=== PATIENT | male | born 1950 | race Caucasian/White ===

== ENCOUNTER 2017-10-27 12:54 | Observation (INO) | payer MEDICARE ==
[2017-10-27 13:25] LABS: Basophils # (A) 0.1 k/uL (0-0.2); Basophils % (A) 0 %; Eosinophils # (A) 0.7 k/uL (0-0.7); Eosinophils % (A) 3 %; HCT 33.9 % (39.0-53.0); HGB 10.8 gm/dL (13.0-17.5); Lymphocytes # (A) 1.6 k/uL (1.0-4.8); Lymphocytes % (A) 8 %; MCH 25.6 pg (25.0-35.0); Mean Platelet Volume 6.9; Monocytes # (A) 0.7 k/uL (0-1.0); Monocytes % (A) 3 %; Neutrophils # (A) 17.6 k/uL (1.3-7.7); Neutrophils % (A) 85 %; Platelet Count 494 k/uL (150-450); RBC 4.23 m/uL (4.30-5.90); RDW 13.3 % (11.5-15.5); WBC 20.8 k/uL (3.8-10.6)
[2017-10-27 13:34] LABS: ALT 32 U/L (21-72); AST 14 U/L (17-59); Albumin 3.2 g/dL (3.5-5.0); Alkaline Phosphatase 111 U/L (38-126); Anion Gap 12 mmol/L; Blood Urea Nitrogen 17 mg/dL (9-20); Calcium 9.1 mg/dL (8.4-10.2); Carbon Dioxide 29 mmol/L (22-30); Chloride 96 mmol/L (98-107); Glucose 125 mg/dL (74-99); Magnesium 1.9 mg/dL (1.6-2.3); Potassium 4.5 mmol/L (3.5-5.1); Sodium 137 mmol/L (137-145); Total Bilirubin 0.3 mg/dL (0.2-1.3); Total Protein 6.4 g/dL (6.3-8.2)
[2017-10-27 13:38] LABS: D-Dimer 0.6 mg/L FEU (<0.60); Partial Thromboplastin Time 22.2 sec (22.0-30.0)
[2017-10-27] MEDS ORDERED: ASPIRIN 81 MG PO STA (13:59)
[2017-10-27] MEDS ORDERED: NITROGLYCERIN OINT 1 INCH/GM PACKET TOPICAL STA (13:59)
[2017-10-27 14:13] LABS: Creatine Kinase <20 U/L (55-170)
--- NOTE | 2017-10-27 14:20 | XR ---
EXAMINATION TYPE: XR chest 2V DATE OF EXAM: 10/27/2017 COMPARISON: Prior chest x-ray 12/24/2015 HISTORY: Chest pain and shortness of breath TECHNIQUE: Frontal and lateral views of the chest are obtained. FINDINGS: Increased density is present in the left lower lobe. Aorta is dense. Pulmonary artery appe ars prominently. Lung volumes are increased. No pneumothorax. Old left clavicular fracture shows a si milar appearance. Spinal curvature. Heart size is stable. Question nodular density left lower lobe ma y be calcified and due to old granulomatous disease. IMPRESSION: Left lower lobe pneumonia, follow-up to resolution to exclude underlying mass. Additiona l findings above.
[2017-10-27 14:26] LABS: Creatine Kinase MB 0.4 ng/mL (0.0-2.4); Troponin I <0.012 ng/mL (0.000-0.034)
--- NOTE | 2017-10-27 16:15 | ED ---
General Adult HPI - General Source: patient Mode of arrival: wheelchair Limitations: no limitations <Doc Rodriguez - Last Filed: 10/27/17 16:14> <Gucci Morse - Last Filed: 10/27/17 16:36> - General Chief complaint: Chest Pain Stated complaint: SOB/Chest pain/sweats Time Seen by Provider: 10/27/17 13:49 - History of Present Illness Initial comments: This 67-year-old white male presents with a complaint of some shortness of breath with it is worse with exertion. He also has had a slight cough. He states that he's had some chest pain diffusely is described more of a pressure type sensation. He is had occasional radiation down his left arm. He denies any fevers. He denies any other complaints or modifying factors. There is no leg pain or swelling. He denies any known cardiac history. He has a history of a remote stress test but has never had a heart catheterization. (Doc Rodriguez) - Related Data Home Medications Medication Instructions Recorded Confirmed Ibuprofen/Diphenhydramine HCl 1 cap PO HS 10/27/17 10/27/17 [Advil Pm Liqui-Gels] Allergies Allergy/AdvReac Type Severity Reaction Status Date / Time No Known Allergies Allergy Verified 10/27/17 13:51 Review of Systems ROS Other: All systems not noted in ROS Statement are negative. <Doc Rodriguez - Last Filed: 10/27/17 16:14> ROS Other: All systems not noted in ROS Statement are negative. <Gucci Morse - Last Filed: 10/27/17 16:36> ROS Statement: Those systems with pertinent positive or pertinent negative responses have been documented in the HPI. Past Medical History Past Medical History: No Reported History History of Any Multi-Drug Resistant Organisms: None Reported Past Surgical History: Hernia Repair, Joint Replacement Additional Past Surgical History / Comment(s): 12/24/15 Total L hip anterior approach. Other surgical hx: colonoscopy, prostate cancer Past Anesthesia/Blood Transfusion Reactions: No Reported Reaction Past Psychological History: No Psychological Hx Reported Smoking Status: Former smoker Past Alcohol Use History: Occasional Past Drug Use History: None Reported - Past Family History Mother Family Medical History: Cancer Additional Family Medical History / Comment(s): Mother had breast cancer and of leukemia at the age of 76yrs. Father Additional Family Medical History / Comment(s): Father of a "broken heart" after his spouses . <Doc Rodriguez - Last Filed: 10/27/17 16:14> General Exam Limitations: no limitations <Doc Rodriguez - Last Filed: 10/27/17 16:14> <Gucci Morse - Last Filed: 10/27/17 16:36> - General Exam Comments Initial Comments: GENERAL: The patient is well nourished and well hydrated. VITAL SIGNS: Heart rate, blood pressure, respiratory rate reviewed as recorded in nurse's notes. EYES: Pupils are round and reactive. Extraocular movements are intact. No conjunctival / lid redness or swelling. ENT: No external evidence of injury, swelling, or ecchymosis. Airway is patent. Throat is clear. NECK: Nontender. No swelling or evidence of injury. No subcutaneous emphysema. Trachea is midline. No thyroid mass. HEART: Regular rate and rhythm. Good peripheral pulses. LUNGS/CHEST: Breath sounds clear and equal bilaterally. No rales, rhonchi, or wheezes. No ecchymosis, subcutaneous emphysema, or tenderness. ABDOMEN: Abdomen soft without tenderness. No palpable masses or organomegaly. No peritoneal signs. No abdominal wall swelling or ecchymosis. EXTREMITIES: No extremity tenderness. Normal muscle tone and function. No thoracolumbar tenderness. NEUROLOGIC: Sensation is grossly intact. Cranial nerve exam reveals face is symmetrical, tongue is midline, speech is clear. SKIN: No abrasions or ecchymosis is noted. No induration or masses noted. PSYCHIATRIC: Alert and oriented. Appropriate behavior and judgment. (Doc Rodriguez) Vital Signs 10/27/17 10/27/17 10/27/17 12:58 14:00 14:33 Temperature 98.6 F Pulse Rate 79 75 Pulse Rate [ 78 Clod Puller ] Respiratory 18 18 18 Rate Blood Pressure 148/70 140/77 O2 Sat by Pulse 98 97 Oximetry Medical Decision Making - Lab Data Result diagrams: 10/27/17 13:00 10/27/17 13:00 <Doc Rodriguez - Last Filed: 10/27/17 16:14> - Lab Data Result diagrams: 10/27/17 13:00 10/27/17 13:00 <Gucci Morse - Last Filed: 10/27/17 16:36> - Medical Decision Making Decision making; this is a 67-year-old male who reports for the past 2 weeks he' s been slightly short of breath with exertion. Occasionally chest pressure. Denies sweats. Denies fever. Patient also complains some discomfort to the arms. Around emergency room the patient had an EKG done which did not show any acute ischemic changes. Vital signs on arrival show temperature 98.6 pulse 75 respiratory rate 18 pulse ox 97% on nasal cannula with a blood pressure 140/77 on examination patient states she did have some discomfort to his left chest wall with very deep breathing. Mild wheezing appreciated on auscultation. Heart no murmur appreciated. Patient was initially evaluated by Dr. Rodriguez and endorsed to me for disposition. Labs show white count 20,000, hemoglobin 10 hematocrit of 33. INR 1.0. D- dimer 0.6. Potassium 4.5 with BUN 17 creatinine 0.57 and GFR greater than 90. Glucose 125. Troponin less than 0.012. BNP 195. Chest x-ray is done and reviewed by radiologist his impression is increased density is present in the left lower lobe. Aorta is dense. Pulmonary artery appears prominently. Lung winds are increased. No pneumothorax. Old left clavicular fracture shows similar appearance. Spinal curvature. Heart size is stable. Questionable nodular density left lower lobe may be calcified and due to old granulomatous disease. Impression left lower lobe pneumonia, follow-up to resolution to exclude underlying mass. Additional findings as noted in the report as read by Dr. Meraz. This report was reviewed with the patient and at bedside. The possibility of an underlying mass was discussed. The patient did have prostate cancer 2 years ago. And he was an ex-smoker. He has not had any cardiac problems per history. The patient was started on Levaquin in the emergency room. The case discussed Dr. Skinner. Patient be admitted to his service with consultation from pulmonary medicine. Dr. Morse (Gucci Morse) - Lab Data Lab Results 10/27/17 10/27/17 10/27/17 Range/Units 13:00 13:00 13:00 WBC 20.8 H (3.8-10.6) k/uL RBC 4.23 L (4.30-5.90) m/uL Hgb 10.8 L (13.0-17.5) gm/dL Hct 33.9 L (39.0-53.0) % MCV 80.0 (80.0-100.0) fL MCH 25.6 (25.0-35.0) pg MCHC 32.0 (31.0-37.0) g/dL RDW 13.3 (11.5-15.5) % Plt Count 494 H (150-450) k/uL Neutrophils % 85 % Lymphocytes % 8 % Monocytes % 3 % Eosinophils % 3 % Basophils % 0 % Neutrophils # 17.6 H (1.3-7.7) k/uL Lymphocytes # 1.6 (1.0-4.8) k/uL Monocytes # 0.7 (0-1.0) k/uL Eosinophils # 0.7 (0-0.7) k/uL Basophils # 0.1 (0-0.2) k/uL PT (9.0-12.0) sec INR (<1.2) APTT (22.0-30.0) sec D-Dimer (<0.60) mg/L FEU Sodium 137 (137-145) mmol/L Potassium 4.5 (3.5-5.1) mmol/L Chloride 96 L (98-107) mmol/L Carbon Dioxide 29 (22-30) mmol/L Anion Gap 12 mmol/L BUN 17 (9-20) mg/dL Creatinine 0.57 L (0.66-1.25) mg/dL Est GFR (CKD-EPI)AfAm >90 (>60 ml/min/1.73 sqM) Est GFR (CKD-EPI)NonAf >90 (>60 ml/min/1.73 sqM) Glucose 125 H (74-99) mg/dL Calcium 9.1 (8.4-10.2) mg/dL Magnesium 1.9 (1.6-2.3) mg/dL Total Bilirubin 0.3 (0.2-1.3) mg/dL AST 14 L (17-59) U/L ALT 32 (21-72) U/L Alkaline Phosphatase 111 (38-126) U/L Total Creatine Kinase <20 L (55-170) U/L CK-MB (CK-2) 0.4 (0.0-2.4) ng/mL CK-MB (CK-2) Rel Index Troponin I <0.012 (0.000-0.034) ng/mL NT-Pro-B Natriuret Pep pg/mL Total Protein 6.4 (6.3-8.2) g/dL Albumin 3.2 L (3.5-5.0) g/dL 10/27/17 10/27/17 Range/Units 13:00 13:00 WBC (3.8-10.6) k/uL RBC (4.30-5.90) m/uL Hgb (13.0-17.5) gm/dL Hct (39.0-53.0) % MCV (80.0-100.0) fL MCH (25.0-35.0) pg MCHC (31.0-37.0) g/dL RDW (11.5-15.5) % Plt Count (150-450) k/uL Neutrophils % % Lymphocytes % % Monocytes % % Eosinophils % % Basophils % % Neutrophils # (1.3-7.7) k/uL Lymphocytes # (1.0-4.8) k/uL Monocytes # (0-1.0) k/uL Eosinophils # (0-0.7) k/uL Basophils # (0-0.2) k/uL PT 10.0 (9.0-12.0) sec INR 1.0 (<1.2) APTT 22.2 (22.0-30.0) sec D-Dimer 0.60 H (<0.60) mg/L FEU Sodium (137-145) mmol/L Potassium (3.5-5.1) mmol/L Chloride (98-107) mmol/L Carbon Dioxide (22-30) mmol/L Anion Gap mmol/L BUN (9-20) mg/dL Creatinine (0.66-1.25) mg/dL Est GFR (CKD-EPI)AfAm (>60 ml/min/1.73 sqM) Est GFR (CKD-EPI)NonAf (>60 ml/min/1.73 sqM) Glucose (74-99) mg/dL Calcium (8.4-10.2) mg/dL Magnesium (1.6-2.3) mg/dL Total Bilirubin (0.2-1.3) mg/dL AST (17-59) U/L ALT (21-72) U/L Alkaline Phosphatase (38-126) U/L Total Creatine Kinase (55-170) U/L CK-MB (CK-2) (0.0-2.4) ng/mL CK-MB (CK-2) Rel Index Troponin I (0.000-0.034) ng/mL NT-Pro-B Natriuret Pep 195 pg/mL Total Protein (6.3-8.2) g/dL Albumin (3.5-5.0) g/dL Disposition <Doc Rodriguez - Last Filed: 10/27/17 16:14> <Gucci Morse - Last Filed: 10/27/17 16:36> Clinical Impression: Pneumonia Disposition: ADMITTED IP TO THIS HOSP Condition: Serious Referrals: Romario Oseguera MD [Primary Care Provider] - 1-2 days
[2017-10-27] MEDS ORDERED: LEVOFLOXACIN 500MG-D5W PMX 500 MG in DEXTROSE/WATER 1 100ML.BAG IVPB STA (16:35)
[2017-10-27] MEDS ORDERED: NALOXONE 0.4 MG/ML 1 ML VIAL IV PRN (16:36)
[2017-10-27] MEDS ORDERED: ACETAMINOPHEN TAB 325 MG TAB PO PRN (16:36)
[2017-10-27] MEDS: SODIUM CHLORIDE 0.9% 1,000 ML IV SCH (17:20)
[2017-10-27 17:28] VITALS: RESP 16
[2017-10-27] MEDS ORDERED: IPRATROPIUM-ALBUTEROL 3 ML NEB INHALATION PRN (18:31)
--- NOTE | 2017-10-27 18:47 | P.HPIM ---
History of Present Illness 67-year-old pleasant gentleman came in with complaints of left-sided chest pressure and pleuritic chest pain without any cough patient is found to have significant infiltrate on the less lower lobe maybe even a mass and postoperative obstructive atelectasis and pneumonia. Patient was started on levofloxacin which will be discontinued and patient was started on ceftriaxone and azithromycin patient doesn't have any recent hospital visits and patient denied any fever does have leukocytosis with highly elevated white blood cell count of 23,000 patient pressure-like sensation has been going on for one day today patient is also coming of shortness of breath. Patient has intentional weight loss of 9 pounds in 3 months as his doctor asked to lose weight. Patient is a smoker smoke 2004. Review of Systems REVIEW OF SYSTEMS: CONSTITUTIONAL: No fever, no malaise, no fatigue. HEENT: No recent visual problems or hearing problems. Denied any sore throat. CARDIOVASCULAR: No orthopnea, PND, no palpitations, no syncope. PULMONARY: No no cough, no hemoptysis. GASTROINTESTINAL: No diarrhea, no nausea, no vomiting, no abdominal pain. Normoactive bowel sounds. NEUROLOGICAL: No headaches, no weakness, no numbness. HEMATOLOGICAL: Denies any bleeding or petechiae. GENITOURINARY: Denies any burning micturition, frequency, or urgency. MUSCULOSKELETAL/RHEUMATOLOGICAL: Denies any joint pain, swelling, or any muscle pain. ENDOCRINE: Denies any polyuria or polydipsia. The rest of the 14-point review of systems is negative. Past Medical History Past Medical History: No Reported History History of Any Multi-Drug Resistant Organisms: None Reported Past Surgical History: Hernia Repair, Joint Replacement Additional Past Surgical History / Comment(s): 12/24/15 Total L hip anterior approach. Other surgical hx: colonoscopy, prostate cancer Past Anesthesia/Blood Transfusion Reactions: No Reported Reaction Past Psychological History: No Psychological Hx Reported Smoking Status: Former smoker Past Alcohol Use History: Occasional Past Drug Use History: None Reported - Past Family History Mother Family Medical History: Cancer Additional Family Medical History / Comment(s): Mother had breast cancer and of leukemia at the age of 76yrs. Father Additional Family Medical History / Comment(s): Father of a "broken heart" after his spouses . Medications and Allergies Home Medications Medication Instructions Recorded Confirmed Type Ibuprofen/Diphenhydramine HCl 1 cap PO HS 10/27/17 10/27/17 History [Advil Pm Liqui-Gels] Allergies Allergy/AdvReac Type Severity Reaction Status Date / Time No Known Allergies Allergy Verified 10/27/17 13:51 Physical Exam Vitals: Vital Signs Temp Pulse Pulse Resp BP Pulse Ox 10/27/17 17:26 99.5 F 74 16 133/72 97 10/27/17 14:33 75 18 140/77 97 10/27/17 14:00 78 18 10/27/17 12:58 98.6 F 79 18 148/70 98 Intake and Output 10/27/17 10/27/17 10/27/17 06:59 14:59 22:59 Other: Weight 77.111 kg PHYSICAL EXAMINATION: GENERAL: The patient is alert and oriented x3, not in any acute distress. Well developed, well nourished. HEENT: Pupils are round and equally reacting to light. EOMI. No scleral icterus. No conjunctival pallor. Normocephalic, atraumatic. No pharyngeal erythema. No thyromegaly. CARDIOVASCULAR: S1 and S2 present. No murmurs, rubs, or gallops. PULMONARY: Clear entry with expiratory wheezing bilaterally minimal ABDOMEN: Soft, nontender, nondistended, normoactive bowel sounds. No palpable organomegaly. MUSCULOSKELETAL: No joint swelling or deformity. EXTREMITIES: No cyanosis, clubbing, or pedal edema. NEUROLOGICAL: Gross neurological examination did not reveal any focal deficits. SKIN: No rashes. Results CBC & Chem 7: 10/27/17 13:00 10/27/17 13:00 Labs: Abnormal Lab Results - Last 24 Hours (Table) 10/27/17 10/27/17 10/27/17 Range/Units 13:00 13:00 13:00 WBC 20.8 H (3.8-10.6) k/uL RBC 4.23 L (4.30-5.90) m/uL Hgb 10.8 L (13.0-17.5) gm/dL Hct 33.9 L (39.0-53.0) % Plt Count 494 H (150-450) k/uL Neutrophils # 17.6 H (1.3-7.7) k/uL D-Dimer (<0.60) mg/L FEU Chloride 96 L (98-107) mmol/L Creatinine 0.57 L (0.66-1.25) mg/dL Glucose 125 H (74-99) mg/dL AST 14 L (17-59) U/L Total Creatine Kinase <20 L (55-170) U/L Albumin 3.2 L (3.5-5.0) g/dL 10/27/17 Range/Units 13:00 WBC (3.8-10.6) k/uL RBC (4.30-5.90) m/uL Hgb (13.0-17.5) gm/dL Hct (39.0-53.0) % Plt Count (150-450) k/uL Neutrophils # (1.3-7.7) k/uL D-Dimer 0.60 H (<0.60) mg/L FEU Chloride (98-107) mmol/L Creatinine (0.66-1.25) mg/dL Glucose (74-99) mg/dL AST (17-59) U/L Total Creatine Kinase (55-170) U/L Albumin (3.5-5.0) g/dL Assessment and Plan Plan: - left lower lobe pneumonia or postobstructive pneumonia: Patient will restart of her on Rocephin and azithromycin. -possible undiagnosed COPD with minimal exacerbation and do not believe patient will require systemic steroids patient was started on Symbicort albuterol ipratropium inhalational -Chest pain we'll rule out acute coronary syndromes 2 more sets of troponins will be obtained normal EKG. Leukocytosis: Secondary to pneumonia
[2017-10-27] MEDS: cefTRIAXone IN SWFI 1,000 MG/10 ML SYRINGE IVP SCH (18:58)
[2017-10-27] MEDS: IPRATROPIUM-ALBUTEROL 3 ML NEB INHALATION SCH (20:47)
[2017-10-27] MEDS: SYMBICORT 160-4.5 MCG INHALER INHALATION SCH (20:47)
[2017-10-27 20:53] LABS: Creatine Kinase <20 U/L (55-170)
[2017-10-27 21:07] LABS: Creatine Kinase MB 0.3 ng/mL (0.0-2.4); Troponin I <0.012 ng/mL (0.000-0.034)
[2017-10-28 01:22] LABS: Creatine Kinase <20 U/L (55-170)
[2017-10-28 01:37] LABS: Creatine Kinase MB 0.3 ng/mL (0.0-2.4); Troponin I <0.012 ng/mL (0.000-0.034)
[2017-10-28] MEDS: SODIUM CHLORIDE 0.9% 1,000 ML IV SCH (05:44)
[2017-10-28 06:29] VITALS: TEMP 98.6
[2017-10-28] MEDS: IPRATROPIUM-ALBUTEROL 3 ML NEB INHALATION SCH ×2 (07:55→12:05)
[2017-10-28] MEDS: SYMBICORT 160-4.5 MCG INHALER INHALATION SCH (07:56)
[2017-10-28] MEDS: cefTRIAXone IN SWFI 1,000 MG/10 ML SYRINGE IVP SCH (08:07)
[2017-10-28] MEDS ORDERED: AZITHROMYCIN 500 MG TAB PO SCH (09:00)
--- NOTE | 2017-10-28 12:18 | P.CNPUL ---
History of Present Illness Consult date: 10/28/17 Reason for consult: dyspnea, cough, COPD, pneumonia, abnormal CXR/CT Chief complaint: Chest pain/shortness of breath/sweats History of present illness: Consult dated 10/28/2017 This is a 67-year-old white male who presents with complaints of some shortness of breath and some chest discomfort. He also has a slight cough and slight phlegm production. He apparently was ill about 3 weeks ago before he took a [place] trip. This seemed to settle down but more recently seemed to recur. He also had a pressure type sensation in his chest. The patient was evaluated in the emergency room for possible cardiac disease but was told that his heart was fine and instead, on chest x-ray was found to have a left-sided pneumonia. It appears to be in the left lower lobe. Again he did have a respiratory illness maybe 3 or 4 weeks ago prior to a [place] trip. The patient does have a history of heavy tobacco use and may also have some underlying COPD. He was seen by the ER doctor and admitted to the hospital for pneumonia. Currently he is feeling well. States that he said doing much better. Wants to know whether or not he could go home. I told will be up to the hospital doctor. Maybe today or maybe 1 more day in the hospital. Review of Systems A 12 point review of system is positive for shortness of breath chest congestion and cough. Slight phlegm production chest pressure was not feeling well. There are also some history of sweats and maybe some mild temperature elevation. He tells us that cardiac disease was ruled out in the emergency room. Past Medical History Past Medical History: Cancer, Osteoarthritis (OA), Prostate Disorder Additional Past Medical History / Comment(s): prostate cancer-radiation tx,no sx. cataracts, umb hernia,had a shingelles vaccine not sure of date History of Any Multi-Drug Resistant Organisms: None Reported Past Surgical History: Hernia Repair, Joint Replacement Additional Past Surgical History / Comment(s): 12/24/15 Total L hip anterior approach. Other surgical hx: colonoscopy, Past Anesthesia/Blood Transfusion Reactions: No Reported Reaction Smoking Status: Former smoker - Past Family History Mother Family Medical History: Cancer Additional Family Medical History / Comment(s): Mother had breast cancer and of leukemia at the age of 76yrs. Father Additional Family Medical History / Comment(s): Father of a "broken heart" after his spouses . Medications and Allergies Home Medications Medication Instructions Recorded Confirmed Type Ibuprofen/Diphenhydramine HCl 1 cap PO HS 10/27/17 10/27/17 History [Advil Pm Liqui-Gels] Allergies Allergy/AdvReac Type Severity Reaction Status Date / Time No Known Allergies Allergy Verified 10/27/17 13:51 Physical Exam Osteopathic Statement: *. No significant issues noted on an osteopathic structural exam other than those noted in the History and Physical/Consult. Vitals: Vital Signs Temp Pulse Pulse Pulse Resp BP BP 10/28/17 08:11 80 10/28/17 08:00 78 80 16 10/28/17 07:58 76 10/28/17 06:28 98.6 F 80 16 136/69 10/27/17 22:59 98.9 F 89 16 132/70 10/27/17 21:04 84 10/27/17 20:50 84 10/27/17 19:30 99.6 F 83 16 148/75 10/27/17 18:55 99.4 F 91 16 128/71 10/27/17 17:26 99.5 F 74 16 133/72 10/27/17 14:33 75 18 140/77 10/27/17 14:00 78 18 10/27/17 12:58 98.6 F 79 18 148/70 Pulse Ox 10/28/17 08:11 10/28/17 08:00 10/28/17 07:58 93 L 10/28/17 06:28 93 L 10/27/17 22:59 94 L 10/27/17 21:04 10/27/17 20:50 10/27/17 19:30 95 10/27/17 18:55 96 10/27/17 17:26 97 10/27/17 14:33 97 10/27/17 14:00 10/27/17 12:58 98 Intake and Output 10/27/17 10/28/17 10/28/17 22:59 06:59 14:59 Other: # Voids 2 No acute distress, oriented 3. No respiratory distress. HEENT examination is grossly unremarkable. Mucous membranes are moist. No oral lesions. Neck supple. Full range of motion. No adenopathy thyromegaly or neck vein distention. Cardiovascular examination reveals regular rhythm rate. S1-S2 normal. No S3 or S4. No discernible murmur noted. Lungs reveal mild coarse rhonchi. Breath sounds are equal bilaterally. No wheezes. A few scattered crackles. All all, lung sounds are not bad though. Abdomen soft bowel sounds are heard. No masses or tenderness. Extremities are intact. No cyanosis clubbing or edema. Skin is without rash or lesion. Neurologic examination is brief but nonfocal. Results - Laboratory Findings CBC and BMP: 10/27/17 13:00 10/27/17 13:00 PT/INR, D-dimer PT 10.0 sec (9.0-12.0) 10/27/17 13:00 INR 1.0 (<1.2) 10/27/17 13:00 D-Dimer 0.60 mg/L FEU (<0.60) H 10/27/17 13:00 Abnormal lab findings: Abnormal Labs 10/27/17 10/27/17 10/27/17 13:00 13:00 13:00 WBC 20.8 H RBC 4.23 L Hgb 10.8 L Hct 33.9 L Plt Count 494 H Neutrophils # 17.6 H D-Dimer Chloride 96 L Creatinine 0.57 L Glucose 125 H AST 14 L Total Creatine Kinase <20 L Albumin 3.2 L 10/27/17 10/27/17 10/28/17 13:00 20:18 00:31 WBC RBC Hgb Hct Plt Count Neutrophils # D-Dimer 0.60 H Chloride Creatinine Glucose AST Total Creatine Kinase <20 L <20 L Albumin - Diagnostic Findings Chest x-ray: image reviewed (Labs x-rays a medications are reviewed. Chest x- ray shows a left lower lobe dense consolidation.) Assessment and Plan Assessment: Assessment Pneumonia, left lower lobe Possible COPD from previous tobacco use Previous history of hernia repair Previous history of left total hip arthroplasty History of prostate cancer Previous history of heavy tobacco use Plan: Plan dated 10/28/2017 The patient seemed be doing relatively well. Ask about whether or not he can go home. That would not be unreasonable. We'll continue to follow. We will see him in the office post discharge for PFTs. He likely has underlying COPD. He will need a pneumonia shot either on discharge day or after discharge. Additional recommendations and suggestions forthcoming. Labs x-rays a medications are all reviewed. Time with Patient: Greater than 30
[2017-10-28 14:42] VITALS: BP 152/79; PULSE 85
[2017-10-28] MEDS ORDERED: LEVOFLOXACIN 500MG-D5W PMX 500 MG in DEXTROSE/WATER 1 100ML.BAG IVPB SCH (16:00)
--- NOTE | 2017-10-30 12:47 | P.DS ---
Providers Date of admission: 10/27/17 16:36 Attending physician: Yeny Skinner Consults: 10/27/17 16:36 Consult Physician Stat Consulting Provider: Doc Dillon Reason/Comments: Lobar pneumonia, rule out mass Do you want consulting provider notified?: Yes Primary care physician: Romario Oumar [facility] Course: Patient was admitted for left lower lobe pneumonia significant improvement with antibiotics wanted to be discharged patient is being discharged patient has significant improvement in his white blood cell count. Patient will follow-up with the pulmonology as an outpatient as there is a suspicion of postobstructive pneumonia which will be followed as an outpatient by pulmonary. PHYSICAL EXAMINATION: GENERAL: The patient is alert and oriented x3, not in any acute distress. Well developed, well nourished. HEENT: Pupils are round and equally reacting to light. EOMI. No scleral icterus. No conjunctival pallor. Normocephalic, atraumatic. No pharyngeal erythema. No thyromegaly. CARDIOVASCULAR: S1 and S2 present. No murmurs, rubs, or gallops. PULMONARY: Chest is clear to auscultation, no wheezing or crackles. ABDOMEN: Soft, nontender, nondistended, normoactive bowel sounds. No palpable organomegaly. MUSCULOSKELETAL: No joint swelling or deformity. EXTREMITIES: No cyanosis, clubbing, or pedal edema. NEUROLOGICAL: Gross neurological examination did not reveal any focal deficits. SKIN: No rashes. Assessment and Plan Plan: - left lower lobe pneumonia or postobstructive pneumonia: Patient was discharged on Ceftin -possible undiagnosed COPD with minimal exacerbation will be discharged on Symbicort, albuterol ipratropium -Chest pain we'll rule out acute coronary syndromes 2 more sets of troponins will be obtained normal EKG. Leukocytosis: Secondary to pneumonia Patient Condition at Discharge: Serious Plan - Discharge Summary Discharge Rx Participant: Yes New Discharge Prescriptions: New Albuterol Inhaler [Ventolin Hfa Inhaler] 1 - 2 puff INHALATION Q6HR PRN #1 inhaler PRN Reason: Shortness Of Breath Or Wheezing Budesonide-Formot 160-4.5 Mcg [Symbicort 160-4.5 Mcg Inhaler] 2 puff INHALATION BID #1 inhaler Cefuroxime Axetil [Ceftin] 500 mg PO BID #14 tab Tiotropium Reading [Spiriva] 1 cap INHALATION DAILY #1 device Ranitidine HCl [Zantac] 150 mg PO BID #15 tab No Action Ibuprofen/Diphenhydramine HCl [Advil Pm Liqui-Gels] 1 cap PO HS Discharge Medication List Ibuprofen/Diphenhydramine HCl [Advil Pm Liqui-Gels] 1 cap PO HS 10/27/17 [ History] Albuterol Inhaler [Ventolin Hfa Inhaler] 1 - 2 puff INHALATION Q6HR PRN #1 inhaler 10/28/17 [Rx] Budesonide-Formot 160-4.5 Mcg [Symbicort 160-4.5 Mcg Inhaler] 2 puff INHALATION BID #1 inhaler 10/28/17 [Rx] Cefuroxime Axetil [Ceftin] 500 mg PO BID #14 tab 10/28/17 [Rx] Ranitidine HCl [Zantac] 150 mg PO BID #15 tab 10/28/17 [Rx] Tiotropium Reading [Spiriva] 1 cap INHALATION DAILY #1 device 10/28/17 [Rx] Follow up Appointment(s)/Referral(s): Doc Dillon DO [Doctor of Osteopathic Medicine] - 1 Week Romario Oseguera MD [Primary Care Provider] - 10/30/17 11:00 am Patient Instructions/Handouts: Bacterial Pneumonia (DC) Discharge Disposition: HOME SELF-CARE
== END 2017-10-28 15:41 | disposition home or self-care (01) ==
LOC: EC 12:54 → 6SEL 16:36 → 4MS4W 19:08
PROVIDERS: ADMIT Internal Medicine; ATTEND Internal Medicine
DX: J18.9 Pneumonia, unspecified organism (principal); R07.89 Other chest pain; M19.90 Unspecified osteoarthritis, unspecified site; H26.9 Unspecified cataract; Z87.891 Personal history of nicotine dependence; Z85.46 Personal history of malignant neoplasm of prostate; Z87.81 Personal history of (healed) traumatic fracture; Z92.3 Personal history of irradiation; Z80.6 Family history of leukemia; Z80.3 Family history of malignant neoplasm of breast; Z96.642 Presence of left artificial hip joint
CPT/HCPCS: 96365 ×2; 96375 ×2; 99285 ×2; 96376; 36415; 94640 ×4; 94760; 93005; 85379; 83880; 80053; 82550 ×2; 82553 ×2; 83735; 84484 ×2; 85025; 85610; 85730; 71046; G0378 ×3; J1956; J0696 ×2

== ENCOUNTER → 2017-12-25 | Outpatient (CLI) | payer MEDICARE ==
[2017-12-25 12:40] LABS: Blood Urea Nitrogen 13 mg/dL (9-20)
--- NOTE | 2017-12-25 21:40 | CT ---
EXAMINATION TYPE: CT chest w con DATE OF EXAM: 12/25/2017 COMPARISON: No chest CTs at this location HISTORY: Left lower lobe fullness, lung cancer CT DLP: 638 mGycm, Automated exposure control for dose reduction was used. CONTRAST: Performed injected with 100 mL of Isovue 300. TECHNIQUE: Axial images were obtained at 5 mm thick sections. Reconstructed images are reviewed on [employer] computer in the coronal plane. FINDINGS: Portion of the thyroid visualized is normal. There is a small to moderate left pleural effusion. There is a masslike area within the left lower lo be with some central hypodensity. This area measures approximately 7.5 x 7.2 x 8.4 cm. Findings are s uggestive for neoplasm with some central necrosis. No enlarged mediastinal adenopathy is evident. There are small lymph nodes within the peribronchial and pretracheal space. Few aortopulmonic window lymph nodes are present. No suspicious hilar adenopat hy is evident. Some calcified lymphadenopathies likely in the subcarinal region Coronary artery calcification is present. The ascending aorta diameter at the level of the main pulmo nary artery is 3.7 cm. The main pulmonary artery diameter at the bifurcation is 2.[address] sections are obtained through the upper abdomen. Small hiatal hernia may be present. Subtl e fullness of the left adrenal gland is present measuring 1.4 cm. IMPRESSIONS: 1. Left lower lobe masslike area with central hypodensity, which may be necrosis.
== END | disposition home or self-care (01) ==
LOC: RADCTMAIN 11:58
PROVIDERS: ATTEND Internal Medicine Critical Care Medicine
DX: C34.32 Malignant neoplasm of lower lobe, left bronchus or lung (principal)
CPT/HCPCS: 82565; 84520; 71260; 36415; Q9967

== ENCOUNTER 2017-12-31 09:24 | Day surgery (SDC) | payer MEDICARE ==
[2017-12-29 12:27] VITALS: BMI 27.0
[~2017-12-31 09:24] MED LIST: LACTATED RINGERS 1,000 ML IV SCH; Pre Op ABX Message 1 EACH MISC MISCELLANE ONE
[2017-12-31 09:56] VITALS: TEMP 99.4
[2017-12-31] MEDS ORDERED: LIDOCAINE 1% 20 ML VIAL (10MG/ML) FOR IV START INTRADERMA ONE (10:06)
[2017-12-31] MEDS ORDERED: ATROPINE SULFATE 0.4 MG/ML 20 ML VIAL IM ONE (10:14)
[2017-12-31] MEDS ORDERED: LIDOCAINE 2% (PF) 20 MG/ML 2 ML AMP INHALATION ONE (10:15)
[2017-12-31] MEDS ORDERED: LIDOCAINE 1% INJ 10MG/ML (20 ML MDV) ONE (11:22)
[2017-12-31] MEDS ORDERED: KETAMINE 10 MG/ML 20 ML VIAL ONE (11:22)
[2017-12-31] MEDS ORDERED: GLYCOPYRROLATE 0.2 MG/ML 2 ML VIAL ONE (11:22)
[2017-12-31] MEDS ORDERED: PROPOFOL 10 MG/ML 20 ML VIAL IV ONE (11:22)
[2017-12-31] MEDS ORDERED: LIDOCAINE 2% INJ 20 MG/ML INTRATRACH ONE (11:46)
[2017-12-31] MEDS ORDERED: ALBUTEROL NEB (CONC) 2.5 MG/0.5 ML INHALATION SCH (12:00)
--- NOTE | 2017-12-31 12:15 | PCN ---
PROCEDURE NOTE PROCEDURE: Bronchoscopy, airway examination, therapeutic lavage, BAL, brushes left lower lobe, transbronchial biopsies left lower lobe, BAL left lower lobe. PREOPERATIVE DIAGNOSIS: Rule out cancer. POSTOPERATIVE DIAGNOSIS: Rule out cancer. OPERATORS: Dr. Dillon and Dr. Malik. There was informed consent and universal timeout. The procedure took place in room #1 [facility] and the FLORIST provided unconscious sedation or general anesthesia. After the patient was adequately sedated and being fully monitored, the bronchoscope was inserted through the right nostril. It passed through the right nasopharynx into the oropharynx. The hypopharynx was identified and topicalized. The hypopharyngeal structures including the anterior commissure, true cords, false cords, arytenoids, piriform sinuses, right and left vallecula and the epiglottis all appeared relatively normal. The glottic opening was topicalized. The bronchoscope was pushed through the glottic opening into the trachea. The trachea had a classic saber-sheath appearance. Tracheal terri was sharp. Right mainstem and left mainstem bronchi were topicalized. The right upper lobe and its 3 segments, right middle lobe and its 2 segments, right lower lobe and its 5 segments, all appeared relatively normal. On the left side, the left upper lobe proper and its 2 segments and the lingula and its 2 segments appeared normal. There was distinct abnormality in the left lower lobe. The left lower lobe bronchial openings and lumen were very narrowed extrinsically. There appeared to be some debris, possibly malignancy on the medial wall of the left lower lobe bronchus. At this point, brushes were done both of the narrowed segment and the lesion on the wall of the bronchus in the left lower lobe. Next, multiple transbronchial biopsies were done in the left lower lobe and then finally, there was a BAL left lower lobe. The transbronchial biopsies and brushes were done under fluoroscopic guidance. There was no immediate complication. There was no significant bleeding. There was a lesion noted on the medial wall of the left lower lobe bronchus. This area was brushed. There was minimal bleeding afterwards, we ensured that there was adequate hemostasis and the bronchoscope was withdrawn. The patient will be recovered. MMODL / IJN: [id number] /
[2017-12-31 12:16] VITALS: RESP 20
[2017-12-31 12:26] VITALS: BP 156/81; PULSE 106
--- NOTE | 2017-12-31 12:45 | XR ---
EXAMINATION TYPE: XR chest 1V portable DATE OF EXAM: 12/31/2017 COMPARISON: 10/27/2017 HISTORY: Bronchoscopy with left lower lobe biopsy TECHNIQUE: Single frontal view of the chest is obtained. FINDINGS: There is a new pleural effusion, appearing moderate in size obscuring the retrocardiac air space. No sizable pneumothorax is identified. Redemonstration of a left midlung consolidation. Right lung remains clear as does the left lung apex. Cardia mediastinal silhouette is now obscured. Osseous structures demonstrate old left mid clavicular fracture deformity. IMPRESSION: New moderate left pleural effusion and left basilar airspace disease status post broncho scopy. No sizable pneumothorax is seen. Stable left midlung opacity.
--- NOTE | 2017-12-31 14:19 | FL ---
EXAMINATION TYPE: FL bronchoscopy DATE OF EXAM: 12/31/2017 COMPARISON: NONE HISTORY: Left lower lobe biopsies Fluoroscopy support supplied to the referring clinician. See dictated report from pulmonary, 1 minut e 12 seconds fluoroscopy time supplied to the referring clinician, intraoperative C-arm image documen ts the procedure
[2017-12-31 14:53] LABS: Appearance,BF Bloody; Nucleated Cells, Body Fluid 1500 /uL; RBC, Body Fluid 71500 /uL
[2017-12-31 15:16] LABS: Mononuclear WBC,Body Fluid 62 %; Polynuclear WBC,Body Fluid 38 %; Total Cells Counted,Body Fluid 100
== END 2017-12-31 13:05 | disposition home or self-care (01) ==
LOC: ORWHC2ENDO 09:24
PROVIDERS: ATTEND Internal Medicine Critical Care Medicine
DX: J18.9 Pneumonia, unspecified organism (principal); J44.0 Chronic obstructive pulmonary disease with (acute) lower respiratory infection; M19.90 Unspecified osteoarthritis, unspecified site; K21.9 Gastro-esophageal reflux disease without esophagitis; Z87.891 Personal history of nicotine dependence; Z85.46 Personal history of malignant neoplasm of prostate; Z79.51 Long term (current) use of inhaled steroids; Z79.1 Long term (current) use of non-steroidal anti-inflammatories (NSAID); Z87.01 Personal history of pneumonia (recurrent); Z79.899 Other long term (current) drug therapy
CPT/HCPCS: 94640; 87496; 87498; 87529 ×2; 88104; 88108; 88305; 89050; 88342; 87252; 87502; 87798 ×3; 87634; 88341; 87070; 87205; 87116; 87102; 87206; 71045; 31628; 31623; 31624; J2001 ×3; J0461; J2704

== ENCOUNTER 2017-12-31 16:43 | Inpatient (IN) | payer MEDICARE ==
[2017-12-31] MEDS ORDERED: IPRATROPIUM-ALBUTEROL 3 ML NEB INHALATION STA ×2 (16:47→18:44)
--- NOTE | 2017-12-31 16:55 | ED ---
General Adult HPI - General Stated complaint: KATRINA Time Seen by Provider: 12/31/17 16:46 Source: RN notes reviewed, old records reviewed - History of Present Illness Initial comments: This is a 67-year-old male the ER for evaluation. Presents today for evaluation regards to his shortness of breath. Patient has history of known CVA , history of recent biopsy biopsy today, patient states he went home and has since been unable to breathe. Patient brought in by EMS given breathing treatment by EMS and unable to give history secondary to severe distress - Related Data Home Medications Medication Instructions Recorded Confirmed Budesonide-Formot 160-4.5 Mcg 2 puff INHALATION RT-BID PRN 12/29/17 12/31/17 [Symbicort 160-4.5 Mcg Inhaler] Tiotropium [place] [Spiriva] 1 cap INHALATION RT-DAILY PRN 12/29/17 12/31/17 Albuterol Inhaler [Ventolin Hfa 1 - 2 puff INHALATION RT-Q6H PRN 12/31/17 Inhaler] traMADol HCL [Ultram] 50 mg PO Q6HR PRN 12/31/17 12/31/17 Allergies Allergy/AdvReac Type Severity Reaction Status Date / Time No Known Allergies Allergy Verified 12/31/17 17:23 Review of Systems ROS Statement: Those systems with pertinent positive or pertinent negative responses have been documented in the HPI. ROS Other: All systems not noted in ROS Statement are negative. Past Medical History Past Medical History: Cancer, Osteoarthritis (OA), Prostate Disorder Additional Past Medical History / Comment(s): prostate cancer-radiation tx,no sx. cataracts, umb hernia,had a shingelles vaccine not sure of date History of Any Multi-Drug Resistant Organisms: None Reported Past Surgical History: Hernia Repair, Joint Replacement Additional Past Surgical History / Comment(s): 12/24/15 Total L hip anterior approach. Other surgical hx: colonoscopy, Past Anesthesia/Blood Transfusion Reactions: No Reported Reaction Additional Past Alcohol Use History / Comment(s): Pt started smoking in 1966 and quit in 2004, smoked 1 ppd - Past Family History Mother Family Medical History: Cancer Additional Family Medical History / Comment(s): Mother had breast cancer and of leukemia at the age of 76yrs. Father Additional Family Medical History / Comment(s): Father of a "broken heart" after his spouses . Sister(s) Family Medical History: Cancer Additional Family Medical History / Comment(s): Breast cancer. General Exam General appearance: alert, anxious, in distress Head exam: Present: atraumatic, normocephalic, normal inspection Eye exam: Present: normal appearance, PERRL, EOMI. Absent: scleral icterus, conjunctival injection, periorbital swelling ENT exam: Present: normal exam, mucous membranes moist Neck exam: Present: normal inspection. Absent: tenderness, meningismus, lymphadenopathy Respiratory exam: Present: respiratory distress, wheezes, accessory muscle use, decreased breath sounds, prolonged expiratory. Absent: rales, rhonchi, stridor Cardiovascular Exam: Present: regular rate, normal rhythm, normal heart sounds. Absent: systolic murmur, diastolic murmur, rubs, gallop, clicks GI/Abdominal exam: Present: soft, normal bowel sounds. Absent: distended, tenderness, guarding, rebound, rigid Extremities exam: Present: normal inspection, full ROM, normal capillary refill. Absent: tenderness, pedal edema, joint swelling, calf tenderness Back exam: Present: normal inspection Neurological exam: Present: alert, oriented X3, CN II-XII intact Psychiatric exam: Present: normal affect, normal mood Skin exam: Present: warm, dry, intact, normal color. Absent: rash Course Vital Signs 12/31/17 12/31/17 12/31/17 16:50 16:51 17:04 Temperature 99.2 F Pulse Rate 133 H 126 H Respiratory 38 H 36 H Rate Blood Pressure 162/97 O2 Sat by Pulse 98 Oximetry 12/31/17 17:16 Temperature Pulse Rate 130 H Respiratory Rate Blood Pressure O2 Sat by Pulse Oximetry - Reevaluation(s) Reevaluation #1: 12/31/17 18:46 Patient was placed on BiPAP upon arrival to emergency room, after BiPAP with breathing treatment, patient does have significant improvement in breathing, is able to speak in sentences currently, will admit for continued treatment EKG Findings - EKG Comments: EKG Findings:: EKG shows sinus tachycardia 134, HI 144, QRS 80, QTC 448 Medical Decision Making - Medical Decision Making 67 male to the ED complains of positive shortness of breath, severe shortness of breath placed on BiPAP with improvement. Patient has recent procedure, postprocedure pulmonary edema COPD, will admit for both pulmonary cardiology consultation continue BiPAP and management of cardiopulmonary situation - Lab Data Result diagrams: 12/31/17 17:13 12/31/17 17:13 Lab Results 12/31/17 12/31/17 12/31/17 Range/Units 17:13 17:13 17:13 WBC 27.9 H* (3.8-10.6) k/uL RBC 4.09 L (4.30-5.90) m/uL Hgb 10.2 L (13.0-17.5) gm/dL Hct 32.3 L (39.0-53.0) % MCV 78.9 L (80.0-100.0) fL MCH 25.0 (25.0-35.0) pg MCHC 31.6 (31.0-37.0) g/dL RDW 15.9 H (11.5-15.5) % Plt Count 405 (150-450) k/uL Neutrophils % 92 % Lymphocytes % 4 % Monocytes % 2 % Eosinophils % 1 % Basophils % 0 % Neutrophils # 25.8 H (1.3-7.7) k/uL Lymphocytes # 1.1 (1.0-4.8) k/uL Monocytes # 0.7 (0-1.0) k/uL Eosinophils # 0.3 (0-0.7) k/uL Basophils # 0.0 (0-0.2) k/uL Manual Slide Review Performed Hypochromasia Slight Sodium 137 (137-145) mmol/L Potassium 3.9 (3.5-5.1) mmol/L Chloride 98 (98-107) mmol/L Carbon Dioxide 26 (22-30) mmol/L Anion Gap 13 mmol/L BUN 15 (9-20) mg/dL Creatinine 0.57 L (0.66-1.25) mg/dL Est GFR (CKD-EPI)AfAm >90 (>60 ml/min/1.73 sqM) Est GFR (CKD-EPI)NonAf >90 (>60 ml/min/1.73 sqM) Glucose 137 H (74-99) mg/dL Plasma Lactic Acid Gerhard (0.7-2.0) mmol/L Calcium 8.0 L (8.4-10.2) mg/dL Magnesium 1.5 L (1.6-2.3) mg/dL Total Bilirubin 0.4 (0.2-1.3) mg/dL AST 22 (17-59) U/L ALT 36 (21-72) U/L Alkaline Phosphatase 111 (38-126) U/L Total Creatine Kinase 26 L (55-170) U/L CK-MB (CK-2) 2.2 (0.0-2.4) ng/mL CK-MB (CK-2) Rel Index 8.5 Troponin I 0.219 H* (0.000-0.034) ng/mL NT-Pro-B Natriuret Pep pg/mL Total Protein 5.6 L (6.3-8.2) g/dL Albumin 2.9 L (3.5-5.0) g/dL 12/31/17 12/31/17 Range/Units 17:13 18:24 WBC (3.8-10.6) k/uL RBC (4.30-5.90) m/uL Hgb (13.0-17.5) gm/dL Hct (39.0-53.0) % MCV (80.0-100.0) fL MCH (25.0-35.0) pg MCHC (31.0-37.0) g/dL RDW (11.5-15.5) % Plt Count (150-450) k/uL Neutrophils % % Lymphocytes % % Monocytes % % Eosinophils % % Basophils % % Neutrophils # (1.3-7.7) k/uL Lymphocytes # (1.0-4.8) k/uL Monocytes # (0-1.0) k/uL Eosinophils # (0-0.7) k/uL Basophils # (0-0.2) k/uL Manual Slide Review Hypochromasia Sodium (137-145) mmol/L Potassium (3.5-5.1) mmol/L Chloride (98-107) mmol/L Carbon Dioxide (22-30) mmol/L Anion Gap mmol/L BUN (9-20) mg/dL Creatinine (0.66-1.25) mg/dL Est GFR (CKD-EPI)AfAm (>60 ml/min/1.73 sqM) Est GFR (CKD-EPI)NonAf (>60 ml/min/1.73 sqM) Glucose (74-99) mg/dL Plasma Lactic Acid Gerhard 1.9 (0.7-2.0) mmol/L Calcium (8.4-10.2) mg/dL Magnesium (1.6-2.3) mg/dL Total Bilirubin (0.2-1.3) mg/dL AST (17-59) U/L ALT (21-72) U/L Alkaline Phosphatase (38-126) U/L Total Creatine Kinase (55-170) U/L CK-MB (CK-2) (0.0-2.4) ng/mL CK-MB (CK-2) Rel Index Troponin I (0.000-0.034) ng/mL NT-Pro-B Natriuret Pep 1270 pg/mL Total Protein (6.3-8.2) g/dL Albumin (3.5-5.0) g/dL - Radiology Data Radiology results: report reviewed (Chest x-ray shows positive pulmonary edema) , image reviewed Critical Care Time Critical Care Time: Yes Total Critical Care Time: 31 Disposition Clinical Impression: Acute pulmonary edema, Acute exacerbation of chronic obstructive airways disease, Acute respiratory failure, Hypoxia Disposition: ADMITTED IP TO THIS HOSP Condition: Serious Is patient prescribed a controlled substance at d/c from ED?: No Referrals: Romario Oseguera MD [Primary Care Provider] - 1-2 days
--- NOTE | 2017-12-31 17:02 | XR ---
EXAMINATION TYPE: XR chest 1V portable DATE OF EXAM: 12/31/2017 COMPARISON: 12/31/2017 at 12:15 PM HISTORY: Shortness of breath after bronchoscopy. TECHNIQUE: Single frontal view of the chest is obtained. FINDINGS: There is a persistent retrocardiac density obscuring the costophrenic angle and left hemid iaphragm. Left midlung opacity is also similar to the prior. Lung apices are well aerated. New multif ocal reticular opacity seen within the right lung base. Osseous structures are intact with mild right acromioclavicular arthropathy. Mediastinal silhouette is partially obscured and stable. IMPRESSION: 1. No postprocedural pneumothorax. 2. Redemonstration of a left midlung opacity, recently biopsied by bronchoscopy, and stable moderate left pleural effusion. 3. New right basilar patchy opacity given interval development is favored to represent either pulmona ry edema or atelectasis.
[2017-12-31] MEDS ORDERED: methylPREDNISolone SOD SUCCI 125 MG/2 ML VIAL IV STA (17:16)
[2017-12-31] MEDS ORDERED: MORPHINE SULFATE 2 MG/ML SYRINGE IVP STA (17:16)
[2017-12-31] MEDS ORDERED: LORazepam 2 MG/ML INJ IV STA (17:16)
[2017-12-31 17:30] LABS: Basophils % (A) 0 %; Eosinophils # (A) 0.3 k/uL (0-0.7); Eosinophils % (A) 1 %; HCT 32.3 % (39.0-53.0); HGB 10.2 gm/dL (13.0-17.5); Hypochromasia Slight; Lymphocytes # (A) 1.1 k/uL (1.0-4.8); Lymphocytes % (A) 4 %; MCHC 31.6 g/dL (31.0-37.0); MCV 78.9 fL (80.0-100.0); Mean Platelet Volume 7.3; Monocytes # (A) 0.7 k/uL (0-1.0); Monocytes % (A) 2 %; Neutrophils # (A) 25.8 k/uL (1.3-7.7); Neutrophils % (A) 92 %; Platelet Count 405 k/uL (150-450); RBC 4.09 m/uL (4.30-5.90); RDW 15.9 % (11.5-15.5)
[2017-12-31 17:32] LABS: WBC 27.9 k/uL (3.8-10.6)
[2017-12-31 17:37] LABS: ALT 36 U/L (21-72); AST 22 U/L (17-59); Albumin 2.9 g/dL (3.5-5.0); Alkaline Phosphatase 111 U/L (38-126); Anion Gap 13 mmol/L; Blood Urea Nitrogen 15 mg/dL (9-20); Carbon Dioxide 26 mmol/L (22-30); Chloride 98 mmol/L (98-107); Glucose 137 mg/dL (74-99); Magnesium 1.5 mg/dL (1.6-2.3); Potassium 3.9 mmol/L (3.5-5.1); Sodium 137 mmol/L (137-145); Total Bilirubin 0.4 mg/dL (0.2-1.3); Total Protein 5.6 g/dL (6.3-8.2)
[2017-12-31 17:53] LABS: Creatine Kinase MB 2.2 ng/mL (0.0-2.4); Troponin I 0.219 ng/mL (0.000-0.034)
[2017-12-31 18:52] LABS: INR 1.2 (<1.2); Partial Thromboplastin Time 21.8 sec (22.0-30.0); Prothrombin Time 11.2 sec (9.0-12.0)
[2017-12-31] MEDS: IPRATROPIUM-ALBUTEROL 3 ML NEB INHALATION SCH (19:07)
[2017-12-31] MEDS: methylPREDNISolone SOD SUCCI 125 MG/2 ML VIAL IV SCH (23:11)
[2018-01-01 03:41] LABS: Magnesium 1.9 mg/dL (1.6-2.3); Potassium 4.4 mmol/L (3.5-5.1)
[2018-01-01] MEDS: methylPREDNISolone SOD SUCCI 125 MG/2 ML VIAL IV SCH ×4 (05:44→23:22)
[2018-01-01 06:01] LABS: Glucose,Whole Blood 176 mg/dL (75-99)
[2018-01-01] MEDS: INSULIN ASPART 100 UNIT/ML 1 ML 10 ML VIAL SQ SCH ×4 (06:31→21:07)
[2018-01-01] MEDS: IPRATROPIUM-ALBUTEROL 3 ML NEB INHALATION SCH ×4 (07:44→20:29)
--- NOTE | 2018-01-01 09:55 | CONS ---
CONSULTATION Mr. Mario Edouard is a 67-year-old male patient who underwent a bronchoscopy and bronchoalveolar lavage yesterday. He was stable at discharge. When he arrived home, he sat to watch TV. Initially he started having a severe coughing spell that would not stop and as he tried to lay down later on, he became very short of breath and had to sit up. He denied any chest discomfort. No dizziness or palpitations. He was asked to come to the emergency room. He was very short of breath and called EMS who brought him here. His first 12-lead ECG shows sinus tachycardia at 134 beats a minute with baseline artifact and nonspecific ST-T abnormalities noted. His repeat chest x-ray shows no pneumothorax. There is a right basilar patchy opacity which is new. There is a left mid lung opacity that was biopsied recently and a left pleural effusion, which is unchanged from before. PAST HISTORY: Past history of pneumonitis. He was here 6 weeks back. He has a lung mass which is being evaluated at this time. He denies any prior cardiac issues. He has a history of prostate cancer, cataract surgery, hernia repair, joint replacement. His father had Takotsubo syndrome. REVIEW OF SYSTEMS: No fever, chills, or rigors. He did have a loud coughing, but without expectoration. He is very short of breath. No hematuria or dysuria. No strokes or seizures. No skin lesions or musculoskeletal complaints. No nausea, vomiting, or diarrhea. LABS: Labs are reviewed. His white count is 27.9 thousand. Electrolytes are normal. Liver functions normal. Troponin 0.21. IMPRESSION: 1. Patient with lung mass and shortness of breath with a new density in the right lung. 2. Telemetry shows a run of wide-complex tachycardia, which has a right bundle branch block morphology and I see suggestion P waves just before the QRS. This tachycardia has warmed down phase and then termination. It is nonsustained. It probably represents an atrial tachycardia with aberrancy, although nonsustained ventricular tachycardia is equally possible. He also has frequent PVCs and ventricular couplets of a different morphology. SUGGEST: A 2D echo and Doppler study to assess cardiac structure and function, cardiac enzymes and a lipid panel. The patient states that the last time when he was admitted here with pneumonitis, he actually felt that he was having a heart attack and that is what brought him to the hospital. I would treat him with a baby aspirin and statins and I would also treat with beta blockers for now. A 2D echo has been ordered. SEN / IJN: [id number] /
[2018-01-01] MEDS ORDERED: traMADol 50 MG TAB PO PRN (10:00)
[2018-01-01] MEDS: ASPIRIN 81 MG PO SCH (10:24)
[2018-01-01] MEDS: METOPROLOL TARTRATE 25 MG TAB PO SCH ×2 (10:25→20:55)
--- NOTE | 2018-01-01 11:27 | P.CNPUL ---
History of Present Illness Consult date: 01/01/18 Reason for consult: dyspnea, hypoxemia, lung mass, abnormal CXR/CT Chief complaint: Shortness of breath History of present illness: Pulmonary consultation dated 01/01/2018 67-year-old male who presents to the emergency room with complaints of shortness of breath. We actually did a bronchoscopy and biopsy on the patient yesterday. He has a non-resolving infiltrate/mass in the left lower lobe. He underwent bronchoscopy with transbronchial biopsies. He did well with that procedure. He also had brushes and BAL done at that time. He had no problems postoperatively and was discharged home. Subsequently, at home, he apparently developed shortness of breath. Denies any pain to the chest. EMS was called and he was transported to the hospital where he was evaluated emergency room and admitted. His troponins were mildly elevated. Apparently his echocardiogram shows poor left ventricular ejection fraction and his chest x- ray was consistent with heart failure. He also has a mass in the left lower lobe. In addition, his N-terminal proBNP was elevated. For those reasons he was admitted. Cardiology is seeing the patient. Started on medication for his tachycardia. He apparently had a episode of a wide-complex tachycardia which could be either a V. tach and/or an atrial tachycardia with a bare and see. Anyway, the patient seems to be resting comfortably at this time. Evaluation is underway. Never had chest pain. Review of Systems A 12 point review of system is positive for shortness of breath. Denies any chest pain or chest discomfort. Past Medical History Past Medical History: Cancer, Osteoarthritis (OA), Pneumonia, Prostate Disorder Additional Past Medical History / Comment(s): prostate cancer-radiation tx,no sx. cataracts(sx done), umb hernia,had a shingelles vaccine not sure of date History of Any Multi-Drug Resistant Organisms: None Reported Past Surgical History: Hernia Repair, Joint Replacement Additional Past Surgical History / Comment(s): 12/31/17 bronchoscopy w/ bx. Total L hip anterior approach. colonoscopy,link cataracts, lt ing hernia. Past Anesthesia/Blood Transfusion Reactions: No Reported Reaction Smoking Status: Former smoker - Past Family History Mother Family Medical History: Cancer Additional Family Medical History / Comment(s): Mother had breast cancer and of leukemia at the age of 76yrs. Father Additional Family Medical History / Comment(s): Father of a "broken heart" after his spouses . Sister(s) Family Medical History: Cancer Additional Family Medical History / Comment(s): Breast cancer. Medications and Allergies Home Medications Medication Instructions Recorded Confirmed Type Budesonide-Formot 160-4.5 Mcg 2 puff INHALATION RT-BID PRN 12/29/17 12/31/17 History [Symbicort 160-4.5 Mcg Inhaler] Tiotropium [place] [Spiriva] 1 cap INHALATION RT-DAILY PRN 12/29/17 12/31/17 History Albuterol Inhaler [Ventolin Hfa 1 - 2 puff INHALATION RT-Q6H PRN 12/31/17 History Inhaler] traMADol HCL [Ultram] 50 mg PO Q6HR PRN 12/31/17 12/31/17 History Allergies Allergy/AdvReac Type Severity Reaction Status Date / Time No Known Allergies Allergy Verified 12/31/17 17:23 Physical Exam Osteopathic Statement: *. No significant issues noted on an osteopathic structural exam other than those noted in the History and Physical/Consult. Vitals: Vital Signs Temp Pulse Pulse Resp BP BP Pulse Ox 01/01/18 08:00 97.6 F 77 16 107/70 96 01/01/18 07:54 80 01/01/18 07:44 72 01/01/18 04:00 70 17 94/64 100 01/01/18 00:00 97.8 F 80 18 101/59 97 12/31/17 20:23 98.6 F 101 H 22 120/78 98 12/31/17 19:30 105 H 24 120/78 98 12/31/17 19:27 106 H 12/31/17 19:10 107 H 12/31/17 18:30 116 H 26 H 150/78 96 12/31/17 17:16 130 H 12/31/17 17:11 97.8 F 128 H 30 H 147/76 99 12/31/17 17:04 126 H 12/31/17 16:51 99.2 F 133 H 36 H 162/97 98 12/31/17 16:50 38 H Intake and Output 12/31/17 01/01/18 01/01/18 22:59 06:59 14:59 Intake Total 360 Balance 360 Intake: Oral 360 Other: Voiding Method Toilet # Voids 0 0 Weight 79.379 kg 76.7 kg Results No acute distress, oriented 3. Nasal O2 in place. HEENT examination is grossly unremarkable. Mucous membranes are moist. No oral lesions. Neck supple. Full range of motion. No adenopathy thyromegaly or neck vein distention. Cardiovascular examination reveals regular rhythm rate. S1-S2 normal. No S3 or S4. No discernible murmur noted. Lungs reveal scattered bilateral rhonchi and crackles. Breath sounds are equal except for diminished breath sounds in the left lower lobe. No wheezes. Abdomen soft bowel sounds are heard. No masses or tenderness. Extremities are intact. No cyanosis clubbing or edema. Skin is without rash or lesion. Neurologic examination is brief but nonfocal. - Laboratory Findings CBC and BMP: 12/31/17 17:13 01/01/18 03:17 PT/INR, D-dimer PT 11.2 sec (9.0-12.0) 12/31/17 18:24 INR 1.2 (<1.2) H 12/31/17 18:24 Abnormal lab findings: Abnormal Labs 12/31/17 12/31/17 12/31/17 17:13 17:13 17:13 WBC 27.9 H* RBC 4.09 L Hgb 10.2 L Hct 32.3 L MCV 78.9 L RDW 15.9 H Neutrophils # 25.8 H INR APTT Creatinine 0.57 L Glucose 137 H POC Glucose (mg/dL) Calcium 8.0 L Magnesium 1.5 L Total Creatine Kinase 26 L Troponin I 0.219 H* Total Protein 5.6 L Albumin 2.9 L 12/31/17 01/01/18 18:24 05:57 WBC RBC Hgb Hct MCV RDW Neutrophils # INR 1.2 H APTT 21.8 L Creatinine Glucose POC Glucose (mg/dL) 176 H Calcium Magnesium Total Creatine Kinase Troponin I Total Protein Albumin Assessment and Plan Assessment: Assessment Shortness of breath, which developed a number of hours after his bronchoscopy yesterday, of unclear etiology. His BNP was mildly elevated, chest x-ray was consistent with fluid overload, and apparently had echocardiogram he has a poor left ventricular ejection fraction. He also had a run of wide-complex tachycardia which may represent V. tach and/or atrial tachycardia with abberancy. Left lower lobe mass, postop day #1 status post bronchoscopy with transbronchial biopsy, brushes and washings COPD Prostate cancer DJD Plan: Plan dated 01/01/2018 Cardiology is seeing the patient. Awaiting for the official echocardiogram results. The patient was placed on a beta [place]. Additional recommendations and suggestions are forthcoming. We'll follow closely. Biopsy results will not be back for a couple of days at least. Hopeful discharge soon from the hospital. Time with Patient: Greater than 30
[2018-01-01 11:48] LABS: Glucose,Whole Blood 184 mg/dL (75-99)
[2018-01-01 15:27] LABS: Hemoglobin A1C 5.9 % (4.0-6.0)
[2018-01-01 16:54] LABS: Glucose,Whole Blood 164 mg/dL (75-99)
[2018-01-01] MEDS ORDERED: ALPRAZolam 0.25 MG TAB PO PRN (17:05)
[2018-01-01] MEDS ORDERED: CALCIUM CARBONATE 500 MG CHEWABLE PO PRN (17:05)
[2018-01-01] MEDS ORDERED: MAGNESIUM HYDROXIDE 2,400 MG/10 ML CUP PO PRN (17:05)
[2018-01-01] MEDS ORDERED: LACTULOSE 20 GM/30 ML CUP PO PRN (17:05)
[2018-01-01] MEDS ORDERED: MELATONIN 3 MG TABLET PO PRN (17:05)
[2018-01-01] MEDS ORDERED: ACETAMINOPHEN TAB 325 MG TAB PO PRN (17:05)
[2018-01-01] MEDS ORDERED: ONDANSETRON 4 MG/2 ML VIAL IVP PRN (17:05)
--- NOTE | 2018-01-01 18:28 | HP ---
HISTORY AND PHYSICAL DATE OF ADMISSION: 12/31/2017 DATE OF SERVICE: 01/01/2018 PRESENTING COMPLAINT: Short of breath. HISTORY OF PRESENTING COMPLAINT: This is a pleasant 67-year-old patient of Dr. Oseguera. He also follows with Dr. Dillon. Chronic stable medical conditions include emphysema, GERD, umbilical hernia. Patient has a non-resolving infiltrate/mass in the left lower lobe. He yesterday underwent a bronchoscopy and had transbronchial biopsies. He went home. At home the patient went into what he describes as a coughing jag and then he became really short of breath. Then he presented to the ER. Telemetry did show some wide complex tachycardia and some PVCs. When I saw the patient, he was very keen to go home, and I did tell him that he had to wait for further evaluation by Pulmonary and Cardiology. Patient had no obvious chest pain. No dizziness. No lightheadedness. No edema. REVIEW OF SYSTEMS: CONSTITUTIONAL: None. HEENT: None. RESPIRATORY: As above. CARDIOVASCULAR: As above. GASTROINTESTINAL: Heartburn. GENITOURINARY: None. MUSCULOSKELETAL: None. DERMATOLOGICAL: None. HEMATOLOGICAL: None. LYMPHATICS: None. PSYCHIATRY: None. NEUROLOGICAL: None. PAST MEDICAL HISTORY: 1. Osteoarthritis. 2. Prostate cancer; had radiation. 3. Cataracts. 4. Umbilical hernia, asymptomatic. 5. Left lung mass, being followed by Dr. Dillon. PAST SURGICAL HISTORY: 1. Hernia repair. 2. Joint replacement. 3. Left total hip arthroscopy. 4. Bilateral cataracts. 5. Left inguinal hernia. SOCIAL HISTORY: Patient lives with his spouse. 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 He also served in the [employer] in [employer]. Patient smoked for close to 38 years about a pack a day, stopped in 2004. . FAMILY HISTORY: Mother had breast cancer and of leukemia at the age of 76. HOME MEDICATIONS: 1. Ultram 50 mg q.6 p.r.n. 2. Spiriva 1 capsule p.o. daily. 3. Symbicort 160/4.5 two puffs b.i.d. 4. Ventolin HFA p.r.n. ALLERGIES: NONE. PHYSICAL EXAMINATION: VITAL SIGNS ON PRESENTATION: Temperature 99.2, pulse 133, respiration 38, short of breath, labored. Blood pressure 162/97, pulse ox 98% on non-rebreather. GENERAL APPEARANCE: Average build. Sitting up, currently comfortable. EYES: Pupils equal. Conjunctivae normal. HEENT: External appearance of nose and ears normal. Oral cavity normal. NECK: JVD not raised. Mass not palpable. RESPIRATORY: Effort normal. LUNGS: Diminished breath sounds. CARDIOVASCULAR: First and second sounds normal. No edema. ABDOMEN: Soft, non-tender. Liver and spleen not palpable. LYMPHATIC: No lymph node palpable in neck or axillae. PSYCHIATRY: Alert and oriented x3. Mood and affect normal. NEUROLOGICAL: Pupils equal. Cranial nerves grossly intact. Power and sensation grossly intact. INVESTIGATIONS: White count 27.9, hemoglobin 10.2, potassium 3.9, BUN 15, creatinine 0.57, troponin 0.2, 2.5. EKG showed ST segment depressed in the lateral leads, possible tachycardia. ASSESSMENT: 1. Possible acute myocardial infarction, acute non-Q-wave. Troponin has gone from 0.2 to 2.5 and questionable evidence of ventricular tachycardia and possible pulmonary edema. 2. Left lung mass, being followed as an outpatient by Dr. Dillon. 3. Asymptomatic umbilical hernia. 4. Emphysema in an ex-smoker. 5. Leukocytosis, cause unclear. 6. Microcytic anemia; at the present time cause unknown. 7. Hypoalbuminemia, acute phase reactant. 8. Hypomagnesemia. PLAN: Patient was seen by Dr. Dillon. Patient is on IV Solu-Medrol, DuoNeb. Patient is also on aspirin, Lipitor, Lopressor. Cardiology, Dr. Brand, was consulted. Two-D echo was ordered. MMODL / IJN: [id number] /
--- NOTE | 2018-01-01 18:49 | ECHOF ---
Referral Reason:sob, NSVT MEASUREMENTS -------- HEIGHT: 175.3 cm WEIGHT: 76.7 kg BP: IVSd: 1.1 cm (0.6 - 1.1) LVIDd: 4.8 cm (3.9 - 5.3) LVPWd: 1.3 cm (0.6 - 1.1) IVSs: 1.2 cm LVIDs: 3.5 cm LVPWs: 1.3 cm LAESV Index (A-L): 31.98 ml/m Ao Diam: 3.1 cm (2.0 - 3.7) AV Cusp: 1.3 cm (1.5 - 2.6) LA Diam: 3.2 cm (2.7 - 3.8) MV EXCURSION: 12.495 mm (> 18.000) MV EF SLOPE: 141 mm/s (70 - 150) EPSS: 3.2 cm MV E Timoteo: 0.70 m/s MV DecT: 161 ms MV A Timoteo: 0.97 m/s MV E/A Ratio: 0.72 RAP: 5.00 mmHg RVSP: 31.23 mmHg FINDINGS -------- Sinus rhythm. This was a technically difficult study with suboptimal views. The left ventricular size is normal. Left ventricular wall thickness is normal. Overall left vent ricular systolic function is moderately impaired with, an EF between 35 - 40 %. There is global hyp okinesia The right ventricle is normal in size and function. LA is midly dilated 29-33ml/m2. The right atrium is normal in size. Lumason used The aortic valve is trileaflet, and appears structurally normal. No aortic stenosis or regurgitation. The mitral valve leaflets are mildly thickened. There is trace mitral regurgitation. Trace tricuspid regurgitation present. The right ventricular systolic pressure, as measured by Dopp ler, is 31.23mmHg. Pulmonic valve appears structurally normal. The aortic root size is normal. There is no pericardial effusion. CONCLUSIONS -------- 1. Sinus rhythm. 2. This was a technically difficult study with suboptimal views. 3. The left ventricular size is normal. 4. Left ventricular wall thickness is normal. 5. There is global hypokinesia 6. The right ventricle is normal in size and function. 7. LA is midly dilated 29-33ml/m2. 8. The right atrium is normal in size. 9. Lumason used 10. The aortic valve is trileaflet, and appears structurally normal. No aortic stenosis or regurgitat ion. 11. The mitral valve leaflets are mildly thickened. 12. There is trace mitral regurgitation. 13. Trace tricuspid regurgitation present. 14. The right ventricular systolic pressure, as measured by Doppler, is 31.23mmHg. 15. Pulmonic valve appears structurally normal. 16. The aortic root size is normal. 17. There is no pericardial effusion. TIMING ADJUSTER: Renay Plasencia RDCS
[2018-01-01 21:04] LABS: Glucose,Whole Blood 191 mg/dL (75-99)
[2018-01-02 06:05] LABS: Glucose,Whole Blood 203 mg/dL (75-99)
[2018-01-02 06:28] LABS: Anisocytosis Slight; Basophils % (A) 0 %; Eosinophils % (A) 0 %; HCT 26.7 % (39.0-53.0); Hypochromasia Moderate; Lymphocytes # (A) 0.7 k/uL (1.0-4.8); Lymphocytes % (A) 3 %; MCH 25.2 pg (25.0-35.0); MCHC 31.1 g/dL (31.0-37.0); MCV 81.1 fL (80.0-100.0); Mean Platelet Volume 6.8; Monocytes # (A) 0.3 k/uL (0-1.0); Monocytes % (A) 2 %; Neutrophils # (A) 21.1 k/uL (1.3-7.7); Neutrophils % (A) 95 %; Platelet Count 364 k/uL (150-450); RBC 3.29 m/uL (4.30-5.90); RDW 16.4 % (11.5-15.5); WBC 22.2 k/uL (3.8-10.6)
[2018-01-02 06:30] LABS: Anion Gap 8 mmol/L; Blood Urea Nitrogen 24 mg/dL (9-20); Calcium 8.5 mg/dL (8.4-10.2); Carbon Dioxide 30 mmol/L (22-30); Chloride 96 mmol/L (98-107); Glucose 184 mg/dL (74-99); Potassium 4.3 mmol/L (3.5-5.1); Sodium 134 mmol/L (137-145)
[2018-01-02] MEDS: methylPREDNISolone SOD SUCCI 125 MG/2 ML VIAL IV SCH ×3 (06:32→17:06)
[2018-01-02] MEDS: INSULIN ASPART 100 UNIT/ML 1 ML 10 ML VIAL SQ SCH ×4 (06:32→20:31)
[2018-01-02 07:03] LABS: HGB 8.3 gm/dL (13.0-17.5)
[2018-01-02] MEDS: METOPROLOL TARTRATE 25 MG TAB PO SCH (07:41)
[2018-01-02] MEDS: ASPIRIN 81 MG PO SCH (07:42)
[2018-01-02] MEDS: ATORVASTATIN 80 MG TAB PO SCH (07:42)
[2018-01-02] MEDS: IPRATROPIUM-ALBUTEROL 3 ML NEB INHALATION SCH ×5 (08:06→20:38)
[2018-01-02] MEDS ORDERED: ATORVASTATIN 20 MG TAB PO SCH (09:00)
[2018-01-02] MEDS ORDERED: SPIRONOLACTONE 25 MG TAB PO SCH (09:15)
[2018-01-02] MEDS ORDERED: METOPROLOL SUCCINATE (ER) 50 MG TAB.ER.24H PO SCH (09:15)
--- NOTE | 2018-01-02 09:28 | XR ---
EXAMINATION: XR chest 2V DATE AND TIME: 01/02/2018 8:32 AM ORDERING PROVIDER: Mack Watkins MD CLINICAL INDICATION: sob TECHNIQUE: PA and lateral COMPARISON: 12/31/2017 DESCRIPTION: The previously seen white out of the left mid and lower hemithorax is redemonstrated wit hout interval change. The lateral radiograph indicates a large left pleural effusion with passive ate lectasis of the left mid and lower lung zones. The overall lung inflation pattern is similar when compared to the prior study. There is no left or right sided pneumothorax. There is no right pleural effusion. Bones and soft tissues are stable. IMPRESSION: Stable appearance.
--- NOTE | 2018-01-02 10:07 | P.PN ---
Subjective Progress Note Date: 01/02/18 Principal diagnosis: Shortness of breath, non-Q-wave myocardial infarction, left lung mass. Progress note dated 01/02/2018 67-year-old male who underwent bronchoscopy brushes and washings and transbronchial biopsies to the left lower lobe on . The patient came back into the hospital on the same day because of increasing shortness of breath. It appears, they may have sustained a non-Q wave are non-ST segment elevation myocardial infarction. This is according to cardiology which is been evaluating him. In addition, echocardiogram showed relatively poor ejection fraction. I don't believe the bronchoscopy had anything to do with this. Anyway, the patient is resting comfortably. Not requiring any nasal or supplemental oxygen. No chest pain. He apparently had chest pain a couple weeks back which may been the first indication that he had a cardiac issue. The patient is postop day #2 status post bronchoscopy with transbronchial biopsies of the left lower lobe mass. Objective - Vital Signs Vital signs: Vital Signs Temp 98.0 F 01/02/18 07:36 Pulse 89 01/02/18 07:47 Resp 16 01/02/18 07:36 BP 131/76 01/02/18 07:36 Pulse Ox 95 01/02/18 07:36 Intake & Output 01/01/18 01/02/18 01/02/18 18:59 06:59 18:59 Intake Total 840 600 118 Balance 840 600 118 Weight 76.1 kg Intake: Oral 840 600 118 Other: Voiding Method Toilet # Voids 1 2 - Exam No acute distress, oriented 3. HEENT examination is grossly unremarkable. Mucous membranes are moist. No oral lesions. Neck supple. Full range of motion. No adenopathy thyromegaly or neck vein distention. Cardiovascular examination reveals regular rhythm rate. S1-S2 normal. No S3 or S4. No discernible murmur noted. Lungs reveal diminished breath sounds at the left base. Right lung is clear. No adventitious lung sounds on the left. Abdomen soft bowel sounds are heard. No masses or tenderness. Extremities are intact. No cyanosis clubbing or edema. Skin is without rash or lesion. Neurologic examination is brief but nonfocal. - Labs CBC & Chem 7: 01/02/18 05:52 01/02/18 05:52 Labs: Abnormal Lab Results - Last 24 Hours (Table) 01/01/18 01/01/18 01/01/18 Range/Units 10:44 11:44 16:51 WBC (3.8-10.6) k/uL RBC (4.30-5.90) m/uL Hgb (13.0-17.5) gm/dL Hct (39.0-53.0) % RDW (11.5-15.5) % Neutrophils # (1.3-7.7) k/uL Lymphocytes # (1.0-4.8) k/uL Sodium (137-145) mmol/L Chloride (98-107) mmol/L BUN (9-20) mg/dL Glucose (74-99) mg/dL POC Glucose (mg/dL) 184 H (75-99) mg/dL Troponin I 2.590 H* 2.180 H* (0.000-0.034) ng/mL 01/01/18 01/01/18 01/01/18 Range/Units 16:52 21:01 22:14 WBC (3.8-10.6) k/uL RBC (4.30-5.90) m/uL Hgb (13.0-17.5) gm/dL Hct (39.0-53.0) % RDW (11.5-15.5) % Neutrophils # (1.3-7.7) k/uL Lymphocytes # (1.0-4.8) k/uL Sodium (137-145) mmol/L Chloride (98-107) mmol/L BUN (9-20) mg/dL Glucose (74-99) mg/dL POC Glucose (mg/dL) 164 H 191 H (75-99) mg/dL Troponin I 1.670 H* (0.000-0.034) ng/mL 01/02/18 01/02/18 01/02/18 Range/Units 05:52 05:52 06:03 WBC 22.2 H (3.8-10.6) k/uL RBC 3.29 L (4.30-5.90) m/uL Hgb 8.3 L D (13.0-17.5) gm/dL Hct 26.7 L (39.0-53.0) % RDW 16.4 H (11.5-15.5) % Neutrophils # 21.1 H (1.3-7.7) k/uL Lymphocytes # 0.7 L (1.0-4.8) k/uL Sodium 134 L (137-145) mmol/L Chloride 96 L (98-107) mmol/L BUN 24 H (9-20) mg/dL Glucose 184 H (74-99) mg/dL POC Glucose (mg/dL) 203 H (75-99) mg/dL Troponin I (0.000-0.034) ng/mL Microbiology - Last 24 Hours (Table) 12/31/17 17:13 Blood Culture - Preliminary Blood No Growth after 24 hours Assessment and Plan Assessment: Assessment Shortness of breath, which developed a number of hours after his bronchoscopy yesterday, of unclear etiology. His BNP was mildly elevated, chest x-ray was consistent with fluid overload, and apparently had echocardiogram he has a poor left ventricular ejection fraction. He also had a run of wide-complex tachycardia which may represent V. tach and/or atrial tachycardia with abberancy. Probable non-ST segment elevation myocardial infarction Left lower lobe mass, postop day #2 status post bronchoscopy with transbronchial biopsy, brushes and washings COPD Prostate cancer DJD Plan: Plan dated 01/01/2018 Cardiology is seeing the patient. Awaiting for the official echocardiogram results. The patient was placed on a beta [place]. Additional recommendations and suggestions are forthcoming. We'll follow closely. Biopsy results will not be back for a couple of days at least. Hopeful discharge soon from the hospital. Plan Dated 01/02/2018 I Spoke to the Diesel Power Shovel Operator Who Thought the Patient Probably Sustained a Non-ST Segment Elevation Myocardial Infarction. He Did Have Chest Pressure a Couple Weeks Back When He First Presented. The Patient Is Currently Resting Comfortably. Not Requiring Any Supplemental Oxygen. He Is Postop Day #2 Status Post Bronchoscopy with Transbronchial Biopsy Washings and Brushings of the Left Lower Lobe Abnormality. The Reports Are Not Back in Terms of What That Might Be. Additional Recommendations and Suggestions Are Forthcoming. Prognosis Is Guarded. We'll Continue to Follow. Time with Patient: Less than 30
[2018-01-02 11:23] LABS: Glucose,Whole Blood 134 mg/dL (75-99)
[2018-01-02] MEDS ORDERED: METOPROLOL SUCCINATE (ER) 25 MG TAB.ER.24H PO STA (11:29)
--- NOTE | 2018-01-02 11:44 | PN ---
PROGRESS NOTE Mr. Edouard is lying comfortably in bed. He has no chest pain. No shortness of breath. He looks quite comfortable. He has not had any coughing spells or breathing trouble. He is being worked up for a mass lesion in the left lung. He has abnormal troponins consistent with possibly an acute non-Q-wave myocardial infarction. He also has cardiomyopathy, ejection fraction about 40-45%. His 12-lead ECG showed sinus tachycardia yesterday with subtle ST depression in the lateral precordial leads and ST-segment abnormalities in the inferior leads. His 2D echo shows ejection fraction of 35-40% with global hypokinesis. PHYSICAL EXAMINATION: He is afebrile, 98 degrees Fahrenheit, pulse rate in the 80s, blood pressure 131/76 mmHg. Breath sounds are reduced bilaterally. Heart sounds S1, S2 soft. No murmurs. No gallops. No rubs. LABS: Labs are reviewed. His white count is 22,000. Electrolytes: Sodium is 134, potassium 4.3. His peak troponin was 2.6. Kidney function was normal. SUGGEST: Medical treatment of coronary artery disease and ischemic cardiomyopathy. He does not have any clinical heart failure. He is on spironolactone 25 mg p.o. daily, metoprolol 50 mg p.o. daily, losartan 25 mg p.o. daily, atorvastatin, aspirin. I plan to increase spironolactone to 50 mg p.o. daily for his cardiomyopathy as well as metoprolol succinate 200 mg p.o. daily and he should be able to tolerate this. The dose of losartan is not being changed. MMODL / IJN: [id number] /
[2018-01-02 17:06] LABS: Glucose,Whole Blood 163 mg/dL (75-99)
--- NOTE | 2018-01-02 18:41 | PN ---
PROGRESS NOTE DATE OF SERVICE: 01/02/18. PRESENTING COMPLAINT: Short of breath. INTERVAL HISTORY: The patient presented with acute myocardial infarction. Also had arrhythmias. The patient is feeling better. Lying in bed. Patient up to the bathroom. No episodes of chest pain. REVIEW OF SYSTEMS: Done for constitutional, cardiovascular, GI, pulmonary; relevant findings as above. CURRENT MEDICATIONS: Reviewed that include DuoNeb, aspirin, Lipitor, Cozaar, Aldactone. PHYSICAL EXAMINATION: Temperature 97.2, pulse 76, respirations 16, blood pressure 136/81, pulse ox 92% on room air. GENERAL APPEARANCE: Lying in bed, comfortable. EYES: Pupils equal. Conjunctivae normal. HEENT: External appearance of nose and ears normal. Oral cavity normal. NECK: JVD not raised. Mass not palpable. RESPIRATORY: Effort normal. LUNGS: Diminished breath sounds. CARDIOVASCULAR: First and second sounds normal, no edema. ABDOMEN: Soft, nontender. Liver and spleen not palpable. PSYCHIATRY: Alert and oriented x3. Mood and affect normal. INVESTIGATIONS: White count 22.2, hemoglobin 8.3, potassium 4.3. Accu-Cheks are noted. Troponin 0.2, 2.5, 2.1, 1.6. 2D echo, EF 35-40%. ASSESSMENT: 1. Acute non-Q-wave myocardial infarction. 2. Ischemic cardiomyopathy EF 35-40%. 3. Left lung mass being followed by as outpatient, Dr. Dillon. 4. Asymptomatic umbilical hernia. 5. Emphysema in an ex-smoker. 6. Leukocytosis cause unclear. 7. Microcytic anemia at the present time, cause unknown. 8. Hypoalbuminemia acute phase reactant. 9. Hypomagnesemia. 10.Left pleural mass/pleural effusion. PLAN: Will cut back the patient's dose of steroids. The patient looks rather comfortable. The patient was started already on beta [place]. Follow. Care was discussed with the patient. Keep an eye on the blood pressure. Cut back on steroids. MMODL / IJN: [id number] /
[2018-01-02 20:39] LABS: Glucose,Whole Blood 215 mg/dL (75-99)
[2018-01-02] MEDS ORDERED: LOSARTAN 25 MG TAB PO SCH (21:00)
[2018-01-03 06:08] LABS: Glucose,Whole Blood 131 mg/dL (75-99)
[2018-01-03] MEDS: INSULIN ASPART 100 UNIT/ML 1 ML 10 ML VIAL SQ SCH (06:42)
[2018-01-03] MEDS: IPRATROPIUM-ALBUTEROL 3 ML NEB INHALATION SCH ×2 (07:30→11:00)
[2018-01-03 08:17] VITALS: RESP 16
[2018-01-03] MEDS: ATORVASTATIN 80 MG TAB PO SCH (08:19)
[2018-01-03] MEDS: ASPIRIN 81 MG PO SCH (08:19)
[2018-01-03] MEDS ORDERED: SPIRONOLACTONE 25 MG TAB PO SCH (09:00)
[2018-01-03] MEDS ORDERED: METOPROLOL SUCCINATE (ER) 50 MG TAB.ER.24H PO SCH (09:00)
[2018-01-03] MEDS ORDERED: predniSONE 10 MG TAB PO SCH (09:00)
--- NOTE | 2018-01-03 09:24 | P.PN ---
Subjective Progress Note Date: 01/03/18 Principal diagnosis: Shortness of breath, non-Q-wave myocardial infarction, left lung mass. Progress note dated 01/02/2018 67-year-old male who underwent bronchoscopy brushes and washings and transbronchial biopsies to the left lower lobe on . The patient came back into the hospital on the same day because of increasing shortness of breath. It appears, they may have sustained a non-Q wave are non-ST segment elevation myocardial infarction. This is according to cardiology which is been evaluating him. In addition, echocardiogram showed relatively poor ejection fraction. I don't believe the bronchoscopy had anything to do with this. Anyway, the patient is resting comfortably. Not requiring any nasal or supplemental oxygen. No chest pain. He apparently had chest pain a couple weeks back which may been the first indication that he had a cardiac issue. The patient is postop day #2 status post bronchoscopy with transbronchial biopsies of the left lower lobe mass. Progress note dated 01/03/2018 67-year-old male who underwent bronchoscopy brushes and washings and transbronchial biopsies were left lower lobe on . The patient was discharged from the hospital but came back to same day because of increasing shortness of breath. It appears he may have sustained a non-ST segment elevation myocardial infarction. The patient has been seen and evaluated by cardiology. From my perspective, the patient's doing well. Echocardiogram showed very poor cardiac function. Not requiring any supplemental oxygen. He does have an appointment to see me on Thursday. He may be discharged today. Pathology from the sampling is still pending. Objective - Vital Signs Vital signs: Vital Signs Temp 97.4 F L 01/03/18 08:00 Pulse 74 01/03/18 08:00 Resp 16 01/03/18 08:00 BP 137/76 01/03/18 08:00 Pulse Ox 93 L 01/03/18 08:00 Intake & Output 01/02/18 01/03/18 01/03/18 18:59 06:59 18:59 Intake Total 358 200 Output Total 200 Balance 158 200 Weight 77 kg Intake: Oral 358 200 Output: Urine 200 Other: Voiding Method Toilet # Voids 2 - Exam No acute distress, oriented 3. HEENT examination is grossly unremarkable. Mucous membranes are moist. No oral lesions. Neck supple. Full range of motion. No adenopathy thyromegaly or neck vein distention. Cardiovascular examination reveals regular rhythm rate. S1-S2 normal. No S3 or S4. No discernible murmur noted. Lungs reveal diminished breath sounds at the left base. Right lung is clear. No adventitious lung sounds on the left. Abdomen soft bowel sounds are heard. No masses or tenderness. Extremities are intact. No cyanosis clubbing or edema. Skin is without rash or lesion. Neurologic examination is brief but nonfocal. - Labs CBC & Chem 7: 01/02/18 05:52 01/02/18 05:52 Labs: Abnormal Lab Results - Last 24 Hours (Table) 01/02/18 01/02/18 01/02/18 Range/Units 11:21 16:59 20:29 POC Glucose (mg/dL) 134 H 163 H 215 H (75-99) mg/dL 01/03/18 Range/Units 05:56 POC Glucose (mg/dL) 131 H (75-99) mg/dL Microbiology - Last 24 Hours (Table) 12/31/17 17:13 Blood Culture - Preliminary Blood No Growth after 48 hours Assessment and Plan Assessment: Assessment Shortness of breath, which developed a number of hours after his bronchoscopy yesterday, of unclear etiology. His BNP was mildly elevated, chest x-ray was consistent with fluid overload, and apparently had echocardiogram he has a poor left ventricular ejection fraction. He also had a run of wide-complex tachycardia which may represent V. tach and/or atrial tachycardia with abberancy. Probable non-ST segment elevation myocardial infarction Left lower lobe mass, postop day #3 status post bronchoscopy with transbronchial biopsy, brushes and washings COPD Prostate cancer DJD Plan: Plan dated 01/01/2018 Cardiology is seeing the patient. Awaiting for the official echocardiogram results. The patient was placed on a beta [place]. Additional recommendations and suggestions are forthcoming. We'll follow closely. Biopsy results will not be back for a couple of days at least. Hopeful discharge soon from the hospital. Plan Dated 01/02/2018 I Spoke to the Duct Installer Who Thought the Patient Probably Sustained a Non-ST Segment Elevation Myocardial Infarction. He Did Have Chest Pressure a Couple Weeks Back When He First Presented. The Patient Is Currently Resting Comfortably. Not Requiring Any Supplemental Oxygen. He Is Postop Day #2 Status Post Bronchoscopy with Transbronchial Biopsy Washings and Brushings of the Left Lower Lobe Abnormality. The Reports Are Not Back in Terms of What That Might Be. Additional Recommendations and Suggestions Are Forthcoming. Prognosis Is Guarded. We'll Continue to Follow. Plan dated 01/03/2018 From my perspective the patient could be discharged. Apparently cardiology feels the same way. Await for the hospitalist to decide. No additional recommendations are made. The patient does have an appointment to see me on Thursday. Pathology is currently pending. No additional recommendations are made. Time with Patient: Less than 30
[2018-01-03 11:01] VITALS: BP 131/80; TEMP 98.7
[2018-01-03 11:13] VITALS: PULSE 64
--- NOTE | 2018-01-03 19:48 | PN ---
PROGRESS NOTE Mr. Edouard is a 67-year-old male patient who is being worked up for lung mass. He presented with non-Q-wave myocardial infarction and shortness of breath several weeks back when he was here with pneumonia. He thought he had a heart attack. He does have a cardiomyopathy, ejection fraction 35-40%. He is on appropriate medical treatment at this time and has tolerated well. His vitals stable. Afebrile 97.4 degrees Fahrenheit, pulse rate in the 70s, blood pressure is 137/76 mmHg. Head and neck examination is normal. Heart sounds S1, S2 are normal. Breath sounds are reduced bilaterally. He is on atorvastatin 80 mg daily, aspirin 81 mg daily, losartan 25 mg daily, metoprolol succinate 100 mg daily, and spironolactone. SUGGEST: He may go home today from a cardiac standpoint. I will see him in the office in the next few weeks. MMODL / IJN: [id number] /
--- NOTE | 2018-01-04 13:04 | DS ---
DISCHARGE SUMMARY DATE OF ADMISSION: 12/31/2017 DATE OF DISCHARGE: 01/03/2018 FINAL DIAGNOSES: 1. Acute non-Q-wave myocardial infarction. 2. Ischemic cardiomyopathy, ejection fraction 35% to 40%. 3. Left lung mass being followed as outpatient by Dr. Dillon. 4. Asymptomatic umbilical hernia. 5. Emphysema in an ex-smoker. 6. Leukocytosis cause unclear. 7. Microcytic anemia at the present time, cause unclear. 8. Hypoalbuminemia acute phase reactant. 9. Hypomagnesemia. CONSULTANTS: Dr. Dillon from Pulmonary; Dr. Brand from Cardiology. HOSPITAL COURSE: This pleasant gentleman of Dr. Oseguera has a non resolving infiltrate in the left lower lobe, underwent a bronchoscopy and transbronchial biopsy. He went home and patient had what he described as a coughing jag and became really short of breath. Also had some EKG changes and some arrhythmias. The patient ruled in for an acute MS, was managed medically. By the time of discharge was stable, up and about breathing was stable. ON EXAMINATION: LUNGS: Slightly decreased breath sounds. CARDIOVASCULAR: First and second sounds normal. The patient was seen by Dr. Dillon who okayed the patient to be discharged. He is going to follow up on the pulmonary issues. Also seen by Dr. Brand who okayed the patient to be discharged. The patient did have a 2-D echocardiogram that showed EF of 35% to 40% and global hypokinesia. Depending on how the patient does, the patient may need a cardiac catheterization down the road on further cardiac evaluation. Care was discussed with the patient and . DISCHARGE MEDICATIONS: 1. Symbicort 160/4.5 two puffs twice a day. 2. Spiriva 1 capsule daily. 3. Ventolin 1 or 2 puffs q.6 p.r.n. 4. Ultram 50 mg q.6 p.r.n. 5. Aspirin 81 mg a day. 6. Lipitor 80 mg a day. 7. Cozaar 25 mg at bedtime. 8. Toprol XL 100 mg a day. 9. Aldactone 50 mg a day. 10.Prednisone taper. Follow up with Dr. Brand in 2 weeks. Follow up with Dr. Dillon on 01/08/2018. Follow up with Dr. Oseguera in 3 days. MMODL / IJN: [id number] /
== END 2018-01-03 12:57 | disposition home or self-care (01) | DRG 280 ==
LOC: EC 16:43 → 6SEL 18:44
PROVIDERS: ADMIT Hospitalist; ATTEND Hospitalist
PROC: 5A09457 Assistance with Respiratory Ventilation, 24-96 Consecutive Hours, Continuous Positive Airway Pressure (ICD-10-PCS; principal; 2017-12-31)
DX: I21.4 Non-ST elevation (NSTEMI) myocardial infarction (principal); J96.01 Acute respiratory failure with hypoxia; I47.2 Ventricular tachycardia; J90 Pleural effusion, not elsewhere classified; I25.5 Ischemic cardiomyopathy; J43.9 Emphysema, unspecified; E88.09 Other disorders of plasma-protein metabolism, not elsewhere classified; E83.42 Hypomagnesemia; I45.10 Unspecified right bundle-branch block; R91.8 Other nonspecific abnormal finding of lung field; D50.9 Iron deficiency anemia, unspecified; K21.9 Gastro-esophageal reflux disease without esophagitis; D72.829 Elevated white blood cell count, unspecified; K42.9 Umbilical hernia without obstruction or gangrene; M19.91 Primary osteoarthritis, unspecified site; Z87.891 Personal history of nicotine dependence; Z79.899 Other long term (current) drug therapy; Z85.46 Personal history of malignant neoplasm of prostate; Z92.3 Personal history of irradiation; Z96.642 Presence of left artificial hip joint; Z98.42 Cataract extraction status, left eye; Z98.41 Cataract extraction status, right eye; Z87.01 Personal history of pneumonia (recurrent); Z80.3 Family history of malignant neoplasm of breast; Z80.6 Family history of leukemia; Z82.49 Family history of ischemic heart disease and other diseases of the circulatory system
CPT/HCPCS: 36415; 71045; 71046; 80048; 80053; 82550; 82553; 83036; 83605; 83735; 83880; 84132; 84484; 85025; 85610; 85730; 87040; 93005; 93306; 94640; 94660; 96374; 96375; 99291

== ENCOUNTER 2018-01-21 10:50 | Day surgery (SDC) | payer MEDICARE ==
[~2018-01-21 10:50] MED LIST changes: +ATROPINE SULFATE 0.4 MG/ML 20 ML VIAL IM NR; -LACTATED RINGERS 1,000 ML IV SCH; -Pre Op ABX Message 1 EACH MISC MISCELLANE ONE
[2018-01-21 11:09] VITALS: PULSE 67; RESP 16
[2018-01-21 11:12] VITALS: BP 125/67; TEMP 98.1
--- NOTE | 2018-01-21 12:35 | PCN ---
PROCEDURE NOTE LEFT THORACENTESIS: PREOPERATIVE DIAGNOSIS: Left pleural effusion. POSTOP DIAGNOSIS: Left pleural effusion. A time-out was completed verifying correct patient, procedure, site, positioning , and implant or special equipment if applicable. Left posterior space was marked by ultrasound and appropriate fluid pocket was identified and marked. Patient was positioned, prepped and draped in usual sterile fashion. Lidocaine was used to anesthetize the area. A Thoracentesis catheter was introduced into the pleural space and fluid was removed. Blood loss was none. A chest x-ray was ordered to evaluate for pneumothorax. Total Fluid Removed: 1 L. Patient tolerated the procedure well and there were no complications. There was no immediate complications. The fluid will be sent for analysis. The operators were Dr. Dillon and Dr. Malik. MMKIMMIE / SAEN: [id number] /
--- NOTE | 2018-01-21 12:53 | XR ---
EXAMINATION TYPE: XR chest 1V portable DATE OF EXAM: 01/21/2018 Comparison: 01/19/2018 Clinical History: 67-year-old male post thoracentesis Findings: Patient is rotated towards the left. Heart normal size. Right lung and pleural space appears clear. P rominent opacity left mid and lower lung persists. Underlying left pleural effusion has improved now with visualization of the costophrenic angle. No appreciable pneumothorax. Impression: Known left lower lobe mass persists. The underlying left pleural effusion has improved. Now able to v isualize the left costophrenic angle. No appreciable pneumothorax.
[2018-01-21 15:13] LABS: Appearance,BF Hazy; Color,BF Yellow; Nucleated Cells, Body Fluid 1770 /uL; RBC, Body Fluid 200 /uL
[2018-01-21 15:15] LABS: Mononuclear WBC,Body Fluid 26 %; Polynuclear WBC,Body Fluid 16 %; Total Cells Counted,Body Fluid 100
[2018-01-21 21:02] LABS: Total Protein, Body Fluid 3700 mg/dL
== END 2018-01-22 10:16 | disposition home or self-care (01) ==
LOC: PROCWHC3 10:50
PROVIDERS: ATTEND Internal Medicine Critical Care Medicine
DX: J90 Pleural effusion, not elsewhere classified (principal); R91.8 Other nonspecific abnormal finding of lung field
CPT/HCPCS: 87798 ×3; 87496; 87498; 87529; 88108; 88305; 89050; 88342; 87252; 87502; 87634; 88341; 87070; 87205; 87116; 87102; 87206; 82945; 83615; 84157; 71045; 96372; 32554; J0461; J2001

== ENCOUNTER → 2018-01-21 | Outpatient (CLI) | payer MEDICARE ==
--- NOTE | 2018-01-21 11:05 | US ---
EXAMINATION TYPE: US chest DATE OF EXAM: 01/21/2018 COMPARISON: Radiograph 01/19/2018 CLINICAL HISTORY: 67-year-old male Pleural effusion J90. Left pleural effusion TECHNIQUE: Multiple sonographic images of the lower posterior left hemithorax for assessment of pleur al effusion. FINDINGS: EXAM MEASUREMENTS: Left Pleural Effusion fluid pocket: 11.4 cm Left skin surface to fluid distance: 3.1 cm Left side marked for possible thoracentesis outside the dept. Pulmonologists are able to review the images in the patient?s EMR. IMPRESSIONS: Moderate sized left pleural effusion with marking performed.
== END | disposition home or self-care (01) ==
LOC: RADUSWWP 09:42
PROVIDERS: ATTEND Internal Medicine
DX: J90 Pleural effusion, not elsewhere classified (principal)
CPT/HCPCS: 76604

== ENCOUNTER 2018-01-27 17:28 | Inpatient (IN) | payer MEDICARE ==
[2018-01-27] MEDS ORDERED: HYDROmorphone 0.5 MG/0.5 ML SYRINGE IVP STA (18:18)
--- NOTE | 2018-01-27 18:35 | ED ---
General Adult HPI - General Chief complaint: Abdominal Pain Stated complaint: HERNIA, HIGH WHITE BLOOD COUNT Time Seen by Provider: 01/27/18 18:01 Source: patient, family, RN notes reviewed Mode of arrival: wheelchair Limitations: no limitations - History of Present Illness Initial comments: Patient is a pleasant 67-year-old male presenting to the emergency Department with hernia. Patient has a known history of umbilical hernia for years. Patient normally is able to reduce it however today he is not. Patient does have some increase discomfort from normal. In addition to this patient did receive a phone call today telling him his white blood cell count had increased to 40. Patient has had recent hospital admissions with questionable pneumonia and questionable heart attack. Patient has been treated with antibiotics several times. Patient did have somewhat elevated white blood cell count however that was approximately 26, 29, and 32. Patient received a call from Dr. Oseguera today telling him to come to the hospital and that he would need hematology evaluation. No cough or dyspnea. No chest pain. No vomiting. No diarrhea or constipation - Related Data Home Medications Medication Instructions Recorded Confirmed Atorvastatin [Lipitor] 80 mg PO HS 01/27/18 01/27/18 HYDROcodone/APAP 5-325MG [[place] 1 tab PO Q12H PRN 01/27/18 01/27/18 5-325] Metoprolol Succinate (ER) [Toprol 50 mg PO DAILY 01/27/18 01/27/18 XL] Spironolactone [Aldactone] 25 mg PO DAILY 01/27/18 01/27/18 Previous Rx's Medication Instructions Recorded Aspirin 81 mg PO DAILY chew 01/03/18 Losartan [Cozaar] 25 mg PO HS #30 tab 01/03/18 Allergies Allergy/AdvReac Type Severity Reaction Status Date / Time No Known Allergies Allergy Verified 01/27/18 17:58 Review of Systems ROS Statement: Those systems with pertinent positive or pertinent negative responses have been documented in the HPI. ROS Other: All systems not noted in ROS Statement are negative. Constitutional: Denies: fever, chills Eyes: Denies: eye pain ENT: Denies: ear pain Respiratory: Denies: cough, dyspnea Cardiovascular: Denies: chest pain Endocrine: Reports: fatigue Gastrointestinal: Reports: abdominal pain (Near hernia). Denies: vomiting Genitourinary: Denies: dysuria Musculoskeletal: Denies: back pain Skin: Denies: rash Past Medical History Past Medical History: Cancer, Heart Failure, COPD, Hyperlipidemia, Hypertension , Osteoarthritis (OA), Pneumonia, Prostate Disorder Additional Past Medical History / Comment(s): hx prostate cancer (in remission, ) umb hernia, History of Any Multi-Drug Resistant Organisms: None Reported Past Surgical History: Hernia Repair, Joint Replacement Additional Past Surgical History / Comment(s): 12/31/17 bronchoscopy w/ bx. Total L hip anterior approach. link cataracts, lt ing hernia. Past Anesthesia/Blood Transfusion Reactions: No Reported Reaction Past Psychological History: No Psychological Hx Reported Smoking Status: Former smoker Past Alcohol Use History: Occasional Past Drug Use History: None Reported - Past Family History Mother Family Medical History: Cancer Additional Family Medical History / Comment(s): Mother had breast cancer and of leukemia at the age of 76yrs. Father Additional Family Medical History / Comment(s): Father of a "broken heart" after his spouses . Sister(s) Family Medical History: Cancer Additional Family Medical History / Comment(s): Breast cancer. General Exam Limitations: no limitations General appearance: alert, in no apparent distress Head exam: Present: atraumatic Eye exam: Present: normal appearance Neck exam: Present: normal inspection Respiratory exam: Present: normal lung sounds bilaterally Cardiovascular Exam: Present: regular rate, normal rhythm GI/Abdominal exam: Present: soft, hernia (Patient does have umbilical hernia approximately 3 x 4 cm that is firm and not easily reducible. There is some tenderness associated.). Absent: distended Extremities exam: Present: normal inspection Neurological exam: Present: alert Psychiatric exam: Present: normal affect, normal mood Skin exam: Present: normal color Course Vital Signs 01/27/18 17:33 Temperature 98.6 F Pulse Rate 58 L Respiratory 18 Rate Blood Pressure 125/71 O2 Sat by Pulse 95 Oximetry - Reevaluation(s) Reevaluation #1: 01/27/18 19:49 Patient does not meet sepsis criteria Procedures - Procedures Initial comment: Umbilical hernia reduction:. Unable to reduce on original attempt. Patient then provided pain medication and attempt was done second time with adequate complete reduction of umbilical hernia. Time involved: 15 minutes. Medical Decision Making - Medical Decision Making Patient reevaluated and updated. Abdomen still feels improved. Patient and family updated on results and plan. Case was discussed in detail with Dr. percussion, who will admit for Dr. Oseguera. Consults will be placed for hematology/oncology, surgery, and pulmonary. Patient will be treated for possible pneumonia however x-rays and previous workup is more concerning for mass. - Lab Data Result diagrams: 01/27/18 18:27 01/27/18 18:27 Lab Results 01/27/18 01/27/18 Range/Units 18:27 18:27 WBC 27.6 H* (3.8-10.6) k/uL RBC 4.02 L (4.30-5.90) m/uL Hgb 9.9 L D (13.0-17.5) gm/dL Hct 31.4 L (39.0-53.0) % MCV 78.1 L (80.0-100.0) fL MCH 24.6 L (25.0-35.0) pg MCHC 31.5 (31.0-37.0) g/dL RDW 16.3 H (11.5-15.5) % Plt Count 513 H (150-450) k/uL Neutrophils % 87 % Lymphocytes % 7 % Monocytes % 4 % Eosinophils % 3 % Basophils % 0 % Neutrophils # 23.9 H (1.3-7.7) k/uL Lymphocytes # 1.8 (1.0-4.8) k/uL Monocytes # 1.1 H (0-1.0) k/uL Eosinophils # 0.7 (0-0.7) k/uL Basophils # 0.0 (0-0.2) k/uL Anisocytosis Slight Microcytosis Slight Sodium 135 L (137-145) mmol/L Potassium 3.8 (3.5-5.1) mmol/L Chloride 93 L (98-107) mmol/L Carbon Dioxide 34 H (22-30) mmol/L Anion Gap 8 mmol/L BUN 21 H (9-20) mg/dL Creatinine 0.81 (0.66-1.25) mg/dL Est GFR (CKD-EPI)AfAm >90 (>60 ml/min/1.73 sqM) Est GFR (CKD-EPI)NonAf >90 (>60 ml/min/1.73 sqM) Glucose 97 (74-99) mg/dL Calcium 9.9 (8.4-10.2) mg/dL Total Bilirubin 0.2 (0.2-1.3) mg/dL AST 15 L (17-59) U/L ALT 38 (21-72) U/L Alkaline Phosphatase 93 (38-126) U/L Total Protein 5.3 L (6.3-8.2) g/dL Albumin 2.7 L (3.5-5.0) g/dL Amylase 45 (30-110) U/L Lipase 31 (23-300) U/L - Radiology Data Radiology results: image reviewed (Chest x-ray does show left lower lobe consolidation with some effusion and atelectasis. Abdominal x-ray shows no acute process) Disposition Clinical Impression: Mass of left lung, Umbilical hernia Disposition: ADMITTED IP TO THIS [facility] Referrals: Romario Oseguera MD [Primary Care Provider] - 1-2 days Decision Time: 19:49
--- NOTE | 2018-01-27 18:56 | XR ---
EXAMINATION TYPE: XR chest 2V DATE OF EXAM: 01/27/2018 COMPARISON: 01/21/2018 HISTORY: Left side thoracentesis. Abnormal labwork. Abdominal pain. TECHNIQUE: Frontal and lateral views of the chest are obtained. FINDINGS: Heart and mediastinum are shifted slightly to the left side. There is pleural thickening a nd consolidation in the left lower lobe with some volume loss. The right lung is clear. IMPRESSION: Chronic left pleural effusion and consolidation in the left lower lobe with additional a telectasis that is similar to last exam. Pleural fluid is increased slightly. No heart failure.
--- NOTE | 2018-01-27 18:57 | XR ---
EXAMINATION TYPE: XR KUB DATE OF EXAM: 01/27/2018 COMPARISON: NONE HISTORY: Abdominal pain TECHNIQUE: 2 upright views FINDINGS: There is no sign of intestinal obstruction or pneumoperitoneum. Fecal pattern is normal. Th ere is left hip prosthesis. There is blunting of left costophrenic angle with consolidation and volum e loss in the left lower lobe. Heart is shifted to the left side. IMPRESSION: Nonacute abdomen. Left lower lobe pleural fluid and consolidation and atelectasis.
[2018-01-27 19:01] LABS: Anisocytosis Slight; Basophils % (A) 0 %; Eosinophils # (A) 0.7 k/uL (0-0.7); Eosinophils % (A) 3 %; HCT 31.4 % (39.0-53.0); Lymphocytes # (A) 1.8 k/uL (1.0-4.8); Lymphocytes % (A) 7 %; MCH 24.6 pg (25.0-35.0); MCHC 31.5 g/dL (31.0-37.0); MCV 78.1 fL (80.0-100.0); Mean Platelet Volume 6.5; Microcytosis Slight; Monocytes # (A) 1.1 k/uL (0-1.0); Monocytes % (A) 4 %; Neutrophils # (A) 23.9 k/uL (1.3-7.7); Neutrophils % (A) 87 %; Platelet Count 513 k/uL (150-450); RBC 4.02 m/uL (4.30-5.90); RDW 16.3 % (11.5-15.5); WBC 27.6 k/uL (3.8-10.6)
[2018-01-27 19:02] LABS: HGB 9.9 gm/dL (13.0-17.5)
[2018-01-27 19:09] LABS: ALT 38 U/L (21-72); AST 15 U/L (17-59); Albumin 2.7 g/dL (3.5-5.0); Alkaline Phosphatase 93 U/L (38-126); Amylase 45 U/L (30-110); Anion Gap 8 mmol/L; Blood Urea Nitrogen 21 mg/dL (9-20); Calcium 9.9 mg/dL (8.4-10.2); Carbon Dioxide 34 mmol/L (22-30); Chloride 93 mmol/L (98-107); Glucose 97 mg/dL (74-99); Lipase 31 U/L (23-300); Potassium 3.8 mmol/L (3.5-5.1); Sodium 135 mmol/L (137-145); Total Bilirubin 0.2 mg/dL (0.2-1.3); Total Protein 5.3 g/dL (6.3-8.2)
[2018-01-27] MEDS ORDERED: PNEUMONIA PROTOCOL UTILIZED 1 EACH MISC PO PRN (19:51)
[2018-01-27] MEDS ORDERED: IPRATROPIUM-ALBUTEROL 3 ML NEB INHALATION PRN (19:51)
[2018-01-27] MEDS ORDERED: AZITHROMYCIN 500 MG in DEXTROSE 5% IN WATER 250 ML IVPB STA ×2 (19:51)
[2018-01-27] MEDS ORDERED: cefTRIAXone IN SWFI 1,000 MG/10 ML SYRINGE IVP STA (19:51)
[2018-01-27] MEDS: LOSARTAN 25 MG TAB PO SCH (23:39)
[2018-01-27] MEDS: ATORVASTATIN 80 MG TAB PO SCH (23:39)
[2018-01-28] MEDS: SODIUM CHLORIDE 0.9% 1,000 ML IV SCH (02:13)
[2018-01-28] MEDS: ASPIRIN 81 MG PO SCH (07:45)
[2018-01-28] MEDS: METOPROLOL SUCCINATE (ER) 50 MG TAB.ER.24H PO SCH (07:45)
[2018-01-28] MEDS: AZITHROMYCIN 500 MG TAB PO SCH (07:45)
[2018-01-28] MEDS: SPIRONOLACTONE 25 MG TAB PO SCH (07:46)
[2018-01-28] MEDS: cefTRIAXone IN SWFI 1,000 MG/10 ML SYRINGE IVP SCH (08:16)
[2018-01-28 09:00] LABS: Appearance,Urine Clear (Clear); Bilirubin,Urine Negative (Negative); Blood,Urine Negative (Negative); Color,Urine Light Yellow; Glucose,Urine (UA) Negative (Negative); Ketones,Urine Negative (Negative); Leukocyte Esterase,Urine Negative (Negative); Nitrite,Urine Negative (Negative); PH, Urine 7.5 (5.0-8.0); Protein,Urine Negative (Negative); Specific Gravity,Urine 1.011 (1.001-1.035); Urobilinogen,Urine <2.0 mg/dL (<2.0)
--- NOTE | 2018-01-28 09:52 | P.GSCN ---
History of Present Illness Consult date: 01/28/18 History of present illness: HPI: Patient was admitted for suspected pneumonia. He has more than 5+ year history of an umbilical hernia. He reports that his hernia was stuck yesterday, however, today his hernia is reducible. His is at bedside. ABDOMEN: Reducible 3-cm umbilical hernia without peritonitis or skin changes. No strangulation. PLAN: 1. With his acute pulmonary issues, hernia repair is deferred until complete resolution of pneumonia. 2. May benefit from cardiac risk assessment while inpatient. 3. No acute surgical intervention at this time. 4. May be repaired electively as an outpatient. 5. Diet as tolerated. Past Medical History Past Medical History: Cancer, Heart Failure, COPD, Hyperlipidemia, Hypertension , Osteoarthritis (OA), Pneumonia, Prostate Disorder Additional Past Medical History / Comment(s): hx prostate cancer (in remission, ) umb hernia,hx pleural effusion, cardiomyopathy lt lung mass follwed by dr funes History of Any Multi-Drug Resistant Organisms: None Reported Past Surgical History: Hernia Repair, Joint Replacement Additional Past Surgical History / Comment(s): 12/31/17 bronchoscopy w/ bx. Total L hip anterior approach. link cataracts, lt ing hernia.lt thoracentesis 01/21 Past Anesthesia/Blood Transfusion Reactions: No Reported Reaction Additional Past Anesthesia/Blood Transfusion Reaction / Comm: clausterphobia Smoking Status: Former smoker - Past Family History Mother Family Medical History: Cancer Additional Family Medical History / Comment(s): Mother had breast cancer and of leukemia at the age of 76yrs. Father Additional Family Medical History / Comment(s): Father of a "broken heart" after his spouses . Sister(s) Family Medical History: Cancer Additional Family Medical History / Comment(s): Breast cancer. Medications and Allergies Home Medications Medication Instructions Recorded Confirmed Type Aspirin 81 mg PO DAILY chew 01/03/18 01/27/18 Rx Losartan [Cozaar] 25 mg PO HS #30 tab 01/03/18 01/27/18 Rx Atorvastatin [Lipitor] 80 mg PO HS 01/27/18 01/27/18 History HYDROcodone/APAP 5-325MG [[place] 1 tab PO Q12H PRN 01/27/18 01/27/18 History 5-325] Metoprolol Succinate (ER) [Toprol 50 mg PO DAILY 01/27/18 01/27/18 History XL] Spironolactone [Aldactone] 25 mg PO DAILY 01/27/18 01/27/18 History Allergies Allergy/AdvReac Type Severity Reaction Status Date / Time No Known Allergies Allergy Verified 01/27/18 17:58 Surgical - Exam Vital Signs Temp Pulse Resp BP Pulse Ox 98.6 F 58 L 18 125/71 95 01/27/18 17:33 01/27/18 17:33 01/27/18 17:33 01/27/18 17:33 01/27/18 17:33 Results - Labs 01/27/18 18:27 01/27/18 18:27 Abnormal Lab Results - Last 24 Hours (Table) 01/27/18 01/27/18 Range/Units 18:27 18:27 WBC 27.6 H* (3.8-10.6) k/uL RBC 4.02 L (4.30-5.90) m/uL Hgb 9.9 L D (13.0-17.5) gm/dL Hct 31.4 L (39.0-53.0) % MCV 78.1 L (80.0-100.0) fL MCH 24.6 L (25.0-35.0) pg RDW 16.3 H (11.5-15.5) % Plt Count 513 H (150-450) k/uL Neutrophils # 23.9 H (1.3-7.7) k/uL Monocytes # 1.1 H (0-1.0) k/uL Sodium 135 L (137-145) mmol/L Chloride 93 L (98-107) mmol/L Carbon Dioxide 34 H (22-30) mmol/L BUN 21 H (9-20) mg/dL AST 15 L (17-59) U/L Total Protein 5.3 L (6.3-8.2) g/dL Albumin 2.7 L (3.5-5.0) g/dL Diabetes panel 01/27/18 Range/Units 18:27 Sodium 135 L (137-145) mmol/L Potassium 3.8 (3.5-5.1) mmol/L Chloride 93 L (98-107) mmol/L Carbon Dioxide 34 H (22-30) mmol/L BUN 21 H (9-20) mg/dL Creatinine 0.81 (0.66-1.25) mg/dL Glucose 97 (74-99) mg/dL Calcium 9.9 (8.4-10.2) mg/dL AST 15 L (17-59) U/L ALT 38 (21-72) U/L Alkaline Phosphatase 93 (38-126) U/L Total Protein 5.3 L (6.3-8.2) g/dL Albumin 2.7 L (3.5-5.0) g/dL Calcium panel 01/27/18 Range/Units 18:27 Calcium 9.9 (8.4-10.2) mg/dL Albumin 2.7 L (3.5-5.0) g/dL Pituitary panel 01/27/18 Range/Units 18:27 Sodium 135 L (137-145) mmol/L Potassium 3.8 (3.5-5.1) mmol/L Chloride 93 L (98-107) mmol/L Carbon Dioxide 34 H (22-30) mmol/L BUN 21 H (9-20) mg/dL Creatinine 0.81 (0.66-1.25) mg/dL Glucose 97 (74-99) mg/dL Calcium 9.9 (8.4-10.2) mg/dL Adrenal panel 01/27/18 Range/Units 18:27 Sodium 135 L (137-145) mmol/L Potassium 3.8 (3.5-5.1) mmol/L Chloride 93 L (98-107) mmol/L Carbon Dioxide 34 H (22-30) mmol/L BUN 21 H (9-20) mg/dL Creatinine 0.81 (0.66-1.25) mg/dL Glucose 97 (74-99) mg/dL Calcium 9.9 (8.4-10.2) mg/dL Total Bilirubin 0.2 (0.2-1.3) mg/dL AST 15 L (17-59) U/L ALT 38 (21-72) U/L Alkaline Phosphatase 93 (38-126) U/L Total Protein 5.3 L (6.3-8.2) g/dL Albumin 2.7 L (3.5-5.0) g/dL
[2018-01-28] MEDS: HYDROcodone/APAP 5-325MG 1 EACH TAB PO PRN ×2 (09:59→22:04)
[2018-01-28] MEDS ORDERED: RX INFO: IV CONTRAST WAS GIVEN 1 EACH MISC MISCELLANE PRN (10:45)
--- NOTE | 2018-01-28 12:42 | XR ---
EXAMINATION TYPE: XR chest 2V DATE OF EXAM: 01/28/2018 COMPARISON: Prior chest 01/27/2018 HISTORY: Left lower lobe lung mass, pneumonia TECHNIQUE: Frontal and lateral views of the chest are obtained. FINDINGS: Similar appearance, there is a left pleural effusion and increased density in the left low er lobe compatible with patient's known mass. Coronary artery calcifications are present. No pneumoth orax. 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 Heart size is stable and within normal limits. Pro minent lung volumes compatible with underlying emphysema. IMPRESSION: Left lower lobe lung mass and associated effusion.
--- NOTE | 2018-01-28 12:52 | CT ---
EXAMINATION TYPE: CT chest w con DATE OF EXAM: 01/28/2018 COMPARISON: 12/25/2017 HISTORY: Pneumonia or pulmonary mass. Shortness of breath. CT DLP: 273.4 mGycm. Automated Exposure Control for Dose Reduction was Utilized. TECHNIQUE: CT scan of the thorax is performed following with IV Contrast, patient injected with 100 mL of Isovue 300. FINDINGS: LUNGS: There are similar size of the centrally hypoattenuated left lower lobe masslike consolidation. There is peripheral spiculation most well appreciated on sagittal imaging such as series 7 image 87. Surrounding atelectatic lung is seen. This currently measures at least 6.0 x 6.7 x 6.9 cm, similar t o the prior exam when measured in a similar fashion. Medial to the lung mass there are multiple calci fied benign granulomas. There is mild background centrilobular emphysematous change with scattered bl ebs. No right-sided pulmonary mass is identified. There is a small right diaphragmatic hiatal hernia. There is redemonstration of a similar appearing small to moderate left pleural effusion. MEDIASTINUM: There are no greater than 1 cm hilar or mediastinal lymph nodes. Again few small lymph n odes are seen within the aorticopulmonary window and remaining mediastinum. Calcified granuloma are s een in the subcarinal space. No pericardial effusion is seen. Extensive three-vessel coronary calci fications are present. Ascending thoracic aorta is within normal limits in size as is the main pulmon juana artery. No central pulmonary embolus. No suspicious osseous lesions. OTHER: Small hiatal hernia is appreciated as seen on the prior. Mild fat stranding is in the supraumb ilical ventral subcutaneous tissues and could relate to ecchymosis. Benign-appearing splenic parenchy mal granulomatous changes are seen. Left adrenal gland fullness is again appreciated. IMPRESSION: Findings are similar to the prior of 12/25/2017 with centrally necrotic left lower lobe pulmonary mass, overall similar in size. This is suspicious for neoplasm although fluid-filled and chronic cavitary lesion from pneumonia is possible with associated stable left small to moderate pleural effusion.
--- NOTE | 2018-01-28 13:19 | P.CRDCN ---
History of Present Illness History of present illness: Mr. Edouard is a pleasant 67-year-old male past medical history significant for systolic heart failure, COPD, dyslipidemia, hypertension, prostate cancer in the past and former tobacco use, quit 2004. He is a patient of Dr. Brand. He underwent a bronchoscopy 12/31/2017. Per him and his the procedure went well and there were no immediate complications. However, after returning home he became short of breath and returned to the hospital via EMS within 1 hr. Upon arriving here he was found to be having an nonQ wave AK with elevated troponins with cardiomyopahty. EF 35-40% with global hypokinesia. Medical therapy was initiated at that time with plans for outpatient catheterization once stabilized from pulmonary standpoint. He was scheduled for a catheterization but it was cancelled due to leukocytosis. Per the patient and his , he needs another bronchoscopy from Dr. Dillon but this cannot be done until he has a catheterization. CT chest obtained on this admission consistent with previous revealing a centrally necrotic left lower lobe pulmonary mass suspicious for neoplasm of the fluid-filled and chronic cavity lesions from pneumonia as possible with associated stable left small to moderate pleural effusion. He did undergo a thoracentesis January 21 where 1 L was removed. He presented to the hospital yesterday with symptoms of abdominal pain and protruding umbilical hernia. In the past he has been able to reduce on his own, but was unable to this time and was in extreme pain. Upon arriving to ED they were able to reduce his hernia. Xray revealed no evidence of strangulation. He has been evaluated by surgical services and they have recommended outpatient elective intervention of umbilical hernia once stable from pulmonary and cardiac perspective. Chest x-ray reveals chronic left pleural effusion and consolidation in the left lower lobe with potential atelectasis similar to previous exam, pleural fluid is slightly increased with no heart failure noted. Laboratory data reviewed, WBC 27.6, hemoglobin 9.9, platelets 513, sodium 135, potassium 3.8, creatinine 0.81. Current cardiac medications include Aldactone 25 mg daily, Toprol 50 mg daily, losartan 25 mg daily, atorvastatin 80 mg and aspirin 81 mg daily. Review of Systems At the time of my exam: CONSTITUTIONAL: Denies fever. Denies chills. EYES: Denies blurred vision. Denies vision changes. Denies eye pain. EARS, NOSE, MOUTH & THROAT: Denies headache. Denies sore throat. Denies ear pain. CARDIOVASCULAR: Denies chest pain. Denies shortness of breath. Denies orthopnea. Denies PND. Denies palpitations. RESPIRATORY: Denies cough. GASTROINTESTINAL: Denies abdominal pain. Denies diarrhea. Denies constipation. Denies nausea. Denies vomiting. MUSCULOSKELETAL: Denies myalgias. INTEGUMENTARY: Denies pruitis. Denies rash. NEUROLOGIC: Denies numbness. Denies tingling. Denies weakness. PSYCHIATRIC: Denies anxiety. Denies depression. ENDOCRINE: Denies fatigue. Denies weight change. Denies polydipsia. Denies polyurina. GENITOURINARY: Denies burning, hematuria or urgency with micturation. HEMATOLOGIC: Denies history of anemia. Denies bleeding. Past Medical History Past Medical History: Cancer, Heart Failure, COPD, Hyperlipidemia, Hypertension , Osteoarthritis (OA), Pneumonia, Prostate Disorder Additional Past Medical History / Comment(s): hx prostate cancer (in remission, ) umb hernia,hx pleural effusion, cardiomyopathy lt lung mass follwed by dr dillon History of Any Multi-Drug Resistant Organisms: None Reported Past Surgical History: Hernia Repair, Joint Replacement Additional Past Surgical History / Comment(s): 12/31/17 bronchoscopy w/ bx. Total L hip anterior approach. link cataracts, lt ing hernia.lt thoracentesis 01/21 Past Anesthesia/Blood Transfusion Reactions: No Reported Reaction Additional Past Anesthesia/Blood Transfusion Reaction / Comment(s): clausterphobia Smoking Status: Former smoker - Past Family History Mother Family Medical History: Cancer Additional Family Medical History / Comment(s): Mother had breast cancer and of leukemia at the age of 76yrs. Father Additional Family Medical History / Comment(s): Father of a "broken heart" after his spouses . Sister(s) Family Medical History: Cancer Additional Family Medical History / Comment(s): Breast cancer. Medications and Allergies Home Medications Medication Instructions Recorded Confirmed Type Aspirin 81 mg PO DAILY chew 01/03/18 01/27/18 Rx Losartan [Cozaar] 25 mg PO HS #30 tab 01/03/18 01/27/18 Rx Atorvastatin [Lipitor] 80 mg PO HS 01/27/18 01/27/18 History HYDROcodone/APAP 5-325MG [Rogers 1 tab PO Q12H PRN 01/27/18 01/27/18 History 5-325] Metoprolol Succinate (ER) [Toprol 50 mg PO DAILY 01/27/18 01/27/18 History XL] Spironolactone [Aldactone] 25 mg PO DAILY 01/27/18 01/27/18 History Allergies Allergy/AdvReac Type Severity Reaction Status Date / Time No Known Allergies Allergy Verified 01/27/18 17:58 Physical Exam Vitals: Vital Signs Temp Pulse Pulse Resp BP BP Pulse Ox 01/28/18 08:00 69 16 01/28/18 05:16 98.2 F 69 16 149/68 94 L 01/27/18 21:11 97.9 F 63 16 142/68 98 01/27/18 20:40 99.3 F 65 18 116/56 95 01/27/18 19:51 98 01/27/18 17:33 98.6 F 58 L 18 125/71 95 Intake and Output 01/27/18 01/28/18 01/28/18 22:59 06:59 14:59 Intake Total 750 Balance 750 Intake: Intake, IV Titration 250 Amount Azithromycin 500 mg In 250 Dextrose 5% in Water 250 ml @ 125 mls/hr IVPB ONCE STA Rx#:[id number] Oral 500 Other: Voiding Method Toilet Toilet # Voids 2 1 Weight 70.76 kg Blood pressure 149/68 heart rate 69 afebrile maintaining oxygen saturation on room air GENERAL: This is a 67-year-old male in no apparent distress at the time of my examination. HEENT: Head is atraumatic, normocephalic. Pupils are equal, round. Sclerae anicteric. Conjunctivae are clear. Mucous membranes of the mouth are moist. Neck is supple. There is no jugular venous distention. No carotid bruit is heard. LUNGS: Clear to auscultation no wheezes, rales or rhonchi. No chest wall tenderness is noted on palpation or with deep breathing. HEART: Regular rate and rhythm without murmurs, rubs or gallops. S1 and S2 heard. ABDOMEN: Soft, nontender. Bowel sounds are heard. No organomegaly noted. EXTREMITIES: No evidence of peripheral edema and no calf tenderness noted. VASCULAR: Radial and dorsalis pedis pulses palpated, no evidence of clubbing. NEUROLOGIC: Patient is awake, alert and oriented x3. Results 01/27/18 18:27 01/27/18 18:27 Cardiac Enzymes 01/27/18 Range/Units 18:27 AST 15 L (17-59) U/L CBC 01/27/18 Range/Units 18:27 WBC 27.6 H* (3.8-10.6) k/uL RBC 4.02 L (4.30-5.90) m/uL Hgb 9.9 L D (13.0-17.5) gm/dL Hct 31.4 L (39.0-53.0) % Plt Count 513 H (150-450) k/uL Comprehensive Metabolic Panel 01/27/18 Range/Units 18:27 Sodium 135 L (137-145) mmol/L Potassium 3.8 (3.5-5.1) mmol/L Chloride 93 L (98-107) mmol/L Carbon Dioxide 34 H (22-30) mmol/L BUN 21 H (9-20) mg/dL Creatinine 0.81 (0.66-1.25) mg/dL Glucose 97 (74-99) mg/dL Calcium 9.9 (8.4-10.2) mg/dL AST 15 L (17-59) U/L ALT 38 (21-72) U/L Alkaline Phosphatase 93 (38-126) U/L Total Protein 5.3 L (6.3-8.2) g/dL Albumin 2.7 L (3.5-5.0) g/dL Current Medications Generic Name Dose Route Start Last Admin Trade Name Freq PRN Reason Stop Dose Admin Hydrocodone Bitart/Acetaminophen 1 each 01/27/18 22:23 01/28/18 09:59 Rogers 5-325 PO 1 each Q12H PRN Administration Moderate Pain Albuterol/Ipratropium 3 ml 01/27/18 19:51 Duoneb 0.5 Mg-3 Mg/3 Ml Soln INHALATION RT-Q4H PRN shortness of breath Aspirin 81 mg 01/28/18 09:00 01/28/18 07:45 Aspirin PO 81 mg DAILY MARQUEZ Administration Atorvastatin Calcium 80 mg 01/27/18 21:00 01/27/18 23:39 Lipitor PO 80 mg HS MARQUEZ Administration Azithromycin 500 mg 01/28/18 09:00 01/28/18 07:45 Zithromax PO 500 mg DAILY MARQUEZ Administration Ceftriaxone Sodium 1,000 mg 01/28/18 09:00 01/28/18 08:16 Rocephin IVP 01/31/18 09:01 1,000 mg Q24HR MARQUEZ Administration Sodium Chloride 1,000 mls @ 20 mls/hr 01/27/18 20:00 01/28/18 02:13 Saline 0.9% IV Not Given .Q24H MARQUEZ Losartan Potassium 25 mg 01/27/18 22:30 01/27/18 23:39 Cozaar PO 25 mg HS MARQUEZ Administration Metoprolol Succinate 50 mg 01/28/18 09:00 01/28/18 07:45 Toprol Xl PO 50 mg DAILY MARQUEZ Administration Miscellaneous Information 1 each 01/27/18 19:51 Pneumonia Protocol Utilized PO ONCE PRN Per Protocol Miscellaneous Information 1 each 01/28/18 10:45 Rx Info: Iv Contrast Was Given MISCELLANE 01/30/18 10:46 DAILY PRN Per Protocol Spironolactone 25 mg 01/28/18 09:00 01/28/18 07:46 Aldactone PO 25 mg DAILY MARQUEZ Administration Intake and Output 01/27/18 01/28/18 01/28/18 22:59 06:59 14:59 Intake Total 750 Balance 750 Intake: Intake, IV Titration 250 Amount Azithromycin 500 mg In 250 Dextrose 5% in Water 250 ml @ 125 mls/hr IVPB ONCE STA Rx#:[id number] Oral 500 Other: Voiding Method Toilet Toilet # Voids 2 1 Weight 70.76 kg 01/27/18 18:27 01/27/18 18:27 Assessment and Plan Assessment: ASSESSMENT Left lobe pneumonia, pleural effusion and lung mass Systolic heart failure, chronic, ejection fraction 35-40% with global hypokinesia. Currently euvolemic. Cardiomyopathy unknown etiology at this time. Leukocytosis Abdominal pain with umbilical hernia, surgery has deferred to outpatient treatment Anemia, hypochromic microcytic Hypertension Dyslipidemia PLAN Obtain EKG. Continue with atorvastatin, aspirin, toprol, aldactone and losartan as previously ordered. Repeat echocardiogram. Maximum medical therapy ongoing for cardiomyopathy. Discussed with Dr. Dhillon, management of lung mass will take precendence. No catheterization at this time. Thank you kindly for this consultation. Nurse Practitioner note has been reviewed, I agree with a documented findings and plan of care. Patient was seen and examined.
--- NOTE | 2018-01-28 14:19 | P.CRDCN ---
History of Present Illness History of present illness: Patient interviewed and examined. Discussed with nurse practitioner. Discussed with Dr. Dhillon Patient has a lung mass with a necrotic center and is most likely malignant. He has a history of a non-Q-wave myocardial infarction with likely ischemic cardio myopathy and is a bit 6 weeks back. Today's 12-lead ECG is normal he is completely asymptomatic he has not had any chest pain no undue shortness of breath no cardiac symptoms I would recommend maximal medical treatment and he is medications have been maximized well. As well as proceeding with management of the lung mass Cancel cardiac catheterization for now. Medical treatment for CAD Discussed with patient and his family were in agreement Please see full dictation by nurse practitioner Past Medical History Past Medical History: Cancer, Heart Failure, COPD, Hyperlipidemia, Hypertension , Osteoarthritis (OA), Pneumonia, Prostate Disorder Additional Past Medical History / Comment(s): hx prostate cancer (in remission, ) umb hernia,hx pleural effusion, cardiomyopathy lt lung mass follwed by dr funes History of Any Multi-Drug Resistant Organisms: None Reported Past Surgical History: Hernia Repair, Joint Replacement Additional Past Surgical History / Comment(s): 12/31/17 bronchoscopy w/ bx. Total L hip anterior approach. link cataracts, lt ing hernia.lt thoracentesis 01/21 Past Anesthesia/Blood Transfusion Reactions: No Reported Reaction Additional Past Anesthesia/Blood Transfusion Reaction / Comment(s): clausterphobia Smoking Status: Former smoker - Past Family History Mother Family Medical History: Cancer Additional Family Medical History / Comment(s): Mother had breast cancer and of leukemia at the age of 76yrs. Father Additional Family Medical History / Comment(s): Father of a "broken heart" after his spouses . Sister(s) Family Medical History: Cancer Additional Family Medical History / Comment(s): Breast cancer. Medications and Allergies Home Medications Medication Instructions Recorded Confirmed Type Aspirin 81 mg PO DAILY chew 01/03/18 01/27/18 Rx Losartan [Cozaar] 25 mg PO HS #30 tab 01/03/18 01/27/18 Rx Atorvastatin [Lipitor] 80 mg PO HS 01/27/18 01/27/18 History HYDROcodone/APAP 5-325MG [Gilbert 1 tab PO Q12H PRN 01/27/18 01/27/18 History 5-325] Metoprolol Succinate (ER) [Toprol 50 mg PO DAILY 01/27/18 01/27/18 History XL] Spironolactone [Aldactone] 25 mg PO DAILY 01/27/18 01/27/18 History Allergies Allergy/AdvReac Type Severity Reaction Status Date / Time No Known Allergies Allergy Verified 01/27/18 17:58 Physical Exam Vitals: Vital Signs Temp Pulse Pulse Resp BP BP Pulse Ox 01/28/18 08:00 69 16 01/28/18 05:16 98.2 F 69 16 149/68 94 L 01/27/18 21:11 97.9 F 63 16 142/68 98 01/27/18 20:40 99.3 F 65 18 116/56 95 01/27/18 19:51 98 01/27/18 17:33 98.6 F 58 L 18 125/71 95 Intake and Output 01/27/18 01/28/18 01/28/18 22:59 06:59 14:59 Intake Total 750 Output Total 750 Balance 750 -750 Intake: Intake, IV Titration 250 Amount Azithromycin 500 mg In 250 Dextrose 5% in Water 250 ml @ 125 mls/hr IVPB ONCE STA Rx#:[id number] Oral 500 Output: Urine 750 Other: Voiding Method Toilet Toilet # Voids 2 1 Weight 70.76 kg Results 01/27/18 18:27 01/27/18 18:27 Cardiac Enzymes 01/27/18 Range/Units 18:27 AST 15 L (17-59) U/L CBC 01/27/18 Range/Units 18:27 WBC 27.6 H* (3.8-10.6) k/uL RBC 4.02 L (4.30-5.90) m/uL Hgb 9.9 L D (13.0-17.5) gm/dL Hct 31.4 L (39.0-53.0) % Plt Count 513 H (150-450) k/uL Comprehensive Metabolic Panel 01/27/18 Range/Units 18:27 Sodium 135 L (137-145) mmol/L Potassium 3.8 (3.5-5.1) mmol/L Chloride 93 L (98-107) mmol/L Carbon Dioxide 34 H (22-30) mmol/L BUN 21 H (9-20) mg/dL Creatinine 0.81 (0.66-1.25) mg/dL Glucose 97 (74-99) mg/dL Calcium 9.9 (8.4-10.2) mg/dL AST 15 L (17-59) U/L ALT 38 (21-72) U/L Alkaline Phosphatase 93 (38-126) U/L Total Protein 5.3 L (6.3-8.2) g/dL Albumin 2.7 L (3.5-5.0) g/dL Current Medications Generic Name Dose Route Start Last Admin Trade Name Freq PRN Reason Stop Dose Admin Hydrocodone Bitart/Acetaminophen 1 each 01/27/18 22:23 01/28/18 09:59 Gilbert 5-325 PO 1 each Q12H PRN Administration Moderate Pain Albuterol/Ipratropium 3 ml 01/27/18 19:51 Duoneb 0.5 Mg-3 Mg/3 Ml Soln INHALATION RT-Q4H PRN shortness of breath Aspirin 81 mg 01/28/18 09:00 01/28/18 07:45 Aspirin PO 81 mg DAILY MARQUEZ Administration Atorvastatin Calcium 80 mg 01/27/18 21:00 01/27/18 23:39 Lipitor PO 80 mg HS MARQUEZ Administration Azithromycin 500 mg 01/28/18 09:00 01/28/18 07:45 Zithromax PO 500 mg DAILY MARQUEZ Administration Ceftriaxone Sodium 1,000 mg 01/28/18 09:00 01/28/18 08:16 Rocephin IVP 01/31/18 09:01 1,000 mg Q24HR MARQUEZ Administration Sodium Chloride 1,000 mls @ 20 mls/hr 01/27/18 20:00 01/28/18 02:13 Saline 0.9% IV Not Given .Q24H MARQUEZ Losartan Potassium 25 mg 01/27/18 22:30 01/27/18 23:39 Cozaar PO 25 mg HS MARQUEZ Administration Metoprolol Succinate 50 mg 01/28/18 09:00 01/28/18 07:45 Toprol Xl PO 50 mg DAILY MARQUEZ Administration Miscellaneous Information 1 each 01/27/18 19:51 Pneumonia Protocol Utilized PO ONCE PRN Per Protocol Miscellaneous Information 1 each 01/28/18 10:45 Rx Info: Iv Contrast Was Given MISCELLANE 01/30/18 10:46 DAILY PRN Per Protocol Spironolactone 25 mg 01/28/18 09:00 01/28/18 07:46 Aldactone PO 25 mg DAILY MARQUEZ Administration Intake and Output 01/27/18 01/28/18 01/28/18 22:59 06:59 14:59 Intake Total 750 Output Total 750 Balance 750 -750 Intake: Intake, IV Titration 250 Amount Azithromycin 500 mg In 250 Dextrose 5% in Water 250 ml @ 125 mls/hr IVPB ONCE STA Rx#:[id number] Oral 500 Output: Urine 750 Other: Voiding Method Toilet Toilet # Voids 2 1 Weight 70.76 kg 01/27/18 18:27 01/27/18 18:27
--- NOTE | 2018-01-28 14:42 | P.CONS ---
History of Present Illness - Reason for Consult Consult date: 01/28/18 Probable lung mass, leukocytosis, thrombocytosis - History of Present Illness the patient is a 67-year-old white, initially presentin in 11/04 with complains of left-sided chest discomfort, and some shortness of breath. This was soon after coming back from [place] where he spends the winter. Imaging at that time indicated infiltrative changes and the patient was treated for pneumonia. He had partial response with recurrence of symptoms, for which additional courses of antibiotics were given. Due to persistence of symptoms, he had a CT of the chest in 01/04, which showed a 7 cm plus masslike area with central necrosis. A necrotic malignancy is felt to be the major differential. The patient underwent a bronchoscopy, which noted abnormal appearance of the left lower lobe bronchus with irregular mucosa and extrinsic compression. However pathology was negative for definite evidence of malignancy. Necrotic tumor was again felt to be a possibility. He subsequently had a thoracentesis which was also negative on cytology. Post bronchoscopy the patient developed a non-Q wave NJ. He was seen by cardiology, and cardiac catheterization was under consideration. However his WBC was elevated and there were concerns for infection in the left lower lobe of the lung. Therefore the procedure was cancelled. The patient was sent in to the emergency room, due to some discomfort in his umbilical hernia which she was unable to been reducible. In addition his CBC had shown an increase in his WBC into the 40,000 range , at his PCPs office. He is continued to have left lower chest discomfort,, occasional cough and some shortness of breath on exertion. Chest x-ray showed a persistent opacity in the left lower lobe. Patient was admitted for further management. Consult was placed for further evaluation and recommendations. Review of his labs shows persistence elevation of his WBC in the last few months, generally in the 20,000 range with predominant neutrophilia. Platelets have also been mildly elevated in the high 400s-low 500 range. Review of Systems Constitutional: Reports fatigue, Reports poor appetite, Reports weakness, Reports weight loss Eyes: denies blurred vision, denies pain Ears: deny: decreased hearing, ear discharge, earache, tinnitus Ears, nose, mouth and throat: Denies headache, Denies sore throat Cardiovascular: Reports as per HPI, Reports dyspnea on exertion Respiratory: Reports dyspnea, Reports pain, Reports pain on inspiration Gastrointestinal: Reports abdominal pain (mild, resolved with subsequent reduction of hernia) Genitourinary: Reports as per HPI Musculoskeletal: Denies myalgias Integumentary: Denies pruritus, Denies rash Neurological: Denies numbness, Denies weakness Psychiatric: Denies anxiety, Denies depression Endocrine: Reports fatigue, Reports weight change Hematologic/Lymphatic: Reports as per HPI Past Medical History Past Medical History: Cancer, Heart Failure, COPD, Hyperlipidemia, Hypertension , Osteoarthritis (OA), Pneumonia, Prostate Disorder Additional Past Medical History / Comment(s): hx prostate cancer (in remission, ) umb hernia,hx pleural effusion, cardiomyopathy lt lung mass follwed by dr funes History of Any Multi-Drug Resistant Organisms: None Reported Past Surgical History: Hernia Repair, Joint Replacement Additional Past Surgical History / Comment(s): 12/31/17 bronchoscopy w/ bx. Total L hip anterior approach. link cataracts, lt ing hernia.lt thoracentesis 01/21 Past Anesthesia/Blood Transfusion Reactions: No Reported Reaction Additional Past Anesthesia/Blood Transfusion Reaction / Comm: clausterphobia Smoking Status: Former smoker - Past Family History Mother Family Medical History: Cancer Additional Family Medical History / Comment(s): Mother had breast cancer and of leukemia at the age of 76yrs. Father Additional Family Medical History / Comment(s): Father of a "broken heart" after his spouses . Sister(s) Family Medical History: Cancer Additional Family Medical History / Comment(s): Breast cancer. Medications and Allergies Home Medications Medication Instructions Recorded Confirmed Type Aspirin 81 mg PO DAILY chew 01/03/18 01/27/18 Rx Losartan [Cozaar] 25 mg PO HS #30 tab 01/03/18 01/27/18 Rx Atorvastatin [Lipitor] 80 mg PO HS 01/27/18 01/27/18 History HYDROcodone/APAP 5-325MG [Hatch 1 tab PO Q12H PRN 01/27/18 01/27/18 History 5-325] Metoprolol Succinate (ER) [Toprol 50 mg PO DAILY 01/27/18 01/27/18 History XL] Spironolactone [Aldactone] 25 mg PO DAILY 01/27/18 01/27/18 History Allergies Allergy/AdvReac Type Severity Reaction Status Date / Time No Known Allergies Allergy Verified 01/27/18 17:58 Physical Exam Vitals: Vital Signs Temp Pulse Pulse Resp BP BP Pulse Ox 01/28/18 08:00 69 16 01/28/18 05:16 98.2 F 69 16 149/68 94 L 01/27/18 21:11 97.9 F 63 16 142/68 98 01/27/18 20:40 99.3 F 65 18 116/56 95 01/27/18 19:51 98 01/27/18 17:33 98.6 F 58 L 18 125/71 95 Intake and Output 01/27/18 01/28/18 01/28/18 22:59 06:59 14:59 Intake Total 750 Output Total 750 Balance 750 -750 Intake: Intake, IV Titration 250 Amount Azithromycin 500 mg In 250 Dextrose 5% in Water 250 ml @ 125 mls/hr IVPB ONCE STA Rx#:[id number] Oral 500 Output: Urine 750 Other: Voiding Method Toilet Toilet # Voids 2 1 Weight 70.76 kg - Constitutional General appearance: no acute distress - EENT Eyes: EOMI, PERRLA ENT: hearing grossly normal, normal oropharynx - Neck Neck: no lymphadenopathy Thyroid: bilateral: normal size - Respiratory Respiratory: left: diminished (LLL), rhonchi (LLL) - Cardiovascular Rhythm: regular Heart sounds: normal: S1, S2 - Gastrointestinal General gastrointestinal: normal bowel sounds, soft, umbilical hernia (soft) - Integumentary Integumentary: normal - Neurologic Neurologic: CNII-XII intact - Musculoskeletal Musculoskeletal: strength equal bilaterally - Psychiatric Psychiatric: A&O x's 3, appropriate affect Results CBC & Chem 7: 01/27/18 18:27 01/27/18 18:27 Labs: Abnormal Lab Results - Last 24 Hours (Table) 01/27/18 01/27/18 Range/Units 18:27 18:27 WBC 27.6 H* (3.8-10.6) k/uL RBC 4.02 L (4.30-5.90) m/uL Hgb 9.9 L D (13.0-17.5) gm/dL Hct 31.4 L (39.0-53.0) % MCV 78.1 L (80.0-100.0) fL MCH 24.6 L (25.0-35.0) pg RDW 16.3 H (11.5-15.5) % Plt Count 513 H (150-450) k/uL Neutrophils # 23.9 H (1.3-7.7) k/uL Monocytes # 1.1 H (0-1.0) k/uL Sodium 135 L (137-145) mmol/L Chloride 93 L (98-107) mmol/L Carbon Dioxide 34 H (22-30) mmol/L BUN 21 H (9-20) mg/dL AST 15 L (17-59) U/L Total Protein 5.3 L (6.3-8.2) g/dL Albumin 2.7 L (3.5-5.0) g/dL Comments: Procedure notes, and pathology reports reviewed Chest x-ray: report reviewed CT scan - chest: report reviewed Assessment and Plan Assessment: #1. Leukocytosis and thrombocytosis #2. Left lower lung mass Plan: #1. The patient has mild to moderate leukocytosis, and mild pancytopenia. Leukocytosis consist of predominantly neutrophilia. He has an obvious inflammatory process going on in the left lower lung. Therefore the WBC/ platelet elevation appears to be reactive. At this time there is no significant clinical suspicion for a myeloproliferative condition. The above was discussed in detail with the patient and his family. They were advised that in the very unlikely event that this was a MPD, this could represent a very slow-growing, or early process and would certainly not explain his left lower lobe findings. Therefore at this time further workup for the blood count elevation is not recommended. #2. Imaging studies, as well as procedure notes and path reports were reviewed. At this time a necrotic malignancy is the primary differential. Nonmalignant conditions such as a phlegmon, or chronic fungal infections are also in the differential. 2 proceed further, a tissue diagnosis is required. So far the patient's pathology, as well as other testing including microbiology have been nondiagnostic. Ideally in this condition, the patient should have a repeat procedure for tissue diagnosis. The case was discussed with the primary service. There is reluctance for another bronchoscopy due to his recent non-Q-wave NJ. Therefore other option could be a CT-guided biopsy. The appropriate procedure will be ordered after additional discussion with the pulmonary service once they have evaluated the patient. If malignancy is confirmed, the patient will need a PET scan as an outpatient.
[2018-01-28 15:23] LABS: INR 1.2 (<1.2); Prothrombin Time 11.3 sec (9.0-12.0)
[2018-01-28 15:30] LABS: Cholesterol 84 mg/dL (<200); HDL Cholesterol 47 mg/dL (40-60); LDL Cholesterol,Calculated 25 mg/dL (0-99); Triglycerides 62 mg/dL (<150)
--- NOTE | 2018-01-28 15:55 | P.CNPUL ---
History of Present Illness Consult date: 01/28/18 Reason for consult: lung mass History of present illness: 67-year-old male patient who is coming in for shortness of breath, weight loss and pain across the left posterior chest area that's been going on for the past several months. The patient was initially found to have a masslike consolidation in the left lower lobe in October 2017 his condition progressively got worse. The CAT scan of the chest that was done in December 2017 showed a mass in the left lower lobe in addition to a left lower lobe pleural effusion. At that time the patient performed a bronchoscopy and transbronchial biopsies and lavage did not yield any infectious etiologies nor there was any malignancy identified. Subsequently, the patient came into the hospital and he suffered an acute non-ST segment elevation myocardial infarction. He did not have any further workup taken account that the patient had possibly an underlying malignancy and he was treated medically from a cardiac standpoint. Since then the patient did not have any anginal-type of chest pain nor he had any angina at a time of his acute non-STEMI. He was seen in our office and he underwent a left-sided thoracentesis in the fluid was exudate. The fluid cytology was negative for malignancy. As such no definitive diagnoses been established and the patient's pain continued to occur and he has a uncomfortable squeezing type of pain sensation in the posterior left chest area. No hemoptysis. No pleurisy. He presented back to the hospital. IV. The CAT scan of the chest and based on my review of the CAT scan, there is a large 6 x 6.7 x 6.9 cm mass in the left lower lobe and this is a masslike consolidation area and has some peripheral spiculation and some adjacent atelectatic changes. There is background COPD and a small right diaphragmatic hiatal hernia. The left-sided perfusion was again demonstrated although it was smaller in size. No mediastinal lymphadenopathy. There was coronary calcification. I discussed the findings with the patient can also discussed the findings with interventional radiology. I think is very reasonable to proceed with a fine- needle aspirate in attempt to achieve final diagnosis on this patient. I discussed the case with Dr. Abdiaziz Meraz and will going to proceed with a fine- needle aspirate of the left lung mass today. The patient will be seen also by cardiology. His white cell count is elevated at 27.6. He has chronic elevation of white cell count. The rest of the blood work and electrodes are all within normal limits. The patient will also be seen by oncology. Review of Systems Constitutional: Reports fatigue, Reports weakness, Reports weight loss Eyes: denies blurred vision, denies bulging eye, denies decreased vision Ears: deny: decreased hearing, ear discharge, earache, tinnitus Ears, nose, mouth and throat: Reports as per HPI Cardiovascular: Reports chest pain, Reports dyspnea on exertion Respiratory: Reports dyspnea Gastrointestinal: Denies abdominal pain, Denies diarrhea, Denies nausea, Denies vomiting Genitourinary: Reports as per HPI Musculoskeletal: Reports as per HPI Musculoskeletal: absent: ankle pain, ankle stiffness, ankle swelling Integumentary: Reports as per HPI Neurological: Denies numbness, Denies weakness Psychiatric: Denies anxiety, Denies depression Endocrine: Denies fatigue, Denies weight change Hematologic/Lymphatic: Reports as per HPI Allergic/Immunologic: Reports as per HPI Past Medical History Past Medical History: Cancer, Heart Failure, COPD, Hyperlipidemia, Hypertension , Osteoarthritis (OA), Pneumonia, Prostate Disorder Additional Past Medical History / Comment(s): Lung mass on that investigation, left-sided pleural effusion exudate, umbilical hernia, history of prostate cancer, hypertension, hyperlipidemia, COPD, osteoarthritis, History of Any Multi-Drug Resistant Organisms: None Reported Past Surgical History: Hernia Repair, Joint Replacement Additional Past Surgical History / Comment(s): 12/31/17 bronchoscopy w/ bx. Total L hip anterior approach. link cataracts, lt ing hernia.lt thoracentesis 01/21 Past Anesthesia/Blood Transfusion Reactions: No Reported Reaction Additional Past Anesthesia/Blood Transfusion Reaction / Comment(s): clausterphobia Smoking Status: Former smoker - Past Family History Mother Family Medical History: Cancer Additional Family Medical History / Comment(s): Mother had breast cancer and of leukemia at the age of 76yrs. Father Additional Family Medical History / Comment(s): Father of a "broken heart" after his spouses . Sister(s) Family Medical History: Cancer Additional Family Medical History / Comment(s): Breast cancer. Medications and Allergies Home Medications Medication Instructions Recorded Confirmed Type Aspirin 81 mg PO DAILY chew 01/03/18 01/27/18 Rx Losartan [Cozaar] 25 mg PO HS #30 tab 01/03/18 01/27/18 Rx Atorvastatin [Lipitor] 80 mg PO HS 01/27/18 01/27/18 History HYDROcodone/APAP 5-325MG [[place] 1 tab PO Q12H PRN 01/27/18 01/27/18 History 5-325] Metoprolol Succinate (ER) [Toprol 50 mg PO DAILY 01/27/18 01/27/18 History XL] Spironolactone [Aldactone] 25 mg PO DAILY 01/27/18 01/27/18 History Allergies Allergy/AdvReac Type Severity Reaction Status Date / Time No Known Allergies Allergy Verified 01/27/18 17:58 Physical Exam Vitals: Vital Signs Temp Pulse Pulse Resp BP BP Pulse Ox 01/28/18 08:00 69 16 01/28/18 05:16 98.2 F 69 16 149/68 94 L 01/27/18 21:11 97.9 F 63 16 142/68 98 01/27/18 20:40 99.3 F 65 18 116/56 95 01/27/18 19:51 98 01/27/18 17:33 98.6 F 58 L 18 125/71 95 Intake and Output 01/28/18 01/28/18 01/28/18 06:59 14:59 22:59 Output Total 750 Balance -750 Output: Urine 750 Other: Voiding Method Toilet # Voids 1 Gen. appearance, comfortable molecular distress Head exam was generally normal. There was no scleral icterus or corneal arcus. Mucous membranes were moist. Neck was supple and without jugular venous distension, thyromegaly, or carotid bruits. Carotids were easily palpable bilaterally. There was no adenopathy. Lungs sounds are diminished in the left lung base otherwise clear for the rest of the lung mar. Cardiac exam revealed the PMI to be normally situated and sized. The rhythm was regular and no extrasystoles were noted during several minutes of auscultation. The first and second heart sounds were normal and physiologic splitting of the second heart sound was noted. There were no murmurs, rubs, clicks, or gallops. Abdominal exam revealed normal bowel sounds. The abdomen was soft, non-tender, and without masses, organomegaly, or appreciable enlargement of the abdominal aorta. Examination of the extremities revealed easily palpable radial, femoral and pedal pulses. There was no cyanosis, clubbing or edema. Examination of the skin revealed no evidence of significant rashes, suspicious appearing nevi or other concerning lesions. Neurologic awake and alert and is no focal neurological deficit. Results - Laboratory Findings CBC and BMP: 01/27/18 18:27 01/27/18 18:27 PT/INR, D-dimer PT 11.3 sec (9.0-12.0) 01/28/18 14:54 INR 1.2 (<1.2) H 01/28/18 14:54 Abnormal lab findings: Abnormal Labs 01/27/18 01/27/18 01/28/18 18:27 18:27 14:54 WBC 27.6 H* RBC 4.02 L Hgb 9.9 L D Hct 31.4 L MCV 78.1 L MCH 24.6 L RDW 16.3 H Plt Count 513 H Neutrophils # 23.9 H Monocytes # 1.1 H INR 1.2 H Sodium 135 L Chloride 93 L Carbon Dioxide 34 H BUN 21 H AST 15 L Total Protein 5.3 L Albumin 2.7 L - Diagnostic Findings CT scan - chest: image reviewed Assessment and Plan Plan: Assessment 1 lung mass. The patient has a left lower lobe masslike consolidation measuring 6 x 6.76.9 cm in size. The patient had a previous bronchoscopy that was nondiagnostic for malignancy or infections 2 left-sided exudative pleural effusion, post thoracentesis and evacuation of 1 L of pleural fluid with a negative fluid cytology 3 left-sided chest pain secondary to above 4 multiple calcified granulomas involving the lungs 5 COPD 6 prostate cancer treated by radiation therapy 7 unexplained weight loss, rule out underlying malignancy 8 hypertension 9 hyperlipidemia 10 coronary artery disease with a recent non-ST segment elevation myocardial infarction 11 CHF with an ejection fraction of 35-40%, currently well compensated Plan We'll proceed with a fine-needle aspirate of the left lung mass. We'll attempt to obtain also a core biopsy of the left lung. This will hopefully establish diagnosis. The procedure was taken to the patient at length. Further recommendations are to follow based on the finding the aspirate findings. We' ll continue to follow.
--- NOTE | 2018-01-28 18:18 | ECHOF ---
Referral Reason:follow up MEASUREMENTS -------- HEIGHT: 175.3 cm WEIGHT: 70.8 kg BP: 149/68 IVSd: 1.0 cm (0.6 - 1.1) LVIDd: 5.0 cm (3.9 - 5.3) LVPWd: 1.2 cm (0.6 - 1.1) IVSs: 1.5 cm LVIDs: 3.0 cm LVPWs: 1.7 cm RVIDd: 3.3 cm (< 3.3) FINDINGS -------- Sinus rhythm. Pt had complete echo 01/04: Follow-up echo for LV Function. The left ventricular size is normal. Overall left ventricular systolic function is mildly impaired with, an EF between 45 - 50 %. Anterseptal Hypokinesis Lateral hypokinesis Inferior Hypokinesis CONCLUSIONS -------- 1. Pt had complete echo 01/04: Follow-up echo for LV Function. 2. The left ventricular size is normal. 3. Overall left ventricular systolic function is mildly impaired with, an EF between 45 - 50 %. 4. Anterseptal Hypokinesis 5. Lateral hypokinesis 6. Inferior Hypokinesis [employer]: Ester Lunsford RDCS
[2018-01-28] MEDS: LOSARTAN 25 MG TAB PO SCH (21:12)
[2018-01-28] MEDS: ATORVASTATIN 80 MG TAB PO SCH (21:12)
--- NOTE | 2018-01-28 23:54 | HP ---
HISTORY AND PHYSICAL DATE OF SERVICE: 01/28/2018 PRESENTING COMPLAINT: Abdominal pain. HISTORY OF PRESENTING COMPLAINT: This is a patient I came to see earlier twice today. Once he was getting an ultrasound and the second time he was being seen by Dr. Dhillon. Hence I had to come back later in the day to see him. This is a very pleasant 67-year-old patient who was here about 3 weeks ago; then had an acute myocardial infarction and was found to have ischemic cardiomyopathy, EF 35% to 40% Patient's chronic stable medical conditions include emphysema, microcytic anemia and coronary artery disease. Patient did have a bronchoscopy and transbronchial biopsy; at the present time did come back negative for any malignancy. Patient was seen by Dr. Dillon. Patient does have an umbilical hernia that he was not able to reduce. Yesterday it became rather painful, and in the ER this was reduced by the ER physician. Patient also was noted to have elevated white count. This was by his family doctor, up to 40,000 and thereby patient was sent in. Patient has a slight cough, minimal shortness of breath. Has lost some weight. Food does not taste good. REVIEW OF SYSTEMS: CONSTITUTIONAL: Tired. Weight loss. HEENT: None. RESPIRATORY: Occasionally short of breath. CARDIOVASCULAR: None. GASTROINTESTINAL: As above. GENITOURINARY: None. MUSCULOSKELETAL: None. DERMATOLOGICAL: None. HEMATOLOGICAL: None. LYMPHATICS: None. PSYCHIATRY: A bit anxious. NEUROLOGICAL: None. PAST MEDICAL HISTORY: 1. Left lung mass, being followed by Dr. Dillon. 2. Umbilical hernia. 3. Cataracts. 4. Prostate cancer; had radiation. 5. Osteoarthritis. PAST SURGICAL HISTORY: 1. Hernia repair. 2. Joint replacement. 3. Left total hip arthroscopy. 4. Bilateral cataracts. 5. Left inguinal hernia repair. SOCIAL HISTORY: . Lives with his . 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 He served in the [employer]. Smoked for about 30 years, about a pack a day. Stopped in 2004. FAMILY HISTORY: Mother had breast cancer, of leukemia at age of 76. HOME MEDICATIONS: 1. Aldactone 25 mg a day. 2. Toprol XL 50 mg a day. 3. Cozaar 25 mg at bedtime. 4. [place] 5 one tablet q.12 p.r.n. 5. Lipitor 80 mg at bedtime. 6. Aspirin 81 mg p.o. daily. ALLERGIES: NONE. PHYSICAL EXAMINATION: Temperature 98, pulse 58, respirations 18, blood pressure 125/71, pulse ox 95% on room air. GENERAL APPEARANCE: Average build. Lying in bed, somewhat anxious-appearing. EYES: Pupils equal. Conjunctivae pale. HEENT: External appearance of nose and ears normal. Oral cavity normal. NECK: JVD not raised. Mass not palpable. RESPIRATORY: Effort normal. LUNGS: Diminished breath sounds. Some bronchial breathing at the left base. CARDIOVASCULAR: First and second sounds normal. No edema. ABDOMEN: Umbilical hernia present. Soft, nontender. Liver and spleen not palpable. LYMPHATIC: No lymph node palpable in neck or axillae. PSYCHIATRY: Alert and oriented x3. Mood and affect normal. INVESTIGATIONS: White count 27.6, hemoglobin 9.9, platelets 5.3, potassium 3.8, BUN 21, creatinine 0.81. UA negative. Chest x-ray shows a mass in the left lower area. Film was interpreted by me. Patient had a limited echocardiogram, EF of 45% to 50%, some wall motion abnormalities. Chest CT shows a centrally necrotic left lower lobe pulmonary mass and there could be possibly some fluid present. ASSESSMENT: 1. Left lung mass, highly suspicious for malignancy, for which patient did have bronchoscopy. The biopsy did come back negative for malignancy, but because of the patient losing weight, history of smoking and enlarging on the CT scan, this is highly suspicious for malignancy. Will need to have a repeat biopsy. 2. Chronic obstructive pulmonary disease in an ex-smoker. 3. Reducible umbilical hernia. 4. Hyperlipidemia. 5. Essential hypertension. 6. Primary osteoarthritis. 7. Coronary artery disease with stent. 8. Ischemic cardiomyopathy; ejection fraction 40% to 45%. PLAN: Discussed with Dr. Dhillon. Will have Radiology, Dr. Meraz, get another biopsy. In the meantime, patient has been put on ceftriaxone and Zithromax. Consultations were also made to Dr. Monroy and Dr. Brand. SEN / SCOTTIE: [id number] /
[2018-01-29] MEDS: SODIUM CHLORIDE 0.9% 1,000 ML IV SCH (00:50)
[2018-01-29] MEDS: cefTRIAXone IN SWFI 1,000 MG/10 ML SYRINGE IVP SCH (08:19)
[2018-01-29] MEDS: METOPROLOL SUCCINATE (ER) 50 MG TAB.ER.24H PO SCH (08:19)
[2018-01-29] MEDS: SPIRONOLACTONE 25 MG TAB PO SCH (08:19)
[2018-01-29] MEDS: AZITHROMYCIN 500 MG TAB PO SCH (08:19)
[2018-01-29] MEDS: ASPIRIN 81 MG PO SCH (08:20)
[2018-01-29] MEDS: HYDROcodone/APAP 5-325MG 1 EACH TAB PO PRN (08:26)
--- NOTE | 2018-01-29 13:12 | P.PN ---
Subjective Mr. Edouard is seen and examined resting comfortably in bed with at the bedside. Limited echo performed yesterday reveals improving LV systolic function with EF 45-50%. Lipid panel from yesterday LDL 25, HDL 47, triglycerides 62 and total cholesterol 84. Blood pressure 98/88 heart rate 80 afebrile and maintaining oxygen saturation on room air. Pulmonary is planning for fine-needle aspirate of left lung mass and core biopsy. Objective - Vital Signs Vital signs: Vital Signs Temp 98.1 F 01/29/18 05:19 Pulse 80 01/29/18 08:30 Resp 12 01/29/18 08:30 BP 98/88 01/29/18 05:19 Pulse Ox 94 L 01/29/18 05:19 Intake & Output 01/28/18 01/29/18 01/29/18 18:59 06:59 18:59 Intake Total 150 Output Total 750 Balance -750 150 Weight 68.5 kg Intake: Oral 150 Output: Urine 750 Other: Voiding Method Toilet Toilet Toilet # Voids 1 - Exam GENERAL: Well-appearing, well-nourished and in no acute distress. NECK: Supple without JVD or thyromegaly. LUNGS: Breath sounds clear to auscultation bilaterally. Respiration equal and unlabored. No wheezes, rales or rhonchi. HEART: Regular rate and rhythm without murmurs, rubs or gallops. S1 and S2 heard. EXTREMITIES: Normal range of motion, no edema. No clubbing or cyanosis. Peripheral pulses intact. - Labs CBC & Chem 7: 01/27/18 18:27 01/27/18 18:27 Labs: Abnormal Lab Results - Last 24 Hours (Table) 01/28/18 Range/Units 14:54 INR 1.2 H (<1.2) Microbiology - Last 24 Hours (Table) 01/27/18 11:34 Gram Stain - Preliminary Sputum 01/27/18 18:27 Blood Culture - Preliminary Blood No Growth after 24 hours 01/28/18 08:45 Urine Culture - Preliminary Urine,Voided Assessment and Plan Assessment: ASSESSMENT Left lobe pneumonia, pleural effusion and lung mass Systolic heart failure, chronic, ejection fraction 35-40% with global hypokinesia. Currently euvolemic. Improving on maximum medical therapy. Cardiomyopathy unknown etiology at this time. Leukocytosis Abdominal pain with umbilical hernia, surgery has deferred to outpatient treatment Anemia, hypochromic microcytic Hypertension Dyslipidemia PLAN Continue with current maximum medical therapy. Follow up with Dr. Brand upon discharge. Nurse Practitioner note has been reviewed, I agree with a documented findings and plan of care. Patient was seen and examined.
--- NOTE | 2018-01-29 14:19 | XR ---
EXAMINATION TYPE: XR chest 1V portable DATE OF EXAM: 01/29/2018 COMPARISON: Prior chest x-ray dated 01/28/2018, chest CT 01/28/2018 HISTORY: Status post left lung biopsy TECHNIQUE: frontal view of the chest is obtained on 2 images. FINDINGS: There is no evident pneumothorax. Exam shows a stable appearance. IMPRESSION: No evident complication status post left lung biopsy.
--- NOTE | 2018-01-29 15:22 | P.PN ---
Subjective Progress Note Date: 01/29/18 Principal diagnosis: Lung mass, in the left lower lobe, masslike consolidation 67-year-old male patient who is coming in for shortness of breath, weight loss and pain across the left posterior chest area that's been going on for the past several months. The patient was initially found to have a masslike consolidation in the left lower lobe in October 2017 his condition progressively got worse. The CAT scan of the chest that was done in December 2017 showed a mass in the left lower lobe in addition to a left lower lobe pleural effusion. At that time the patient performed a bronchoscopy and transbronchial biopsies and lavage did not yield any infectious etiologies nor there was any malignancy identified. Subsequently, the patient came into the hospital and he suffered an acute non-ST segment elevation myocardial infarction. He did not have any further workup taken account that the patient had possibly an underlying malignancy and he was treated medically from a cardiac standpoint. Since then the patient did not have any anginal-type of chest pain nor he had any angina at a time of his acute non-STEMI. He was seen in our office and he underwent a left-sided thoracentesis in the fluid was exudate. The fluid cytology was negative for malignancy. As such no definitive diagnoses been established and the patient's pain continued to occur and he has a uncomfortable squeezing type of pain sensation in the posterior left chest area. No hemoptysis. No pleurisy. He presented back to the hospital. IV. The CAT scan of the chest and based on my review of the CAT scan, there is a large 6 x 6.7 x 6.9 cm mass in the left lower lobe and this is a masslike consolidation area and has some peripheral spiculation and some adjacent atelectatic changes. There is background COPD and a small right diaphragmatic hiatal hernia. The left-sided perfusion was again demonstrated although it was smaller in size. No mediastinal lymphadenopathy. There was coronary calcification. I discussed the findings with the patient can also discussed the findings with interventional radiology. I think is very reasonable to proceed with a fine- needle aspirate in attempt to achieve final diagnosis on this patient. I discussed the case with Dr. Abdiaziz Meraz and will going to proceed with a fine- needle aspirate of the left lung mass today. The patient will be seen also by cardiology. His white cell count is elevated at 27.6. He has chronic elevation of white cell count. The rest of the blood work and electrodes are all within normal limits. The patient will also be seen by oncology. On 01/29/2018 patient seen in follow-up on medical surgical floor. He is scheduled for CT-guided needle biopsy of the left lower lung mass, or she might want to the CT scanner's is currently down, and patient's procedure is planned to be done under ultrasound guidance sometime today. Lites patient remains stable, no acute complaints, no incentive dyspnea or chest pain. He remains afebrile, room air pulse ox is 95%, hemodynamically stable, and patient is would like to go home later on today if there are no complications with the biopsy procedure. Objective - Vital Signs Vital signs: Vital Signs Temp 98.1 F 01/29/18 05:19 Pulse 64 01/29/18 14:02 Resp 20 01/29/18 14:02 BP 122/67 01/29/18 14:02 Pulse Ox 95 01/29/18 14:02 Intake & Output 01/28/18 01/29/18 01/29/18 18:59 06:59 18:59 Intake Total 150 Output Total 750 Balance -750 150 Weight 68.5 kg Intake: Oral 150 Output: Urine 750 Other: Voiding Method Toilet Toilet Toilet # Voids 1 - Exam Gen. appearance, comfortable molecular distress Head exam was generally normal. There was no scleral icterus or corneal arcus. Mucous membranes were moist. Neck was supple and without jugular venous distension, thyromegaly, or carotid bruits. Carotids were easily palpable bilaterally. There was no adenopathy. Lungs sounds are diminished in the left lung base otherwise clear for the rest of the lung mar. Cardiac exam revealed the PMI to be normally situated and sized. The rhythm was regular and no extrasystoles were noted during several minutes of auscultation. The first and second heart sounds were normal and physiologic splitting of the second heart sound was noted. There were no murmurs, rubs, clicks, or gallops. Abdominal exam revealed normal bowel sounds. The abdomen was soft, non-tender, and without masses, organomegaly, or appreciable enlargement of the abdominal aorta. Examination of the extremities revealed easily palpable radial, femoral and pedal pulses. There was no cyanosis, clubbing or edema. Examination of the skin revealed no evidence of significant rashes, suspicious appearing nevi or other concerning lesions. Neurologic awake and alert and is no focal neurological deficit. - Labs CBC & Chem 7: 01/27/18 18:27 01/27/18 18:27 Labs: Abnormal Lab Results - Last 24 Hours (Table) 01/28/18 Range/Units 14:54 INR 1.2 H (<1.2) Microbiology - Last 24 Hours (Table) 01/28/18 08:45 Urine Culture - Final Urine,Voided 01/27/18 11:34 Gram Stain - Preliminary Sputum 01/27/18 18:27 Blood Culture - Preliminary Blood No Growth after 24 hours Assessment and Plan Plan: Assessment: 1 lung mass. The patient has a left lower lobe masslike consolidation measuring 6 x 6.76.9 cm in size. The patient had a previous bronchoscopy that was nondiagnostic for malignancy or infections 2 left-sided exudative pleural effusion, post thoracentesis and evacuation of 1 L of pleural fluid with a negative fluid cytology 3 left-sided chest pain secondary to above 4 multiple calcified granulomas involving the lungs 5 COPD 6 prostate cancer treated by radiation therapy 7 unexplained weight loss, rule out underlying malignancy 8 hypertension 9 hyperlipidemia 10 coronary artery disease with a recent non-ST segment elevation myocardial infarction 11 CHF with an ejection fraction of 35-40%, currently well compensated Plan We'll proceed with ultrasound-guided needle biopsy of the left lower lung mass by interventional radiology. Otherwise patient remains stable, denies any acute complaints, denies any dyspnea, vital signs are stable. We'll repeat blood work today. Patient potentially may be discharged home after the procedure provided there are no complications and the patient remains stable. Follow-up with Dr. Dhillon in the office in the next 7-10 days I performed a history & physical examination of the patient and discussed their management with my nurse practitioner, Elizabeth Zavaleta. I reviewed the nurse practitioner's note and agree with the documented findings and plan of care. Lung sounds are positive for diminished breath sounds over left lower lobe. The findings and the impression was discussed with the patient. I attest to the documentation by the nurse practitioner. Time with Patient: Less than 30
[2018-01-29 15:27] VITALS: BP 110/60; PULSE 80; RESP 16; TEMP 98.5
[2018-01-29 15:36] LABS: Anisocytosis Slight; HCT 33.1 % (39.0-53.0); HGB 10.7 gm/dL (13.0-17.5); Hypochromasia Moderate; MCH 25.9 pg (25.0-35.0); MCHC 32.2 g/dL (31.0-37.0); MCV 80.4 fL (80.0-100.0); Mean Platelet Volume 6.5; Platelet Count 458 k/uL (150-450); RBC 4.12 m/uL (4.30-5.90); RDW 16.1 % (11.5-15.5)
[2018-01-29 15:37] LABS: Anion Gap 11 mmol/L; Blood Urea Nitrogen 18 mg/dL (9-20); Calcium 9.7 mg/dL (8.4-10.2); Carbon Dioxide 28 mmol/L (22-30); Chloride 96 mmol/L (98-107); Glucose 183 mg/dL (74-99); Potassium 4.5 mmol/L (3.5-5.1); Sodium 135 mmol/L (137-145)
[2018-01-29 15:39] LABS: WBC 30.7 k/uL (3.8-10.6)
--- NOTE | 2018-01-29 15:58 | US ---
EXAMINATION TYPE: US biopsy thorax or neck, core biopsy lung mass DATE OF EXAM: 01/29/2018 HISTORY: Left lower lobe lung mass. FINDINGS: Maximal barrier technique was utilized. The skin overlying a suitable path to the patient' s mass was localized with ultrasound and the overlying skin prepped and draped. Ultrasound was utili zed with sterile technique. Lidocaine was used for local anesthesia. A skin joby was made with a sc alpel. An 18-gauge needle was advanced under direct ultrasound guidance and core specimen obtained o f the mass. Specimen submitted in formalin to Pathology. Following the procedure, hemostasis achiev ed and the patient is discharged in stable condition without complication. IMPRESSION:STATUS POST ULTRASOUND GUIDED CORE BIOPSY OF left lower lobe lung MASS, PATHOLOGY IS PENDI NG. THIS PROCEDURE IS PERFORMED BY THE UNDERSIGNED.
[2018-01-29 16:02] LABS: Anisocytosis (M) Present; Band Neutrophils % 5 %; Eosinophils # (M) 1.23 k/uL (0-0.7); Lymphocytes # (M) 1.23 k/uL (1.0-4.8); Monocytes # (M) 0.61 k/uL (0-1.0); Neutrophils % (M) 86 %; Nucleated Red Blood Cells 0 /100 WBC (0-0); Polychromasia Present; Total Cells Counted 200
--- NOTE | 2018-01-29 16:38 | XR ---
EXAMINATION TYPE: XR chest 1V portable DATE OF EXAM: 01/29/2018 HISTORY: post left lung biopsy. REFERENCE: Previous study dated 01/29/2018. FINDINGS: There is a large soft tissue density in the left lower lobe. The right lung is clear. I do not see evidence of pneumothorax. Heart size is normal. I suspect a left effusion. IMPRESSION: I DO NOT SEE A POSTBIOPSY PNEUMOTHORAX.
--- NOTE | 2018-01-29 16:40 | P.PN ---
Subjective Progress Note Date: 01/29/18 The patient denies any new complaints. He is status post ultrasound-guided biopsy of the left lower lung lesion. He tolerated that well. Objective - Vital Signs Vital signs: Vital Signs Temp 98.5 F 01/29/18 15:26 Pulse 80 01/29/18 15:26 Resp 16 01/29/18 15:26 BP 110/60 01/29/18 15:26 Pulse Ox 93 L 01/29/18 15:26 Intake & Output 01/28/18 01/29/18 01/29/18 18:59 06:59 18:59 Intake Total 150 Output Total 750 Balance -750 150 Weight 68.5 kg Intake: Oral 150 Output: Urine 750 Other: Voiding Method Toilet Toilet Toilet # Voids 1 2 - Constitutional General appearance: Present: no acute distress - EENT Eyes: Present: EOMI ENT: Present: hearing grossly normal, normal oropharynx - Respiratory Respiratory: left: diminished, rales, rhonchi - Cardiovascular Rhythm: regular Heart sounds: normal: S1, S2 - Gastrointestinal General gastrointestinal: Present: soft - Neurologic Neurologic: Present: CNII-XII intact - Musculoskeletal Musculoskeletal: Present: strength equal bilaterally - Psychiatric Psychiatric: Present: A&O x's 3, appropriate affect - Labs CBC & Chem 7: 01/29/18 15:14 01/29/18 15:14 Labs: Abnormal Lab Results - Last 24 Hours (Table) 01/29/18 01/29/18 Range/Units 15:14 15:14 WBC 30.7 H* (3.8-10.6) k/uL RBC 4.12 L (4.30-5.90) m/uL Hgb 10.7 L (13.0-17.5) gm/dL Hct 33.1 L (39.0-53.0) % RDW 16.1 H (11.5-15.5) % Plt Count 458 H (150-450) k/uL Neutrophils # (Manual) 27.90 H (1.3-7.7) k/uL Eosinophils # (Manual) 1.23 H (0-0.7) k/uL Sodium 135 L (137-145) mmol/L Chloride 96 L (98-107) mmol/L Creatinine 0.63 L (0.66-1.25) mg/dL Glucose 183 H (74-99) mg/dL Microbiology - Last 24 Hours (Table) 01/27/18 11:34 Gram Stain - Preliminary Sputum Sputum Culture - Preliminary 01/28/18 08:45 Urine Culture - Final Urine,Voided 01/27/18 18:27 Blood Culture - Preliminary Blood No Growth after 24 hours Assessment and Plan (1) Mass of left lung Narrative/Plan: The patient was seen by pulmonary medicine and cardiology. It was felt by pulmonary medicine, that imaging guided needle biopsy of the area of suspicion would be the appropriate procedure. This has been performed under ultrasound guidance and results are pending. The patient tolerated the procedure well. The patient will follow up with pulmonary medicine in the outpatient setting. If the biopsy is positive for malignancy, then he will be referred to oncology for additional recommendations. Case discussed with pulmonary metastases Current Visit: Yes Status: Acute Code(s): R91.8 - OTHER NONSPECIFIC ABNORMAL FINDING OF LUNG FIELD SNOMED Code(s): 973790005
--- NOTE | 2018-01-29 23:28 | DS ---
DISCHARGE SUMMARY DATE OF ADMISSION: January 27, 2018. DATE OF DISCHARGE: January 29, 2018. FINAL DIAGNOSES: 1. Left lung mass, workup in process. 2. Chronic obstructive pulmonary disease in an ex-smoker. 3. Reducible umbilical hernia. 4. Hyperlipidemia. 5. Essential hypertension. 6. Primary osteoarthritis. 7. Coronary artery disease with stent. 8. Ischemic cardiomyopathy EF 40-45%. HOSPITAL COURSE: This is a patient with a left lung mass, did have outpatient bronchoscopy. The patient's malignancy workup came back negative. Mass has been enlarging. Patient presented with increasing white count. The patient did undergo another biopsy by Radiology today. I discussed with Dr. Dhillon. Patient is good to go. Patient's white count has been up. The patient is actually feeling better since he came in here. Tolerating a diet. Very keen to go home. He will follow up with Dr. Dhillon on Thursday. Hopefully the pathology results are back by then. Care was discussed at length with the patient and the and also Dr. Dhillon. CONSULTATION: Dr. Monroy from Oncology, Dr. Dhillon from Pulmonary, Dr. Brand from Cardiology. On exam, decreased breath sounds. Cardiovascular: 1st and second sounds normal. Discussion and discharge planning more than 35 minutes. DISCHARGE MEDICATIONS: 1. Aspirin 81 mg a day. 2. Cozaar 25 mg at bedtime. 3. Lipitor 80 mg at bedtime. 4. [place] 5 one tab q.12h p.r.n. 5. Toprol-XL 50 mg a day. 6. Aldactone 25 mg p.o. daily. 7. Combivent 2 puffs q.i.d. FOLLOW UP: With Dr. Brand in 6 weeks, Dr. Oseguera in 3 days, Dr. Dhillon on February 01, 2018. Copy to Dr. Oseguera. MMODL / IJN: [id number] /
--- NOTE | 2018-02-05 06:48 | CDI ---
Last Revision, June 2017 Documentation Clarification Form Date: 02/05/18 From: SKYLA Guardado Phone: If you have question, contact Rose Frye Administrative Clerk at M-F 8:30 am to 6pm Admit Date: 01/27/2018 7:51:00 PM Patient Name: Mario Edouard Visit Number: [id number] Discharge Date: 01/29/18 ATTENTION: The Clinical Documentation Specialists (CDI) and [facility] Coding Staff appreciate your assistance in clarifying documentation. Please respond to the clarification below the line at the bottom and electronically sign. The CDI & [facility] Coding staff will review the response and follow-up if needed. Please note: Queries are made part of the Legal Health Record. If you have any questions, please contact the author of this message via ITS. Dr. Mack Watkins Mr. Edouard underwent a biopsy of a left lung mass. The final diagnosis of the pathology report states: primary non small cell lung cancer In your professional opinion, do you agree with the pathology report specifying the lung mass as primary non small cell lung cancer? Yes No Other (please specify) Unable to determine primary non small cell lung cancer reported on 02/03/18-after pt was discharged__ MTDD
== END 2018-01-29 17:31 | disposition home or self-care (01) | DRG 180 ==
LOC: EC 17:28 → 5MS5E 19:51
PROVIDERS: ADMIT Hospitalist; ATTEND Hospitalist
PROC: 0B9J3ZX Drainage of Left Lower Lung Lobe, Percutaneous Approach, Diagnostic (ICD-10-PCS; principal; 2018-01-29)
DX: C34.32 Malignant neoplasm of lower lobe, left bronchus or lung (principal); J18.9 Pneumonia, unspecified organism; I21.4 Non-ST elevation (NSTEMI) myocardial infarction; I50.22 Chronic systolic (congestive) heart failure; K42.9 Umbilical hernia without obstruction or gangrene; I25.5 Ischemic cardiomyopathy; I11.0 Hypertensive heart disease with heart failure; I25.10 Atherosclerotic heart disease of native coronary artery without angina pectoris; J43.9 Emphysema, unspecified; D50.9 Iron deficiency anemia, unspecified; E78.5 Hyperlipidemia, unspecified; J84.10 Pulmonary fibrosis, unspecified; M19.91 Primary osteoarthritis, unspecified site; Z98.49 Cataract extraction status, unspecified eye; Z87.891 Personal history of nicotine dependence; Z85.46 Personal history of malignant neoplasm of prostate; Z92.3 Personal history of irradiation; Z79.82 Long term (current) use of aspirin; Z79.899 Other long term (current) drug therapy; Z95.5 Presence of coronary angioplasty implant and graft; Z80.3 Family history of malignant neoplasm of breast; Z80.6 Family history of leukemia
CPT/HCPCS: 21550; 36415; 71045; 71046; 71260; 74018; 80048; 80053; 80061; 81003; 82150; 83690; 85025; 85610; 87040; 87070; 87086; 87205; 88305; 88341; 88342; 93005; 93308; 94760; 96374; 96375; 99285

== ENCOUNTER → 2018-02-11 | Outpatient (CLI) | payer MEDICARE ==
--- NOTE | 2018-02-11 22:51 | MR ---
EXAMINATION TYPE: MR brain wo/w con DATE OF EXAM: 02/11/2018 COMPARISON: NONE HISTORY: Recently diagnosed lung cancer, staging study TECHNIQUE: Multiplanar, multisequence images of the brain and brainstem is performed without and with IV contras t, utilizing 7 mL intravenous Gadavist . FINDINGS: Diffusion weighted images demonstrate no evidence of a recent infarct or other diffusion ab normality. There is no worrisome extra-axial fluid collection. There is ventricular and sulcal promi nence consistent with mild to moderate diffuse cerebral atrophy. There are focal and confluent areas of T2 hyperintensity seen throughout the deep and periventricular white matter. Lesions are most like ly on basis of product of chronic small vessel ischemic change in patient of this age. Midline structures demonstrate normal morphology. The craniocervical junction appears within normal limits. Post contrast images demonstrate no abnormal enhancement. The dural venous sinuses appear pa tent. Mild mucosal thickening involving ethmoid sinuses bilaterally is present. Remainder paranasal s inuses are clear. The globes are intact bilaterally. IMPRESSION: 1. No suspicious enhancing intraparenchymal mass identified to suggest metastatic disease to the brai n. 2. Background mild to moderate diffuse cerebral atrophy and moderate to severe chronic small vessel i schemic change is noted.
== END | disposition home or self-care (01) ==
LOC: RADMRIMAIN 17:23
PROVIDERS: ATTEND Radiology Radiation Oncology
DX: C79.31 Secondary malignant neoplasm of brain (principal); C34.32 Malignant neoplasm of lower lobe, left bronchus or lung; G31.9 Degenerative disease of nervous system, unspecified; I67.82 Cerebral ischemia
CPT/HCPCS: 70553; A9581

== ENCOUNTER 2018-02-24 08:35 | Day surgery (SDC) | payer MEDICARE ==
[2018-02-24 09:23] VITALS: RESP 16; TEMP 97.8
[2018-02-24 09:25] LABS: Mean Platelet Volume 6.5; Platelet Count 554 k/uL (150-450)
[2018-02-24 09:28] LABS: Prothrombin Time 10.2 sec (9.0-12.0)
[2018-02-24 10:19] VITALS: BP 105/62; PULSE 75
--- NOTE | 2018-02-24 10:39 | XR ---
EXAMINATION TYPE: XR chest 1V DATE OF EXAM: 02/24/2018 COMPARISON: Prior chest x-ray 01/29/2018 HISTORY: Status post left thoracentesis. TECHNIQUE: Single frontal view of the chest is obtained. FINDINGS: There is no evident pneumothorax. Pleural parenchymal changes are similar to prior exam. IMPRESSION: Findings compatible with patient's history of lung carcinoma. No evident complication st atus post thoracentesis.
--- NOTE | 2018-02-24 10:40 | US ---
EXAMINATION TYPE: US thoracentesis DATE OF EXAM: 02/24/2018 COMPARISON: NONE HISTORY: Pleural effusion. FINDINGS: Maximal barrier technique was utilized. The skin overlying a suitable pocket of fluid was localized and the overlying skin prepped and draped. Lidocaine was used for local anesthesia. Ultras ound was used with sterile technique. A 5 [place] catheter over guide needle was advanced into the pl eural fluid collection using ultrasound guidance and the catheter advanced, needle removed. Approxim ately 0.260 liter(s) of serous fluid was removed. Catheter was withdrawn and hemostasis achieved. T here is no immediate complication. The patient discharged in stable condition without complication. IMPRESSION: STATUS POST ULTRASOUND GUIDED THORACENTESIS, POST PROCEDURE CHEST X-RAY PENDING. THIS ID OCEDURE WAS PERFORMED BY THE UNDERSIGNED. Specimen obtained for laboratory analysis.
== END 2018-02-24 10:47 | disposition home or self-care (01) ==
LOC: RADPROMAIN 08:35
PROVIDERS: ATTEND Radiology Radiation Oncology
DX: C34.32 Malignant neoplasm of lower lobe, left bronchus or lung (principal); Z85.46 Personal history of malignant neoplasm of prostate
CPT/HCPCS: 32555; 71045; 85049; 85610; 88108; 88305; 88341; 88342

== ENCOUNTER → 2018-04-03 | Outpatient (CLI) | payer MEDICARE ==
--- NOTE | 2018-04-06 19:12 | PE ---
Nuclear medicine PET/CT HISTORY: Lung carcinoma subsequent Patient received 13.5 mCi F-18 FDG intravenously in delayed scanning was performed from the skull bas e to the mid thighs. Localization and attenuation correction CT was performed and the exam is correla alma to prior nuclear medicine PET/CT 02/09/2018 Neck and chest: No evident cervical adenopathy. Carotid artery calcifications are present at the leve l of the bifurcations. There is a left pleural effusion present. Left lower lobe lung mass is present measuring approximately 6.5 cm in transverse dimension extending towards the hilum to the left lower lobe and pleural surface. There is associated hypermetabolic uptake present, SUV is predominantly pe ripherally located, 5.6. There are some scattered calcifications, evidence of old granulomatous disea se. Coronary artery calcifications are present. No mediastinal or axillary adenopathy. Probable gynec omastia noted, hypermetabolic uptake present bilaterally at this level. ABDOMEN: There is some increased uptake seen within the right lobe of the liver inferiorly, SUV 4.2, question whether this may be artifactual due to the distribution. There is a soft tissue lesion prese nt just anterior to the right sacral ala measuring approximately 19 mm, there is associated hypermeta bolic uptake, SUV 5.5 There is a hiatal hernia present. No evident adrenal mass. No retroperitoneal a denopathy. Umbilical hernia contains fat. Dense atheromatous calcifications associated with the aorto iliac distribution. No suspicious hypermetabolic uptake. Prostate seeds are thought to be present. Th ickening of the urinary bladder wall may be due to chronic outlet obstruction. Diverticular change as sociated with the colon. Hypermetabolic uptake may be physiologic at this level. Osseous structures: Patient is post left hip arthroplasty. Spondylolysis present at L5. No suspicious hypermetabolic uptake evident within the bones. IMPRESSION: Findings compatible with patient's history of bronchogenic carcinoma. There is a left ple ural effusion. Uptake within the liver is equivocal, may be artifactual. Uptake at the level of the t ransverse process on the right the site at L5 is a new finding, this may represent metastasis and elise nopathy, new soft tissue mass is present at this level. Additional findings above.
== END | disposition home or self-care (01) ==
LOC: RADPETMAIN 15:37
PROVIDERS: ATTEND Thoracic Surgery (Cardiothoracic Vascular Surgery)
DX: C34.32 Malignant neoplasm of lower lobe, left bronchus or lung (principal); J90 Pleural effusion, not elsewhere classified
CPT/HCPCS: 78815; A9552

== ENCOUNTER → 2018-04-10 | Outpatient (CLI) | payer MEDICARE ==
--- NOTE | 2018-04-10 08:16 | MR ---
EXAMINATION TYPE: MR pelvis wo/w con DATE OF EXAM: 04/10/2018 COMPARISON: Previous PET/CT dated 04/03/2018. HISTORY: Pelvic mass CONTRAST: Standard multiplanar, multisequence MRI departmental protocol utilizing 7 mL intravenous Gadavist bharat olinium contrast. FINDINGS: There is geometric distortion about the left hip due to metallic prosthesis. There is uncomplicated diverticular change involving sigmoid colon. There is degenerative disc disease at L5-S1 level. The bladder is nondistended. No definite mass lesion is identified. Osseous structures are unremarkable. IMPRESSION: 1. NO DEFINITE PELVIC MASS LESION. 2. UNCOMPLICATED DIVERTICULOSIS OF THE SIGMOID COLON. 3. DEGENERATIVE DISC DISEASE.
== END | disposition home or self-care (01) ==
LOC: RADMRIMAIN 07:03
PROVIDERS: ATTEND Internal Medicine Hematology & Oncology
DX: K57.30 Diverticulosis of large intestine without perforation or abscess without bleeding (principal); R19.00 Intra-abdominal and pelvic swelling, mass and lump, unspecified site
CPT/HCPCS: 72197

== ENCOUNTER 2018-05-21 12:31 | Emergency (ER) | payer MEDICARE ==
[2018-05-21 12:43] VITALS: BP 100/67; PULSE 110; RESP 20; TEMP 98.3
[2018-05-21] MEDS ORDERED: SODIUM CHLORIDE 0.9% 1,000 ML IV STA (13:26)
--- NOTE | 2018-05-21 13:40 | ED ---
General Adult HPI - General Chief complaint: Recheck/Abnormal Lab/Rx Stated complaint: rapid heart beat/cancer patient Time Seen by Provider: 05/21/18 12:52 Source: patient, RN notes reviewed Mode of arrival: ambulatory Limitations: no limitations - History of Present Illness Initial comments: This is a 67-year-old male with a history of right hip cancer who was sent over by his oncologist for evaluation of tachycardia and elevated blood pressure. The concern is for pneumonia versus PE. The patient did have a recent upper respiratory infection he was to start chemotherapy today but was found have an elevated white blood cell count and tachycardic. Patient denies any fevers chills nausea vomiting sweats no shortness of breath no overt cough or phlegm production at this time. He does believe he did not take his medications this morning which did include metoprolol. - Related Data Home Medications Medication Instructions Recorded Confirmed Atorvastatin [Lipitor] 80 mg PO HS 01/27/18 05/21/18 Spironolactone [Aldactone] 50 mg PO DAILY 01/27/18 05/21/18 Morphine Sulfate ER [Ms Contin] 15 mg PO Q12HR 02/15/18 05/21/18 traMADol HCl [Ultram] 50 mg PO Q4HR PRN 02/15/18 05/21/18 Gabapentin [Neurontin] 200 mg PO BID 05/21/18 05/21/18 LORazepam [Ativan] 0.5 mg PO DAILY PRN 05/21/18 05/21/18 Metoprolol Succinate (ER) [Toprol 100 mg PO DAILY 05/21/18 05/21/18 Xl] Previous Rx's Medication Instructions Recorded Aspirin 81 mg PO DAILY chew 01/03/18 Losartan [Cozaar] 25 mg PO HS #30 tab 01/03/18 Levofloxacin [Levaquin] 500 mg PO DAILY #7 tab 05/21/18 Allergies Allergy/AdvReac Type Severity Reaction Status Date / Time No Known Allergies Allergy Verified 05/21/18 13:56 Review of Systems ROS Statement: Those systems with pertinent positive or pertinent negative responses have been documented in the HPI. ROS Other: All systems not noted in ROS Statement are negative. Past Medical History Past Medical History: Cancer, Heart Failure, COPD, Hyperlipidemia, Hypertension , Osteoarthritis (OA), Pneumonia, Prostate Disorder Additional Past Medical History / Comment(s): Lung mass left-sided pleural effusion exudate, umbilical hernia, history of prostate cancer, hypertension, hyperlipidemia, COPD, osteoarthritis, History of Any Multi-Drug Resistant Organisms: None Reported Past Surgical History: Hernia Repair, Joint Replacement Additional Past Surgical History / Comment(s): 12/31/17 bronchoscopy w/ bx. Total L hip anterior approach. link cataracts, lt ing hernia.lt thoracentesis 01/21 Past Anesthesia/Blood Transfusion Reactions: No Reported Reaction Additional Past Anesthesia/Blood Transfusion Reaction / Comment(s): clausterphobia Past Psychological History: No Psychological Hx Reported Smoking Status: Former smoker Past Alcohol Use History: Occasional Past Drug Use History: None Reported - Past Family History Mother Family Medical History: Cancer Additional Family Medical History / Comment(s): Mother had breast cancer and of leukemia at the age of 76yrs. Father Additional Family Medical History / Comment(s): Father of a "broken heart" after his spouses . Sister(s) Family Medical History: Cancer Additional Family Medical History / Comment(s): Breast cancer. General Exam - General Exam Comments Initial Comments: This a well-developed asthenic appearing male who is awake alert oriented 3 Limitations: no limitations General appearance: alert, in no apparent distress Head exam: Present: atraumatic, normocephalic, normal inspection Eye exam: Present: normal appearance, PERRL, EOMI. Absent: scleral icterus, conjunctival injection, periorbital swelling ENT exam: Present: mucous membranes dry Neck exam: Present: normal inspection. Absent: tenderness, meningismus, lymphadenopathy Respiratory exam: Present: decreased breath sounds. Absent: respiratory distress, wheezes, rales, rhonchi, stridor Cardiovascular Exam: Present: normal rhythm, tachycardia, normal heart sounds. Absent: systolic murmur, diastolic murmur, rubs, gallop, clicks GI/Abdominal exam: Present: soft, normal bowel sounds. Absent: distended, tenderness, guarding, rebound, rigid Extremities exam: Present: normal inspection, full ROM, normal capillary refill. Absent: tenderness, pedal edema, joint swelling, calf tenderness Back exam: Present: normal inspection Neurological exam: Present: alert, oriented X3, CN II-XII intact Psychiatric exam: Present: normal affect, normal mood Skin exam: Present: warm, dry, intact, normal color. Absent: rash Course Vital Signs 05/21/18 12:35 Temperature 98.3 F Pulse Rate 110 H Respiratory 20 Rate Blood Pressure 100/67 O2 Sat by Pulse 96 Oximetry - Reevaluation(s) Reevaluation #1: 05/21/18 15:00 BEV supervision: I personally do a [id number] evaluation the patient did examine the patient. He did present with complaints of right upper lower extremity tingling and numbness. He also had what appears to be consistent with a syncopal episode. Currently he is asymptomatic with no pain. Evaluation was performed he will be admitted for evaluation of the above. I do agree with the assessment and plan. I did discuss case with Dr. Grimaldo. EKG Findings - EKG Results: EKG: interpreted by RADHA, sinus rhythm (Sinus tachycardia rate of 101. Interval 146 QRS duration 82 QT since QTC 360/[address]-T wave changes.) Medical Decision Making - Medical Decision Making Patient is feeling better after IV fluids I did discuss the findings with him. He did have a chill during the IV fluids the room that he is in his cold he has no fever his white count is 15,000. I did discuss the case with Dr. Monroy the patient be discharged with a one-week course of oral Levaquin and follow-up in the office. - Lab Data Result diagrams: 05/21/18 13:38 05/21/18 13:38 Lab Results 05/21/18 05/21/18 05/21/18 Range/Units 13:38 13:38 13:38 WBC 15.0 H (3.8-10.6) k/uL RBC 2.93 L (4.30-5.90) m/uL Hgb 8.9 L (13.0-17.5) gm/dL Hct 28.4 L (39.0-53.0) % MCV 96.8 D (80.0-100.0) fL MCH 30.5 (25.0-35.0) pg MCHC 31.5 (31.0-37.0) g/dL RDW 18.1 H (11.5-15.5) % Plt Count 210 (150-450) k/uL Neutrophils % 92 % Lymphocytes % 2 % Monocytes % 5 % Eosinophils % 1 % Basophils % 0 % Neutrophils # 13.8 H (1.3-7.7) k/uL Lymphocytes # 0.3 L (1.0-4.8) k/uL Monocytes # 0.7 (0-1.0) k/uL Eosinophils # 0.1 (0-0.7) k/uL Basophils # 0.0 (0-0.2) k/uL Anisocytosis Slight D-Dimer (<0.60) mg/L FEU Sodium 136 L (137-145) mmol/L Potassium 5.6 H (3.5-5.1) mmol/L Chloride 101 (98-107) mmol/L Carbon Dioxide 29 (22-30) mmol/L Anion Gap 6 mmol/L BUN 23 H (9-20) mg/dL Creatinine 0.92 (0.66-1.25) mg/dL Est GFR (CKD-EPI)AfAm >90 (>60 ml/min/1.73 sqM) Est GFR (CKD-EPI)NonAf 85 (>60 ml/min/1.73 sqM) Glucose 112 H (74-99) mg/dL Calcium 8.5 (8.4-10.2) mg/dL Magnesium 1.5 L (1.6-2.3) mg/dL Total Bilirubin 0.3 (0.2-1.3) mg/dL AST 17 (17-59) U/L ALT 26 (21-72) U/L Alkaline Phosphatase 74 (38-126) U/L Total Creatine Kinase <20 L (55-170) U/L CK-MB (CK-2) 1.0 (0.0-2.4) ng/mL CK-MB (CK-2) Rel Index Troponin I 0.021 (0.000-0.034) ng/mL Total Protein 5.4 L (6.3-8.2) g/dL Albumin 3.0 L (3.5-5.0) g/dL 05/21/18 Range/Units 13:38 WBC (3.8-10.6) k/uL RBC (4.30-5.90) m/uL Hgb (13.0-17.5) gm/dL Hct (39.0-53.0) % MCV (80.0-100.0) fL MCH (25.0-35.0) pg MCHC (31.0-37.0) g/dL RDW (11.5-15.5) % Plt Count (150-450) k/uL Neutrophils % % Lymphocytes % % Monocytes % % Eosinophils % % Basophils % % Neutrophils # (1.3-7.7) k/uL Lymphocytes # (1.0-4.8) k/uL Monocytes # (0-1.0) k/uL Eosinophils # (0-0.7) k/uL Basophils # (0-0.2) k/uL Anisocytosis D-Dimer 1.29 H (<0.60) mg/L FEU Sodium (137-145) mmol/L Potassium (3.5-5.1) mmol/L Chloride (98-107) mmol/L Carbon Dioxide (22-30) mmol/L Anion Gap mmol/L BUN (9-20) mg/dL Creatinine (0.66-1.25) mg/dL Est GFR (CKD-EPI)AfAm (>60 ml/min/1.73 sqM) Est GFR (CKD-EPI)NonAf (>60 ml/min/1.73 sqM) Glucose (74-99) mg/dL Calcium (8.4-10.2) mg/dL Magnesium (1.6-2.3) mg/dL Total Bilirubin (0.2-1.3) mg/dL AST (17-59) U/L ALT (21-72) U/L Alkaline Phosphatase (38-126) U/L Total Creatine Kinase (55-170) U/L CK-MB (CK-2) (0.0-2.4) ng/mL CK-MB (CK-2) Rel Index Troponin I (0.000-0.034) ng/mL Total Protein (6.3-8.2) g/dL Albumin (3.5-5.0) g/dL - Radiology Data Radiology results: report reviewed (I did review the imaging and report the left midlung masses small than the previous study. There is a left-sided effusion. No overt evidence of pneumonitis at this time.), image reviewed Disposition Clinical Impression: Dehydration, Leukocytosis, History of lung cancer, Pleural effusion, Tachycardia, Hypertension Disposition: HOME SELF-CARE Condition: Good Instructions: Lung Cancer (DC), Pleural Effusion (ED), Dehydration (ED), Tachycardia (ED) Prescriptions: Levofloxacin [Levaquin] 500 mg PO DAILY #7 tab Is patient prescribed a controlled substance at d/c from ED?: No Referrals: Romario Oseguera MD [Primary Care Provider] - 1-2 days
[2018-05-21] MEDS ORDERED: MORPHINE SULFATE 4 MG/ML SYRINGE IVP STA (14:07)
[2018-05-21 14:17] LABS: ALT 26 U/L (21-72); AST 17 U/L (17-59); Alkaline Phosphatase 74 U/L (38-126); Anion Gap 6 mmol/L; Blood Urea Nitrogen 23 mg/dL (9-20); Calcium 8.5 mg/dL (8.4-10.2); Carbon Dioxide 29 mmol/L (22-30); Chloride 101 mmol/L (98-107); Glucose 112 mg/dL (74-99); Magnesium 1.5 mg/dL (1.6-2.3); Potassium 5.6 mmol/L (3.5-5.1); Sodium 136 mmol/L (137-145); Total Bilirubin 0.3 mg/dL (0.2-1.3); Total Protein 5.4 g/dL (6.3-8.2)
[2018-05-21 14:25] LABS: Anisocytosis Slight; Basophils % (A) 0 %; Eosinophils # (A) 0.1 k/uL (0-0.7); Eosinophils % (A) 1 %; HCT 28.4 % (39.0-53.0); HGB 8.9 gm/dL (13.0-17.5); Lymphocytes # (A) 0.3 k/uL (1.0-4.8); Lymphocytes % (A) 2 %; MCH 30.5 pg (25.0-35.0); MCHC 31.5 g/dL (31.0-37.0); Mean Platelet Volume 6.7; Monocytes # (A) 0.7 k/uL (0-1.0); Monocytes % (A) 5 %; Neutrophils # (A) 13.8 k/uL (1.3-7.7); Neutrophils % (A) 92 %; Platelet Count 210 k/uL (150-450); RBC 2.93 m/uL (4.30-5.90); RDW 18.1 % (11.5-15.5)
[2018-05-21 14:28] LABS: MCV 96.8 fL (80.0-100.0)
[2018-05-21] MEDS ORDERED: SODIUM CHLORIDE 0.9% 500 ML 500 ML IV STA (14:37)
[2018-05-21 14:41] LABS: Creatine Kinase <20 U/L (55-170)
[2018-05-21 14:53] LABS: Troponin I 0.021 ng/mL (0.000-0.034)
--- NOTE | 2018-05-21 15:09 | CT ---
EXAMINATION TYPE: CT angio chest DATE OF EXAM: 05/21/2018 COMPARISON: 01/28/2018 HISTORY: chest pain CT DLP: 319.5 mGycm. Automated Exposure Control for Dose Reduction was Utilized. CONTRAST: CTA scan of the thorax is performed with IV Contrast, patient injected with 78 mL of Isovue 370, pulm onary embolism protocol. MIP Images are created on CT scanner and reviewed. FINDINGS: LUNGS: There is worsening in the interim of a now moderate left pleural effusion. However there is im proved appearance of the left midlung cavitary mass measuring approximately 4.9 x 5.9 cm and previous ly measuring approximately 6.0 x 6.7 cm. There is surrounding atelectasis. There is centrilobular emp hysematous changes throughout, mild to moderate degree. Strand-like atelectasis is seen at the right lung base. MEDIASTINUM: There is satisfactory enhancement of the pulmonary artery and its branches, there is no CT evidence for pulmonary embolism. There are no greater than 1 cm hilar or mediastinal lymph nodes. No cardiomegaly or pericardial effusion is seen. Ascending thoracic aorta measures up to 3.6 cm, w ithin normal limits. Heart is mildly enlarged. There is a small hiatal hernia noted. Calcified medias tinal lymph nodes represent either benign granulomatous change or treated metastasis. Three-vessel co ronary artery calcifications are severe. OTHER: Bilateral moderate symmetric retroareolar gynecomastia is noted. There are benign-appearing gr anulomas within the spleen. Minimal degenerative changes of the thoracic spine are noted. Some motion artifact is seen within the sternal body. IMPRESSION: 1. No evidence of pulmonary embolism. 2. Decreasing size of the primary left midlung pulmonary carcinoma with increasing now moderate pleur al effusion.
[2018-05-21] MEDS ORDERED: LEVOFLOXACIN 500 MG TAB PO STA (16:20)
== END 2018-05-21 16:34 | disposition home or self-care (01) ==
LOC: EC 12:31
DX: J90 Pleural effusion, not elsewhere classified (principal); E86.0 Dehydration; I11.0 Hypertensive heart disease with heart failure; R00.0 Tachycardia, unspecified; D72.829 Elevated white blood cell count, unspecified; E78.5 Hyperlipidemia, unspecified; I50.9 Heart failure, unspecified; M19.90 Unspecified osteoarthritis, unspecified site; Z85.118 Personal history of other malignant neoplasm of bronchus and lung; Z87.891 Personal history of nicotine dependence; Z79.891 Long term (current) use of opiate analgesic; Z79.899 Other long term (current) drug therapy; Z96.642 Presence of left artificial hip joint; Z98.890 Other specified postprocedural states; Z83.2 Family history of diseases of the blood and blood-forming organs and certain disorders involving the immune mechanism
CPT/HCPCS: 36415; 93005; 85379; 80053; 82550; 82553; 83735; 84484; 85025; 71275; 99285; 96374; 96361 ×2; J2270; Q9967

== ENCOUNTER 2018-06-09 14:42 | Inpatient (IN) | payer MEDICARE ==
[2018-06-09] MEDS ORDERED: SODIUM CHLORIDE 0.9% 500 ML 500 ML IV STA (15:11)
[2018-06-09] MEDS ORDERED: SODIUM CHLORIDE 0.9% 1,000 ML IV STA (15:11)
--- NOTE | 2018-06-09 15:15 | ED ---
General Adult HPI - General Chief complaint: Shortness of Breath Stated complaint: Diff Breathing Time Seen by Provider: 06/09/18 15:02 Source: patient, family, RN notes reviewed, old records reviewed Mode of arrival: ambulatory Limitations: no limitations - History of Present Illness Initial comments: 67-year-old male presenting for evaluation of dyspnea, anemia, and hypertension. Patient is currently under treatment for lung cancer. He received chemotherapy one week ago. He has had generalized weakness and fatigue as well as exertional dyspnea for the past several days. He did receive blood transfusion yesterday for anemia. Despite this transfusion he's had persistent fatigue and dyspnea. Denies fever. Denies cough. He had some mild abdominal pain and diarrhea. Uncertain if there was blood in his diarrhea. Patient denies chest pain. Denies focal weakness or numbness. Patient was seen at the oncology clinic today and sent to the emergency department for hypotension and fluid resuscitation. Patient does admit that he has not had an appetite and has not had much to eat or drink in the past one week. - Related Data Home Medications Medication Instructions Recorded Confirmed Atorvastatin [Lipitor] 80 mg PO HS 01/27/18 06/09/18 Spironolactone [Aldactone] 50 mg PO DAILY 01/27/18 06/09/18 Morphine Sulfate ER [Ms Contin] 15 mg PO Q12HR 02/15/18 06/09/18 Metoprolol Succinate (ER) [Toprol 100 mg PO DAILY 05/21/18 06/09/18 Xl] Losartan [Cozaar] 25 mg PO DAILY 06/09/18 06/09/18 Previous Rx's Medication Instructions Recorded Aspirin 81 mg PO DAILY chew 01/03/18 Allergies Allergy/AdvReac Type Severity Reaction Status Date / Time No Known Allergies Allergy Verified 06/09/18 15:19 Review of Systems ROS Statement: Those systems with pertinent positive or pertinent negative responses have been documented in the HPI. ROS Other: All systems not noted in ROS Statement are negative. Past Medical History Past Medical History: Cancer, Heart Failure, COPD, Hyperlipidemia, Hypertension , Osteoarthritis (OA), Pneumonia, Prostate Disorder Additional Past Medical History / Comment(s): Lung mass left-sided pleural effusion exudate, umbilical hernia, history of prostate cancer, hypertension, hyperlipidemia, COPD, osteoarthritis, History of Any Multi-Drug Resistant Organisms: None Reported Past Surgical History: Hernia Repair, Joint Replacement Additional Past Surgical History / Comment(s): 12/31/17 bronchoscopy w/ bx. Total L hip anterior approach. link cataracts, lt ing hernia.lt thoracentesis 01/21 Past Anesthesia/Blood Transfusion Reactions: No Reported Reaction Additional Past Anesthesia/Blood Transfusion Reaction / Comment(s): clausterphobia Past Psychological History: No Psychological Hx Reported Smoking Status: Former smoker Past Alcohol Use History: Occasional Past Drug Use History: None Reported - Past Family History Mother Family Medical History: Cancer Additional Family Medical History / Comment(s): Mother had breast cancer and of leukemia at the age of 76yrs. Father Additional Family Medical History / Comment(s): Father of a "broken heart" after his spouses . Sister(s) Family Medical History: Cancer Additional Family Medical History / Comment(s): Breast cancer. General Exam Limitations: no limitations General appearance: alert, in no apparent distress Head exam: Present: atraumatic, normocephalic Eye exam: Present: normal appearance, PERRL ENT exam: Present: mucous membranes dry Neck exam: Present: normal inspection. Absent: tenderness, meningismus Respiratory exam: Present: wheezes, decreased breath sounds. Absent: respiratory distress Cardiovascular Exam: Present: regular rate, normal rhythm GI/Abdominal exam: Present: soft, distended, tenderness, hernia (Soft umbilical hernia) Extremities exam: Present: normal inspection. Absent: normal capillary refill, pedal edema Neurological exam: Present: alert, oriented X3, CN II-XII intact. Absent: motor sensory deficit Psychiatric exam: Present: normal affect, normal mood Skin exam: Present: warm, dry, intact. Absent: cyanosis, diaphoretic Course Vital Signs 06/09/18 06/09/18 14:51 16:37 Temperature 97.5 F L 98.0 F Pulse Rate 80 87 Respiratory 18 18 Rate Blood Pressure 109/52 101/59 O2 Sat by Pulse 100 Oximetry EKG Findings - EKG Comments: EKG Findings:: EKG: Sinus tachycardia, occasional PVC, rate of 101, AL interval 154, QRS duration 86, QTC 422, no ST segment elevation Medical Decision Making - Medical Decision Making 67-year-old male presenting with weakness and hypotension. One week status post last chemotherapy for lung cancer. Patient has significant lab abnormalities, electrolyte abnormalities including hyponatremia, hyperkalemia, creatinine 1.55 which is elevated compared to baseline. Patient has significant lactic acidosis of 8.2. He has anemia with hemoglobin 4.4, leukopenia with Tylenol blood cell count of 500, this is also neutropenia. Troponin is elevated which is likely secondary to renal failure and dehydration. Patient has no chest pain. This level will be trended. No anticoagulation secondary to thrombocytopenia and anemia. Patient started on broad-spectrum antibiotics cefepime and vancomycin. He will be transfused 3 units. He is kept on IV hydration. He will be placed in the ICU for close monitoring. Case discussed with Dr. Posada who will accept the patient to the ICU, case also discussed with admitting physician. - Lab Data Result diagrams: 06/09/18 17:18 06/09/18 15:45 Lab Results 06/09/18 06/09/18 06/09/18 Range/Units 15:45 15:45 15:45 WBC (3.8-10.6) k/uL RBC (4.30-5.90) m/uL Hgb (13.0-17.5) gm/dL Hct (39.0-53.0) % MCV (80.0-100.0) fL MCH (25.0-35.0) pg MCHC (31.0-37.0) g/dL RDW (11.5-15.5) % PT (9.0-12.0) sec INR (<1.2) APTT (22.0-30.0) sec Sodium 135 L (137-145) mmol/L Potassium 5.9 H (3.5-5.1) mmol/L Chloride 100 (98-107) mmol/L Carbon Dioxide 20 L (22-30) mmol/L Anion Gap 15 mmol/L BUN 64 H (9-20) mg/dL Creatinine 1.55 H (0.66-1.25) mg/dL Est GFR (CKD-EPI)AfAm 52 (>60 ml/min/1.73 sqM) Est GFR (CKD-EPI)NonAf 45 (>60 ml/min/1.73 sqM) Glucose 173 H (74-99) mg/dL Plasma Lactic Acid Gerhard 8.2 H* (0.7-2.0) mmol/L Calcium 8.8 (8.4-10.2) mg/dL Magnesium 1.5 L (1.6-2.3) mg/dL Total Bilirubin 0.8 (0.2-1.3) mg/dL AST 22 (17-59) U/L ALT 22 (21-72) U/L Alkaline Phosphatase 65 (38-126) U/L Total Creatine Kinase 58 (55-170) U/L CK-MB (CK-2) 5.7 H (0.0-2.4) ng/mL CK-MB (CK-2) Rel Index 9.8 Troponin I 1.760 H* (0.000-0.034) ng/mL Total Protein 5.5 L (6.3-8.2) g/dL Albumin 3.1 L (3.5-5.0) g/dL 06/09/18 06/09/18 Range/Units 17:18 17:18 WBC 0.5 L* (3.8-10.6) k/uL RBC 1.43 L (4.30-5.90) m/uL Hgb 4.4 L* D (13.0-17.5) gm/dL Hct 12.8 L* (39.0-53.0) % MCV 90.1 D (80.0-100.0) fL MCH 31.1 (25.0-35.0) pg MCHC 34.6 (31.0-37.0) g/dL RDW 14.1 (11.5-15.5) % PT 10.4 (9.0-12.0) sec INR 1.1 (<1.2) APTT 19.1 L (22.0-30.0) sec Sodium (137-145) mmol/L Potassium (3.5-5.1) mmol/L Chloride (98-107) mmol/L Carbon Dioxide (22-30) mmol/L Anion Gap mmol/L BUN (9-20) mg/dL Creatinine (0.66-1.25) mg/dL Est GFR (CKD-EPI)AfAm (>60 ml/min/1.73 sqM) Est GFR (CKD-EPI)NonAf (>60 ml/min/1.73 sqM) Glucose (74-99) mg/dL Plasma Lactic Acid Gerhard (0.7-2.0) mmol/L Calcium (8.4-10.2) mg/dL Magnesium (1.6-2.3) mg/dL Total Bilirubin (0.2-1.3) mg/dL AST (17-59) U/L ALT (21-72) U/L Alkaline Phosphatase (38-126) U/L Total Creatine Kinase (55-170) U/L CK-MB (CK-2) (0.0-2.4) ng/mL CK-MB (CK-2) Rel Index Troponin I (0.000-0.034) ng/mL Total Protein (6.3-8.2) g/dL Albumin (3.5-5.0) g/dL Critical Care Time Critical Care Time: Yes Total Critical Care Time: 35 Disposition Clinical Impression: Dehydration, Lactic acidosis, Anemia, Pancytopenia Disposition: ADMITTED IP TO THIS [facility] Condition: Serious Is patient prescribed a controlled substance at d/c from ED?: No Referrals: Romario Oseguera MD [Primary Care Provider] - 1-2 days Decision to Admit Reason: Admit from EC Decision Date: 06/09/18 Decision Time: 18:44
--- NOTE | 2018-06-09 16:13 | XR ---
EXAMINATION TYPE: XR chest 2V DATE OF EXAM: 06/09/2018 COMPARISON: 02/24/2018 INDICATION: Difficulty breathing prostate cancer lung mass TECHNIQUE: Frontal and lateral views of the chest are obtained. FINDINGS: The heart size is normal. The pulmonary vasculature is normal. Lung opacification is less well visualized currently. There is development of a small to moderate lef t pleural effusion, increased from comparison. Minimal right pleural effusion is not excluded.. IMPRESSION: 1. Small to moderate left pleural effusion with a minimal right pleural effusion. 2. Lung opacity at the left base less well visualized currently.
[2018-06-09 16:36] LABS: Albumin 3.1 g/dL (3.5-5.0); Calcium 8.8 mg/dL (8.4-10.2); Magnesium 1.5 mg/dL (1.6-2.3); Potassium 5.9 mmol/L (3.5-5.1); Total Bilirubin 0.8 mg/dL (0.2-1.3); Total Protein 5.5 g/dL (6.3-8.2)
[2018-06-09] MEDS ORDERED: SODIUM CHLORIDE 0.9% 1,000 ML IV ONE (16:44)
[2018-06-09 16:59] LABS: Creatine Kinase MB 5.7 ng/mL (0.0-2.4)
[2018-06-09] MEDS ORDERED: MAGNESIUM SULFATE-D5W PMX 1 GM in DEXTROSE/WATER 1 100ML.BAG IVPB ONE (16:59)
[2018-06-09 17:05] LABS: Troponin I 1.76 ng/mL (0.000-0.034)
[2018-06-09] MEDS ORDERED: VANCOMYCIN IV PER PHARMACY 1 EACH MISC MISCELLANE PRN (17:11)
[2018-06-09] MEDS ORDERED: CEFEPIME 2 GM in SODIUM CHLORIDE 0.9% 50 ML IVPB STA (17:11)
[2018-06-09 17:48] LABS: MCH 31.1 pg (25.0-35.0); MCHC 34.6 g/dL (31.0-37.0); MCV 90.1 fL (80.0-100.0); Mean Platelet Volume 7.2; RBC 1.43 m/uL (4.30-5.90); RDW 14.1 % (11.5-15.5)
[2018-06-09 18:01] LABS: INR 1.1 (<1.2); Prothrombin Time 10.4 sec (9.0-12.0)
[2018-06-09 18:02] LABS: WBC 0.5 k/uL (3.8-10.6)
[2018-06-09 18:03] LABS: HCT 12.8 % (39.0-53.0); HGB 4.4 gm/dL (13.0-17.5)
[2018-06-09 18:05] LABS: Partial Thromboplastin Time 19.1 sec (22.0-30.0)
[2018-06-09] MEDS ORDERED: NALOXONE 0.4 MG/ML 1 ML VIAL IV PRN (18:38)
[2018-06-09 18:46] LABS: Platelet Count 5 k/uL (150-450)
[2018-06-09] MEDS: VANCOMYCIN 1,500 MG in SODIUM CHLORIDE 0.9% 250 ML IVPB ONE (20:58)
[2018-06-09 23:36] LABS: Creatine Kinase MB 10.2 ng/mL (0.0-2.4)
[2018-06-09 23:41] LABS: Troponin I 2.84 ng/mL (0.000-0.034)
[2018-06-10 01:47] LABS: Glucose,Whole Blood 119 mg/dL (75-99)
[2018-06-10] MEDS ORDERED: ONDANSETRON 4 MG/2 ML VIAL IVP PRN (02:38)
[2018-06-10] MEDS: VANCOMYCIN 1,500 MG in SODIUM CHLORIDE 0.9% 250 ML IVPB ONE (03:19)
[2018-06-10] MEDS: CEFEPIME 2 GM in SODIUM CHLORIDE 0.9% 50 ML IVPB SCH ×3 (03:20→20:54)
[2018-06-10] MEDS: SODIUM CHLORIDE 0.9% 1,000 ML IV SCH ×2 (03:21→17:44)
[2018-06-10 07:06] LABS: MCH 31.2 pg (25.0-35.0); MCHC 35.5 g/dL (31.0-37.0); Mean Platelet Volume 6.7; RBC 2.06 m/uL (4.30-5.90); RDW 14.4 % (11.5-15.5)
[2018-06-10 07:07] LABS: HCT 18.1 % (39.0-53.0); HGB 6.4 gm/dL (13.0-17.5); WBC 0.3 k/uL (3.8-10.6)
[2018-06-10 07:08] LABS: Platelet Count 3 k/uL (150-450)
[2018-06-10 07:11] LABS: Albumin 2.3 g/dL (3.5-5.0); Calcium 7.4 mg/dL (8.4-10.2); Magnesium 1.7 mg/dL (1.6-2.3); Phosphorus 2.7 mg/dL (2.5-4.5); Potassium 4.2 mmol/L (3.5-5.1); Total Bilirubin 1.1 mg/dL (0.2-1.3); Total Protein 4.3 g/dL (6.3-8.2)
[2018-06-10 07:18] LABS: Appearance,Urine Clear (Clear); Bilirubin,Urine Negative (Negative); Blood,Urine Negative (Negative); Color,Urine Yellow; Glucose,Urine (UA) Negative (Negative); Ketones,Urine Trace (Negative); Leukocyte Esterase,Urine Negative (Negative); Nitrite,Urine Negative (Negative); Protein,Urine Negative (Negative); Specific Gravity,Urine 1.015 (1.001-1.035); Urobilinogen,Urine <2.0 mg/dL (<2.0)
[2018-06-10 07:25] LABS: Troponin I 2.79 ng/mL (0.000-0.034)
--- NOTE | 2018-06-10 07:33 | XR ---
EXAMINATION TYPE: XR chest 1V DATE OF EXAM: 06/10/2018 HISTORY: Shortness of breath. COMPARISON: 06/09/2018 TECHNIQUE: Single view of the chest is submitted. FINDINGS: Demonstrated are scattered senescent parenchymal change. There is persistent left basilar infiltrate with pleural effusion. Right lung is clear. The heart is stable. Hilar and mediastinal structures are within normal limits. Degenerative changes are seen of the dorsal spine. IMPRESSION: 1. There is persistent left basilar infiltrate with pleural effusion. Right lung is clear.
[2018-06-10] MEDS: PANTOPRAZOLE 40 MG TABLET PO SCH ×2 (08:58→17:44)
[2018-06-10] MEDS: CALCIUM CARBONATE 500 MG CHEWABLE PO PRN ×2 (10:44→17:44)
--- NOTE | 2018-06-10 11:21 | CONS ---
CONSULTATION Mr. Edouard is a 67-year-old male who presented with symptoms of progressive fatigue, lack of energy, was noted to be severely anemic and have worsening renal failure. Cardiac consultation was requested because of elevation of troponin. The patient has a history of lung CA involving his left lung, has been receiving chemotherapy. The last course was about a week ago. He has been admitted to the hospital a few months ago and had mild elevation of the troponin and at that time had an echocardiogram revealed an impaired left ventricular systolic function. He has been followed by Dr. Brand on a regular basis. His last echocardiogram performed in January of this year revealed an ejection fraction of 45% to 50% with anteroseptal lateral inferior wall hypokinesis. He has been followed by Dr. Monroy regarding the chemotherapy but has been complaining of progressive fatigue and weakness the last few days and came into the emergency room. The patient denies any chest pain. He has no dizziness. No palpitation. No peripheral edema. He is in sinus mechanism. His coronary risk factors are positive for hyperlipidemia. He has a has not smoked in 15 years. He has hypertension, nondiabetic. MEDICATION: At home included Lipitor 80 mg daily, aspirin once a day, metoprolol succinate 100 mg daily, Aldactone 50 mg daily, losartan 25 mg daily. REVIEW OF SYSTEMS: RESPIRATORY SYSTEM: He has no history of documented asthma or recent wheezing. He has the lung CA as noted. GI SYSTEM: He has constipation and some dark stool. SYSTEM: No dysuria or hematuria. NERVOUS SYSTEM: No history of stroke or seizure. PHYSICAL EXAMINATION: He is a 67-year-old male, alert, oriented, in no apparent distress. Blood pressure 125/60 with a heart rate in 70s. HEAD: Normocephalic. EYES: Sclerae anicteric. NECK: No bruit. Lungs with decreased air exchange in the left base. HEART: Regular rhythm S1, S2. No S3 with systolic ejection murmur heard at the base, ejection type. No diastolic murmur, no rub. ABDOMEN: Soft, nontender. Positive bowel sounds, no megaly. EXTREMITIES: No edema. LAB DATA: Hemoglobin up to 6.4 today, it was 4.4 yesterday. His white blood cell is 0.3 and his platelet count is 3000. BUN and creatinine 68 and 1.32. His creatinine was 1.55 yesterday. His troponin on presentation was 1.76. The peak at 2.84 is down to 2.79. He is heme positive in his stool. His EKG revealed a sinus mechanism, poor R progression cannot exclude anterior wall myocardial infarction. His chest x-ray revealed the evidence off left pleural infiltrate and effusion. IMPRESSION: 1. Severe pancytopenia post chemotherapy with lung cancer. 2. Elevation of troponin reflecting a type II myocardial infarction. 3. Renal failure with dehydration. 4. Prior history of cardiomyopathy with no evidence of congestive heart failure at this time. 5. Hyperlipidemia. RECOMMENDATION: From the cardiac standpoint I will restart a lower dose of beta austin as well as the statin. Continue the rest of his medical regimen. Follow his blood pressure and depending on that adjustment will be made. Based on this finding, he is not a candidate for any aggressive cardiac workup. Thank you for this consult. We will follow with you. MMODL / IJN: [id number] /
--- NOTE | 2018-06-10 11:34 | P.HPIM ---
History of Present Illness This is a pleasant 67 years old male with past medical history of dyspnea, anemia and hypertension, lung cancer status post chemotherapy last week. Patient will already got 1 blood transfusion at [facility]. This time he presents because of generalized weakness and exertional dyspnea. Patient also states he has some blood in his bowel movements, dark stool 2. After one week of constipation. Associated with some nausea and vomited once. On admission patient was found to be pancytopenia with WBC 0.3, hemoglobin 6.4, coming up from 4.4. Her platelet count 3. INR 1.1. Sodium 135. Creatinine is elevated at 1.3, which is improving. Baseline creatinine is 0.9-1.0. High lactic acid of 8.2, down to 1.4 within normal limits. Elevated troponin 1.7, 2.8, 2.7. LFTs were unremarkable. Patient got 4 units of blood transfusion. Chest x-ray shows persistent left basilar infiltrate with pleural effusion EKG showing sinus tachycardia at [address]-T changes. Patient already received IV fluids, antibiotic. Currently on normal saline at 70 mL/h and she is on IV vancomycin and cefepime. Protonix, stenting and Lopressor. Patient was admitted to the ICU. This morning he was lying in bed not in distress. Denies chest pain or dyspnea for me. No abdominal pain, No more nausea and vomiting. No fever. Review of Systems CONSTITUTIONAL: No fever, no malaise, no fatigue. HEENT: No recent visual problems or hearing problems. Denied any sore throat. CARDIOVASCULAR: No orthopnea, PND, no palpitations, no syncope. PULMONARY: No shortness of breath, no cough, no hemoptysis. GASTROINTESTINAL: No diarrhea, no nausea, no vomiting, no abdominal pain. Normoactive bowel sounds. NEUROLOGICAL: No headaches, no weakness, no numbness. HEMATOLOGICAL: Denies any bleeding or petechiae. GENITOURINARY: Denies any burning micturition, frequency, or urgency. MUSCULOSKELETAL/RHEUMATOLOGICAL: Denies any joint pain, swelling, or any muscle pain. ENDOCRINE: Denies any polyuria or polydipsia. Past Medical History Past Medical History: Cancer, COPD, Hyperlipidemia, Hypertension, Pneumonia, Prostate Disorder Additional Past Medical History / Comment(s): PAST PLEURAL EFFUSION, LUNG CANCER HAD A CHEMO ON 06-02-18, umbilical hernia, history of prostate cancer, hypertension, hyperlipidemia, COPD, osteoarthritis, History of Any Multi-Drug Resistant Organisms: None Reported Past Surgical History: Hernia Repair, Joint Replacement Additional Past Surgical History / Comment(s): 12/31/17 bronchoscopy w/ bx. Total L hip anterior approach. link cataracts, lt ing hernia.lt thoracentesis 01/21 Past Anesthesia/Blood Transfusion Reactions: No Reported Reaction Additional Past Anesthesia/Blood Transfusion Reaction / Comment(s): clausterphobia Smoking Status: Former smoker - Past Family History Mother Family Medical History: Cancer Additional Family Medical History / Comment(s): Mother had breast cancer and of leukemia at the age of 76yrs. Father Additional Family Medical History / Comment(s): Father of a "broken heart" after his spouses . Sister(s) Family Medical History: Cancer Additional Family Medical History / Comment(s): Breast cancer. Medications and Allergies Home Medications Medication Instructions Recorded Confirmed Type Aspirin 81 mg PO DAILY chew 01/03/18 06/09/18 Rx Atorvastatin [Lipitor] 80 mg PO HS 01/27/18 06/09/18 History Spironolactone [Aldactone] 50 mg PO DAILY 01/27/18 06/09/18 History Morphine Sulfate ER [Ms Contin] 15 mg PO Q12HR 02/15/18 06/09/18 History Metoprolol Succinate (ER) [Toprol 100 mg PO DAILY 05/21/18 06/09/18 History Xl] Losartan [Cozaar] 25 mg PO DAILY 06/09/18 06/09/18 History Allergies Allergy/AdvReac Type Severity Reaction Status Date / Time No Known Allergies Allergy Verified 06/09/18 15:19 Physical Exam Vitals: Vital Signs Temp Pulse Resp BP Pulse Ox 06/10/18 11:00 90 14 119/85 98 06/10/18 10:36 97.7 F 89 14 123/70 100 06/10/18 10:30 83 14 131/75 97 06/10/18 10:26 97.9 F 95 16 115/68 97 06/10/18 10:00 86 15 111/65 98 06/10/18 09:30 87 18 103/70 96 06/10/18 09:00 91 20 93/66 97 06/10/18 08:30 101 H 12 113/71 96 06/10/18 08:00 97.7 F 84 12 122/77 97 06/10/18 07:30 79 21 95 06/10/18 07:00 79 20 125/67 90 L 06/10/18 06:30 77 18 117/67 95 06/10/18 06:00 81 19 124/75 96 06/10/18 05:30 80 8 L 129/74 95 06/10/18 05:00 81 22 131/78 97 06/10/18 04:30 83 7 L 122/74 97 06/10/18 04:00 98.1 F 80 9 L 135/74 96 06/10/18 03:30 77 10 L 117/70 97 06/10/18 03:00 77 12 129/71 98 06/10/18 02:34 80 19 114/70 98 06/10/18 02:30 79 20 118/78 91 L 06/10/18 02:04 80 15 121/77 98 06/10/18 02:00 81 14 116/68 97 06/10/18 01:56 97.9 F 87 16 128/66 06/10/18 01:54 97.5 F L 70 11 L 116/68 06/10/18 01:30 80 9 L 114/70 06/10/18 01:08 144/79 06/10/18 00:42 98.4 F 86 16 116/77 100 06/10/18 00:30 87 8 L 121/77 98 06/10/18 00:00 87 8 L 125/66 99 06/09/18 23:30 81 9 L 121/62 100 06/09/18 23:22 98.2 F 80 16 121/62 99 06/09/18 23:00 81 10 L 114/64 98 06/09/18 22:53 98.4 F 83 16 114/64 100 06/09/18 22:45 98.4 F 82 16 114/64 100 06/09/18 22:35 98.0 F 87 20 89/66 100 06/09/18 22:30 20 109/67 95 06/09/18 22:12 98.5 F 81 18 102/85 100 06/09/18 22:00 84 11 L 95/60 06/09/18 21:30 96 12 104/63 06/09/18 21:00 101 H 17 112/70 11/21/18 20:50 97.9 F 103 H 18 112/70 100 06/09/18 20:30 96 11 L 108/62 06/09/18 20:20 97.1 F L 100 16 90/56 98 06/09/18 20:10 98.3 F 98 17 95/62 06/09/18 20:00 99 13 94/62 99 06/09/18 19:47 102 H 14 94/62 68 L 06/09/18 19:46 99 16 94/62 95 06/09/18 19:30 16 103/67 06/09/18 19:00 102 H 19 107/58 06/09/18 18:30 96 14 107/58 100 06/09/18 18:00 84 9 L 104/62 06/09/18 17:30 96 9 L 97/57 100 06/09/18 17:00 82 10 L 97/64 100 06/09/18 16:37 98.0 F 87 18 101/59 100 06/09/18 16:30 96 12 90/56 06/09/18 16:00 16 90/56 06/09/18 15:30 96 7 L 93/70 06/09/18 15:02 120 H 22 06/09/18 14:51 97.5 F L 80 18 109/52 Intake and Output 06/09/18 06/10/18 06/10/18 22:59 06:59 14:59 Intake Total 310 1520 725 Output Total 350 1 Balance 310 1170 724 Intake: IV 280 335 Sodium Chloride 0.9% 1, 280 335 000 ml @ 70 mls/hr IV . [id number] [facility] Rx#:[id number] Blood Product 310 1240 390 Rc As-1 Unit 310 [id number] Rc As-1 Unit 0 [id number] Rc As-1 Unit 0 310 [id number] Rc As-3 Unit 0 310 [id number] Output: Urine 350 Urine/Stool Mix 1 Other: Voiding Method Toilet Bedside Commode Bedside Commode Urinal Urinal # Voids 1 # Bowel Movements 1 1 GENERAL: The patient is alert and oriented x3, not in any acute distress. Well developed, well nourished. HEENT: Pupils are round and equally reacting to light. EOMI. No scleral icterus. No conjunctival pallor. Normocephalic, atraumatic. No pharyngeal erythema. No thyromegaly. CARDIOVASCULAR: S1 and S2 present. No murmurs, rubs, or gallops. PULMONARY: Chest is clear to auscultation, no wheezing or crackles. ABDOMEN: Soft, nontender, nondistended, normoactive bowel sounds. No palpable organomegaly. MUSCULOSKELETAL: No joint swelling or deformity. EXTREMITIES: No cyanosis, clubbing, or pedal edema. NEUROLOGICAL: Gross neurological examination did not reveal any focal deficits. SKIN: No rashes. Results CBC & Chem 7: 06/10/18 06:31 06/10/18 06:31 Labs: Abnormal Lab Results - Last 24 Hours (Table) 06/09/18 06/09/18 06/09/18 Range/Units 15:45 15:45 15:45 WBC (3.8-10.6) k/uL RBC (4.30-5.90) m/uL Hgb (13.0-17.5) gm/dL Hct (39.0-53.0) % Plt Count (150-450) k/uL APTT (22.0-30.0) sec Sodium 135 L (137-145) mmol/L Potassium 5.9 H (3.5-5.1) mmol/L Carbon Dioxide 20 L (22-30) mmol/L BUN 64 H (9-20) mg/dL Creatinine 1.55 H (0.66-1.25) mg/dL Glucose 173 H (74-99) mg/dL POC Glucose (mg/dL) (75-99) mg/dL Plasma Lactic Acid Gerhard 8.2 H* (0.7-2.0) mmol/L Calcium (8.4-10.2) mg/dL Magnesium 1.5 L (1.6-2.3) mg/dL CK-MB (CK-2) 5.7 H (0.0-2.4) ng/mL Troponin I 1.760 H* (0.000-0.034) ng/mL Total Protein 5.5 L (6.3-8.2) g/dL Albumin 3.1 L (3.5-5.0) g/dL Urine Ketones (Negative) Crossmatch 06/09/18 06/09/18 06/09/18 Range/Units 15:45 17:18 17:18 WBC 0.5 L* (3.8-10.6) k/uL RBC 1.43 L (4.30-5.90) m/uL Hgb 4.4 L* D (13.0-17.5) gm/dL Hct 12.8 L* (39.0-53.0) % Plt Count 5 L* D (150-450) k/uL APTT 19.1 L (22.0-30.0) sec Sodium (137-145) mmol/L Potassium (3.5-5.1) mmol/L Carbon Dioxide (22-30) mmol/L BUN (9-20) mg/dL Creatinine (0.66-1.25) mg/dL Glucose (74-99) mg/dL POC Glucose (mg/dL) (75-99) mg/dL Plasma Lactic Acid Gerhard (0.7-2.0) mmol/L Calcium (8.4-10.2) mg/dL Magnesium (1.6-2.3) mg/dL CK-MB (CK-2) (0.0-2.4) ng/mL Troponin I (0.000-0.034) ng/mL Total Protein (6.3-8.2) g/dL Albumin (3.5-5.0) g/dL Urine Ketones (Negative) Crossmatch See Detail 06/09/18 06/10/18 06/10/18 Range/Units 22:38 01:21 05:00 WBC (3.8-10.6) k/uL RBC (4.30-5.90) m/uL Hgb (13.0-17.5) gm/dL Hct (39.0-53.0) % Plt Count (150-450) k/uL APTT (22.0-30.0) sec Sodium (137-145) mmol/L Potassium (3.5-5.1) mmol/L Carbon Dioxide (22-30) mmol/L BUN (9-20) mg/dL Creatinine (0.66-1.25) mg/dL Glucose (74-99) mg/dL POC Glucose (mg/dL) 119 H (75-99) mg/dL Plasma Lactic Acid Gerhard (0.7-2.0) mmol/L Calcium (8.4-10.2) mg/dL Magnesium (1.6-2.3) mg/dL CK-MB (CK-2) 10.2 H (0.0-2.4) ng/mL Troponin I 2.840 H* (0.000-0.034) ng/mL Total Protein (6.3-8.2) g/dL Albumin (3.5-5.0) g/dL Urine Ketones Trace H (Negative) Crossmatch 06/10/18 06/10/18 06/10/18 Range/Units 06:31 06:31 06:31 WBC 0.3 L* (3.8-10.6) k/uL RBC 2.06 L (4.30-5.90) m/uL Hgb 6.4 L* D (13.0-17.5) gm/dL Hct 18.1 L* (39.0-53.0) % Plt Count 3 L* (150-450) k/uL APTT (22.0-30.0) sec Sodium 135 L (137-145) mmol/L Potassium (3.5-5.1) mmol/L Carbon Dioxide (22-30) mmol/L BUN 68 H (9-20) mg/dL Creatinine 1.32 H (0.66-1.25) mg/dL Glucose (74-99) mg/dL POC Glucose (mg/dL) (75-99) mg/dL Plasma Lactic Acid Gerhard (0.7-2.0) mmol/L Calcium 7.4 L (8.4-10.2) mg/dL Magnesium (1.6-2.3) mg/dL CK-MB (CK-2) 8.0 H (0.0-2.4) ng/mL Troponin I 2.790 H* (0.000-0.034) ng/mL Total Protein 4.3 L (6.3-8.2) g/dL Albumin 2.3 L (3.5-5.0) g/dL Urine Ketones (Negative) Crossmatch Thrombosis Risk Factor Assmnt - Choose All That Apply Any of the Below Risk Factors Present?: No Each Risk Factor Represents 2 Points: Age 61-74 years Thrombosis Risk Factor Assessment Total Risk Factor Score: 2 Thrombosis Risk Factor Assessment Level: Low Risk Assessment and Plan Assessment: Pancytopenia, status post blood transfusion Acute kidney injury, improving Elevated troponin High lactic acid, resolved Possible left basal pneumonia, with possible severe sepsis present on admission. Severe dehydration History of lung cancer status post chemotherapy 1 week prior to admission History of hypertension Plan: This is a pleasant 67 years old male who presents with pneumonia and pancytopenia. Patient was admitted to the ICU on admission. Pulmonary/ critical care team was been consulted. Consult cardiology, and hematology oncology and gastroenterology which was already done. Labs and medication were reviewed.. Continue same treatment. Continue with symptomatic treatment. Resume home medication. Monitor lytes and vitals. DVT and GI prophylaxis. Further recommendations of the clinical course of the patient DVT prophylaxis: no Subcutaneous heparin in view of possible GI bleed GI Prophylaxis: Protonix Prognosis is guarded
--- NOTE | 2018-06-10 11:55 | P.CNPUL ---
History of Present Illness Consult date: 06/10/18 Reason for consult: other (Profound anemia and possible sepsis.) Chief complaint: Generalized weakness and exertional dyspnea History of present illness: This is a 67-year-old white male with history of non-small cell lung cancer, patient is status post chemotherapy, radiation therapy, including radiation to the lung tumor, and radiation to the lumbosacral spine area. His last radiation therapy was finished about a month ago. And his last chemotherapy was about a week ago. Patient was recently seen by Dr. Monroy, and he was noted to be anemic. Patient was sent to [facility] for a unit of packed RBCs which was given on outpatient basis. Patient was evaluated in the ER yesterday complaining of generalized weakness, fatigue, and some dyspnea on exertion. He has also been complaining of dark stools 2. This followed at least one week of constipation. Patient denies any hematemesis, and no bright red blood per rectum. Upon evaluation in the ER, patient was noted to be pancytopenic WBC count was 0.5, hemoglobin was 6.4, and he was noted to have significantly elevated lactic acid of 8.2. Troponins were noted to be elevated. Patient received a total of 4 units of packed RBCs, and his hemoglobin this morning is 6.4. WBC count this morning is 0.3. And platelets are 3000. Patient was empirically started on antibiotics in the form of vancomycin and cefepime. Patient was given fluids overnight, lactic acid is 1.4 on follow-up. Urinalysis was normal, however he had positive Hemoccult stools, and her chest x-ray showed persistent left basilar opacity and possibly a small effusion, this is at the same location of his previously diagnosed lung cancer. Patient was seen today, and compared to yesterday, the patient is feeling better, continues to have generalized weakness, no cough no fever no chills no hemoptysis no chest pain. No shortness of breath at rest. Denies any nausea vomiting abdominal pain, he did have black loose bowel movement earlier today. No gross blood, patient denies any dysuria frequency or urgency. Review of Systems CONSTITUTIONAL: No fever, no malaise, no fatigue. HEENT: No recent visual problems or hearing problems. Denied any sore throat. CARDIOVASCULAR: No orthopnea, PND, no palpitations, no syncope. PULMONARY: No shortness of breath, no cough, no hemoptysis. GASTROINTESTINAL: No diarrhea, no nausea, no vomiting, no abdominal pain. Normoactive bowel sounds. NEUROLOGICAL: No headaches, no weakness, no numbness. HEMATOLOGICAL: Denies any bleeding or petechiae. GENITOURINARY: Denies any burning micturition, frequency, or urgency. MUSCULOSKELETAL/RHEUMATOLOGICAL: Denies any joint pain, swelling, or any muscle pain. ENDOCRINE: Denies any polyuria or polydipsia. Past Medical History Past Medical History: Cancer, COPD, Hyperlipidemia, Hypertension, Pneumonia, Prostate Disorder Additional Past Medical History / Comment(s): PAST PLEURAL EFFUSION, LUNG CANCER HAD A CHEMO ON 06-02-18, umbilical hernia, history of prostate cancer, hypertension, hyperlipidemia, COPD, osteoarthritis, History of Any Multi-Drug Resistant Organisms: None Reported Past Surgical History: Hernia Repair, Joint Replacement Additional Past Surgical History / Comment(s): 12/31/17 bronchoscopy w/ bx. Total L hip anterior approach. link cataracts, lt ing hernia.lt thoracentesis 01/21 Past Anesthesia/Blood Transfusion Reactions: No Reported Reaction Additional Past Anesthesia/Blood Transfusion Reaction / Comment(s): clausterphobia Smoking Status: Former smoker - Past Family History Mother Family Medical History: Cancer Additional Family Medical History / Comment(s): Mother had breast cancer and of leukemia at the age of 76yrs. Father Additional Family Medical History / Comment(s): Father of a "broken heart" after his spouses . Sister(s) Family Medical History: Cancer Additional Family Medical History / Comment(s): Breast cancer. Medications and Allergies Home Medications Medication Instructions Recorded Confirmed Type Aspirin 81 mg PO DAILY chew 01/03/18 06/09/18 Rx Atorvastatin [Lipitor] 80 mg PO HS 01/27/18 06/09/18 History Spironolactone [Aldactone] 50 mg PO DAILY 01/27/18 06/09/18 History Morphine Sulfate ER [Ms Contin] 15 mg PO Q12HR 02/15/18 06/09/18 History Metoprolol Succinate (ER) [Toprol 100 mg PO DAILY 05/21/18 06/09/18 History Xl] Losartan [Cozaar] 25 mg PO DAILY 06/09/18 06/09/18 History Allergies Allergy/AdvReac Type Severity Reaction Status Date / Time No Known Allergies Allergy Verified 06/09/18 15:19 Physical Exam Vitals: Vital Signs Temp Pulse Resp BP Pulse Ox 06/10/18 11:00 90 14 119/85 98 06/10/18 10:36 97.7 F 89 14 123/70 100 06/10/18 10:30 83 14 131/75 97 06/10/18 10:26 97.9 F 95 16 115/68 97 06/10/18 10:00 86 15 111/65 98 06/10/18 09:30 87 18 103/70 96 06/10/18 09:00 91 20 93/66 97 06/10/18 08:30 101 H 12 113/71 96 06/10/18 08:00 97.7 F 84 12 122/77 97 06/10/18 07:30 79 21 95 06/10/18 07:00 79 20 125/67 90 L 06/10/18 06:30 77 18 117/67 95 06/10/18 06:00 81 19 124/75 96 06/10/18 05:30 80 8 L 129/74 95 06/10/18 05:00 81 22 131/78 97 06/10/18 04:30 83 7 L 122/74 97 06/10/18 04:00 98.1 F 80 9 L 135/74 96 06/10/18 03:30 77 10 L 117/70 97 06/10/18 03:00 77 12 129/71 98 06/10/18 02:34 80 19 114/70 98 06/10/18 02:30 79 20 118/78 91 L 06/10/18 02:04 80 15 121/77 98 06/10/18 02:00 81 14 116/68 97 06/10/18 01:56 97.9 F 87 16 128/66 06/10/18 01:54 97.5 F L 70 11 L 116/68 06/10/18 01:30 80 9 L 114/70 06/10/18 01:08 144/79 06/10/18 00:42 98.4 F 86 16 116/77 100 06/10/18 00:30 87 8 L 121/77 98 06/10/18 00:00 87 8 L 125/66 99 06/09/18 23:30 81 9 L 121/62 100 06/09/18 23:22 98.2 F 80 16 121/62 99 06/09/18 23:00 81 10 L 114/64 98 06/09/18 22:53 98.4 F 83 16 114/64 100 06/09/18 22:45 98.4 F 82 16 114/64 100 06/09/18 22:35 98.0 F 87 20 89/66 100 06/09/18 22:30 20 109/67 95 06/09/18 22:12 98.5 F 81 18 102/85 100 06/09/18 22:00 84 11 L 95/60 06/09/18 21:30 96 12 104/63 06/09/18 21:00 101 H 17 112/70 06/09/18 20:50 97.9 F 103 H 18 112/70 100 06/09/18 20:30 96 11 L 108/62 06/09/18 20:20 97.1 F L 100 16 90/56 98 06/09/18 20:10 98.3 F 98 17 95/62 06/09/18 20:00 99 13 94/62 99 06/09/18 19:47 102 H 14 94/62 68 L 06/09/18 19:46 99 16 94/62 95 06/09/18 19:30 16 103/67 06/09/18 19:00 102 H 19 107/58 06/09/18 18:30 96 14 107/58 100 06/09/18 18:00 84 9 L 104/62 06/09/18 17:30 96 9 L 97/57 100 06/09/18 17:00 82 10 L 97/64 100 06/09/18 16:37 98.0 F 87 18 101/59 100 06/09/18 16:30 96 12 90/56 06/09/18 16:00 16 90/56 06/09/18 15:30 96 7 L 93/70 06/09/18 15:02 120 H 22 06/09/18 14:51 97.5 F L 80 18 109/52 Intake and Output 06/09/18 06/10/18 06/10/18 22:59 06:59 14:59 Intake Total 310 1520 725 Output Total 350 1 Balance 310 1170 724 Intake: IV 280 335 Sodium Chloride 0.9% 1, 280 335 000 ml @ 70 mls/hr IV . [id number] [facility] Rx#:[id number] Blood Product 310 1240 390 Rc As-1 Unit 310 [id number] Rc As-1 Unit 0 [id number] Rc As-1 Unit 0 310 [id number] Rc As-3 Unit 0 310 [id number] Output: Urine 350 Urine/Stool Mix 1 Other: Voiding Method Toilet Bedside Commode Bedside Commode Urinal Urinal # Voids 1 # Bowel Movements 1 1 GENERAL: The patient is alert and oriented x3, not in any acute distress. Well developed, well nourished. HEENT: Pupils are round and equally reacting to light. EOMI. No scleral icterus. No conjunctival pallor. Normocephalic, atraumatic. No pharyngeal erythema. No thyromegaly. CARDIOVASCULAR: S1 and S2 present. No murmurs, rubs, or gallops. PULMONARY: Chest is clear to auscultation, no wheezing or crackles. ABDOMEN: Soft, nontender, nondistended, normoactive bowel sounds. No palpable organomegaly. MUSCULOSKELETAL: No joint swelling or deformity. EXTREMITIES: No cyanosis, clubbing, or pedal edema. NEUROLOGICAL: Gross neurological examination did not reveal any focal deficits. SKIN: No rashes. Psychiatric: Normal mood, affect and mental status examination. Lymphatics: No lymphadenopathy. Results - Laboratory Findings CBC and BMP: 06/10/18 06:31 06/10/18 06:31 PT/INR, D-dimer PT 10.4 sec (9.0-12.0) 06/09/18 17:18 INR 1.1 (<1.2) 06/09/18 17:18 Abnormal lab findings: Abnormal Labs 06/09/18 06/09/18 06/09/18 15:45 15:45 15:45 WBC RBC Hgb Hct Plt Count APTT Sodium 135 L Potassium 5.9 H Carbon Dioxide 20 L BUN 64 H Creatinine 1.55 H Glucose 173 H POC Glucose (mg/dL) Plasma Lactic Acid Gerhard 8.2 H* Calcium Magnesium 1.5 L CK-MB (CK-2) 5.7 H Troponin I 1.760 H* Total Protein 5.5 L Albumin 3.1 L Urine Ketones Crossmatch 06/09/18 06/09/18 06/09/18 15:45 17:18 17:18 WBC 0.5 L* RBC 1.43 L Hgb 4.4 L* D Hct 12.8 L* Plt Count 5 L* D APTT 19.1 L Sodium Potassium Carbon Dioxide BUN Creatinine Glucose POC Glucose (mg/dL) Plasma Lactic Acid Gerhard Calcium Magnesium CK-MB (CK-2) Troponin I Total Protein Albumin Urine Ketones Crossmatch See Detail 06/09/18 06/10/18 06/10/18 22:38 01:21 05:00 WBC RBC Hgb Hct Plt Count APTT Sodium Potassium Carbon Dioxide BUN Creatinine Glucose POC Glucose (mg/dL) 119 H Plasma Lactic Acid Gerhard Calcium Magnesium CK-MB (CK-2) 10.2 H Troponin I 2.840 H* Total Protein Albumin Urine Ketones Trace H Crossmatch 06/10/18 06/10/18 06/10/18 06:31 06:31 06:31 WBC 0.3 L* RBC 2.06 L Hgb 6.4 L* D Hct 18.1 L* Plt Count 3 L* APTT Sodium 135 L Potassium Carbon Dioxide BUN 68 H Creatinine 1.32 H Glucose POC Glucose (mg/dL) Plasma Lactic Acid Gerhard Calcium 7.4 L Magnesium CK-MB (CK-2) 8.0 H Troponin I 2.790 H* Total Protein 4.3 L Albumin 2.3 L Urine Ketones Crossmatch - Diagnostic Findings Chest x-ray: image reviewed (As noted in HPI.) Assessment and Plan Assessment: Impression: 1 pancytopenia secondary to chemotherapy and bone marrow myelosuppression. 2 suspect ongoing GI blood losses specially with his black stools noted recently and noted today. Patient may have upper or lower GI bleeding, will be evaluated by gastroenterology. In the meantime the patient will need to have platelets transfusion and will continue blood transfusion to keep hemoglobin around 7. 3 acute presentation of lactic acidosis and possible sepsis. The findings noted on the chest x-ray are possibly findings of malignancy, or could even be radiation changes, possibility of pneumonia in an immunocompromised compromised patient is not entirely ruled out. Possibility of gram-negative pneumonia is very likely. 4 history of stage IV non-small cell lung cancer, status post chemotherapy and radiation therapy. 5 history of hypertension 6 elevated troponins, being addressed by cardiology. 7 acute kidney injury most likely secondary to sepsis. Recommendation: Continue present supportive care measures, transfuse the patient with blood and platelets, continue empiric antibiotics, multiple consultants where consulted including oncology, gastroenterology, and cardiology. Prognosis is definitely guarded, we'll continue to follow. Time with Patient: Greater than 30
[2018-06-10] MEDS: ATORVASTATIN 40 MG TAB PO SCH (12:30)
[2018-06-10] MEDS: METOPROLOL TARTRATE 25 MG TAB PO SCH ×2 (12:30→20:54)
[2018-06-10] MEDS: VANCOMYCIN 1,250 MG in SODIUM CHLORIDE 0.9% 250 ML IVPB SCH (13:02)
--- NOTE | 2018-06-10 13:16 | P.CONS ---
History of Present Illness - Reason for Consult Consult date: 06/10/18 Severe pancytopenia, SIRS, squamous cell lung cancer - History of Present Illness the patient is a 67-year-old white male, initially seen in consult on 01/28/18. He had presented in 11/04 with complains of left-sided chest discomfort, and some shortness of breath. This was soon after coming back from [place] where he spends the winter. Imaging at that time indicated infiltrative changes and the patient was treated for pneumonia. He had partial response with recurrence of symptoms, for which additional courses of antibiotics were given. Due to persistence of symptoms, he had a CT of the chest in 01/04, which showed a 7 cm plus masslike area with central necrosis. A necrotic malignancy is felt to be the major differential. The patient underwent a bronchoscopy, which noted abnormal appearance of the left lower lobe bronchus with irregular mucosa and extrinsic compression. However pathology was negative for definite evidence of malignancy. Necrotic tumor was again felt to be a possibility. He subsequently had a thoracentesis which was also negative on cytology. Post bronchoscopy the patient developed a non-Q wave WI. He was seen by cardiology, and cardiac catheterization was under consideration. However his WBC was elevated and there were concerns for infection in the left lower lobe of the lung. Therefore the procedure was cancelled and he was managed conservatively The patient was sent in to the emergency room during the 02/03 admission, due to some discomfort in his umbilical hernia which she was unable to been reducible. In addition his CBC had shown an increase in his WBC into the 40, 000 range , at his PCPs office. He is continued to have left lower chest discomfort,, occasional cough and some shortness of breath on exertion. Chest x -ray showed a persistent opacity in the left lower lobe. Patient was admitted for further management. The patient improved with treatment, and had a CT- guided core biopsy. This was positive for squamous cell lung cancer. The patient then had a PET scan as an outpatient, which showed uptake in the left lower lobe mass, with no evidence of distant disease. MRI of the brain was also negative. He was referred for surgical evaluation, but was not felt to be a candidate for the same, due to the extent of the primary tumor and likely involvement of the chest wall. He therefore had concurrent chemoradiation with BLANK DRILLER-16 and cisplatin. He did have side effects related to treatment, including difficulty swallowing, weakness, or loss of appetite and need for hydration. He completed treatment in mid 03/06. Repeat PET scan on 04/03/18 showed extensive response in the primary tumor, with no evidence of disease elsewhere, except for a PET avid masslike area in the pelvis, anterior to the upper sacrum. The patient subsequently had a biopsy of this at [facility], revealing this to be positive for metastatic squamous cell cancer. As this appeared to be the only site of metastasis, and the patient was having increasing pain, he had stereotactic radiation to this area without unfortunately much improvement in his pain. He was then seen in the office, and various treatment options including immunotherapy alone (as his tumor was PD -1 70% positive), versus a more aggressive approach with chemotherapy and immunotherapy given the limited site of disease. After detailed discussion the patient opted for the latter and is status post 1 cycle of carboplatin and Gemzar. Last treatment (cycle 1 day 8) was 10 days ago. The patient was seen in the office for follow-up on 06/08/18. He reported feeling quite weak, decrease in appetite, and shortness of breath as well as mild dizziness on exertion. He was found to have pancytopenia, with hemoglobin 6.4. He received a unit of blood at [facility] on 06/09/18. However recall next day saying that he was actually feeling worse in terms of his weakness and fatigue with very poor appetite, and lightheadedness even on mild exertion. He was brought into the office on hydration, but on dorsal evaluation was found to be hypotensive. He was therefore sent in to the emergency room. The patient was noted to have severe pancytopenia with hemoglobin 4.4, white count 0.5, and platelets 5. He had also developed black tarry stools. He was therefore admitted to the ICU. He had received 3 units of blood with increase in hemoglobin to 6.4. Black stools have continued. He denied any obvious fevers, and blood pressure has been more stable after transfusion and hydration. Consult was placed for further evaluation and recommendations Review of Systems Constitutional: Reports chronic pain, Reports fatigue, Reports malaise, Reports poor appetite, Reports weakness Eyes: denies blurred vision, denies pain Ears: deny: decreased hearing, ear discharge, earache, tinnitus Ears, nose, mouth and throat: Denies headache, Denies sore throat Cardiovascular: Reports dyspnea on exertion Respiratory: Reports as per HPI, Reports dyspnea Gastrointestinal: Reports melena Genitourinary: Reports as per HPI Musculoskeletal: Reports muscle weakness Integumentary: Denies pruritus, Denies rash Neurological: Reports weakness Psychiatric: Reports anxiety Endocrine: Reports fatigue, Reports weight change Hematologic/Lymphatic: Reports as per HPI, Reports easy bruising Past Medical History Past Medical History: Cancer, COPD, Hyperlipidemia, Hypertension, Pneumonia, Prostate Disorder Additional Past Medical History / Comment(s): PAST PLEURAL EFFUSION, LUNG CANCER HAD A CHEMO ON 06-02-18, umbilical hernia, history of prostate cancer, hypertension, hyperlipidemia, COPD, osteoarthritis, History of Any Multi-Drug Resistant Organisms: None Reported Past Surgical History: Hernia Repair, Joint Replacement Additional Past Surgical History / Comment(s): 12/31/17 bronchoscopy w/ bx. Total L hip anterior approach. link cataracts, lt ing hernia.lt thoracentesis 01/21 Past Anesthesia/Blood Transfusion Reactions: No Reported Reaction Additional Past Anesthesia/Blood Transfusion Reaction / Comm: clausterphobia Smoking Status: Former smoker - Past Family History Mother Family Medical History: Cancer Additional Family Medical History / Comment(s): Mother had breast cancer and of leukemia at the age of 76yrs. Father Additional Family Medical History / Comment(s): Father of a "broken heart" after his spouses . Sister(s) Family Medical History: Cancer Additional Family Medical History / Comment(s): Breast cancer. Medications and Allergies Home Medications Medication Instructions Recorded Confirmed Type Aspirin 81 mg PO DAILY chew 01/03/18 06/09/18 Rx Atorvastatin [Lipitor] 80 mg PO HS 01/27/18 06/09/18 History Spironolactone [Aldactone] 50 mg PO DAILY 01/27/18 06/09/18 History Morphine Sulfate ER [Ms Contin] 15 mg PO Q12HR 02/15/18 06/09/18 History Metoprolol Succinate (ER) [Toprol 100 mg PO DAILY 05/21/18 06/09/18 History Xl] Losartan [Cozaar] 25 mg PO DAILY 06/09/18 06/09/18 History Allergies Allergy/AdvReac Type Severity Reaction Status Date / Time No Known Allergies Allergy Verified 06/09/18 15:19 Physical Exam Vitals: Vital Signs Temp Pulse Resp BP Pulse Ox 06/10/18 12:30 105 H 18 114/82 92 L 06/10/18 12:00 97.8 F 84 18 112/65 97 06/10/18 11:30 86 12 119/85 98 06/10/18 11:06 97.9 F 92 14 119/85 96 06/10/18 11:00 90 14 119/85 98 06/10/18 10:36 97.7 F 89 14 123/70 100 06/10/18 10:30 83 14 131/75 97 06/10/18 10:26 97.9 F 95 16 115/68 97 06/10/18 10:00 86 15 111/65 98 06/10/18 09:30 87 18 103/70 96 06/10/18 09:00 91 20 93/66 97 06/10/18 08:30 101 H 12 113/71 96 06/10/18 08:00 97.7 F 84 12 122/77 97 06/10/18 07:30 79 21 95 06/10/18 07:00 79 20 125/67 90 L 06/10/18 06:30 77 18 117/67 95 06/10/18 06:00 81 19 124/75 96 06/10/18 05:30 80 8 L 129/74 95 06/10/18 05:00 81 22 131/78 97 06/10/18 04:30 83 7 L 122/74 97 06/10/18 04:00 98.1 F 80 9 L 135/74 96 06/10/18 03:30 77 10 L 117/70 97 06/10/18 03:00 77 12 129/71 98 06/10/18 02:34 80 19 114/70 98 06/10/18 02:30 79 20 118/78 91 L 06/10/18 02:04 80 15 121/77 98 06/10/18 02:00 81 14 116/68 97 06/10/18 01:56 97.9 F 87 16 128/66 06/10/18 01:54 97.5 F L 70 11 L 116/68 06/10/18 01:30 80 9 L 114/70 06/10/18 01:08 144/79 06/10/18 00:42 98.4 F 86 16 116/77 100 06/10/18 00:30 87 8 L 121/77 98 11/22/18 00:00 87 8 L 125/66 99 06/09/18 23:30 81 9 L 121/62 100 06/09/18 23:22 98.2 F 80 16 121/62 99 06/09/18 23:00 81 10 L 114/64 98 06/09/18 22:53 98.4 F 83 16 114/64 100 06/09/18 22:45 98.4 F 82 16 114/64 100 06/09/18 22:35 98.0 F 87 20 89/66 100 06/09/18 22:30 20 109/67 95 06/09/18 22:12 98.5 F 81 18 102/85 100 06/09/18 22:00 84 11 L 95/60 06/09/18 21:30 96 12 104/63 06/09/18 21:00 101 H 17 112/70 06/09/18 20:50 97.9 F 103 H 18 112/70 100 06/09/18 20:30 96 11 L 108/62 06/09/18 20:20 97.1 F L 100 16 90/56 98 06/09/18 20:10 98.3 F 98 17 95/62 06/09/18 20:00 99 13 94/62 99 06/09/18 19:47 102 H 14 94/62 68 L 06/09/18 19:46 99 16 94/62 95 06/09/18 19:30 16 103/67 06/09/18 19:00 102 H 19 107/58 06/09/18 18:30 96 14 107/58 100 06/09/18 18:00 84 9 L 104/62 06/09/18 17:30 96 9 L 97/57 100 06/09/18 17:00 82 10 L 97/64 100 06/09/18 16:37 98.0 F 87 18 101/59 100 06/09/18 16:30 96 12 90/56 06/09/18 16:00 16 90/56 06/09/18 15:30 96 7 L 93/70 06/09/18 15:02 120 H 22 06/09/18 14:51 97.5 F L 80 18 109/52 Intake and Output 06/09/18 06/10/18 06/10/18 22:59 06:59 14:59 Intake Total 310 1520 905 Output Total 350 2 Balance 310 1170 903 Intake: IV 280 335 Sodium Chloride 0.9% 1, 280 335 000 ml @ 70 mls/hr IV . [id number] [facility] Rx#:[id number] Blood Product 310 1240 570 Rc As-1 Unit 310 [id number] Rc As-1 Unit 0 [id number] Rc As-1 Unit 0 310 [id number] Rc As-3 Unit 0 310 [id number] Output: Urine 350 Urine/Stool Mix 2 Other: Voiding Method Toilet Bedside Commode Bedside Commode Urinal Urinal # Voids 1 # Bowel Movements 1 1 - Constitutional General appearance: no acute distress - EENT Eyes: EOMI, PERRLA ENT: hearing grossly normal, normal oropharynx - Neck Neck: no lymphadenopathy Thyroid: bilateral: normal size - Respiratory Respiratory: left: diminished - Cardiovascular Rhythm: regular Heart sounds: normal: S1, S2 - Gastrointestinal General gastrointestinal: normal bowel sounds, soft - Integumentary Integumentary: normal - Neurologic Neurologic: CNII-XII intact - Musculoskeletal Musculoskeletal: generalized weakness, strength equal bilaterally - Psychiatric Psychiatric: A&O x's 3, appropriate affect Results CBC & Chem 7: 06/10/18 06:31 06/10/18 06:31 Labs: Abnormal Lab Results - Last 24 Hours (Table) 06/09/18 06/09/18 06/09/18 Range/Units 15:45 15:45 15:45 WBC (3.8-10.6) k/uL RBC (4.30-5.90) m/uL Hgb (13.0-17.5) gm/dL Hct (39.0-53.0) % Plt Count (150-450) k/uL APTT (22.0-30.0) sec Sodium 135 L (137-145) mmol/L Potassium 5.9 H (3.5-5.1) mmol/L Carbon Dioxide 20 L (22-30) mmol/L BUN 64 H (9-20) mg/dL Creatinine 1.55 H (0.66-1.25) mg/dL Glucose 173 H (74-99) mg/dL POC Glucose (mg/dL) (75-99) mg/dL Plasma Lactic Acid Gerhard 8.2 H* (0.7-2.0) mmol/L Calcium (8.4-10.2) mg/dL Magnesium 1.5 L (1.6-2.3) mg/dL CK-MB (CK-2) 5.7 H (0.0-2.4) ng/mL Troponin I 1.760 H* (0.000-0.034) ng/mL Total Protein 5.5 L (6.3-8.2) g/dL Albumin 3.1 L (3.5-5.0) g/dL Urine Ketones (Negative) Crossmatch 06/09/18 06/09/18 06/09/18 Range/Units 15:45 17:18 17:18 WBC 0.5 L* (3.8-10.6) k/uL RBC 1.43 L (4.30-5.90) m/uL Hgb 4.4 L* D (13.0-17.5) gm/dL Hct 12.8 L* (39.0-53.0) % Plt Count 5 L* D (150-450) k/uL APTT 19.1 L (22.0-30.0) sec Sodium (137-145) mmol/L Potassium (3.5-5.1) mmol/L Carbon Dioxide (22-30) mmol/L BUN (9-20) mg/dL Creatinine (0.66-1.25) mg/dL Glucose (74-99) mg/dL POC Glucose (mg/dL) (75-99) mg/dL Plasma Lactic Acid Gerhard (0.7-2.0) mmol/L Calcium (8.4-10.2) mg/dL Magnesium (1.6-2.3) mg/dL CK-MB (CK-2) (0.0-2.4) ng/mL Troponin I (0.000-0.034) ng/mL Total Protein (6.3-8.2) g/dL Albumin (3.5-5.0) g/dL Urine Ketones (Negative) Crossmatch See Detail 06/09/18 06/10/18 06/10/18 Range/Units 22:38 01:21 05:00 WBC (3.8-10.6) k/uL RBC (4.30-5.90) m/uL Hgb (13.0-17.5) gm/dL Hct (39.0-53.0) % Plt Count (150-450) k/uL APTT (22.0-30.0) sec Sodium (137-145) mmol/L Potassium (3.5-5.1) mmol/L Carbon Dioxide (22-30) mmol/L BUN (9-20) mg/dL Creatinine (0.66-1.25) mg/dL Glucose (74-99) mg/dL POC Glucose (mg/dL) 119 H (75-99) mg/dL Plasma Lactic Acid Gerhard (0.7-2.0) mmol/L Calcium (8.4-10.2) mg/dL Magnesium (1.6-2.3) mg/dL CK-MB (CK-2) 10.2 H (0.0-2.4) ng/mL Troponin I 2.840 H* (0.000-0.034) ng/mL Total Protein (6.3-8.2) g/dL Albumin (3.5-5.0) g/dL Urine Ketones Trace H (Negative) Crossmatch 06/10/18 06/10/18 06/10/18 Range/Units 06:31 06:31 06:31 WBC 0.3 L* (3.8-10.6) k/uL RBC 2.06 L (4.30-5.90) m/uL Hgb 6.4 L* D (13.0-17.5) gm/dL Hct 18.1 L* (39.0-53.0) % Plt Count 3 L* (150-450) k/uL APTT (22.0-30.0) sec Sodium 135 L (137-145) mmol/L Potassium (3.5-5.1) mmol/L Carbon Dioxide (22-30) mmol/L BUN 68 H (9-20) mg/dL Creatinine 1.32 H (0.66-1.25) mg/dL Glucose (74-99) mg/dL POC Glucose (mg/dL) (75-99) mg/dL Plasma Lactic Acid Gerhard (0.7-2.0) mmol/L Calcium 7.4 L (8.4-10.2) mg/dL Magnesium (1.6-2.3) mg/dL CK-MB (CK-2) 8.0 H (0.0-2.4) ng/mL Troponin I 2.790 H* (0.000-0.034) ng/mL Total Protein 4.3 L (6.3-8.2) g/dL Albumin 2.3 L (3.5-5.0) g/dL Urine Ketones (Negative) Crossmatch Microbiology - Last 24 Hours (Table) 06/10/18 05:00 Urine Culture - Preliminary Urine,Voided Chest x-ray: report reviewed Assessment and Plan (1) Pancytopenia Narrative/Plan: The patient had significant pancytopenia due to chemotherapy and seen in the office on 06/08/18. However his counts are actually better than this admission. Normally I would expect his counts to start to improve by this time. The patient, however had additional stress on the marrow due to GI bleed , causing further drop in counts. - Continue to monitor with aggressive transfusion support. The patient has received 3 units of PRBC. Unit of platelets will be ordered. He will have counts checked after the transfusions are complete, with additional transfusions ordered as needed - Start G-CSF. Current Visit: Yes Status: Acute Code(s): D61.818 - OTHER PANCYTOPENIA SNOMED Code(s): 588231324 (2) GI bleed Narrative/Plan: The patient's hemoglobin was 6.4 on 06/08/18. He received 1 unit of blood the next day, and presented here with hemoglobin of 4.4. He has had black stool since. He has been seen by gastroenterology, but is not a good candidate for intervention at this time because of his low platelets, low white count as well as elevated troponin. Agree, that clinically the etiology is likely low platelets and gastritis. - The platelet transfusions have been ordered. Ideally in this situation I would also consider using DDAVP or Sandostatin. However these could lead to increased risk of additional cardiac injury in this patient with known coronary artery disease, and significant troponin elevation this admission. - No aspirin or NSAIDs - Monitor counts closely with aggressive transfusion support - The patient is also on PPI. Current Visit: Yes Status: Acute Code(s): K92.2 - GASTROINTESTINAL HEMORRHAGE, UNSPECIFIED SNOMED Code(s): 73482107 (3) Squamous cell lung cancer Narrative/Plan: Diagnostic and therapeutic circumstances as noted. The patient technically has stage IV disease, but only had one side of distant recurrence. Therefore we are attempting to treat him aggressively, with stereotactic radiation to the pelvic lesion, and systemic chemotherapy subsequently. However given his poor tolerance of first cycle of carboplatin and Gemzar, we will have to reevaluate treatment plans once acute condition has resolved. Current Visit: Yes Status: Acute Code(s): C34.90 - MALIGNANT NEOPLASM OF UNSP PART OF UNSP BRONCHUS OR LUNG SNOMED Code(s): 542316001 Plan: Defer to the admitting service and other consult is for management of his multiple other medical issues. The patient appears to have had acute cardiac injury, with significant elevation of troponin. His a known history of coronary artery disease and WI in the past. The current episode is likely brought on by hypoperfusion from his severe anemia. He is not a candidate for intervention at this time, or even for anticoagulation or antiplatelet agents. He is therefore being managed with statins and beta blockers. Fortunately appears to be symptomatically stable from a cardiovascular standpoint at this time.
[2018-06-10] MEDS: FILGRASTIM-SNDZ 480 MCG/0.8 ML SYRINGE SQ SCH (15:05)
[2018-06-10] MEDS: ACETAMINOPHEN TAB 325 MG TAB PO PRN (17:43)
[2018-06-10 18:55] LABS: MCH 29.7 pg (25.0-35.0); MCHC 34.8 g/dL (31.0-37.0); MCV 85.4 fL (80.0-100.0); Mean Platelet Volume 7.2; Platelet Count 50 k/uL (150-450); RBC 2.07 m/uL (4.30-5.90); RDW 14.3 % (11.5-15.5)
[2018-06-10 18:57] LABS: HCT 17.7 % (39.0-53.0); HGB 6.1 gm/dL (13.0-17.5)
[2018-06-10] MEDS ORDERED: Magnesium Replacement Protocol 1 EACH MISC MISCELLANE PRN (19:09)
[2018-06-10 19:39] LABS: Poikilocytosis (M) Present; WBC 0.3 k/uL (3.8-10.6)
[2018-06-10] MEDS: MAGNESIUM SULFATE-D5W PMX 1 GM in DEXTROSE/WATER 1 100ML.BAG IVPB SCH ×2 (20:53→22:23)
[2018-06-10] MEDS: TEMAZEPAM 15 MG CAP PO PRN (21:42)
[2018-06-10] MEDS: MORPHINE SULFATE ER 15 MG TABLET PO SCH (22:26)
[2018-06-11 01:09] LABS: HCT 23.6 % (39.0-53.0); MCH 30.1 pg (25.0-35.0); MCHC 35.5 g/dL (31.0-37.0); MCV 84.9 fL (80.0-100.0); RBC 2.78 m/uL (4.30-5.90); RDW 14.5 % (11.5-15.5)
[2018-06-11 01:11] LABS: WBC 0.4 k/uL (3.8-10.6)
[2018-06-11 01:12] LABS: HGB 8.4 gm/dL (13.0-17.5); Platelet Count 33 k/uL (150-450)
[2018-06-11] MEDS: ACETAMINOPHEN TAB 325 MG TAB PO PRN ×3 (05:21→21:43)
[2018-06-11] MEDS: CEFEPIME 2 GM in SODIUM CHLORIDE 0.9% 50 ML IVPB SCH ×3 (05:22→20:15)
[2018-06-11] MEDS: VANCOMYCIN 1,250 MG in SODIUM CHLORIDE 0.9% 250 ML IVPB SCH ×2 (05:26→18:31)
[2018-06-11 05:31] LABS: HCT 20.2 % (39.0-53.0); MCHC 34.1 g/dL (31.0-37.0); Mean Platelet Volume 7.7; RBC 2.38 m/uL (4.30-5.90); RDW 14.5 % (11.5-15.5)
[2018-06-11 05:32] LABS: Anion Gap 6 mmol/L; Blood Urea Nitrogen 47 mg/dL (9-20); Calcium 7.6 mg/dL (8.4-10.2); Carbon Dioxide 22 mmol/L (22-30); Chloride 110 mmol/L (98-107); Glucose 90 mg/dL (74-99); Magnesium 1.8 mg/dL (1.6-2.3); Potassium 3.1 mmol/L (3.5-5.1); Sodium 138 mmol/L (137-145); WBC 0.3 k/uL (3.8-10.6)
[2018-06-11 05:33] LABS: Platelet Count 31 k/uL (150-450)
[2018-06-11] MEDS: PANTOPRAZOLE 40 MG TABLET PO SCH ×2 (07:16→18:31)
[2018-06-11] MEDS ORDERED: Magnesium Replacement Protocol 1 EACH MISC MISCELLANE PRN (07:17)
[2018-06-11] MEDS ORDERED: Potassium Replacement Protocol 1 EACH MISC MISCELLANE PRN (07:17)
--- NOTE | 2018-06-11 07:28 | XR ---
EXAMINATION TYPE: XR chest 1V DATE OF EXAM: 06/11/2018 COMPARISON: Prior chest x-ray 06/10/2018 HISTORY: Abnormal chest x-ray TECHNIQUE: Single frontal view of the chest is obtained. FINDINGS: Airspace disease persists at the left lung base, the heart border and the left hemidiaphra gm are obscured. No evident pneumothorax. Heart size is likely stable. IMPRESSION: Correlate for left lower lobe pneumonia and associated effusion. Follow-up recommended t o resolution.
[2018-06-11] MEDS: SODIUM CHLORIDE 0.9% 1,000 ML IV SCH ×2 (07:32→23:45)
[2018-06-11] MEDS: POTASSIUM CHLORIDE ER 20 MEQ TAB.ER PO SCH ×2 (07:32→09:11)
[2018-06-11] MEDS: MAGNESIUM SULFATE-D5W PMX 1 GM in DEXTROSE/WATER 1 100ML.BAG IVPB SCH ×2 (08:57→10:54)
[2018-06-11] MEDS: MORPHINE SULFATE ER 15 MG TABLET PO SCH ×2 (09:00→21:51)
[2018-06-11] MEDS: ATORVASTATIN 40 MG TAB PO SCH (10:41)
[2018-06-11] MEDS: METOPROLOL TARTRATE 25 MG TAB PO SCH ×2 (10:54→21:47)
[2018-06-11] MEDS: FILGRASTIM-SNDZ 480 MCG/0.8 ML SYRINGE SQ SCH (10:54)
--- NOTE | 2018-06-11 11:33 | P.CONS ---
History of Present Illness - Reason for Consult Consult date: 06/10/18 Anemia, leukopenia and low platelet count and Hemoccult-positive stools. - History of Present Illness The patient is a 67-year-old male with history of metastatic squamous cell cancer of the lung. The patient initially received chemoradiation and currently on chemo immunotherapy. Last cycle 10 days ago. The patient has been complaining of weakness and and shortness of breath and reported dark stools. He was transfused as outpatient with 1 unit of packed cells last week, however, he had to be admitted last night because of worsening symptoms and finding of profound anemia and pancytopenia. The patient is not having any hematemesis or hematochezia. He stated he had some blood in his bowel movements after one week of constipation associated with some nausea and he vomited once. On admission patient was found to be pancytopenia with WBC 0.3, hemoglobin 6.4, coming up from 4.4. His platelet count 3. INR 1.1. Sodium 135. Creatinine is elevated at 1.3, which is improving. Baseline creatinine is 0.9-1.0. High lactic acid of 8.2, down to 1.4 within normal limits. Elevated troponin 1.7, 2.8, 2.7. LFTs were unremarkable. Patient got 4 units of blood transfusion. Chest x-ray shows persistent left basilar infiltrate with pleural effusion EKG showing sinus tachycardia at [address]-T changes. Patient already received IV fluids, protonix and antibiotics. This morning he sitting at the bedside, not in distress. Denies chest pain or dyspnea. No abdominal pain, No more nausea and vomiting. No fever. Review of Systems Constitutional: Denies fever, chills or unintentional weight loss Neurologic: No history of headaches, double vision or sensory or motor changes Cardiopulmonary: No chest pains, shortness of breath or palpitations Gastrointestinal: See present illness above Genitourinary: No hematuria, dysuria or frequency Skin: No rashes Endocrine: No polyuria or polydipsia Musculoskeletal: No joint complaints or swelling Hematologic: No bleeding tendency Psychiatric: No history of anxiety or depression Past Medical History Past Medical History: Cancer, COPD, Hyperlipidemia, Hypertension, Pneumonia, Prostate Disorder Additional Past Medical History / Comment(s): PAST PLEURAL EFFUSION, LUNG CANCER HAD A CHEMO ON 06-02-18, umbilical hernia, history of prostate cancer, hypertension, hyperlipidemia, COPD, osteoarthritis, History of Any Multi-Drug Resistant Organisms: None Reported Past Surgical History: Hernia Repair, Joint Replacement Additional Past Surgical History / Comment(s): 12/31/17 bronchoscopy w/ bx. Total L hip anterior approach. link cataracts, lt ing hernia.lt thoracentesis 01/21 Past Anesthesia/Blood Transfusion Reactions: No Reported Reaction Additional Past Anesthesia/Blood Transfusion Reaction / Comm: clausterphobia Smoking Status: Former smoker - Past Family History Mother Family Medical History: Cancer Additional Family Medical History / Comment(s): Mother had breast cancer and of leukemia at the age of 76yrs. Father Additional Family Medical History / Comment(s): Father of a "broken heart" after his spouses . Sister(s) Family Medical History: Cancer Additional Family Medical History / Comment(s): Breast cancer. Medications and Allergies Home Medications Medication Instructions Recorded Confirmed Type Aspirin 81 mg PO DAILY chew 01/03/18 06/09/18 Rx Atorvastatin [Lipitor] 80 mg PO HS 01/27/18 06/09/18 History Spironolactone [Aldactone] 50 mg PO DAILY 01/27/18 06/09/18 History Morphine Sulfate ER [Ms Contin] 15 mg PO Q12HR 02/15/18 06/09/18 History Metoprolol Succinate (ER) [Toprol 100 mg PO DAILY 05/21/18 06/09/18 History Xl] Losartan [Cozaar] 25 mg PO DAILY 06/09/18 06/09/18 History Allergies Allergy/AdvReac Type Severity Reaction Status Date / Time No Known Allergies Allergy Verified 06/09/18 15:19 Physical Exam Vitals: Vital Signs Temp Pulse Resp BP Pulse Ox 06/10/18 09:30 87 18 103/70 96 06/10/18 09:00 91 20 93/66 97 06/10/18 08:30 101 H 12 113/71 96 06/10/18 08:00 97.7 F 84 12 122/77 97 06/10/18 07:30 79 21 95 06/10/18 07:00 79 20 125/67 90 L 06/10/18 06:30 77 18 117/67 95 06/10/18 06:00 81 19 124/75 96 06/10/18 05:30 80 8 L 129/74 95 06/10/18 05:00 81 22 131/78 97 06/10/18 04:30 83 7 L 122/74 97 06/10/18 04:00 98.1 F 80 9 L 135/74 96 06/10/18 03:30 77 10 L 117/70 97 06/10/18 03:00 77 12 129/71 98 06/10/18 02:34 80 19 114/70 98 06/10/18 02:30 79 20 118/78 91 L 06/10/18 02:04 80 15 121/77 98 06/10/18 02:00 81 14 116/68 97 06/10/18 01:56 97.9 F 87 16 128/66 06/10/18 01:54 97.5 F L 70 11 L 116/68 06/10/18 01:30 80 9 L 114/70 06/10/18 01:08 144/79 06/10/18 00:42 98.4 F 86 16 116/77 100 06/10/18 00:30 87 8 L 121/77 98 06/10/18 00:00 87 8 L 125/66 99 06/09/18 23:30 81 9 L 121/62 100 06/09/18 23:22 98.2 F 80 16 121/62 99 06/09/18 23:00 81 10 L 114/64 98 06/09/18 22:53 98.4 F 83 16 114/64 100 06/09/18 22:45 98.4 F 82 16 114/64 100 06/09/18 22:35 98.0 F 87 20 89/66 100 06/09/18 22:30 20 109/67 95 06/09/18 22:12 98.5 F 81 18 102/85 100 06/09/18 22:00 84 11 L 95/60 06/09/18 21:30 96 12 104/63 06/09/18 21:00 101 H 17 112/70 06/09/18 20:50 97.9 F 103 H 18 112/70 100 06/09/18 20:30 96 11 L 108/62 06/09/18 20:20 97.1 F L 100 16 90/56 98 06/09/18 20:10 98.3 F 98 17 95/62 06/09/18 20:00 99 13 94/62 99 06/09/18 19:47 102 H 14 94/62 68 L 06/09/18 19:46 99 16 94/62 95 06/09/18 19:30 16 103/67 06/09/18 19:00 102 H 19 107/58 06/09/18 18:30 96 14 107/58 100 06/09/18 18:00 84 9 L 104/62 06/09/18 17:30 96 9 L 97/57 100 06/09/18 17:00 82 10 L 97/64 100 06/09/18 16:37 98.0 F 87 18 101/59 100 06/09/18 16:30 96 12 90/56 06/09/18 16:00 16 90/56 06/09/18 15:30 96 7 L 93/70 06/09/18 15:02 120 H 22 06/09/18 14:51 97.5 F L 80 18 109/52 Intake and Output 06/09/18 06/10/18 06/10/18 22:59 06:59 14:59 Intake Total 310 1520 520 Output Total 350 Balance 310 1170 520 Intake: IV 280 210 Sodium Chloride 0.9% 1, 280 210 000 ml @ 70 mls/hr IV . [id number] [facility] Rx#:[id number] Blood Product 310 1240 310 Rc As-1 Unit 310 [id number] Rc As-1 Unit 0 310 [id number] Rc As-3 Unit 0 310 [id number] Output: Urine 350 Other: Voiding Method Toilet Bedside Commode Urinal # Voids 1 # Bowel Movements 1 1 General: Appeared stated age, very pleasant in no acute distress Head and neck: Normocephalic and atraumatic, conjunctivae pink and sclerae not icteric, mucous membranes moist and pink. No masses in the neck or clavicular shifts Lungs: Clear to auscultation with no dullness to percussion Heart: Regular, no abnormal sounds, murmurs, gallops or friction Abdomen: Soft, no masses or organomegalies. No tenderness, bowel sounds present Extremities: No clubbing, cyanosis or edema Neurologic: Alert and oriented 3. Cranial nerves grossly intact. No gross sensory or motor abnormalities Results CBC & Chem 7: 06/11/18 11:07 06/11/18 11:07 Labs: Abnormal Lab Results - Last 24 Hours (Table) 06/09/18 06/09/18 06/09/18 Range/Units 15:45 15:45 15:45 WBC (3.8-10.6) k/uL RBC (4.30-5.90) m/uL Hgb (13.0-17.5) gm/dL Hct (39.0-53.0) % Plt Count (150-450) k/uL APTT (22.0-30.0) sec Sodium 135 L (137-145) mmol/L Potassium 5.9 H (3.5-5.1) mmol/L Carbon Dioxide 20 L (22-30) mmol/L BUN 64 H (9-20) mg/dL Creatinine 1.55 H (0.66-1.25) mg/dL Glucose 173 H (74-99) mg/dL POC Glucose (mg/dL) (75-99) mg/dL Plasma Lactic Acid Gerhard 8.2 H* (0.7-2.0) mmol/L Calcium (8.4-10.2) mg/dL Magnesium 1.5 L (1.6-2.3) mg/dL CK-MB (CK-2) 5.7 H (0.0-2.4) ng/mL Troponin I 1.760 H* (0.000-0.034) ng/mL Total Protein 5.5 L (6.3-8.2) g/dL Albumin 3.1 L (3.5-5.0) g/dL Urine Ketones (Negative) Crossmatch 06/09/18 06/09/18 06/09/18 Range/Units 15:45 17:18 17:18 WBC 0.5 L* (3.8-10.6) k/uL RBC 1.43 L (4.30-5.90) m/uL Hgb 4.4 L* D (13.0-17.5) gm/dL Hct 12.8 L* (39.0-53.0) % Plt Count 5 L* D (150-450) k/uL APTT 19.1 L (22.0-30.0) sec Sodium (137-145) mmol/L Potassium (3.5-5.1) mmol/L Carbon Dioxide (22-30) mmol/L BUN (9-20) mg/dL Creatinine (0.66-1.25) mg/dL Glucose (74-99) mg/dL POC Glucose (mg/dL) (75-99) mg/dL Plasma Lactic Acid Gerhard (0.7-2.0) mmol/L Calcium (8.4-10.2) mg/dL Magnesium (1.6-2.3) mg/dL CK-MB (CK-2) (0.0-2.4) ng/mL Troponin I (0.000-0.034) ng/mL Total Protein (6.3-8.2) g/dL Albumin (3.5-5.0) g/dL Urine Ketones (Negative) Crossmatch See Detail 06/09/18 06/10/18 06/10/18 Range/Units 22:38 01:21 05:00 WBC (3.8-10.6) k/uL RBC (4.30-5.90) m/uL Hgb (13.0-17.5) gm/dL Hct (39.0-53.0) % Plt Count (150-450) k/uL APTT (22.0-30.0) sec Sodium (137-145) mmol/L Potassium (3.5-5.1) mmol/L Carbon Dioxide (22-30) mmol/L BUN (9-20) mg/dL Creatinine (0.66-1.25) mg/dL Glucose (74-99) mg/dL POC Glucose (mg/dL) 119 H (75-99) mg/dL Plasma Lactic Acid Gerhard (0.7-2.0) mmol/L Calcium (8.4-10.2) mg/dL Magnesium (1.6-2.3) mg/dL CK-MB (CK-2) 10.2 H (0.0-2.4) ng/mL Troponin I 2.840 H* (0.000-0.034) ng/mL Total Protein (6.3-8.2) g/dL Albumin (3.5-5.0) g/dL Urine Ketones Trace H (Negative) Crossmatch 06/10/18 06/10/18 06/10/18 Range/Units 06:31 06:31 06:31 WBC 0.3 L* (3.8-10.6) k/uL RBC 2.06 L (4.30-5.90) m/uL Hgb 6.4 L* D (13.0-17.5) gm/dL Hct 18.1 L* (39.0-53.0) % Plt Count 3 L* (150-450) k/uL APTT (22.0-30.0) sec Sodium 135 L (137-145) mmol/L Potassium (3.5-5.1) mmol/L Carbon Dioxide (22-30) mmol/L BUN 68 H (9-20) mg/dL Creatinine 1.32 H (0.66-1.25) mg/dL Glucose (74-99) mg/dL POC Glucose (mg/dL) (75-99) mg/dL Plasma Lactic Acid Gerhard (0.7-2.0) mmol/L Calcium 7.4 L (8.4-10.2) mg/dL Magnesium (1.6-2.3) mg/dL CK-MB (CK-2) 8.0 H (0.0-2.4) ng/mL Troponin I 2.790 H* (0.000-0.034) ng/mL Total Protein 4.3 L (6.3-8.2) g/dL Albumin 2.3 L (3.5-5.0) g/dL Urine Ketones (Negative) Crossmatch Assessment and Plan Assessment: Anemia, could be on the basis of GI bleeding. This could be related, in part, to the low platelet counts. With his pancytopenia secondary to his chemotherapy , I did not suggest that this would be a good time for GI endoscopic workup. Plan: Agree with your current management. Will continue Protonix. Will continue to follow closely with you. Consideration can be given for endoscopic workup based on his course and his white cell count and platelet counts.
[2018-06-11 11:34] LABS: MCH 29.9 pg (25.0-35.0); MCHC 34.5 g/dL (31.0-37.0); MCV 86.7 fL (80.0-100.0); Mean Platelet Volume 7.3; RBC 2.16 m/uL (4.30-5.90); RDW 14.5 % (11.5-15.5)
[2018-06-11 11:36] LABS: WBC 0.3 k/uL (3.8-10.6)
[2018-06-11 11:37] LABS: Platelet Count 32 k/uL (150-450)
[2018-06-11 11:39] LABS: HGB 6.4 gm/dL (13.0-17.5)
[2018-06-11 11:40] LABS: HCT 18.7 % (39.0-53.0)
--- NOTE | 2018-06-11 12:16 | PN ---
PROGRESS NOTE Mr. Edouard is a 67-year-old male who presented with progressive weakness and shortness of breath and was found to have severe anemia. He has a long history of lung CA and is receiving chemotherapy. He has a history of mild ischemic cardiomyopathy. He is feeling better today. He has been transfused. He continues to be weak, although improved. He denies any chest pain. He is in sinus mechanism. There is no evidence of ventricular tachycardia. He continues to be at this time on Lipitor 40 mg daily, metoprolol tartrate 25 mg twice a day. PHYSICAL EXAMINATION: Blood pressure 118/59 with a heart rate in the 70s. Lungs no wheezes or rales. HEART: Regular rate and rhythm, normal S1, S2. No S3. No rub or gallop. ABDOMEN: Soft, nontender. Positive bowel sounds. No organomegaly. EXTREMITIES: No significant edema. LAB DATA: Lab data revealed a hemoglobin of 7, white blood cell of 0.3, platelet count of 31,000. BUN and creatinine 47 and 0.86, improved. Potassium 3.1. IMPRESSION: 1. Non ST-segment elevation myocardial infarction secondary to the severe anemia. 2. Lungs carcinoma, receiving chemotherapy. 3. Pancytopenia secondary to chemotherapy and bone marrow myelosuppression. 4. Gastrointestinal bleeding. 5. Hypertension. RECOMMENDATION: We will continue present therapy. Continue supportive care. The patient is not a candidate for any aggressive cardiac workup. We will continue to hold antiplatelets at this point. Depending on his progress, further recommendations will be made. MMODL / IJN: [id number] /
--- NOTE | 2018-06-11 13:56 | P.PN ---
Subjective Progress Note Date: 06/11/18 Principal diagnosis: Acute neutropenic sepsis with pancytopenia. This is a 67-year-old white male with history of non-small cell lung cancer, patient is status post chemotherapy, radiation therapy, including radiation to the lung tumor, and radiation to the lumbosacral spine area. His last radiation therapy was finished about a month ago. And his last chemotherapy was about a week ago. Patient was recently seen by Dr. Monroy, and he was noted to be anemic. Patient was sent to [facility] for a unit of packed RBCs which was given on outpatient basis. Patient was evaluated in the ER yesterday complaining of generalized weakness, fatigue, and some dyspnea on exertion. He has also been complaining of dark stools 2. This followed at least one week of constipation. Patient denies any hematemesis, and no bright red blood per rectum. Upon evaluation in the ER, patient was noted to be pancytopenic WBC count was 0.5, hemoglobin was 6.4, and he was noted to have significantly elevated lactic acid of 8.2. Troponins were noted to be elevated. Patient received a total of 4 units of packed RBCs, and his hemoglobin this morning is 6.4. WBC count this morning is 0.3. And platelets are 3000. Patient was empirically started on antibiotics in the form of vancomycin and cefepime. Patient was given fluids overnight, lactic acid is 1.4 on follow-up. Urinalysis was normal, however he had positive Hemoccult stools, and her chest x-ray showed persistent left basilar opacity and possibly a small effusion, this is at the same location of his previously diagnosed lung cancer. Patient was seen today, and compared to yesterday, the patient is feeling better, continues to have generalized weakness, no cough no fever no chills no hemoptysis no chest pain. No shortness of breath at rest. Denies any nausea vomiting abdominal pain, he did have black loose bowel movement earlier today. No gross blood, patient denies any dysuria frequency or urgency. Reevaluated today on 06/11/2018, patient feels much better today compared to how he felt yesterday. However the patient received since admission 5 units of packed RBCs and 1 units of platelets. He is due to receive another unit of packed RBCs today. He is also to receive another unit of platelets today. Patient feels better overall, denies any cough or fever or chills, his WBC count remains low at 0.3. Hemoglobin remains low at 6.4 and his platelets today are 32,000. Went as high as 15,000 after platelet transfusion yesterday. His basic metabolic profile is better however his potassium is low at 3.1 being corrected as per protocol and follow-up was 3.9. BUN is down to 47 creatinine is better down to 0.86. Magnesium is 1.8 today. Objective - Vital Signs Vital signs: Vital Signs Temp 97.9 F 06/11/18 08:30 Pulse 72 06/11/18 13:00 Resp 14 06/11/18 13:00 BP 113/71 06/11/18 13:00 Pulse Ox 98 06/11/18 13:00 Intake & Output 06/10/18 06/11/18 06/11/18 18:59 06:59 18:59 Intake Total 2915 1910 1120 Output Total 177 928 Balance 2738 982 1120 Weight 68.05 kg Intake: IV 615 990 420 Cefepime 2 gm In Sodium 50 Chloride 0.9% 50 ml @ 100 mls/hr IVPB Q8H [facility] Rx#: [id number] Magnesium Sulfate-D5w Pmx 100 1 gm In Dextrose/Water 1 100ml.bag @ 100 mls/hr IVPB Q1H [facility] Rx#: [id number] Sodium Chloride 0.9% 1, 615 840 420 000 ml @ 70 mls/hr IV . [id number] [facility] Rx#:[id number] Intake, IV Titration 250 300 200 Amount Cefepime 2 gm In Sodium 50 Chloride 0.9% 50 ml @ 100 mls/hr IVPB Q8H [facility] Rx#: [id number] Magnesium Sulfate-D5w Pmx 200 1 gm In Dextrose/Water 1 100ml.bag @ 100 mls/hr IVPB Q1H [facility] Rx#: [id number] Vancomycin 1,250 mg In 250 250 Sodium Chloride 0.9% 250 ml @ 125 mls/hr IVPB Q16H [facility] Rx#:[id number] Oral 500 500 Blood Product 1550 620 Platelet Pheresis Acda1 305 Unit [id number] Rc As-1 Unit 310 [id number] Rc As-1 Unit 310 [id number] Rc As-1 Unit 310 [id number] Output: Urine 175 925 Stool 3 Urine/Stool Mix 2 Other: Voiding Method Bedside Commode Bedside Commode Bedside Commode Urinal Urinal Urinal # Voids 1 200 # Bowel Movements 1 - Exam GENERAL: The patient is alert and oriented x3, not in any acute distress. Well developed, well nourished. HEENT: Pupils are round and equally reacting to light. EOMI. No scleral icterus. No conjunctival pallor. Normocephalic, atraumatic. No pharyngeal erythema. No thyromegaly. CARDIOVASCULAR: S1 and S2 present. No murmurs, rubs, or gallops. PULMONARY: Chest is clear to auscultation, no wheezing or crackles. ABDOMEN: Soft, nontender, nondistended, normoactive bowel sounds. No palpable organomegaly. MUSCULOSKELETAL: No joint swelling or deformity. EXTREMITIES: No cyanosis, clubbing, or pedal edema. NEUROLOGICAL: Gross neurological examination did not reveal any focal deficits. SKIN: No rashes. Psychiatric: Normal mood, affect and mental status examination. Lymphatics: No lymphadenopathy. - Labs CBC & Chem 7: 06/11/18 11:07 06/11/18 11:07 Labs: Abnormal Lab Results - Last 24 Hours (Table) 06/09/18 06/10/18 06/11/18 Range/Units 15:45 18:25 00:30 WBC 0.3 L* 0.4 L* (3.8-10.6) k/uL RBC 2.07 L 2.78 L (4.30-5.90) m/uL Hgb 6.1 L* 8.4 L D (13.0-17.5) gm/dL Hct 17.7 L* 23.6 L (39.0-53.0) % Plt Count 50 L D 33 L (150-450) k/uL Potassium (3.5-5.1) mmol/L Chloride (98-107) mmol/L BUN (9-20) mg/dL Calcium (8.4-10.2) mg/dL Phosphorus (2.5-4.5) mg/dL Crossmatch See Detail 06/11/18 06/11/18 06/11/18 Range/Units 04:55 04:55 11:07 WBC 0.3 L* 0.3 L* (3.8-10.6) k/uL RBC 2.38 L 2.16 L (4.30-5.90) m/uL Hgb 7.0 L 6.4 L* (13.0-17.5) gm/dL Hct 20.2 L 18.7 L* (39.0-53.0) % Plt Count 31 L 32 L (150-450) k/uL Potassium 3.1 L (3.5-5.1) mmol/L Chloride 110 H (98-107) mmol/L BUN 47 H (9-20) mg/dL Calcium 7.6 L (8.4-10.2) mg/dL Phosphorus 2.0 L (2.5-4.5) mg/dL Crossmatch Microbiology - Last 24 Hours (Table) 06/10/18 05:00 Urine Culture - Final Urine,Voided 06/09/18 15:45 Blood Culture - Preliminary Blood No Growth after 24 hours Assessment and Plan Assessment: Impression: 1 acute neutropenia and pancytopenia secondary to bone marrow suppression from chemotherapy. 2 suspect ongoing GI blood losses specially with his black stools noted recently and noted today. Patient may have upper or lower GI bleeding, will be evaluated by gastroenterology. In the meantime the patient will need to have platelets transfusion and will continue blood transfusion to keep hemoglobin around 7. 3 acute sepsis in a patient who is immunocompromised. The findings noted on the chest x-ray are possibly findings of malignancy, or could even be radiation changes, possibility of pneumonia in an immunocompromised compromised patient is not entirely ruled out. Possibility of gram-negative pneumonia is very likely. 4 history of stage IV non-small cell lung cancer, status post chemotherapy and radiation therapy. 5 history of hypertension 6 elevated troponins, being addressed by cardiology. 7 acute kidney injury most likely secondary to sepsis. Recommendation: Continue present supportive care measures, transfuse the patient with blood and platelets, continue empiric antibiotics, multiple consultants where consulted including oncology, gastroenterology, and cardiology. Prognosis is definitely guarded, we'll continue to follow. Patient could be considered for transfer out of the ICU, however that will depend on how well his hemoglobin would hold and depending on the overhauler findings. Still concerned about the fact that the patient is still receiving significant amount of blood transfusion, and his hemoglobin remains relatively low. Probably best to keep the patient in the ICU for today. Time with Patient: Less than 30
[2018-06-11] MEDS: CALCIUM CARBONATE 500 MG CHEWABLE PO PRN (14:06)
--- NOTE | 2018-06-11 16:11 | P.PN ---
Subjective This is a pleasant 67 years old male with past medical history of dyspnea, anemia and hypertension, lung cancer status post chemotherapy last week. Patient will already got 1 blood transfusion at [facility]. This time he presents because of generalized weakness and exertional dyspnea. Patient also states he has some blood in his bowel movements, dark stool 2. After one week of constipation. Associated with some nausea and vomited once. On admission patient was found to be pancytopenia with WBC 0.3, hemoglobin 6.4, coming up from 4.4. Her platelet count 3. INR 1.1. Sodium 135. Creatinine is elevated at 1.3, which is improving. Baseline creatinine is 0.9-1.0. High lactic acid of 8.2, down to 1.4 within normal limits. Elevated troponin 1.7, 2.8, 2.7. LFTs were unremarkable. Patient got 4 units of blood transfusion. Chest x-ray shows persistent left basilar infiltrate with pleural effusion EKG showing sinus tachycardia at [address]-T changes. Patient already received IV fluids, antibiotic. Currently on normal saline at 70 mL/h and she is on IV vancomycin and cefepime. Protonix, stenting and Lopressor. Patient was admitted to the ICU. This morning he was lying in bed not in distress. Denies chest pain or dyspnea for me. No abdominal pain, No more nausea and vomiting. No fever. 06/11/2018 Patient seen and examined by me in the ICU. Patient still feels weak generally. The bony has no chest pain or dyspnea. Vitas looks stable. He still significantly pancytopenic with a white blood cells are 0.3, hemoglobin 6.4, and platelets improving from 3-32 today. He was hypokalemic which was corrected to 3.9. Sodium 138. Creatinine improved from 1.3 to 0.8. Urine culture and blood culture: no growth. Chest x-ray showing lower lobe pneumonia with effusion. Patient is on vancomycin and cefepime. Cardiology evaluation is appreciated, most likely patient have non-STEMI secondary to severe anemia, and he recommended to continue with the current medical therapy as he is not a candidate for any aggressive cardiac workup. And platelets on hold due to his abnormal labs. ros: CONSTITUTIONAL: No fever, no malaise, no fatigue. HEENT: No recent visual problems or hearing problems. Denied any sore throat. CARDIOVASCULAR: No orthopnea, PND, no palpitations, no syncope. PULMONARY: No shortness of breath, no cough, no hemoptysis. GASTROINTESTINAL: No diarrhea, no nausea, no vomiting, no abdominal pain. Normoactive bowel sounds. NEUROLOGICAL: No headaches, no weakness, no numbness. HEMATOLOGICAL: Denies any bleeding or petechiae. GENITOURINARY: Denies any burning micturition, frequency, or urgency. MUSCULOSKELETAL/RHEUMATOLOGICAL: Denies any joint pain, swelling, or any muscle pain. ENDOCRINE: Denies any polyuria or polydipsia. Objective - Vital Signs Vital signs: Vital Signs Temp 98 F 06/11/18 15:30 Pulse 82 06/11/18 15:30 Resp 17 06/11/18 15:30 BP 109/58 06/11/18 15:30 Pulse Ox 99 06/11/18 15:30 Intake & Output 06/10/18 06/11/18 06/11/18 18:59 06:59 18:59 Intake Total 2915 1910 1317 Output Total 177 928 Balance 2738 982 1317 Weight 68.05 kg Intake: IV 615 990 420 Cefepime 2 gm In Sodium 50 Chloride 0.9% 50 ml @ 100 mls/hr IVPB Q8H [facility] Rx#: [id number] Magnesium Sulfate-D5w Pmx 100 1 gm In Dextrose/Water 1 100ml.bag @ 100 mls/hr IVPB Q1H [facility] Rx#: [id number] Sodium Chloride 0.9% 1, 615 840 420 000 ml @ 70 mls/hr IV . [id number] [facility] Rx#:[id number] Intake, IV Titration 250 300 200 Amount Cefepime 2 gm In Sodium 50 Chloride 0.9% 50 ml @ 100 mls/hr IVPB Q8H [facility] Rx#: [id number] Magnesium Sulfate-D5w Pmx 200 1 gm In Dextrose/Water 1 100ml.bag @ 100 mls/hr IVPB Q1H [facility] Rx#: [id number] Vancomycin 1,250 mg In 250 250 Sodium Chloride 0.9% 250 ml @ 125 mls/hr IVPB Q16H [facility] Rx#:[id number] Oral 500 500 Blood Product 1550 620 197 Platelet Irr Pheresis 3 197 Acda Unit [id number] Platelet Pheresis Acda1 305 Unit [id number] Rc As-1 Unit 310 [id number] Rc As-1 Unit 310 [id number] Rc As-1 Unit 310 [id number] Rc Cpda-1 Unit 0 [id number] Output: Urine 175 925 Stool 3 Urine/Stool Mix 2 Other: Voiding Method Bedside Commode Bedside Commode Bedside Commode Urinal Urinal Urinal # Voids 1 200 # Bowel Movements 1 - Exam GENERAL: The patient is alert and oriented x3, not in any acute distress. Thin built HEENT: Pupils are round and equally reacting to light. EOMI. No scleral icterus. No conjunctival pallor. Normocephalic, atraumatic. No pharyngeal erythema. No thyromegaly. CARDIOVASCULAR: S1 and S2 present. No murmurs, rubs, or gallops. PULMONARY: Chest is clear to auscultation, no wheezing or crackles. ABDOMEN: Soft, nontender, nondistended, normoactive bowel sounds. No palpable organomegaly. MUSCULOSKELETAL: No joint swelling or deformity. EXTREMITIES: No cyanosis, clubbing, or pedal edema. NEUROLOGICAL: Gross neurological examination did not reveal any focal deficits. SKIN: No rashes. - Labs CBC & Chem 7: 06/11/18 11:07 06/11/18 11:07 Labs: Abnormal Lab Results - Last 24 Hours (Table) 06/09/18 06/10/18 06/11/18 Range/Units 15:45 18:25 00:30 WBC 0.3 L* 0.4 L* (3.8-10.6) k/uL RBC 2.07 L 2.78 L (4.30-5.90) m/uL Hgb 6.1 L* 8.4 L D (13.0-17.5) gm/dL Hct 17.7 L* 23.6 L (39.0-53.0) % Plt Count 50 L D 33 L (150-450) k/uL Potassium (3.5-5.1) mmol/L Chloride (98-107) mmol/L BUN (9-20) mg/dL Calcium (8.4-10.2) mg/dL Phosphorus (2.5-4.5) mg/dL Crossmatch See Detail 06/11/18 06/11/18 06/11/18 Range/Units 04:55 04:55 11:07 WBC 0.3 L* 0.3 L* (3.8-10.6) k/uL RBC 2.38 L 2.16 L (4.30-5.90) m/uL Hgb 7.0 L 6.4 L* (13.0-17.5) gm/dL Hct 20.2 L 18.7 L* (39.0-53.0) % Plt Count 31 L 32 L (150-450) k/uL Potassium 3.1 L (3.5-5.1) mmol/L Chloride 110 H (98-107) mmol/L BUN 47 H (9-20) mg/dL Calcium 7.6 L (8.4-10.2) mg/dL Phosphorus 2.0 L (2.5-4.5) mg/dL Crossmatch Microbiology - Last 24 Hours (Table) 06/10/18 05:00 Urine Culture - Final Urine,Voided 06/09/18 15:45 Blood Culture - Preliminary Blood No Growth after 24 hours Assessment and Plan Assessment: Pancytopenia, status post blood transfusion Acute kidney injury, improving non-STEMI High lactic acid, resolved Possible left basal pneumonia, with possible severe sepsis present on admission. Severe dehydration History of lung cancer status post chemotherapy 1 week prior to admission History of hypertension Plan: This is a pleasant 67 years old male who presents with pneumonia and pancytopenia. Patient was admitted to the ICU on admission. Pulmonary/ critical care team was been consulted. Consult cardiology, and hematology oncology and gastroenterology which was already done. Labs and medication were reviewed.. Continue same treatment. Continue with symptomatic treatment. Resume home medication. Monitor lytes and vitals. DVT and GI prophylaxis. Further recommendations of the clinical course of the patient DVT prophylaxis: no Subcutaneous heparin in view of possible GI bleed GI Prophylaxis: Protonix Prognosis is guarded
--- NOTE | 2018-06-11 16:44 | ECHOF ---
Referral Reason:elevated troponin MEASUREMENTS -------- HEIGHT: 175.3 cm WEIGHT: 68.0 kg BP: 118/59 IVSd: 1.4 cm (0.6 - 1.1) LVIDd: 4.6 cm (3.9 - 5.3) LVPWd: 1.4 cm (0.6 - 1.1) IVSs: 1.8 cm LVIDs: 3.8 cm LVPWs: 1.6 cm LAESV Index (A-L): 28.92 ml/m Ao Diam: 3.6 cm (2.0 - 3.7) AV Cusp: 2.0 cm (1.5 - 2.6) LA Diam: 2.0 cm (2.7 - 3.8) MV E Timoteo: 0.81 m/s MV DecT: 325 ms MV A Timoteo: 0.84 m/s MV E/A Ratio: 0.97 RAP: 5.00 mmHg RVSP: 31.35 mmHg FINDINGS -------- Sinus rhythm. This was a technically adequate study. The left ventricular size is normal. There is moderate concentric left ventricular hypertrophy. O verall left ventricular systolic function is low-normal with, an EF between 50 - 55 %. The right ventricle is normal in size and function. LA is midly dilated 29-33ml/m2. The right atrium is normal in size. There is mild aortic valve sclerosis. There is no evidence of aortic regurgitation. Mild mitral annular calcification present. Mild mitral regurgitation is present. Mild tricuspid regurgitation present. Right ventricular systolic pressure is normal at < 35 mmHg. There is no evidence of pulmonary hypertension. The pulmonic valve was not well visualized. There is no pulmonic regurgitation present. The aortic root size is normal. Normal inferior vena cava with normal inspiratory collapse consistent with estimated right atrial pre ssure of 5 mmHg. There is no pericardial effusion. CONCLUSIONS -------- 1. Sinus rhythm. 2. This was a technically adequate study. 3. The left ventricular size is normal. 4. There is moderate concentric left ventricular hypertrophy. 5. Overall left ventricular systolic function is low-normal with, an EF between 50 - 55 %. 6. LA is midly dilated 29-33ml/m2. 7. There is mild aortic valve sclerosis. 8. Mild mitral annular calcification present. 9. Mild mitral regurgitation is present. 10. Mild tricuspid regurgitation present. 11. Right ventricular systolic pressure is normal at < 35 mmHg. 12. The pulmonic valve was not well visualized. 13. There is no pulmonic regurgitation present. 14. The aortic root size is normal. 15. There is no pericardial effusion. [employer] MANAGER: Vinicio Christina RDCS
[2018-06-11 18:42] LABS: HCT 21.6 % (39.0-53.0); HGB 7.3 gm/dL (13.0-17.5); MCH 29.6 pg (25.0-35.0); Mean Platelet Volume 8.6; Platelet Count 37 k/uL (150-450); RBC 2.48 m/uL (4.30-5.90)
[2018-06-11 18:56] LABS: WBC 0.4 k/uL (3.8-10.6)
--- NOTE | 2018-06-11 20:28 | P.PN ---
Subjective Progress Note Date: 06/11/18 the patient remains weak. He did have at least 2 black bowel movements the same. Subsequent blood draw showed drop in hemoglobin again. He denied any abdominal pain. No new areas of bone pain. He denied any fever/chills/nausea/ vomiting. Objective - Vital Signs Vital signs: Vital Signs Temp 97.6 F 06/11/18 16:54 Pulse 79 06/11/18 16:54 Resp 16 06/11/18 16:54 BP 128/63 06/11/18 16:54 Pulse Ox 99 06/11/18 16:54 Intake & Output 06/11/18 06/11/18 06/12/18 06:59 18:59 06:59 Intake Total 1910 2287 250 Output Total 928 452 Balance 982 1835 250 Weight 68.05 kg 68.05 kg Intake: IV 990 980 Cefepime 2 gm In Sodium 50 Chloride 0.9% 50 ml @ 100 mls/hr IVPB Q8H [facility] Rx#: [id number] Magnesium Sulfate-D5w Pmx 100 1 gm In Dextrose/Water 1 100ml.bag @ 100 mls/hr IVPB Q1H [facility] Rx#: [id number] Sodium Chloride 0.9% 1, 840 980 000 ml @ 70 mls/hr IV . [id number] [facility] Rx#:[id number] Intake, IV Titration 300 300 Amount Cefepime 2 gm In Sodium 50 100 Chloride 0.9% 50 ml @ 100 mls/hr IVPB Q8H [facility] Rx#: [id number] Magnesium Sulfate-D5w Pmx 200 1 gm In Dextrose/Water 1 100ml.bag @ 100 mls/hr IVPB Q1H [facility] Rx#: [id number] Vancomycin 1,250 mg In 250 Sodium Chloride 0.9% 250 ml @ 125 mls/hr IVPB Q16H [facility] Rx#:[id number] Oral 500 250 Blood Product 620 507 Platelet Irr Pheresis 3 197 Acda Unit [id number] Rc As-1 Unit 310 [id number] Rc Cpda-1 Unit 310 [id number] Output: Urine 925 450 Stool 3 2 Other: Voiding Method Bedside Commode Bedside Commode Urinal Urinal # Voids 1 200 - Constitutional General appearance: Present: no acute distress - EENT Eyes: Present: EOMI ENT: Present: hearing grossly normal, normal oropharynx - Respiratory Respiratory: bilateral: CTA - Cardiovascular Rhythm: regular Heart sounds: normal: S1, S2 - Gastrointestinal General gastrointestinal: Present: normal bowel sounds, soft - Integumentary Integumentary: Present: normal - Neurologic Neurologic: Present: CNII-XII intact - Musculoskeletal Musculoskeletal: Present: generalized weakness, strength equal bilaterally - Psychiatric Psychiatric: Present: A&O x's 3, appropriate affect - Labs CBC & Chem 7: 06/11/18 18:25 06/11/18 11:07 Labs: Abnormal Lab Results - Last 24 Hours (Table) 06/09/18 06/11/18 06/11/18 Range/Units 15:45 00:30 04:55 WBC 0.4 L* (3.8-10.6) k/uL RBC 2.78 L (4.30-5.90) m/uL Hgb 8.4 L D (13.0-17.5) gm/dL Hct 23.6 L (39.0-53.0) % Plt Count 33 L (150-450) k/uL Potassium 3.1 L (3.5-5.1) mmol/L Chloride 110 H (98-107) mmol/L BUN 47 H (9-20) mg/dL Calcium 7.6 L (8.4-10.2) mg/dL Phosphorus 2.0 L (2.5-4.5) mg/dL Crossmatch See Detail 06/11/18 06/11/18 06/11/18 Range/Units 04:55 11:07 18:25 WBC 0.3 L* 0.3 L* 0.4 L* (3.8-10.6) k/uL RBC 2.38 L 2.16 L 2.48 L (4.30-5.90) m/uL Hgb 7.0 L 6.4 L* 7.3 L (13.0-17.5) gm/dL Hct 20.2 L 18.7 L* 21.6 L (39.0-53.0) % Plt Count 31 L 32 L 37 L (150-450) k/uL Potassium (3.5-5.1) mmol/L Chloride (98-107) mmol/L BUN (9-20) mg/dL Calcium (8.4-10.2) mg/dL Phosphorus (2.5-4.5) mg/dL Crossmatch Microbiology - Last 24 Hours (Table) 06/09/18 15:45 Blood Culture - Preliminary Blood No Growth after 48 hours 06/10/18 05:00 Urine Culture - Final Urine,Voided Assessment and Plan (1) Pancytopenia Narrative/Plan: the patient's hemoglobin had improved into the 8 range, but then dropped to 7 again, after recurrent melenic stools. No other obvious bleeding noted. He received another unit of blood, and also additional platelets because of concerns for continued bleeding based on the above. WBC remains low. He will continue on G-CSF. Continue aggressive supportive care. Current Visit: Yes Status: Acute Code(s): D61.818 - OTHER PANCYTOPENIA SNOMED Code(s): 515125684 (2) GI bleed Narrative/Plan: this appears to be ongoing, as noted. platelet counts have been in the 30 range. The patient is not not a candidate for adjunctive therapy like DDAVP or Sandostatin, due to concerns for ischemia. We will therefore need to utilize platelet transfusions to control bleeding. As noted, additional platelet transfusions were ordered. Current Visit: Yes Status: Acute Code(s): K92.2 - GASTROINTESTINAL HEMORRHAGE, UNSPECIFIED SNOMED Code(s): 54807427 (3) Squamous cell lung cancer Current Visit: Yes Status: Acute Code(s): C34.90 - MALIGNANT NEOPLASM OF UNSP PART OF UNSP BRONCHUS OR LUNG SNOMED Code(s): 166127695
[2018-06-11] MEDS: TEMAZEPAM 15 MG CAP PO PRN (21:46)
[2018-06-12 01:22] LABS: HCT 20.7 % (39.0-53.0); HGB 7.2 gm/dL (13.0-17.5); MCH 30.3 pg (25.0-35.0); MCHC 34.6 g/dL (31.0-37.0); MCV 87.4 fL (80.0-100.0); Mean Platelet Volume 7.5; RBC 2.37 m/uL (4.30-5.90); RDW 14.8 % (11.5-15.5)
[2018-06-12 01:23] LABS: Platelet Count 31 k/uL (150-450); WBC 0.3 k/uL (3.8-10.6)
[2018-06-12] MEDS: CEFEPIME 2 GM in SODIUM CHLORIDE 0.9% 50 ML IVPB SCH ×3 (04:13→19:19)
[2018-06-12] MEDS ORDERED: VANCOMYCIN TROUGH DUE 1 EACH MISC MISCELLANE ONE (05:00)
[2018-06-12] MEDS: traMADol 50 MG TAB PO PRN ×2 (05:25→19:18)
[2018-06-12 06:05] LABS: HCT 21.4 % (39.0-53.0); HGB 7.3 gm/dL (13.0-17.5); MCH 29.9 pg (25.0-35.0); Mean Platelet Volume 7.2; RBC 2.43 m/uL (4.30-5.90); RDW 14.5 % (11.5-15.5)
[2018-06-12 06:11] LABS: Platelet Count 32 k/uL (150-450); WBC 0.3 k/uL (3.8-10.6)
[2018-06-12] MEDS: VANCOMYCIN 1,250 MG in SODIUM CHLORIDE 0.9% 250 ML IVPB SCH (06:18)
[2018-06-12 06:44] LABS: Anion Gap 3 mmol/L; Blood Urea Nitrogen 30 mg/dL (9-20); Calcium 7.6 mg/dL (8.4-10.2); Carbon Dioxide 20 mmol/L (22-30); Chloride 114 mmol/L (98-107); Glucose 93 mg/dL (74-99); Potassium 3.8 mmol/L (3.5-5.1); Sodium 137 mmol/L (137-145)
--- NOTE | 2018-06-12 07:35 | XR ---
EXAMINATION TYPE: XR chest 1V DATE OF EXAM: 06/12/2018 CLINICAL HISTORY: Difficulty breathing progress study. TECHNIQUE: Single AP portable upright view of the chest is obtained. COMPARISON: Chest x-ray from one day earlier and older studies. CTA chest May 21, 2018. FINDINGS: There is background of chronic emphysematous change with persistent moderate size left ple ural effusion and associated left basilar atelectasis and/or infiltrate some left-sided volume loss w ith mediastinal shift remains present. Right lung remains clear. Cardiac silhouette size is stable an d mildly enlarged. Diffuse tracheal narrowing is redemonstrated. Osseous structures are intact. IMPRESSION: Overall stable findings, chronic emphysematous change and mild cardiomegaly with persis tent moderate size left pleural effusion and associated left basilar atelectasis and/or infiltrate.
[2018-06-12] MEDS: METOPROLOL TARTRATE 25 MG TAB PO SCH ×2 (08:05→21:15)
[2018-06-12] MEDS: MORPHINE SULFATE ER 15 MG TABLET PO SCH ×2 (08:06→23:01)
[2018-06-12] MEDS: PANTOPRAZOLE 40 MG TABLET PO SCH ×2 (08:06→17:50)
[2018-06-12] MEDS: ATORVASTATIN 40 MG TAB PO SCH (08:06)
[2018-06-12] MEDS: ACETAMINOPHEN TAB 325 MG TAB PO PRN (08:11)
[2018-06-12] MEDS: SODIUM CHLORIDE 0.9% 1,000 ML IV SCH (09:41)
[2018-06-12] MEDS: FILGRASTIM-SNDZ 480 MCG/0.8 ML SYRINGE SQ SCH (09:42)
--- NOTE | 2018-06-12 11:21 | P.PN ---
Subjective Progress Note Date: 06/12/18 The patient has been transferred out of the ICU. He had a bowel movement today that was normal. He denies any abdominal pain. No history of any oral or nosebleeds. No history of fevers/chills/nausea vomiting. Generalized weakness persists. Objective - Vital Signs Vital signs: Vital Signs Temp 97.6 F 06/12/18 05:59 Pulse 79 06/12/18 05:59 Resp 16 06/12/18 05:59 BP 134/71 06/12/18 05:59 Pulse Ox 97 06/12/18 05:59 Intake & Output 06/11/18 06/12/18 06/12/18 18:59 06:59 18:59 Intake Total 2287 3300 Output Total 452 1 Balance 1835 3299 Weight 68.05 kg 68 kg Intake: IV 980 2300 Cefepime 2 gm In Sodium 200 Chloride 0.9% 50 ml @ 100 mls/hr IVPB Q8H [facility] Rx#: [id number] Sodium Chloride 0.9% 1, 980 2100 000 ml @ 70 mls/hr IV . [id number] [facility] Rx#:[id number] Intake, IV Titration 300 500 Amount Cefepime 2 gm In Sodium 100 Chloride 0.9% 50 ml @ 100 mls/hr IVPB Q8H [facility] Rx#: [id number] Magnesium Sulfate-D5w Pmx 200 1 gm In Dextrose/Water 1 100ml.bag @ 100 mls/hr IVPB Q1H [facility] Rx#: [id number] Vancomycin 1,250 mg In 500 Sodium Chloride 0.9% 250 ml @ 125 mls/hr IVPB Q12H [facility] Rx#:[id number] Oral 500 500 Blood Product 507 Platelet Irr Pheresis 3 197 Acda Unit [id number] Rc Cpda-1 Unit 310 [id number] Output: Urine 450 Stool 2 1 Other: Voiding Method Bedside Commode Bedside Commode Bedside Commode Urinal Urinal Urinal # Voids 200 1 - Constitutional General appearance: Present: no acute distress - EENT Eyes: Present: EOMI ENT: Present: hearing grossly normal, normal oropharynx - Respiratory Respiratory: bilateral: CTA - Cardiovascular Rhythm: regular Heart sounds: normal: S1, S2 - Gastrointestinal General gastrointestinal: Present: normal bowel sounds, soft - Integumentary Integumentary: Present: normal - Neurologic Neurologic: Present: CNII-XII intact - Musculoskeletal Musculoskeletal: Present: generalized weakness, strength equal bilaterally - Psychiatric Psychiatric: Present: A&O x's 3, appropriate affect - Labs CBC & Chem 7: 06/12/18 05:34 06/12/18 05:34 Labs: Abnormal Lab Results - Last 24 Hours (Table) 06/09/18 06/11/18 06/11/18 Range/Units 15:45 11:07 18:25 WBC 0.3 L* 0.4 L* (3.8-10.6) k/uL RBC 2.16 L 2.48 L (4.30-5.90) m/uL Hgb 6.4 L* 7.3 L (13.0-17.5) gm/dL Hct 18.7 L* 21.6 L (39.0-53.0) % Plt Count 32 L 37 L (150-450) k/uL Chloride (98-107) mmol/L Carbon Dioxide (22-30) mmol/L BUN (9-20) mg/dL Calcium (8.4-10.2) mg/dL Phosphorus (2.5-4.5) mg/dL Crossmatch See Detail 06/12/18 06/12/18 06/12/18 Range/Units 01:06 05:34 05:34 WBC 0.3 L* 0.3 L* (3.8-10.6) k/uL RBC 2.37 L 2.43 L (4.30-5.90) m/uL Hgb 7.2 L 7.3 L (13.0-17.5) gm/dL Hct 20.7 L 21.4 L (39.0-53.0) % Plt Count 31 L 32 L (150-450) k/uL Chloride 114 H (98-107) mmol/L Carbon Dioxide 20 L (22-30) mmol/L BUN 30 H (9-20) mg/dL Calcium 7.6 L (8.4-10.2) mg/dL Phosphorus 2.0 L (2.5-4.5) mg/dL Crossmatch Microbiology - Last 24 Hours (Table) 06/09/18 15:45 Blood Culture - Preliminary Blood No Growth after 48 hours 06/10/18 05:00 Urine Culture - Final Urine,Voided Assessment and Plan (1) Pancytopenia Narrative/Plan: This continues to be persistent. However hemoglobin is more stable in the low 7 range. Platelets are also staying above 30,000. WBC remains low. Continue filgrastim. Continue to monitor with additional transfusions as needed. Continue filgrastim till WBC recovery occurs Current Visit: Yes Status: Acute Code(s): D61.818 - OTHER PANCYTOPENIA SNOMED Code(s): 789036957 (2) GI bleed Narrative/Plan: This appears to have ceased clinically at this time. Bowel movement this morning was normal. Hemoglobin has been more stable. Clinically a likely cause is stress gastritis and low platelets. Continue to monitor for recurrent bleed. Current Visit: Yes Status: Acute Code(s): K92.2 - GASTROINTESTINAL HEMORRHAGE, UNSPECIFIED SNOMED Code(s): 19596970 (3) Squamous cell lung cancer Narrative/Plan: The patient will need to be reevaluated in the office before having more chemotherapy, given severe cytopenias with his last Current Visit: Yes Status: Acute Code(s): C34.90 - MALIGNANT NEOPLASM OF UNSP PART OF UNSP BRONCHUS OR LUNG SNOMED Code(s): 269564718
[2018-06-12 13:51] LABS: HCT 21.1 % (39.0-53.0); HGB 7.2 gm/dL (13.0-17.5); MCH 29.9 pg (25.0-35.0); MCHC 34.4 g/dL (31.0-37.0); MCV 86.9 fL (80.0-100.0); Mean Platelet Volume 8.1; RBC 2.42 m/uL (4.30-5.90); RDW 14.4 % (11.5-15.5)
[2018-06-12 13:53] LABS: WBC 0.4 k/uL (3.8-10.6)
[2018-06-12 13:54] LABS: Platelet Count 33 k/uL (150-450)
[2018-06-12 14:17] LABS: Poikilocytosis (M) Present
--- NOTE | 2018-06-12 14:20 | P.PN ---
Subjective Progress Note Date: 06/12/18 Principal diagnosis: Acute neutropenic sepsis with pancytopenia. This is a 67-year-old white male with history of non-small cell lung cancer, patient is status post chemotherapy, radiation therapy, including radiation to the lung tumor, and radiation to the lumbosacral spine area. His last radiation therapy was finished about a month ago. And his last chemotherapy was about a week ago. Patient was recently seen by Dr. Monroy, and he was noted to be anemic. Patient was sent to [facility] for a unit of packed RBCs which was given on outpatient basis. Patient was evaluated in the ER yesterday complaining of generalized weakness, fatigue, and some dyspnea on exertion. He has also been complaining of dark stools 2. This followed at least one week of constipation. Patient denies any hematemesis, and no bright red blood per rectum. Upon evaluation in the ER, patient was noted to be pancytopenic WBC count was 0.5, hemoglobin was 6.4, and he was noted to have significantly elevated lactic acid of 8.2. Troponins were noted to be elevated. Patient received a total of 4 units of packed RBCs, and his hemoglobin this morning is 6.4. WBC count this morning is 0.3. And platelets are 3000. Patient was empirically started on antibiotics in the form of vancomycin and cefepime. Patient was given fluids overnight, lactic acid is 1.4 on follow-up. Urinalysis was normal, however he had positive Hemoccult stools, and her chest x-ray showed persistent left basilar opacity and possibly a small effusion, this is at the same location of his previously diagnosed lung cancer. Patient was seen today, and compared to yesterday, the patient is feeling better, continues to have generalized weakness, no cough no fever no chills no hemoptysis no chest pain. No shortness of breath at rest. Denies any nausea vomiting abdominal pain, he did have black loose bowel movement earlier today. No gross blood, patient denies any dysuria frequency or urgency. Reevaluated today on 06/11/2018, patient feels much better today compared to how he felt yesterday. However the patient received since admission 5 units of packed RBCs and 1 units of platelets. He is due to receive another unit of packed RBCs today. He is also to receive another unit of platelets today. Patient feels better overall, denies any cough or fever or chills, his WBC count remains low at 0.3. Hemoglobin remains low at 6.4 and his platelets today are 32,000. Went as high as 15,000 after platelet transfusion yesterday. His basic metabolic profile is better however his potassium is low at 3.1 being corrected as per protocol and follow-up was 3.9. BUN is down to 47 creatinine is better down to 0.86. Magnesium is 1.8 today. The patient is seen today 06/12/2018 on the oncology unit. He is currently resting comfortably in bed. He is awake and alert in no acute distress. He states he is feeling better today as compared to yesterday. No pulmonary complaints. He is maintaining good O2 saturations in the upper 90s on room air. He's been afebrile. Hemodynamically stable. He is status post 6 units of packed red blood cells and 2 units of platelets and total. Blood and urine cultures reveal no growth. White count 0.4. Hemoglobin 7.2. Platelet count 33 ,000. Creatinine 0.86. He remains on Zarxio 30 is also on vancomycin and cefepime. Objective - Vital Signs Vital signs: Vital Signs Temp 97.6 F 06/12/18 12:05 Pulse 72 06/12/18 12:05 Resp 16 06/12/18 12:05 BP 131/67 06/12/18 12:05 Pulse Ox 98 06/12/18 12:05 Intake & Output 06/11/18 06/12/18 06/12/18 18:59 06:59 18:59 Intake Total 2287 3300 Output Total 452 1 Balance 1835 3299 Weight 68.05 kg 68 kg Intake: IV 980 2300 Cefepime 2 gm In Sodium 200 Chloride 0.9% 50 ml @ 100 mls/hr IVPB Q8H [facility] Rx#: [id number] Sodium Chloride 0.9% 1, 980 2100 000 ml @ 70 mls/hr IV . [id number] [facility] Rx#:[id number] Intake, IV Titration 300 500 Amount Cefepime 2 gm In Sodium 100 Chloride 0.9% 50 ml @ 100 mls/hr IVPB Q8H [facility] Rx#: [id number] Magnesium Sulfate-D5w Pmx 200 1 gm In Dextrose/Water 1 100ml.bag @ 100 mls/hr IVPB Q1H [facility] Rx#: [id number] Vancomycin 1,250 mg In 500 Sodium Chloride 0.9% 250 ml @ 125 mls/hr IVPB Q12H [facility] Rx#:[id number] Oral 500 500 Blood Product 507 Platelet Irr Pheresis 3 197 Acda Unit [id number] Rc Cpda-1 Unit 310 [id number] Output: Urine 450 Stool 2 1 Other: Voiding Method Bedside Commode Bedside Commode Bedside Commode Urinal Urinal Urinal # Voids 200 1 - Exam GENERAL: The patient is alert and oriented x3, not in any acute distress. Well developed, well nourished. HEENT: Pupils are round and equally reacting to light. EOMI. No scleral icterus. No conjunctival pallor. Normocephalic, atraumatic. No pharyngeal erythema. No thyromegaly. CARDIOVASCULAR: S1 and S2 present. No murmurs, rubs, or gallops. PULMONARY: Chest is clear to auscultation, no wheezing or crackles. ABDOMEN: Soft, nontender, nondistended, normoactive bowel sounds. No palpable organomegaly. MUSCULOSKELETAL: No joint swelling or deformity. EXTREMITIES: No cyanosis, clubbing, or pedal edema. NEUROLOGICAL: Gross neurological examination did not reveal any focal deficits. SKIN: No rashes. Psychiatric: Normal mood, affect and mental status examination. Lymphatics: No lymphadenopathy. - Labs CBC & Chem 7: 06/12/18 12:35 06/12/18 05:34 Labs: Abnormal Lab Results - Last 24 Hours (Table) 06/09/18 06/11/18 06/12/18 Range/Units 15:45 18:25 01:06 WBC 0.4 L* 0.3 L* (3.8-10.6) k/uL RBC 2.48 L 2.37 L (4.30-5.90) m/uL Hgb 7.3 L 7.2 L (13.0-17.5) gm/dL Hct 21.6 L 20.7 L (39.0-53.0) % Plt Count 37 L 31 L (150-450) k/uL Chloride (98-107) mmol/L Carbon Dioxide (22-30) mmol/L BUN (9-20) mg/dL Calcium (8.4-10.2) mg/dL Phosphorus (2.5-4.5) mg/dL Crossmatch See Detail 06/12/18 06/12/18 06/12/18 Range/Units 05:34 05:34 12:35 WBC 0.3 L* 0.4 L* (3.8-10.6) k/uL RBC 2.43 L 2.42 L (4.30-5.90) m/uL Hgb 7.3 L 7.2 L (13.0-17.5) gm/dL Hct 21.4 L 21.1 L (39.0-53.0) % Plt Count 32 L 33 L (150-450) k/uL Chloride 114 H (98-107) mmol/L Carbon Dioxide 20 L (22-30) mmol/L BUN 30 H (9-20) mg/dL Calcium 7.6 L (8.4-10.2) mg/dL Phosphorus 2.0 L (2.5-4.5) mg/dL Crossmatch Microbiology - Last 24 Hours (Table) 06/09/18 15:45 Blood Culture - Preliminary Blood No Growth after 48 hours 06/10/18 05:00 Urine Culture - Final Urine,Voided Assessment and Plan Assessment: Impression: 1 acute neutropenia and pancytopenia secondary to bone marrow suppression from chemotherapy. White count 0.4. 2 acute blood loss requiring 6 units packed red blood cells and 2 units of platelets. Current hemoglobin 7.2. Platelets 33,000. 3 acute sepsis in a patient who is immunocompromised. The findings noted on the chest x-ray are possibly findings of malignancy, or could even be radiation changes, possibility of pneumonia in an immunocompromised compromised patient is not entirely ruled out. Possibility of gram-negative pneumonia is very likely. 4 history of stage IV non-small cell lung cancer, status post chemotherapy and radiation therapy. 5 history of hypertension 6 elevated troponins, being addressed by cardiology. 7 acute kidney injury most likely secondary to sepsis. Recovered. Recommendation: The patient was seen and evaluated by Dr. Posada. He is currently stable from the pulmonary and critical care standpoint. Labs reviewed. He remains on antibiotics in the form of vancomycin and cefepime. We will continue to follow make further recommendations based on his clinical status. I, the cosigning physician, performed a history & physical examination of the patient. Lungs sounds are clear. Maintaining good O2 saturations in the 90s on room air. I discussed the assessment and plan of care with my nurse practitioner, Adele Malik. I attest to the above note as dictated by her.
--- NOTE | 2018-06-12 17:17 | P.PN ---
Subjective This is a pleasant 67 years old male with past medical history of dyspnea, anemia and hypertension, lung cancer status post chemotherapy last week. Patient will already got 1 blood transfusion at [facility]. This time he presents because of generalized weakness and exertional dyspnea. Patient also states he has some blood in his bowel movements, dark stool 2. After one week of constipation. Associated with some nausea and vomited once. On admission patient was found to be pancytopenia with WBC 0.3, hemoglobin 6.4, coming up from 4.4. Her platelet count 3. INR 1.1. Sodium 135. Creatinine is elevated at 1.3, which is improving. Baseline creatinine is 0.9-1.0. High lactic acid of 8.2, down to 1.4 within normal limits. Elevated troponin 1.7, 2.8, 2.7. LFTs were unremarkable. Patient got 4 units of blood transfusion. Chest x-ray shows persistent left basilar infiltrate with pleural effusion EKG showing sinus tachycardia at [address]-T changes. Patient already received IV fluids, antibiotic. Currently on normal saline at 70 mL/h and she is on IV vancomycin and cefepime. Protonix, stenting and Lopressor. Patient was admitted to the ICU. This morning he was lying in bed not in distress. Denies chest pain or dyspnea for me. No abdominal pain, No more nausea and vomiting. No fever. 06/11/2018 Patient seen and examined by me in the ICU. Patient still feels weak generally. The bony has no chest pain or dyspnea. Vitas looks stable. He still significantly pancytopenic with a white blood cells are 0.3, hemoglobin 6.4, and platelets improving from 3-32 today. He was hypokalemic which was corrected to 3.9. Sodium 138. Creatinine improved from 1.3 to 0.8. Urine culture and blood culture: no growth. Chest x-ray showing lower lobe pneumonia with effusion. Patient is on vancomycin and cefepime. Cardiology evaluation is appreciated, most likely patient have non-STEMI secondary to severe anemia, and he recommended to continue with the current medical therapy as he is not a candidate for any aggressive cardiac workup. And platelets on hold due to his abnormal labs. 06/08/2018 Patient continued to feel better today with no more bleeding. Patient was transferred out of the ICU to the general medical floor, oncology unit. Patient is status post 6 units of packed RBCs and 2 units of platelet transfusion. Hemoglobin is up to 7.2 and platelet 2 33,000. Patient is still on antibiotics of vancomycin and cefepime for possible pneumonia . Blood and urine cultures are negative. Repeat chest x-ray shows stable findings with left Pleural effusion and possible infiltrate. She was severely leukopenic. Hematology team are following the patient. Vital signs stable and patient saturating 98% on room air. Patient generally weak and might benefit from physical therapy Objective - Vital Signs Vital signs: Vital Signs Temp 97.6 F 06/12/18 12:05 Pulse 72 06/12/18 12:05 Resp 16 06/12/18 12:05 BP 131/67 06/12/18 12:05 Pulse Ox 98 06/12/18 12:05 Intake & Output 06/11/18 06/12/18 06/12/18 18:59 06:59 18:59 Intake Total 2287 3300 700 Output Total 452 1 1 Balance 1835 3299 699 Weight 68.05 kg 68 kg Intake: IV 980 2300 450 Cefepime 2 gm In Sodium 200 100 Chloride 0.9% 50 ml @ 100 mls/hr IVPB Q8H [facility] Rx#: [id number] Sodium Chloride 0.9% 1, 980 2100 350 000 ml @ 70 mls/hr IV . [id number] [facility] Rx#:[id number] Intake, IV Titration 300 500 250 Amount Cefepime 2 gm In Sodium 100 Chloride 0.9% 50 ml @ 100 mls/hr IVPB Q8H [facility] Rx#: [id number] Magnesium Sulfate-D5w Pmx 200 1 gm In Dextrose/Water 1 100ml.bag @ 100 mls/hr IVPB Q1H [facility] Rx#: [id number] Vancomycin 1,250 mg In 500 250 Sodium Chloride 0.9% 250 ml @ 125 mls/hr IVPB Q12H [facility] Rx#:[id number] Oral 500 500 Blood Product 507 Platelet Irr Pheresis 3 197 Acda Unit [id number] Rc Cpda-1 Unit 310 [id number] Output: Urine 450 Stool 2 1 1 Other: Voiding Method Bedside Commode Bedside Commode Toilet Urinal Urinal Urinal # Voids 200 1 2 # Bowel Movements 1 - Exam GENERAL: The patient is alert and oriented x3, not in any acute distress. Thin built HEENT: Pupils are round and equally reacting to light. EOMI. No scleral icterus. No conjunctival pallor. Normocephalic, atraumatic. No pharyngeal erythema. No thyromegaly. CARDIOVASCULAR: S1 and S2 present. No murmurs, rubs, or gallops. PULMONARY: Chest is clear to auscultation, no wheezing or crackles. ABDOMEN: Soft, nontender, nondistended, normoactive bowel sounds. No palpable organomegaly. MUSCULOSKELETAL: No joint swelling or deformity. EXTREMITIES: No cyanosis, clubbing, or pedal edema. NEUROLOGICAL: Gross neurological examination did not reveal any focal deficits. SKIN: No rashes. - Labs CBC & Chem 7: 06/12/18 12:35 06/12/18 05:34 Labs: Abnormal Lab Results - Last 24 Hours (Table) 06/09/18 06/11/18 06/12/18 Range/Units 15:45 18:25 01:06 WBC 0.4 L* 0.3 L* (3.8-10.6) k/uL RBC 2.48 L 2.37 L (4.30-5.90) m/uL Hgb 7.3 L 7.2 L (13.0-17.5) gm/dL Hct 21.6 L 20.7 L (39.0-53.0) % Plt Count 37 L 31 L (150-450) k/uL Chloride (98-107) mmol/L Carbon Dioxide (22-30) mmol/L BUN (9-20) mg/dL Calcium (8.4-10.2) mg/dL Phosphorus (2.5-4.5) mg/dL Crossmatch See Detail 06/12/18 06/12/18 06/12/18 Range/Units 05:34 05:34 12:35 WBC 0.3 L* 0.4 L* (3.8-10.6) k/uL RBC 2.43 L 2.42 L (4.30-5.90) m/uL Hgb 7.3 L 7.2 L (13.0-17.5) gm/dL Hct 21.4 L 21.1 L (39.0-53.0) % Plt Count 32 L 33 L (150-450) k/uL Chloride 114 H (98-107) mmol/L Carbon Dioxide 20 L (22-30) mmol/L BUN 30 H (9-20) mg/dL Calcium 7.6 L (8.4-10.2) mg/dL Phosphorus 2.0 L (2.5-4.5) mg/dL Crossmatch Microbiology - Last 24 Hours (Table) 06/09/18 15:45 Blood Culture - Preliminary Blood No Growth after 48 hours 06/10/18 05:00 Urine Culture - Final Urine,Voided Assessment and Plan Assessment: Pancytopenia, status post blood transfusion Acute kidney injury, improving non-STEMI High lactic acid, resolved Possible left basal pneumonia, with possible severe sepsis present on admission. Severe dehydration History of lung cancer status post chemotherapy 1 week prior to admission History of hypertension Plan: This is a pleasant 67 years old male who presents with pneumonia and pancytopenia. Patient was admitted to the ICU on admission. Pulmonary/ critical care team was been consulted. Consult cardiology, and hematology oncology and gastroenterology which was already done. Labs and medication were reviewed.. Continue same treatment. Continue with symptomatic treatment. Resume home medication. Monitor lytes and vitals. DVT and GI prophylaxis. Further recommendations of the clinical course of the patient DVT prophylaxis: no Subcutaneous heparin in view of possible GI bleed GI Prophylaxis: Protonix Prognosis is guarded
[2018-06-12 19:27] LABS: HCT 20.8 % (39.0-53.0); HGB 7.1 gm/dL (13.0-17.5); MCH 29.2 pg (25.0-35.0); MCHC 33.9 g/dL (31.0-37.0); Mean Platelet Volume 8.7; RBC 2.42 m/uL (4.30-5.90); RDW 14.6 % (11.5-15.5)
[2018-06-12 19:39] LABS: WBC 0.4 k/uL (3.8-10.6)
[2018-06-12 19:40] LABS: Platelet Count 30 k/uL (150-450)
[2018-06-12] MEDS: VANCOMYCIN 1,000 MG in SODIUM CHLORIDE 0.9% 250 ML IVPB SCH (21:15)
[2018-06-12] MEDS: TEMAZEPAM 15 MG CAP PO PRN (21:15)
[2018-06-13] MEDS: ACETAMINOPHEN TAB 325 MG TAB PO PRN (00:42)
[2018-06-13 01:55] LABS: RDW 14.4 % (11.5-15.5)
[2018-06-13 01:57] LABS: HCT 20.8 % (39.0-53.0); HGB 7.1 gm/dL (13.0-17.5); MCHC 33.9 g/dL (31.0-37.0); MCV 88.3 fL (80.0-100.0); Mean Platelet Volume 8.2; RBC 2.35 m/uL (4.30-5.90)
[2018-06-13 02:02] LABS: Platelet Count 31 k/uL (150-450); WBC 0.6 k/uL (3.8-10.6)
[2018-06-13] MEDS: SODIUM CHLORIDE 0.9% 1,000 ML IV SCH ×2 (03:11→13:00)
[2018-06-13] MEDS: CEFEPIME 2 GM in SODIUM CHLORIDE 0.9% 50 ML IVPB SCH ×3 (04:28→19:42)
[2018-06-13] MEDS: MORPHINE SULFATE ER 15 MG TABLET PO SCH ×2 (07:17→20:58)
[2018-06-13] MEDS: PANTOPRAZOLE 40 MG TABLET PO SCH ×2 (07:20→17:56)
[2018-06-13] MEDS: traMADol 50 MG TAB PO PRN ×2 (07:21→19:42)
[2018-06-13] MEDS: METOPROLOL TARTRATE 25 MG TAB PO SCH ×2 (07:21→20:57)
[2018-06-13] MEDS: ATORVASTATIN 40 MG TAB PO SCH (07:21)
[2018-06-13 07:33] LABS: HCT 21.8 % (39.0-53.0); HGB 7.5 gm/dL (13.0-17.5); MCH 30.2 pg (25.0-35.0); MCHC 34.4 g/dL (31.0-37.0); MCV 87.8 fL (80.0-100.0); Mean Platelet Volume 8.9; RBC 2.48 m/uL (4.30-5.90); RDW 14.5 % (11.5-15.5)
[2018-06-13 07:47] LABS: Platelet Count 33 k/uL (150-450); WBC 0.8 k/uL (3.8-10.6)
[2018-06-13 07:57] LABS: Anion Gap 4 mmol/L; Blood Urea Nitrogen 20 mg/dL (9-20); Calcium 7.6 mg/dL (8.4-10.2); Carbon Dioxide 21 mmol/L (22-30); Chloride 112 mmol/L (98-107); Glucose 91 mg/dL (74-99); Potassium 3.6 mmol/L (3.5-5.1); Sodium 137 mmol/L (137-145)
[2018-06-13 09:42] LABS: Poikilocytosis (M) Present
[2018-06-13] MEDS: VANCOMYCIN 1,000 MG in SODIUM CHLORIDE 0.9% 250 ML IVPB SCH ×2 (09:54→20:57)
[2018-06-13] MEDS: FILGRASTIM-SNDZ 480 MCG/0.8 ML SYRINGE SQ SCH (09:54)
[2018-06-13 13:39] LABS: HCT 24.4 % (39.0-53.0); HGB 8.6 gm/dL (13.0-17.5); MCH 30.1 pg (25.0-35.0); MCHC 35.2 g/dL (31.0-37.0); MCV 85.5 fL (80.0-100.0); Mean Platelet Volume 9.5; RBC 2.85 m/uL (4.30-5.90); RDW 14.3 % (11.5-15.5); WBC 1.6 k/uL (3.8-10.6)
[2018-06-13 13:58] LABS: Platelet Count 37 k/uL (150-450)
[2018-06-13 14:20] LABS: Band Neutrophils % 6 %; Eosinophils # (M) 0.03 k/uL (0-0.7); Lymphocytes # (M) 0.22 k/uL (1.0-4.8); Metamyelocytes # (M) 0.02 k/uL (0); Metamyelocytes % 1 %; Myelocytes # (M) 0.05 k/uL (0); Myelocytes % 3 %; Neutrophils % (M) 47 %
[2018-06-13 14:23] LABS: Blast Cells # (M) 0.06 k/uL (0); Nucleated Red Blood Cells 0 /100 WBC (0-0); Total Cells Counted 200
[2018-06-13 14:27] LABS: Toxic Granulation Present
[2018-06-13 14:28] LABS: Poikilocytosis (M) Present
--- NOTE | 2018-06-13 14:45 | P.PN ---
Subjective Progress Note Date: 06/13/18 Principal diagnosis: Acute neutropenic sepsis with pancytopenia. This is a 67-year-old white male with history of non-small cell lung cancer, patient is status post chemotherapy, radiation therapy, including radiation to the lung tumor, and radiation to the lumbosacral spine area. His last radiation therapy was finished about a month ago. And his last chemotherapy was about a week ago. Patient was recently seen by Dr. Monroy, and he was noted to be anemic. Patient was sent to [facility] for a unit of packed RBCs which was given on outpatient basis. Patient was evaluated in the ER yesterday complaining of generalized weakness, fatigue, and some dyspnea on exertion. He has also been complaining of dark stools 2. This followed at least one week of constipation. Patient denies any hematemesis, and no bright red blood per rectum. Upon evaluation in the ER, patient was noted to be pancytopenic WBC count was 0.5, hemoglobin was 6.4, and he was noted to have significantly elevated lactic acid of 8.2. Troponins were noted to be elevated. Patient received a total of 4 units of packed RBCs, and his hemoglobin this morning is 6.4. WBC count this morning is 0.3. And platelets are 3000. Patient was empirically started on antibiotics in the form of vancomycin and cefepime. Patient was given fluids overnight, lactic acid is 1.4 on follow-up. Urinalysis was normal, however he had positive Hemoccult stools, and her chest x-ray showed persistent left basilar opacity and possibly a small effusion, this is at the same location of his previously diagnosed lung cancer. Patient was seen today, and compared to yesterday, the patient is feeling better, continues to have generalized weakness, no cough no fever no chills no hemoptysis no chest pain. No shortness of breath at rest. Denies any nausea vomiting abdominal pain, he did have black loose bowel movement earlier today. No gross blood, patient denies any dysuria frequency or urgency. Reevaluated today on 06/11/2018, patient feels much better today compared to how he felt yesterday. However the patient received since admission 5 units of packed RBCs and 1 units of platelets. He is due to receive another unit of packed RBCs today. He is also to receive another unit of platelets today. Patient feels better overall, denies any cough or fever or chills, his WBC count remains low at 0.3. Hemoglobin remains low at 6.4 and his platelets today are 32,000. Went as high as 15,000 after platelet transfusion yesterday. His basic metabolic profile is better however his potassium is low at 3.1 being corrected as per protocol and follow-up was 3.9. BUN is down to 47 creatinine is better down to 0.86. Magnesium is 1.8 today. The patient is seen today 06/12/2018 on the oncology unit. He is currently resting comfortably in bed. He is awake and alert in no acute distress. He states he is feeling better today as compared to yesterday. No pulmonary complaints. He is maintaining good O2 saturations in the upper 90s on room air. He's been afebrile. Hemodynamically stable. He is status post 6 units of packed red blood cells and 2 units of platelets and total. Blood and urine cultures reveal no growth. White count 0.4. Hemoglobin 7.2. Platelet count 33 ,000. Creatinine 0.86. He remains on Zarxio 30 is also on vancomycin and cefepime. Reevaluated today on 06/13/2018, patient is doing much better, he is basically asymptomatic, hemoglobin today is 8.6, patient received a total of 6 units of packed RBCs, and 2 units of platelets since admission. Patient is doing better , asymptomatic, asking if he could be discharged home. However considering his labs, I believe it would be best to keep the patient at least for the next 24 hours before clearing him for discharge. WBC count today is up to 1.6, hemoglobin is 8.6, his platelets are 57,000 electrolytes are normal renal profile is back to normal. Objective - Vital Signs Vital signs: Vital Signs Temp 98 F 06/13/18 12:19 Pulse 77 06/13/18 12:19 Resp 20 06/13/18 12:19 BP 147/70 06/13/18 12:19 Pulse Ox 97 06/13/18 12:19 Intake & Output 06/12/18 06/13/18 06/13/18 18:59 06:59 18:59 Intake Total 700 2330 Output Total 1 1 Balance 699 2329 Intake: IV 450 1160 Cefepime 2 gm In Sodium 100 100 Chloride 0.9% 50 ml @ 100 mls/hr IVPB Q8H [facility] Rx#: [id number] Sodium Chloride 0.9% 1, 350 1060 000 ml @ 70 mls/hr IV . [id number] [facility] Rx#:[id number] Intake, IV Titration 250 250 Amount Vancomycin 1,000 mg In 250 Sodium Chloride 0.9% 250 ml @ 125 mls/hr IVPB Q12HR [facility] Rx#:[id number] Vancomycin 1,250 mg In 250 Sodium Chloride 0.9% 250 ml @ 125 mls/hr IVPB Q12H [facility] Rx#:[id number] Oral 920 Output: Stool 1 1 Other: Voiding Method Toilet Toilet Toilet Urinal Urinal Urinal # Voids 2 # Bowel Movements 1 - Exam GENERAL: The patient is alert and oriented x3, not in any acute distress. Well developed, well nourished. HEENT: Pupils are round and equally reacting to light. EOMI. No scleral icterus. No conjunctival pallor. Normocephalic, atraumatic. No pharyngeal erythema. No thyromegaly. CARDIOVASCULAR: S1 and S2 present. No murmurs, rubs, or gallops. PULMONARY: Chest is clear to auscultation, no wheezing or crackles. ABDOMEN: Soft, nontender, nondistended, normoactive bowel sounds. No palpable organomegaly. MUSCULOSKELETAL: No joint swelling or deformity. EXTREMITIES: No cyanosis, clubbing, or pedal edema. NEUROLOGICAL: Gross neurological examination did not reveal any focal deficits. SKIN: No rashes. Psychiatric: Normal mood, affect and mental status examination. Lymphatics: No lymphadenopathy. - Labs CBC & Chem 7: 06/13/18 13:31 06/13/18 07:05 Labs: Abnormal Lab Results - Last 24 Hours (Table) 06/12/18 06/13/18 06/13/18 Range/Units 19:13 01:42 07:05 WBC 0.4 L* 0.6 L* (3.8-10.6) k/uL RBC 2.42 L 2.35 L (4.30-5.90) m/uL Hgb 7.1 L 7.1 L (13.0-17.5) gm/dL Hct 20.8 L 20.8 L (39.0-53.0) % Plt Count 30 L 31 L (150-450) k/uL Blast Cells % % Neutrophils # (Manual) (1.3-7.7) k/uL Lymphocytes # (Manual) (1.0-4.8) k/uL Metamyelocytes # (Man) (0) k/uL Myelocytes # (Manual) (0) k/uL Blast Cells # (Man) (0) k/uL Chloride 112 H (98-107) mmol/L Carbon Dioxide 21 L (22-30) mmol/L Calcium 7.6 L (8.4-10.2) mg/dL Phosphorus 2.0 L (2.5-4.5) mg/dL 06/13/18 06/13/18 Range/Units 07:05 13:31 WBC 0.8 L* 1.6 L (3.8-10.6) k/uL RBC 2.48 L 2.85 L (4.30-5.90) m/uL Hgb 7.5 L 8.6 L (13.0-17.5) gm/dL Hct 21.8 L 24.4 L (39.0-53.0) % Plt Count 33 L 37 L (150-450) k/uL Blast Cells % 4 H* % Neutrophils # (Manual) 0.80 L (1.3-7.7) k/uL Lymphocytes # (Manual) 0.22 L (1.0-4.8) k/uL Metamyelocytes # (Man) 0.02 H (0) k/uL Myelocytes # (Manual) 0.05 H (0) k/uL Blast Cells # (Man) 0.06 H (0) k/uL Chloride (98-107) mmol/L Carbon Dioxide (22-30) mmol/L Calcium (8.4-10.2) mg/dL Phosphorus (2.5-4.5) mg/dL Microbiology - Last 24 Hours (Table) 06/09/18 15:45 Blood Culture - Preliminary Blood No Growth after 72 hours Assessment and Plan Assessment: Impression: 1 acute neutropenia and pancytopenia secondary to bone marrow suppression from chemotherapy. 2 suspect ongoing GI blood losses specially with his black stools noted recently and noted today. However his anemia is being addressed by oncology on the case. 3 acute neutropenic sepsis in a patient who is immunocompromised. Chest x-ray findings could be related to his underlying malignancy, possibility of pneumonia is not entirely ruled out.. 4 history of stage IV non-small cell lung cancer, status post chemotherapy and radiation therapy. 5 history of hypertension 6 elevated troponins, being addressed by cardiology. 7 acute kidney injury most likely secondary to sepsis. Recommendation: Continue present supportive care measures, continue empiric antibiotics, consider discharge planning in the next 24 hours. Time with Patient: Less than 30
--- NOTE | 2018-06-13 15:53 | P.PN ---
Subjective This is a pleasant 67 years old male with past medical history of dyspnea, anemia and hypertension, lung cancer status post chemotherapy last week. Patient will already got 1 blood transfusion at [facility]. This time he presents because of generalized weakness and exertional dyspnea. Patient also states he has some blood in his bowel movements, dark stool 2. After one week of constipation. Associated with some nausea and vomited once. On admission patient was found to be pancytopenia with WBC 0.3, hemoglobin 6.4, coming up from 4.4. Her platelet count 3. INR 1.1. Sodium 135. Creatinine is elevated at 1.3, which is improving. Baseline creatinine is 0.9-1.0. High lactic acid of 8.2, down to 1.4 within normal limits. Elevated troponin 1.7, 2.8, 2.7. LFTs were unremarkable. Patient got 4 units of blood transfusion. Chest x-ray shows persistent left basilar infiltrate with pleural effusion EKG showing sinus tachycardia at [address]-T changes. Patient already received IV fluids, antibiotic. Currently on normal saline at 70 mL/h and she is on IV vancomycin and cefepime. Protonix, stenting and Lopressor. Patient was admitted to the ICU. This morning he was lying in bed not in distress. Denies chest pain or dyspnea for me. No abdominal pain, No more nausea and vomiting. No fever. 06/11/2018 Patient seen and examined by me in the ICU. Patient still feels weak generally. The bony has no chest pain or dyspnea. Vitas looks stable. He still significantly pancytopenic with a white blood cells are 0.3, hemoglobin 6.4, and platelets improving from 3-32 today. He was hypokalemic which was corrected to 3.9. Sodium 138. Creatinine improved from 1.3 to 0.8. Urine culture and blood culture: no growth. Chest x-ray showing lower lobe pneumonia with effusion. Patient is on vancomycin and cefepime. Cardiology evaluation is appreciated, most likely patient have non-STEMI secondary to severe anemia, and he recommended to continue with the current medical therapy as he is not a candidate for any aggressive cardiac workup. And platelets on hold due to his abnormal labs. 06/12/2018 Patient continued to feel better today with no more bleeding. Patient was transferred out of the ICU to the general medical floor, oncology unit. Patient is status post 6 units of packed RBCs and 2 units of platelet transfusion. Hemoglobin is up to 7.2 and platelet 2 33,000. Patient is still on antibiotics of vancomycin and cefepime for possible pneumonia . Blood and urine cultures are negative. Repeat chest x-ray shows stable findings with left Pleural effusion and possible infiltrate. She was severely leukopenic. Hematology team are following the patient. Vital signs stable and patient saturating 98% on room air. Patient generally weak and might benefit from physical therapy 06/13/2018 Patient was sitting in chair with no chest pain or dyspnea. No more bleeding. This is the second day after ICU discharge. After an units of blood and platelet transfusion. His blood cell per meters are improving slightly. Patient remains on cefepime and vancomycin. As well as cardiology has seen the patient for a simple non-STEMI secondary to severe anemia. His aspirin was on hold due to low platelets. He shouldn't 07/29 to leave today for family meeting. Explained to him he needs at least 1 more day for monitoring. BMP was unremarkable. Objective - Vital Signs Vital signs: Vital Signs Temp 98 F 06/13/18 12:19 Pulse 77 06/13/18 12:19 Resp 20 06/13/18 12:19 BP 147/70 06/13/18 12:19 Pulse Ox 97 06/13/18 12:19 Intake & Output 06/12/18 06/13/18 06/13/18 18:59 06:59 18:59 Intake Total 700 2330 700 Output Total 1 1 Balance 699 2329 700 Intake: IV 450 1160 450 Cefepime 2 gm In Sodium 100 100 100 Chloride 0.9% 50 ml @ 100 mls/hr IVPB Q8H [facility] Rx#: [id number] Sodium Chloride 0.9% 1, 350 1060 350 000 ml @ 70 mls/hr IV . [id number] [facility] Rx#:[id number] Intake, IV Titration 250 250 250 Amount Vancomycin 1,000 mg In 250 250 Sodium Chloride 0.9% 250 ml @ 125 mls/hr IVPB Q12HR [facility] Rx#:[id number] Vancomycin 1,250 mg In 250 Sodium Chloride 0.9% 250 ml @ 125 mls/hr IVPB Q12H [facility] Rx#:[id number] Oral 920 Output: Stool 1 1 Other: Voiding Method Toilet Toilet Toilet Urinal Urinal Urinal # Voids 2 3 # Bowel Movements 1 - Exam GENERAL: The patient is alert and oriented x3, not in any acute distress. Thin built HEENT: Pupils are round and equally reacting to light. EOMI. No scleral icterus. No conjunctival pallor. Normocephalic, atraumatic. No pharyngeal erythema. No thyromegaly. CARDIOVASCULAR: S1 and S2 present. No murmurs, rubs, or gallops. PULMONARY: Chest is clear to auscultation, no wheezing or crackles. ABDOMEN: Soft, nontender, nondistended, normoactive bowel sounds. No palpable organomegaly. MUSCULOSKELETAL: No joint swelling or deformity. EXTREMITIES: No cyanosis, clubbing, or pedal edema. NEUROLOGICAL: Gross neurological examination did not reveal any focal deficits. SKIN: No rashes. - Labs CBC & Chem 7: 06/13/18 13:31 06/13/18 07:05 Labs: Abnormal Lab Results - Last 24 Hours (Table) 06/12/18 06/13/18 06/13/18 Range/Units 19:13 01:42 07:05 WBC 0.4 L* 0.6 L* (3.8-10.6) k/uL RBC 2.42 L 2.35 L (4.30-5.90) m/uL Hgb 7.1 L 7.1 L (13.0-17.5) gm/dL Hct 20.8 L 20.8 L (39.0-53.0) % Plt Count 30 L 31 L (150-450) k/uL Blast Cells % % Neutrophils # (Manual) (1.3-7.7) k/uL Lymphocytes # (Manual) (1.0-4.8) k/uL Metamyelocytes # (Man) (0) k/uL Myelocytes # (Manual) (0) k/uL Blast Cells # (Man) (0) k/uL Chloride 112 H (98-107) mmol/L Carbon Dioxide 21 L (22-30) mmol/L Calcium 7.6 L (8.4-10.2) mg/dL Phosphorus 2.0 L (2.5-4.5) mg/dL 06/13/18 06/13/18 Range/Units 07:05 13:31 WBC 0.8 L* 1.6 L (3.8-10.6) k/uL RBC 2.48 L 2.85 L (4.30-5.90) m/uL Hgb 7.5 L 8.6 L (13.0-17.5) gm/dL Hct 21.8 L 24.4 L (39.0-53.0) % Plt Count 33 L 37 L (150-450) k/uL Blast Cells % 4 H* % Neutrophils # (Manual) 0.80 L (1.3-7.7) k/uL Lymphocytes # (Manual) 0.22 L (1.0-4.8) k/uL Metamyelocytes # (Man) 0.02 H (0) k/uL Myelocytes # (Manual) 0.05 H (0) k/uL Blast Cells # (Man) 0.06 H (0) k/uL Chloride (98-107) mmol/L Carbon Dioxide (22-30) mmol/L Calcium (8.4-10.2) mg/dL Phosphorus (2.5-4.5) mg/dL Microbiology - Last 24 Hours (Table) 06/09/18 15:45 Blood Culture - Preliminary Blood No Growth after 72 hours Assessment and Plan Assessment: Pancytopenia, status post blood transfusion Acute kidney injury, improving non-STEMI High lactic acid, resolved Possible left basal pneumonia, with possible severe sepsis present on admission. Severe dehydration History of lung cancer status post chemotherapy 1 week prior to admission History of hypertension Plan: This is a pleasant 67 years old male who presents with pneumonia and pancytopenia. Patient was admitted to the ICU on admission. Pulmonary/ critical care team was been consulted. Consult cardiology, and hematology oncology and gastroenterology which was already done. Labs and medication were reviewed.. Continue same treatment. Continue with symptomatic treatment. Resume home medication. Monitor lytes and vitals. DVT and GI prophylaxis. Further recommendations of the clinical course of the patient DVT prophylaxis: no Subcutaneous heparin in view of possible GI bleed GI Prophylaxis: Protonix Prognosis is guarded
--- NOTE | 2018-06-13 17:51 | P.PN ---
Subjective Progress Note Date: 06/13/18 Patient feels better. No obvious bleeding noted. No fever/chills/nausea/ vomiting. Appetite is also somewhat improved Objective - Vital Signs Vital signs: Vital Signs Temp 98 F 06/13/18 12:19 Pulse 77 06/13/18 12:19 Resp 20 06/13/18 12:19 BP 147/70 06/13/18 12:19 Pulse Ox 97 06/13/18 12:19 Intake & Output 06/12/18 06/13/18 06/13/18 18:59 06:59 18:59 Intake Total 700 2330 700 Output Total 1 1 Balance 699 2329 700 Intake: IV 450 1160 450 Cefepime 2 gm In Sodium 100 100 100 Chloride 0.9% 50 ml @ 100 mls/hr IVPB Q8H [facility] Rx#: [id number] Sodium Chloride 0.9% 1, 350 1060 350 000 ml @ 70 mls/hr IV . [id number] [facility] Rx#:[id number] Intake, IV Titration 250 250 250 Amount Vancomycin 1,000 mg In 250 250 Sodium Chloride 0.9% 250 ml @ 125 mls/hr IVPB Q12HR [facility] Rx#:[id number] Vancomycin 1,250 mg In 250 Sodium Chloride 0.9% 250 ml @ 125 mls/hr IVPB Q12H [facility] Rx#:[id number] Oral 920 Output: Stool 1 1 Other: Voiding Method Toilet Toilet Toilet Urinal Urinal Urinal # Voids 2 3 # Bowel Movements 1 - Constitutional General appearance: Present: no acute distress - EENT Eyes: Present: EOMI ENT: Present: hearing grossly normal, normal oropharynx - Respiratory Respiratory: bilateral: CTA - Cardiovascular Rhythm: regular Heart sounds: normal: S1, S2 - Gastrointestinal General gastrointestinal: Present: normal bowel sounds, soft - Integumentary Integumentary: Present: normal - Neurologic Neurologic: Present: CNII-XII intact - Musculoskeletal Musculoskeletal: Present: generalized weakness, strength equal bilaterally - Labs CBC & Chem 7: 06/13/18 13:31 06/13/18 07:05 Labs: Abnormal Lab Results - Last 24 Hours (Table) 06/12/18 06/13/18 06/13/18 Range/Units 19:13 01:42 07:05 WBC 0.4 L* 0.6 L* (3.8-10.6) k/uL RBC 2.42 L 2.35 L (4.30-5.90) m/uL Hgb 7.1 L 7.1 L (13.0-17.5) gm/dL Hct 20.8 L 20.8 L (39.0-53.0) % Plt Count 30 L 31 L (150-450) k/uL Blast Cells % % Neutrophils # (Manual) (1.3-7.7) k/uL Lymphocytes # (Manual) (1.0-4.8) k/uL Metamyelocytes # (Man) (0) k/uL Myelocytes # (Manual) (0) k/uL Blast Cells # (Man) (0) k/uL Chloride 112 H (98-107) mmol/L Carbon Dioxide 21 L (22-30) mmol/L Calcium 7.6 L (8.4-10.2) mg/dL Phosphorus 2.0 L (2.5-4.5) mg/dL 06/13/18 06/13/18 Range/Units 07:05 13:31 WBC 0.8 L* 1.6 L (3.8-10.6) k/uL RBC 2.48 L 2.85 L (4.30-5.90) m/uL Hgb 7.5 L 8.6 L (13.0-17.5) gm/dL Hct 21.8 L 24.4 L (39.0-53.0) % Plt Count 33 L 37 L (150-450) k/uL Blast Cells % 4 H* % Neutrophils # (Manual) 0.80 L (1.3-7.7) k/uL Lymphocytes # (Manual) 0.22 L (1.0-4.8) k/uL Metamyelocytes # (Man) 0.02 H (0) k/uL Myelocytes # (Manual) 0.05 H (0) k/uL Blast Cells # (Man) 0.06 H (0) k/uL Chloride (98-107) mmol/L Carbon Dioxide (22-30) mmol/L Calcium (8.4-10.2) mg/dL Phosphorus (2.5-4.5) mg/dL Microbiology - Last 24 Hours (Table) 06/09/18 15:45 Blood Culture - Preliminary Blood No Growth after 72 hours Assessment and Plan (1) Pancytopenia Narrative/Plan: Due to antineoplastic chemotherapy. Counts are started to recover. Absolute neutrophil count today is 800. Hemoglobin and platelets and also showed improvement. Continue G-CSF Continue to monitor. If counts are heading in the right direction, he can potentially be discharged tomorrow Current Visit: Yes Status: Acute Code(s): D61.818 - OTHER PANCYTOPENIA SNOMED Code(s): 187431089 (2) GI bleed Narrative/Plan: This appears to have stopped. It is felt, clinically, to be most likely related to stress gastritis and low platelets. Bowel movement since yesterday have not shown any evidence of melena, and hemoglobin has increased.. Current Visit: Yes Status: Acute Code(s): K92.2 - GASTROINTESTINAL HEMORRHAGE, UNSPECIFIED SNOMED Code(s): 15547595 (3) Squamous cell lung cancer Narrative/Plan: Follow-up in the office after discharge, prior to resuming any treatment. Current Visit: Yes Status: Acute Code(s): C34.90 - MALIGNANT NEOPLASM OF UNSP PART OF UNSP BRONCHUS OR LUNG SNOMED Code(s): 081041030
[2018-06-13 20:20] LABS: HCT 21.2 % (39.0-53.0); HGB 7.4 gm/dL (13.0-17.5); MCHC 34.6 g/dL (31.0-37.0); MCV 86.5 fL (80.0-100.0); Mean Platelet Volume 9.3; Platelet Count 38 k/uL (150-450); RBC 2.46 m/uL (4.30-5.90); RDW 14.2 % (11.5-15.5); WBC 2.1 k/uL (3.8-10.6)
[2018-06-13] MEDS: TEMAZEPAM 15 MG CAP PO PRN (20:57)
[2018-06-13 21:27] VITALS: RESP 16
[2018-06-13 22:08] LABS: Nucleated Red Blood Cells 0 /100 WBC (0-0); Total Cells Counted 200
[2018-06-14 01:48] LABS: HCT 20.1 % (39.0-53.0); MCHC 34.9 g/dL (31.0-37.0); Mean Platelet Volume 9.1; Platelet Count 40 k/uL (150-450); RBC 2.34 m/uL (4.30-5.90); RDW 14.4 % (11.5-15.5); WBC 2.4 k/uL (3.8-10.6)
[2018-06-14] MEDS: CEFEPIME 2 GM in SODIUM CHLORIDE 0.9% 50 ML IVPB SCH ×2 (04:19→12:59)
[2018-06-14] MEDS: ACETAMINOPHEN TAB 325 MG TAB PO PRN (05:50)
[2018-06-14 07:45] LABS: Band Neutrophils % 5 %; Blast Cells # (M) 0.08 k/uL (0); Eosinophils # (M) 0.06 k/uL (0-0.7); Lymphocytes # (M) 0.25 k/uL (1.0-4.8); Metamyelocytes # (M) 0.02 k/uL (0); Metamyelocytes % 1 %; Myelocytes # (M) 0.02 k/uL (0); Myelocytes % 1 %; Neutrophils % (M) 57 %; Promyelocytes # (M) 0.02 k/uL (0); Promyelocytes % 1 %
[2018-06-14 07:49] LABS: Poikilocytosis (M) Present
[2018-06-14] MEDS: SODIUM CHLORIDE 0.9% 1,000 ML IV SCH (08:18)
[2018-06-14] MEDS: VANCOMYCIN 1,000 MG in SODIUM CHLORIDE 0.9% 250 ML IVPB SCH (08:19)
[2018-06-14] MEDS: METOPROLOL TARTRATE 25 MG TAB PO SCH (08:24)
[2018-06-14] MEDS: PANTOPRAZOLE 40 MG TABLET PO SCH (08:24)
[2018-06-14] MEDS: ATORVASTATIN 40 MG TAB PO SCH (08:24)
[2018-06-14] MEDS: MORPHINE SULFATE ER 15 MG TABLET PO SCH (08:27)
[2018-06-14 08:35] LABS: HCT 23.7 % (39.0-53.0); MCH 29.3 pg (25.0-35.0); MCHC 33.9 g/dL (31.0-37.0); MCV 86.3 fL (80.0-100.0); Mean Platelet Volume 9.1; RBC 2.74 m/uL (4.30-5.90); RDW 14.2 % (11.5-15.5); WBC 4.1 k/uL (3.8-10.6)
[2018-06-14 08:38] LABS: Platelet Count 53 k/uL (150-450)
[2018-06-14 08:45] LABS: Anion Gap 8 mmol/L; Blood Urea Nitrogen 13 mg/dL (9-20); Carbon Dioxide 21 mmol/L (22-30); Chloride 109 mmol/L (98-107); Glucose 111 mg/dL (74-99); Phosphorus 1.8 mg/dL (2.5-4.5); Potassium 3.5 mmol/L (3.5-5.1); Sodium 138 mmol/L (137-145)
--- NOTE | 2018-06-14 10:38 | CDI ---
Last Revision, June 2017 Documentation Clarification Form Date: 06/15/2018 10:31:13 AM From: Dania LambCAROLYNN, CCDS Admit Date: 06/09/2018 6:38:00 PM Patient Name: Mario Edouard Visit Number: [id number] Discharge Date: ATTENTION: The Clinical Documentation Specialists (CDI) and [facility] Coding Staff appreciate your assistance in clarifying documentation. Please respond to the clarification below the line at the bottom and electronically sign. The CDI & [facility] Coding staff will review the response and follow-up if needed. Please note: Queries are made part of the Legal Health Record. If you have any questions, please contact the author of this message via ITS. Nadir Roldan MD: A diagnosis of anemia lacks specificity to accurately reflect your patients severity of condition and clarification is needed. Patient is admitted with Sepsis, Severe sepsis, pneumonia, chemo induced pancytopenia, NALLELY & a NSTEMI secondary to anemia. History/Risk Factors: Lung CA status post chemotherapy, Prostate CA, Bone mets, Hypertension. Clinical indicators: Pancytopenia, weakness, loss of appetite, weak & dehydrated. Hemoglobin: 4.4 Hematocrit: 12.8 Treatment: H/H, Transfused PRBCs 6 untis, Platelets 2 units, IV fluid bolus x2, IV fluid rate 75, IV MagSulfate, IV Vancomycin. In order to capture the severity of condition, please clarify the type of anemia and etiology if known: Acute blood loss anemia Acute on chronic blood loss anemia Chronic blood loss anemia Hemolytic anemia Drug induced anemia Anemia due to malignancy Nutritional anemia Anemia of chronic kidney disease Unable to determine Other, please specify pancytopenia with bone marrow suppression secondary to chemotherapy MTDD
[2018-06-14 10:44] LABS: Band Neutrophils % 8 %; Basophils # (M) 0.04 k/uL (0-0.2); Eosinophils # (M) 0.08 k/uL (0-0.7); Lymphocytes # (M) 0.41 k/uL (1.0-4.8); Metamyelocytes # (M) 0.12 k/uL (0); Metamyelocytes % 3 %; Monocytes # (M) 0.45 k/uL (0-1.0); Myelocytes # (M) 0.08 k/uL (0); Myelocytes % 2 %; Neutrophils % (M) 64 %
[2018-06-14 10:46] LABS: Blast Cells # (M) 0.04 k/uL (0); Nucleated Red Blood Cells 0 /100 WBC (0-0); Total Cells Counted 200
[2018-06-14 10:49] LABS: Toxic Granulation Present
[2018-06-14 10:50] LABS: Anisocytosis (M) Present
[2018-06-14 12:42] VITALS: BP 119/75; PULSE 72; TEMP 97.8
[2018-06-14] MEDS: FILGRASTIM-SNDZ 480 MCG/0.8 ML SYRINGE SQ SCH (12:53)
[2018-06-14] MEDS ORDERED: LEVOFLOXACIN 500 MG TAB PO SCH (13:00)
--- NOTE | 2018-06-14 16:35 | P.PN ---
Subjective Progress Note Date: 06/14/18 Principal diagnosis: Lung cancer, pancytopenia Progress note dated 06/14/2018 This is a 67-year-old male with a history of acute neutropenia and pancytopenia secondary to bone marrow suppression from chemotherapy. He is being treated for stage IV non-small cell lung cancer. He's had both chemo and radiation therapy. The patient was also found to be anemic. The patient is possibly going to be discharged later today. He has a history of hypertension. In addition, the patient has a history of acute kidney injury secondary to possible sepsis. He also had elevated troponins which are being evaluated by cardiology. He does have a previous history of acute myocardial infarction. Today, the patient's feeling better. The patient feels like his breathing is much improved and overall his energy levels are good. The patient denies any fever chills significant cough phlegm production hemoptysis nausea vomiting or diarrhea. He was initially seen in consultation by my partner on June 10. Objective - Vital Signs Vital signs: Vital Signs Temp 97.8 F 06/14/18 12:23 Pulse 72 06/14/18 12:23 Resp 16 06/14/18 12:23 BP 119/75 06/14/18 12:23 Pulse Ox 97 06/14/18 12:23 Intake & Output 06/13/18 06/14/18 06/14/18 18:59 06:59 18:59 Intake Total 700 770 Output Total 600 Balance 700 170 Intake: IV 450 770 Cefepime 2 gm In Sodium 100 Chloride 0.9% 50 ml @ 100 mls/hr IVPB Q8H [facility] Rx#: [id number] Sodium Chloride 0.9% 1, 350 770 000 ml @ 70 mls/hr IV . [id number] [facility] Rx#:[id number] Intake, IV Titration 250 Amount Vancomycin 1,000 mg In 250 Sodium Chloride 0.9% 250 ml @ 125 mls/hr IVPB Q12HR [facility] Rx#:[id number] Output: Urine 600 Other: Voiding Method Toilet Toilet Toilet Urinal Urinal Urinal # Voids 3 - Exam No acute distress, oriented 3. HEENT examination is grossly unremarkable. Mucous membranes are moist. No oral lesions. Neck supple. Full range of motion. No adenopathy thyromegaly or neck vein distention. Cardiovascular examination reveals regular rhythm rate. S1-S2 normal. No S3 or S4. No discernible murmur noted. Lungs reveal mostly clear breath sounds. Breath sounds are equal bilaterally. A few scattered crackles are appreciated. Abdomen is soft and bowel sounds are heard. No masses or tenderness. Extremities are intact. No cyanosis clubbing or edema. Skin is without rash or lesion. Neurologic examination is brief but nonfocal. - Labs CBC & Chem 7: 06/14/18 08:15 06/14/18 08:15 Labs: Abnormal Lab Results - Last 24 Hours (Table) 06/13/18 06/14/18 06/14/18 Range/Units 20:02 01:33 08:15 WBC 2.1 L 2.4 L (3.8-10.6) k/uL RBC 2.46 L 2.34 L (4.30-5.90) m/uL Hgb 7.4 L 7.0 L (13.0-17.5) gm/dL Hct 21.2 L 20.1 L (39.0-53.0) % Plt Count 38 L 40 L (150-450) k/uL Blast Cells % 4 H* % Lymphocytes # (Manual) 0.25 L (1.0-4.8) k/uL Metamyelocytes # (Man) 0.02 H (0) k/uL Myelocytes # (Manual) 0.02 H (0) k/uL Promyelocytes # (Man) 0.02 H (0) k/uL Blast Cells # (Man) 0.08 H (0) k/uL Chloride 109 H (98-107) mmol/L Carbon Dioxide 21 L (22-30) mmol/L Glucose 111 H (74-99) mg/dL Calcium 8.0 L (8.4-10.2) mg/dL Phosphorus 1.8 L (2.5-4.5) mg/dL 06/14/18 Range/Units 08:15 WBC (3.8-10.6) k/uL RBC 2.74 L (4.30-5.90) m/uL Hgb 8.0 L (13.0-17.5) gm/dL Hct 23.7 L (39.0-53.0) % Plt Count 53 L (150-450) k/uL Blast Cells % 1 H* % Lymphocytes # (Manual) 0.41 L (1.0-4.8) k/uL Metamyelocytes # (Man) 0.12 H (0) k/uL Myelocytes # (Manual) 0.08 H (0) k/uL Promyelocytes # (Man) (0) k/uL Blast Cells # (Man) 0.04 H (0) k/uL Chloride (98-107) mmol/L Carbon Dioxide (22-30) mmol/L Glucose (74-99) mg/dL Calcium (8.4-10.2) mg/dL Phosphorus (2.5-4.5) mg/dL Microbiology - Last 24 Hours (Table) 06/09/18 15:45 Blood Culture - Preliminary Blood No Growth after 96 hours Assessment and Plan Assessment: Assessment Sepsis, secondary to profound neutropenia as a result of chemotherapy for the patient's stage IV non-small cell lung cancer Severe pancytopenia also secondary to chemotherapy. Profound anemia with GI bleed, status post 5 units of PRBCs and 1 unit of platelets Stage IV non-small cell lung cancer, status post chemo and radiation therapy History of hypertension History of previous myocardial infarction Possible underlying pneumonia Acute kidney injury Elevated troponins, being addressed by cardiology Plan: Plan dated 06/14/2018 The patient may be discharged home today. The patient's overall prognosis is very guarded. He seemed to be having more severe reactions his chemotherapy and previous sessions. This will need to be watched very carefully. Also, his lung status is somewhat tenuous. He will follow with me in the office. No additional recommendations are made. Prognosis is guarded. Time with Patient: Less than 30
--- NOTE | 2018-06-14 20:08 | P.PN ---
Subjective Progress Note Date: 06/14/18 Principal diagnosis: Recurrent Lung Cancer, Anemia Hemoglobin is 8 today and he is feeling much better. Ready to go home Objective - Vital Signs Vital signs: Vital Signs Temp 97.8 F 06/14/18 12:23 Pulse 72 06/14/18 12:23 Resp 16 06/14/18 12:23 BP 119/75 06/14/18 12:23 Pulse Ox 97 06/14/18 12:23 Intake & Output 06/14/18 06/14/18 06/15/18 06:59 18:59 06:59 Intake Total 770 Output Total 600 Balance 170 Intake: IV 770 Sodium Chloride 0.9% 1, 770 000 ml @ 70 mls/hr IV . [id number] [facility] Rx#:[id number] Output: Urine 600 Other: Voiding Method Toilet Toilet Urinal Urinal - Exam Constitutional General appearance: Present: no acute distress - EENT Eyes: Present: EOMI ENT: Present: hearing grossly normal, normal oropharynx - Respiratory Respiratory: bilateral: CTA - Cardiovascular Rhythm: regular Heart sounds: normal: S1, S2 - Gastrointestinal General gastrointestinal: Present: normal bowel sounds, soft - Integumentary Integumentary: Present: normal - Neurologic Neurologic: Present: CNII-XII intact - Musculoskeletal Musculoskeletal: Present: generalized weakness, strength equal bilaterally - Labs CBC & Chem 7: 06/14/18 08:15 06/14/18 08:15 Labs: Abnormal Lab Results - Last 24 Hours (Table) 06/13/18 06/14/18 06/14/18 Range/Units 20:02 01:33 08:15 WBC 2.1 L 2.4 L (3.8-10.6) k/uL RBC 2.46 L 2.34 L (4.30-5.90) m/uL Hgb 7.4 L 7.0 L (13.0-17.5) gm/dL Hct 21.2 L 20.1 L (39.0-53.0) % Plt Count 38 L 40 L (150-450) k/uL Blast Cells % 4 H* % Lymphocytes # (Manual) 0.25 L (1.0-4.8) k/uL Metamyelocytes # (Man) 0.02 H (0) k/uL Myelocytes # (Manual) 0.02 H (0) k/uL Promyelocytes # (Man) 0.02 H (0) k/uL Blast Cells # (Man) 0.08 H (0) k/uL Chloride 109 H (98-107) mmol/L Carbon Dioxide 21 L (22-30) mmol/L Glucose 111 H (74-99) mg/dL Calcium 8.0 L (8.4-10.2) mg/dL Phosphorus 1.8 L (2.5-4.5) mg/dL 06/14/18 Range/Units 08:15 WBC (3.8-10.6) k/uL RBC 2.74 L (4.30-5.90) m/uL Hgb 8.0 L (13.0-17.5) gm/dL Hct 23.7 L (39.0-53.0) % Plt Count 53 L (150-450) k/uL Blast Cells % 1 H* % Lymphocytes # (Manual) 0.41 L (1.0-4.8) k/uL Metamyelocytes # (Man) 0.12 H (0) k/uL Myelocytes # (Manual) 0.08 H (0) k/uL Promyelocytes # (Man) (0) k/uL Blast Cells # (Man) 0.04 H (0) k/uL Chloride (98-107) mmol/L Carbon Dioxide (22-30) mmol/L Glucose (74-99) mg/dL Calcium (8.4-10.2) mg/dL Phosphorus (2.5-4.5) mg/dL Microbiology - Last 24 Hours (Table) 06/09/18 15:45 Blood Culture - Preliminary Blood No Growth after 120 hours Assessment and Plan Plan: Assessment and Plan (1) Pancytopenia Narrative/Plan: - Due to antineoplastic chemotherapy. Counts are started to recover. Absolute neutrophil count today is 800. Hemoglobin and platelets and also showed improvement. - Discontinue G-CSF (2) GI bleed Narrative/Plan: - This appears to have stopped. It is felt, clinically, to be most likely related to stress gastritis and low platelets. Bowel movement since yesterday have not shown any evidence of melena, and hemoglobin has increased. - Home on Prilosec BID Current Visit: Yes Status: Acute Code(s): K92.2 - GASTROINTESTINAL HEMORRHAGE, UNSPECIFIED SNOMED Code(s): 93944622 (3) Squamous cell lung cancer Narrative/Plan: - Follow-up in the office after discharge, prior to resuming any treatment. Current Visit: Yes Status: Acute Code(s): C34.90 - MALIGNANT NEOPLASM OF UNSP PART OF UNSP BRONCHUS OR LUNG SNOMED Code(s): 430070527 OK for discharge from oncology standpoint greater than 30 minutes face to face counseling and coordinating care
[2018-06-15] MEDS ORDERED: VANCOMYCIN TROUGH DUE 1 EACH MISC MISCELLANE ONE (08:00)
--- NOTE | 2018-06-22 13:53 | P.DS ---
Providers Date of admission: 06/09/18 18:38 Attending physician: Hanna Germain Consults: 06/09/18 18:39 Consult Physician Routine Consulting Provider: Ant Monroy Consult Reason/Comments: Anemia, leukopenia, Do you want consulting provider notified?: Yes Consult Physician Urgent Consulting Provider: Castillo Posada Consult Reason/Comments: ICU management Do you want consulting provider notified?: Already Contacted 06/10/18 02:38 Consult Physician Urgent Consulting Provider: Thomas Gu Consult Reason/Comments: elevated troponin Do you want consulting provider notified?: Yes 06/10/18 07:40 Consult Physician Routine Consulting Provider: Milo Mera Consult Reason/Comments: gi bleeding Do you want consulting provider notified?: Yes 06/10/18 11:44 Consult Physician Routine Consulting Provider: Ant Monroy Consult Reason/Comments: pancytopenia Do you want consulting provider notified?: Yes Primary care physician: Romario Melendezmley [facility] Course: Date of service: 06/13/2018 hospital course This is a pleasant 67 years old male with past medical history of dyspnea, anemia and hypertension, lung cancer status post chemotherapy last week. Patient will already got 1 blood transfusion at [facility]. This time he presents because of generalized weakness and exertional dyspnea. pt was found to have community acquired pna, pancytopenia needed several PRBs and platelet transfusion , and his troponin was elevated which is believed by cardiology team to be due to non-STEMI secondary to severe anemia, and he recommended to continue with the current medical therapy as he is not a candidate for any aggressive cardiac workup. pt is also been followed by oncology/hematology team. pt symptoms and blood cells parameters are improved significantly upon discharge and he was cleared by all consultants for discharge including cardiology , pulmonary and oncology/hematology teams. Pt was instructed about the problems and management plan and Pt verbalized understanding and acceptance Pt is found stable and can be discharged to the community but needs follow up as outpt Discharge exam Gen.: Patient alert awake and oriented X 3, NOT IN DISTRESS CVS: s1-s2, RRR, no murmur CHEST:bilateral CTA, no wheezing or crepitation Abdomen: Soft, no tenderness, no distention, positive bowel sounds Extremities: No leg edema or induration time spent : more than 35 min Patient Condition at Discharge: Serious Plan - Discharge Summary Discharge Rx Participant: No New Discharge Prescriptions: New Omeprazole Magnesium [PriLOSEC OTC] 20 mg PO AC-BID #60 tablet. Levofloxacin [Levaquin] 500 mg PO Q24H #7 tab Metoprolol Tartrate [Lopressor] 25 mg PO BID #60 tab Continue Aspirin 81 mg PO DAILY chew Atorvastatin [Lipitor] 80 mg PO HS Spironolactone [Aldactone] 50 mg PO DAILY Morphine Sulfate ER [Ms Contin] 15 mg PO Q12HR Discontinued Metoprolol Succinate (ER) [Toprol Xl] 100 mg PO DAILY Losartan [Cozaar] 25 mg PO DAILY Discharge Medication List Aspirin 81 mg PO DAILY chew 01/03/18 [Rx] Atorvastatin [Lipitor] 80 mg PO HS 01/27/18 [History] Spironolactone [Aldactone] 50 mg PO DAILY 01/27/18 [History] Morphine Sulfate ER [Ms Contin] 15 mg PO Q12HR 02/15/18 [History] Levofloxacin [Levaquin] 500 mg PO Q24H #7 tab 06/14/18 [Rx] Metoprolol Tartrate [Lopressor] 25 mg PO BID #60 tab 06/14/18 [Rx] Omeprazole Magnesium [PriLOSEC OTC] 20 mg PO AC-BID #60 tablet. 06/14/18 [Rx] Follow up Appointment(s)/Referral(s): Castillo Posada MD [STAFF PHYSICIAN] - 06/25/18 10:15 am Jona Brand MD [STAFF PHYSICIAN] - 07/07/18 10:00 am Ant Monroy MD [STAFF PHYSICIAN] - 06/21/18 9:30 am Romario Oseguera MD [Primary Care Provider] - 06/18/18 11:30 am Patient Instructions/Handouts: Metoprolol (By mouth), Omeprazole (By mouth), Levofloxacin (By mouth), Dehydration (DC), Anemia (DC), Lactic Acidosis (GEN) Activity/Diet/Wound Care/Special Instructions: cardiac diet activity is limited till you see your doctor Discharge Disposition: HOME SELF-CARE
--- NOTE | 2018-06-22 13:59 | CDI ---
Documentation Clarification Form Date: 06/22/2018 1:51:26 PM From: Misty Mcadams Phone: If questions call Varsha Frye at Admit Date: 06/09/2018 6:38:00 PM Patient Name: Mario Edouard Visit Number: [id number] Discharge Date: 06/14/2018 ATTENTION: The Clinical Documentation Specialists (CDI) and [facility] Coding Staff appreciate your assistance in clarifying documentation. Please respond to the clarification below the line at the bottom and electronically sign. The CDI & [facility] Coding staff will review the response and follow-up if needed. Please note: Queries are made part of the Legal Health Record. If you have any questions, please contact the author of this message via ITS. Hanna Frank MD H&P documents patient presented with pneumonia and pancytopenia, with possible severe sepsis on admission. Consults state pancytopenia secondary to chemotherapy and bone marrow myelosuppression. Chest x-ray showing lower lobe pneumonia with effusion. Progress notes (Dr. Posada) document acute neutropenic sepsis with pancytopenia and acute neutropenia and pancytopenia secondary to bone marrow suppression from chemotherapy. In your professional opinion please indicate below concerning source of sepsis. Sepsis due to pneumonia Sepsis due to pancytopenia from chemotherapy Sepsis source unable to determine Other Sepsis due to pneumonia MTDD
== END 2018-06-14 14:30 | disposition home or self-care (01) | DRG 808 ==
LOC: EC 14:42 → 3SCARD 18:38 → 2SICU 22:14 → 3NMEDONC 06-11 13:43
PROVIDERS: ADMIT Hospitalist; ATTEND Hospitalist
PROC: 30233N1 Transfusion of Nonautologous Red Blood Cells into Peripheral Vein, Percutaneous Approach (ICD-10-PCS; 2018-06-10)
PROC: 30233R1 Transfusion of Nonautologous Platelets into Peripheral Vein, Percutaneous Approach (ICD-10-PCS; principal; 2018-06-11)
DX: D61.810 Antineoplastic chemotherapy induced pancytopenia (principal); A41.9 Sepsis, unspecified organism; I21.A1 Myocardial infarction type 2; K29.61 Other gastritis with bleeding; R65.20 Severe sepsis without septic shock; J18.1 Lobar pneumonia, unspecified organism; E87.1 Hypo-osmolality and hyponatremia; E87.2 Acidosis; J44.0 Chronic obstructive pulmonary disease with (acute) lower respiratory infection; N17.9 Acute kidney failure, unspecified; C34.32 Malignant neoplasm of lower lobe, left bronchus or lung; D50.0 Iron deficiency anemia secondary to blood loss (chronic); E78.5 Hyperlipidemia, unspecified; E86.0 Dehydration; E87.5 Hyperkalemia; I25.10 Atherosclerotic heart disease of native coronary artery without angina pectoris; I25.5 Ischemic cardiomyopathy; I10 Essential (primary) hypertension; K59.00 Constipation, unspecified; T45.1X5A Adverse effect of antineoplastic and immunosuppressive drugs, initial encounter; E87.6 Hypokalemia; M19.90 Unspecified osteoarthritis, unspecified site; N42.9 Disorder of prostate, unspecified; Z79.82 Long term (current) use of aspirin; Z79.899 Other long term (current) drug therapy; Z80.3 Family history of malignant neoplasm of breast; Z96.642 Presence of left artificial hip joint; Z80.6 Family history of leukemia; Z85.46 Personal history of malignant neoplasm of prostate; Z87.891 Personal history of nicotine dependence; Z92.3 Personal history of irradiation; I25.2 Old myocardial infarction; Z98.42 Cataract extraction status, left eye; Z98.41 Cataract extraction status, right eye; Z98.890 Other specified postprocedural states; Z87.01 Personal history of pneumonia (recurrent); Z87.09 Personal history of other diseases of the respiratory system
CPT/HCPCS: 36415; 71045; 71046; 80048; 80053; 80202; 81003; 82272; 82550; 82553; 83605; 83735; 83880; 84100; 84132; 84484; 85025; 85027; 85610; 85730; 86850; 86900; 86901; 86920; 87040; 87086; 93005; 93306; 94760; 96361; 96365; 96366; 96367; 99291

== ENCOUNTER → 2018-06-25 | Day surgery (SDC) | payer MEDICARE ==
--- NOTE | 2018-06-25 08:03 | US ---
EXAMINATION TYPE: US chest DATE OF EXAM: 06/25/2018 COMPARISON: NONE CLINICAL HISTORY: J90 PLEURAL EFFUSION. TECHNIQUE: Targeted ultrasound of the posterior lower left EXAM MEASUREMENTS: Left Pleural Effusion pocket size: 10.1 cm Left skin surface to fluid distance: 2.9 cm Left side marked for possible thoracentesis outside the dept. Pulmonologists are able to review the images in the patient?s EMR. IMPRESSIONS: Moderate left pleural effusion with the deepest pleural fluid pocket measuring 10.1 cm.
[2018-06-25 15:24] VITALS: RESP 16
[2018-06-25 15:27] VITALS: TEMP 98.4
[2018-06-25 15:50] VITALS: BP 126/70; PULSE 76
--- NOTE | 2018-06-25 16:01 | XR ---
EXAMINATION TYPE: XR chest 1V portable DATE OF EXAM: 06/25/2018 COMPARISON: 06/12/2018 HISTORY: SOB. TECHNIQUE: Single frontal view of the chest is obtained. FINDINGS: There is left lower lobe consolidation and bilateral pleural effusions greater on the left . The heart is large. Atherosclerotic change aorta. Calcified granuloma noted. No overt failure or pn eumothorax. Arthropathy shoulders. Hyperinflation suggests COPD. Chronic left clavicular fracture not ed. IMPRESSION: 1. Left lower lobe infiltrate and small bilateral effusions are stable.
--- NOTE | 2018-06-25 16:12 | OP ---
OPERATIVE REPORT PROCEDURE: Thoracentesis. PREOPERATIVE DIAGNOSIS: Left-sided pleural effusion. POSTOPERATIVE DIAGNOSIS: Left-sided pleural effusion. A time-out was completed verifying correct patient, procedure, site, positioning , and implant (s) or special equipment if applicable. Ultrasound guidance was used and appropriate fluid pocket was identified and marked. Patient was positioned, prepped and draped in usual sterile fashion. Lidocaine was used to anesthetize the area. A thoracentesis catheter was introduced into the pleural space and fluid was removed. Blood loss was none. A chest x-ray was ordered to evaluate for pneumothorax and is to follow. Total Fluid Removed: 1.65 L Color of Fluid: Turbid, dark yellowish pleural effusion. Patient tolerated the procedure well and there were no bedside complications or bleeding. MMODL / IJN: [id number] /
== END ==
LOC: RADUSWWP 07:26 → EDSTATUS 07:40 → PROCWHC3 14:40
PROVIDERS: ATTEND Internal Medicine Critical Care Medicine
DX: J90 Pleural effusion, not elsewhere classified (principal); Z79.82 Long term (current) use of aspirin; Z79.899 Other long term (current) drug therapy; I25.2 Old myocardial infarction; Z85.46 Personal history of malignant neoplasm of prostate; M19.90 Unspecified osteoarthritis, unspecified site; N40.0 Benign prostatic hyperplasia without lower urinary tract symptoms; J44.9 Chronic obstructive pulmonary disease, unspecified; Z87.891 Personal history of nicotine dependence
CPT/HCPCS: 32554; 71045; 76604; 88108; 88305

== ENCOUNTER → 2018-07-16 | Outpatient (CLI) | payer MEDICARE ==
--- NOTE | 2018-07-16 11:03 | CT ---
EXAMINATION TYPE: CT angio chest DATE OF EXAM: 07/16/2018 COMPARISON: Most recent CTA chest May 21, 2018. PET CT April 03, 2018. HISTORY: SOB, history of lung cancer. CT DLP: 440 mGycm. Automated Exposure Control for Dose Reduction was Utilized. CONTRAST: CTA scan of the thorax is performed with IV Contrast, patient injected with 100 mL of Isovue 300, pul monary embolism protocol. MIP Images are created on CT scanner and reviewed. FINDINGS: LUNGS: There is persistent small to moderate-sized left pleural effusion or fluid collection diminish ed in size from prior CT. Fluid does not completely layer dependently with focal fluid anterior along left heart border identified on current study. There additional multifocal areas of atelectasis and/ or consolidation throughout the left mid to lower lung. Peripheral left mid lung mass fairly stable m easuring roughly 5.4 x 5.1 cm axial image 90. There are new additional areas of suspicious nodularity and nodular consolidation in the right lung, for reference is 10 x 9 mm pleural-based lesion right mid lung anteromedially axial image 47 and 8 x 8 mm central right upper lobe lesion axial image 52. For reference is 12 x 11 mm posterior right uppe r lobe lesion axial image 59. Reticulonodular opacities right middle lobe near axial image 95 are noted. There is new 1.6 x 1.4 cm posterior right lower lobe pleural-based nodule or nodular consolidation axial image 108. Additional scattered smaller irregular marginated nodules throughout the right lower lobe are present. MEDIASTINUM: There is satisfactory enhancement of the pulmonary artery and its branches, there is no CT evidence for pulmonary embolism. There are no new greater than 1 cm noncalcified hilar or mediast inal lymph nodes. Prominent calcified subcarinal lymph nodes remain present. There is new small to mo derate-sized pericardial effusion seen. Heart size is upper limits of normal. Severe three-vessel cor onary artery calcification is redemonstrated which is noted marker for coronary artery disease. Moder ate plaque in the thoracic aorta is noted. OTHER: Bilateral gynecomastia is redemonstrated. Stable small size hiatal hernia. Calcifications thro ughout the visualized spleen consistent with old granulomatous disease are redemonstrated. Exaggerate d thoracic kyphosis is seen. IMPRESSION: 1. No CT evidence for acute pulmonary embolism. 2. Small to moderate-sized left pleural effusion or fluid collection diminished from prior study. Sta ble peripheral left lung mass or neoplasm. New scattered right lung nodule suspicious for metastatic disease however are now present. New Reticulonodular infiltrate right middle lobe is concerning for a cute infectious process, correlate clinically. New small to borderline moderate-sized pericardial eff usion noted.
== END | disposition home or self-care (01) ==
LOC: RADCTMAIN 09:33
PROVIDERS: ATTEND Internal Medicine Hematology & Oncology
DX: R91.1 Solitary pulmonary nodule (principal); R91.8 Other nonspecific abnormal finding of lung field; I31.3 Pericardial effusion (noninflammatory); C34.32 Malignant neoplasm of lower lobe, left bronchus or lung
CPT/HCPCS: 82565; 84520; 71275; 36415; Q9967

== ENCOUNTER → 2018-07-22 | Outpatient (CLI) | payer MEDICARE ==
--- NOTE | 2018-07-23 11:06 | ECHOF ---
Referral Reason:I31.3 Pericardial effusion Z01.818 MEASUREMENTS -------- HEIGHT: 175.3 cm WEIGHT: 69.4 kg BP: 127/70 RVIDd: 3.3 cm (< 3.3) IVSd: 1.4 cm (0.6 - 1.1) LVIDd: 4.1 cm (3.9 - 5.3) LVPWd: 1.2 cm (0.6 - 1.1) IVSs: 1.8 cm LVIDs: 3.3 cm LVPWs: 1.8 cm LA Diam: 2.9 cm (2.7 - 3.8) LAESV Index (A-L): 25.22 ml/m Ao Diam: 3.4 cm (2.0 - 3.7) AV Cusp: 2.4 cm (1.5 - 2.6) MV EXCURSION: 9.718 mm (> 18.000) MV EF SLOPE: 17 mm/s (70 - 150) EPSS: 0.9 cm MV E Timoteo: 0.66 m/s MV DecT: 214 ms MV A Timoteo: 0.83 m/s MV E/A Ratio: 0.80 FINDINGS -------- Sinus rhythm. This was a technically adequate study. The left ventricular size is normal. There is moderate concentric left ventricular hypertrophy. O verall left ventricular systolic function is mildly impaired with, an EF between 45 - 50 %. Basal i nferior LV wall motion is hypokinetic. Basal inferoseptal LV wall motion is dyskinetic. The right ventricle is mildly enlarged. Normal LA size by volume 22+/-6 ml/m2. The right atrium is normal in size. The mitral valve is normal. The tricuspid valve appears structurally normal. There is no pulmonic regurgitation present. The aortic root size is normal. Normal inferior vena cava with normal inspiratory collapse consistent with estimated right atrial pre ssure of 5 mmHg. There is a small pericardial effusion located near the left ventricle. CONCLUSIONS -------- 1. Sinus rhythm. 2. This was a technically adequate study. 3. The left ventricular size is normal. 4. There is moderate concentric left ventricular hypertrophy. 5. Overall left ventricular systolic function is mildly impaired with, an EF between 45 - 50 %. 6. Basal inferior LV wall motion is hypokinetic. 7. Basal inferoseptal LV wall motion is dyskinetic. 8. The right ventricle is mildly enlarged. 9. Normal LA size by volume 22+/-6 ml/m2. 10. The right atrium is normal in size. 11. The mitral valve is normal. 12. The tricuspid valve appears structurally normal. 13. There is no pulmonic regurgitation present. 14. The aortic root size is normal. 15. Normal inferior vena cava with normal inspiratory collapse consistent with estimated right atrial pressure of 5 mmHg. 16. There is a small pericardial effusion located near the left ventricle. ACID DUMPER: Dipti George RDCS
== END ==
LOC: RADECHMAIN 16:05
PROVIDERS: ATTEND Internal Medicine Hematology & Oncology
DX: I31.3 Pericardial effusion (noninflammatory) (principal); I51.7 Cardiomegaly
CPT/HCPCS: 93306

== ENCOUNTER → 2018-10-16 | Outpatient (CLI) | payer MEDICARE ==
--- NOTE | 2018-10-19 15:43 | PE ---
Nuclear medicine PET/CT HISTORY: Lung carcinoma Patient received 13.3 mCi F-18 FDG intravenously in delayed scanning was performed from the skull bas e to the mid thighs. Localization and attenuation correction CT scan was performed. Correlation to CT chest 07/16/2018 and prior nuclear medicine PET/CT 04/03/2018 Neck and chest: Uptake in the larynx is likely physiologic. Right lung shows no mass. There is volume loss in left hemithorax. Extensive emphysematous changes present in the right hemithorax. Abnormal s oft tissue present at the left lung base is again seen, SUV 4.7. There is evidence of old granulomato us disease. Areas of abnormal hypermetabolic uptake, left pleural effusion are noted at the left lung base. Hypermetabolic uptake seen along the level of the consolidated lung anteriorly in the left low er lobe with SUV 4.3. Focal areas of uptake are present along the posterior inferior margin of the pr eviously identified soft tissue mass, SUV 4.1. The rounded soft tissue mass shows decreased periphera l uptake as compared to prior. There is also stellate area of soft tissue density present in the low er left lobe posterior to the left heart measuring approximately 3 cm in size which show some associa alma hypermetabolic uptake, SUV 4.6. There is some hypermetabolic uptake along the pleural margin post erior laterally in the left hemithorax, SUV is 4. Calcified subcarinal and left hilar nodes are prese nt. There are changes of gynecomastia. Abdomen pelvis: Extensive diverticular change present in the sigmoid colon, associated hypermetabolic uptake likely physiologic. Prostate seeds are in place. No retroperitoneal adenopathy, no suspicious hypermetabolic uptake present. No evident liver mass. Scattered calcifications are present within th e spleen. There is an umbilical hernia containing fat. There are dense carotid artery calcifications. Carotid bifurcation level. No supraclavicular adenopat hy. Osseous structures: The abnormal activity seen along the right sacrum is less apparent, however, ther e is a lytic appearance of the right sacral ala not seen on prior exam, SUV 2.2. Old left clavicular fracture is again seen. Postop change noted to the left hip. IMPRESSION: There is progression of the lytic appearance in the right sacral ala. Abnormal uptake in the left lung as described with associated findings as above. Posttreatment changes.
== END | disposition home or self-care (01) ==
LOC: RADPETMAIN 11:42
PROVIDERS: ATTEND Internal Medicine Hematology & Oncology
DX: C34.32 Malignant neoplasm of lower lobe, left bronchus or lung (principal); J90 Pleural effusion, not elsewhere classified; J43.9 Emphysema, unspecified; N62 Hypertrophy of breast; R91.8 Other nonspecific abnormal finding of lung field; K42.9 Umbilical hernia without obstruction or gangrene; I25.10 Atherosclerotic heart disease of native coronary artery without angina pectoris; R94.8 Abnormal results of function studies of other organs and systems; Z98.890 Other specified postprocedural states
CPT/HCPCS: 78815; A9552

== ENCOUNTER → 2018-11-23 | Outpatient (CLI) | payer MEDICARE ==
--- NOTE | 2018-11-23 13:29 | XR ---
EXAMINATION TYPE: XR chest 2V DATE OF EXAM: 11/23/2018 COMPARISON: 07/02/2018 TECHNIQUE: PA and lateral views submitted. HISTORY: Lung cancer FINDINGS: There is increasing left-sided consolidation and pleural effusion. Volume loss on the left noted ther e is a chronic left clavicular deformity. Right lung remains clear with minimal linear changes at the right lung base. Atherosclerotic change aorta. IMPRESSION: 1. Left basilar consolidation and small effusion appears progressed from the prior exam.
== END ==
LOC: RADXRMAIN 12:57
PROVIDERS: ATTEND Internal Medicine Hematology & Oncology
DX: C34.32 Malignant neoplasm of lower lobe, left bronchus or lung (principal); J91.0 Malignant pleural effusion; G89.3 Neoplasm related pain (acute) (chronic); Z71.3 Dietary counseling and surveillance
CPT/HCPCS: 71046

== ENCOUNTER → 2018-12-31 | Outpatient (CLI) | payer MEDICARE ==
--- NOTE | 2018-12-31 13:28 | US ---
EXAMINATION TYPE: US chest DATE OF EXAM: 12/31/2018 COMPARISON: NONE CLINICAL HISTORY: R06.02 shortness of breath, C34.32 lung cancer. TECHNIQUE: Targeted ultrasound of the posterior lower EXAM MEASUREMENTS: Right Pleural Effusion pocket size: 0 cm Right skin surface to fluid distance: 0 cm Left Pleural Effusion pocket size: 3.2 cm Left skin surface to fluid distance: 3.2 cm Right side marked for possible thoracentesis outside the dept. Left side marked for possible thoracentesis outside the dept. Pulmonologists are able to review the images in the patient?s EMR. IMPRESSIONS: Small left pleural effusion. No right pleural effusion is seen.
== END | disposition home or self-care (01) ==
LOC: RADUSWWP 12:47
PROVIDERS: ATTEND Internal Medicine Hematology & Oncology
DX: J90 Pleural effusion, not elsewhere classified (principal); C34.32 Malignant neoplasm of lower lobe, left bronchus or lung
CPT/HCPCS: 76604

== ENCOUNTER → 2019-02-05 | Outpatient (CLI) | payer MEDICARE ==
--- NOTE | 2019-02-07 10:31 | PE ---
Nuclear medicine PET/CT HISTORY: Lung carcinoma, subsequent Patient received 12.8 mCi F-18 FDG intravenously in delayed scanning was performed from the skull bas e to the mid thighs. Localization and attenuation correction CT scan was performed. Correlation to prior nuclear medicine PET/CT 10/16/2018 Neck and chest: There is volume loss in the left hemithorax. Extensive pleural parenchymal changes ar e again seen with associated hypermetabolic uptake in the areas of the air bronchograms towards the l eft lower hemithorax with some interval increase in the volume of abnormal hypermetabolic uptake SUV is 6.6, prior SUV 4.7. There is a new nodule present in the right lower lobe in the subpleural locati on measuring approximately 18 mm and shows associated hypermetabolic uptake, SUV is 9.8. Pleural flui d is noted at the left lung base without associated hypermetabolic uptake. ABDOMEN: There is a hiatal hernia present. Scattered calcifications present within the spleen as on p rior. No retroperitoneal or adrenal mass. No suspicious hypermetabolic uptake. Diverticular change pr esent within the colon. Prostate seeds are noted. Some colonic uptake felt likely to be physiologic. Osseous structures show postop change the left hip. Bilateral spondylolysis is suspected L5, degenera tive disc changes in the lower lumbar spine. No suspicious hypermetabolic uptake. IMPRESSION: There has been some progression of abnormal hypermetabolic uptake and the area of abnorma l hypermetabolic involving the left lower lobe. New hypermetabolic nodule present in the right lower lobe.
== END | disposition home or self-care (01) ==
LOC: RADPETMAIN 09:48
PROVIDERS: ATTEND Internal Medicine Hematology & Oncology
DX: C34.32 Malignant neoplasm of lower lobe, left bronchus or lung (principal); R91.1 Solitary pulmonary nodule; Z92.21 Personal history of antineoplastic chemotherapy
CPT/HCPCS: 78815; A9552

== ENCOUNTER 2019-02-25 10:56 | Day surgery (SDC) | payer MEDICARE ==
[2019-02-22 15:41] VITALS: BMI 21.8
[~2019-02-25 10:56] MED LIST changes: +ALBUTEROL NEB (CONC) 2.5 MG/0.5 ML INHALATION ONE; -ATROPINE SULFATE 0.4 MG/ML 20 ML VIAL IM NR; +LACTATED RINGERS 1,000 ML IV SCH; +LIDOCAINE 2% (PF) 20 MG/ML 5 ML VIAL INHALATION ONE; +LIDOCAINE VISCOUS 300 MG/15 ML CUP MUCOUS MEM ONE
[2019-02-25 11:23] VITALS: BP 129/70; RESP 16; TEMP 98.4
[2019-02-25] MEDS ORDERED: GLYCOPYRROLATE 0.2 MG/ML 2 ML VIAL ONE (12:15)
[2019-02-25] MEDS ORDERED: KETAMINE 10 MG/ML 20 ML VIAL ONE (12:15)
[2019-02-25] MEDS ORDERED: PROPOFOL 10 MG/ML 20 ML VIAL IV ONE (12:15)
[2019-02-25] MEDS ORDERED: MIDAZOLAM 2 MG/2 ML VIAL ONE (12:15)
[2019-02-25] MEDS ORDERED: LIDOCAINE 2% INJ 20 MG/ML INTRATRACH ONE (12:24)
--- NOTE | 2019-02-25 12:47 | P.PCN ---
Date of Procedure: 02/25/19 Preoperative Diagnosis: Non-small cell lung cancer, volume loss involving the left lung Postoperative Diagnosis: Non-small cell lung cancer, no evidence of any endobronchial tumor, narrowing and the complete occlusion of the anterior segment of the left lower lobe in addition to apical segment of the left upper lobe. Procedure(s) Performed: Flexible bronchoscopy, lavage of the left lower lobe Anesthesia: MAC Surgeon: Beatriz Dhillon Estimated Blood Loss (ml): 0 Pathology: other Condition: stable Disposition: same day Operative Findings: This procedure was done under conscious sedation. The procedure was done in the endoscopy suite. The procedure was done to evaluate the left lung specially in light of the CAT scan findings. The patient is known history of non-small cell lung cancer. The patient is currently receiving Keytruda After achieving adequate sedation, the flexible bronchoscope was inserted in the right nostril. Examination of the posterior oropharynx, larynx, epiglottis, arytenoids, vallecula and the vocal cords was done and all of these upper airway structures were within normal limits. A total of 2 mL of 1% lidocaine was applied to the vocal cord and following that the flexible bronchoscope was advanced into the upper trachea. Trachea was within normal limits. [place] was sharp in the midline. Examination of the right side including the right mainstem bronchus, right upper lobe bronchus, bronchus intermedius, right middle lobe bronchus and right lower lobe bronchus and all of these have a patent and within normal limits. Following that the bronchoscope was moved to the left. Mainstem bronchus was patent. At the bifurcation between the left upper and left lower lobe, large amount of copious purulent respiratory secretions were identified plugging the left lower lobe bronchus. The secretions were suctioned out. Following that, airway inspection was completed and anterior segment was found to be completely narrowed by extrinsic compression and anatomic distortion. Rest of the segments of the lower lobes were patent. Bronchoscope was then moved to the lingular segment that was patent. There appeared to the posterior segment of the left upper lobe was also similarly occluded by anatomic distortion and narrowing. There was no evidence of any endobronchial tumor identified. The secretions from the left lower lobe were suctioned out. Following that I performed a lavage of the left lower lobe following that a total of 20 mL of fluid was aspirated without any complications. Bronchoscope was removed. The fluid was sent for Gram stain and culture and cytology. The patient was started on Augmentin 875 mg twice a day for the next one week. We'll discuss the findings with oncology. Recommend going back to [facility] then obtaining a follow-up CAT scan in 3 months time.
[2019-02-25 12:50] VITALS: PULSE 76
== END 2019-02-25 13:17 | disposition home or self-care (01) ==
LOC: ORWHC2ENDO 10:56
PROVIDERS: ATTEND Internal Medicine Critical Care Medicine
DX: C34.90 Malignant neoplasm of unspecified part of unspecified bronchus or lung (principal); J44.9 Chronic obstructive pulmonary disease, unspecified; J90 Pleural effusion, not elsewhere classified; I10 Essential (primary) hypertension; E78.5 Hyperlipidemia, unspecified; Z85.46 Personal history of malignant neoplasm of prostate; Z79.82 Long term (current) use of aspirin; Z79.899 Other long term (current) drug therapy
CPT/HCPCS: 94640; 88108; 88305; 87070; 87205; 31624; J2001 ×2; J2250; J2704

== ENCOUNTER → 2019-04-22 | Outpatient (CLI) | payer MEDICARE ==
--- NOTE | 2019-04-25 07:11 | PE ---
EXAMINATION TYPE: PET CT fusion skull to thigh DATE OF EXAM: 04/22/2019 COMPARISON: PET CT February 05, 2019 and older studies HISTORY: Lung cancer diagnosed November 06, 2017 with history of radiation and chemotherapy in 2018 TECHNIQUE: Following the intravenous administration of 12.2 mCi of F-18 FDG, whole body images are p erformed from the skull base to the midthigh. Images are reviewed on the computer in the coronal, ax ial, and sagittal planes. Reconstructed rotating images are created on independent workstation and r eviewed on the computer. A noncontrast CT is performed in conjunction with the PET scan. SCAN: Subsequent Scan FINDINGS: SKULL BASE AND NECK: No new areas of suspicious hypermetabolic uptake. CHEST, MEDIASTINUM, AND HILAR REGION: Persistent left-sided volume loss with mediastinal shift. Persi stent pleural/parenchymal changes mid to lower left lung with interval improvement in hypermetabolic uptake, some areas of residual hypermetabolic uptake are present Image 136, max SUV is 9.35. Improvement from prior in the left hemithorax. There is persistent hypermetabolic posterior right mid to lower lung nodule axial image 134 seen bett er on PET images due to surrounding consolidation/atelectasis, max SUV is 6.74. There is new small to moderate size right pleural effusion which does not completely layer dependently with associated rig ht lateral lung masslike consolidation and/or atelectasis with some hypermetabolic uptake, max SUV is 5.21 on axial image 106. Max SUV is 5.17 on axial image 126. ABDOMEN AND PELVIS: No new areas of hypermetabolic uptake. OSSEOUS STRUCTURES: No new areas of hypermetabolic uptake. OTHER CT: Moderate to severe calcified plaque bilateral carotid bulbs, right greater than left is red emonstrated. Stable small to moderate size pericardial effusion. Severe three-vessel coronary artery calcification which is noted marked with underlying coronary artery disease. Enlarged pulmonary arteries, CT findi ngs consistent with underlying pulmonary hypertension. Calcified subcarinal and left hilar lymph node s. Stable small left pleural effusion or fluid collection. Stable small size hiatal hernia. Scattered small calcifications throughout the spleen. Diverticula in the left and sigmoid colon. Metallic artifact from left hip arthroplasty causes streak artifact limiting evaluation of pelvic str uctures. Moderate to severe calcified plaque of the aorta extends into iliac branch vessels. Bilatera l pars defect L5 level with spondylolisthesis redemonstrated. Gold therapy seeds in prostate gland again seen. IMPRESSION: Overall improvement in left hemithorax and max SUV of right lower lung nodule. New areas of masslike consolidation with hypermetabolic uptake are identified however in the right lung. New sm all to moderate nonsimple right pleural fluid collection. Overall findings consistent with mixed resp onse.
== END | disposition home or self-care (01) ==
LOC: RADPETMAIN 12:55
PROVIDERS: ATTEND Internal Medicine Hematology & Oncology
DX: J90 Pleural effusion, not elsewhere classified (principal); C34.32 Malignant neoplasm of lower lobe, left bronchus or lung
CPT/HCPCS: 78815; A9552

== ENCOUNTER 2019-05-04 16:38 | Inpatient (IN) | payer MEDICARE ==
--- NOTE | 2019-05-04 17:06 | ED ---
General Adult HPI - General Chief complaint: Shortness of Breath Stated complaint: SOB Time Seen by Provider: 05/04/19 16:49 Source: patient, EMS, RN notes reviewed Mode of arrival: EMS Limitations: no limitations - History of Present Illness Initial comments: Patient is a pleasant 68-year-old male presenting to the emergency Department as a transfer from [facility]. Patient does have known lung cancer status post chemotherapy. Complication is currently on maintenance Ktruda. Patient has been expressing exertional dyspnea progressive over the past couple of weeks. Dyspnea is nonsignificant at rest. No fevers or cough. Patient did have outpatient computed tomography scan done showing concerns for new left- sided more thorax that appears loculated with hydropneumothorax approximately 15-20%. There is also somewhat poorly focal right-sided airspace disease concerning for multifocal pneumonia. Patient was started on Zosyn. They did speak with Dr. Pedro as well as Dr. Dhillon and recommendation was to be to transfer to [facility] for further care. No chest tube was recommended per report. - Related Data Home Medications Medication Instructions Recorded Confirmed Atorvastatin [Lipitor] 80 mg PO HS 01/27/18 05/04/19 Aspirin 81 mg PO HS 05/04/19 05/04/19 Spironolactone 25 mg PO HS 05/04/19 05/04/19 predniSONE See Taper PO DIRECTED 05/04/19 05/04/19 Previous Rx's Medication Instructions Recorded Metoprolol Tartrate [Lopressor] 25 mg PO BID #60 tab 06/14/18 Allergies Allergy/AdvReac Type Severity Reaction Status Date / Time No Known Allergies Allergy Verified 05/04/19 17:27 Review of Systems ROS Statement: Those systems with pertinent positive or pertinent negative responses have been documented in the HPI. ROS Other: All systems not noted in ROS Statement are negative. Constitutional: Denies: fever Eyes: Denies: eye pain ENT: Denies: ear pain Respiratory: Reports: dyspnea Cardiovascular: Denies: chest pain Endocrine: Reports: fatigue (With exertion) Gastrointestinal: Denies: abdominal pain Genitourinary: Denies: dysuria Musculoskeletal: Denies: back pain Skin: Denies: rash Neurological: Denies: weakness Past Medical History Past Medical History: Cancer, COPD, Hyperlipidemia, Hypertension, Pneumonia, Prostate Disorder Additional Past Medical History / Comment(s): PAST PLEURAL EFFUSION, LUNG CANCER WITH CHEMO ON 06-02-18, umbilical hernia, history of prostate cancer, hypertension, hyperlipidemia, COPD, osteoarthritis, Radiation for Prostate Cancer. History of Any Multi-Drug Resistant Organisms: None Reported Past Surgical History: Hernia Repair, Joint Replacement Additional Past Surgical History / Comment(s): 12/31/17 bronchoscopy w/ bx. Total L hip anterior approach. link cataracts, lt ing hernia.lt thoracentesis 01/21/18 Past Anesthesia/Blood Transfusion Reactions: No Reported Reaction Additional Past Anesthesia/Blood Transfusion Reaction / Comment(s): Claustrophobic Past Psychological History: No Psychological Hx Reported Smoking Status: Former smoker Past Alcohol Use History: None Reported Past Drug Use History: None Reported - Past Family History Mother Family Medical History: Cancer Additional Family Medical History / Comment(s): Mother had breast cancer and of leukemia at the age of 76yrs. Father Additional Family Medical History / Comment(s): Father of a "broken heart" after his spouses . Sister(s) Family Medical History: Cancer Additional Family Medical History / Comment(s): Breast cancer. General Exam Limitations: no limitations General appearance: alert, in no apparent distress Head exam: Present: normocephalic Eye exam: Present: normal appearance Neck exam: Present: normal inspection Respiratory exam: Present: rhonchi. Absent: respiratory distress, accessory muscle use Cardiovascular Exam: Present: regular rate, normal rhythm GI/Abdominal exam: Present: soft. Absent: tenderness Extremities exam: Present: normal inspection. Absent: pedal edema, calf tenderness Neurological exam: Present: alert Psychiatric exam: Present: normal affect, normal mood Skin exam: Present: normal color Course Vital Signs 05/04/19 16:41 Temperature 97.9 F Pulse Rate 89 Respiratory 20 Rate Blood Pressure 116/69 O2 Sat by Pulse 93 L Oximetry - Reevaluation(s) Reevaluation #1: 05/04/19 17:03 Dr. Dhillon has been paged 05/04/19 17:35 Dr. Dhillon has been paged again 05/04/19 18:08 Case was discussed in detail with Dr. Dhillon who is made aware of this patient and will consult. EKG Findings - EKG Comments: EKG Findings:: Normal sinus rhythm at 89. MO 148. QRS 78. QT 344. QTC 418. Normal axis. Low QRS voltage. Septal Q waves. No acute ST change. Disposition Clinical Impression: Multifocal pneumonia, Pneumothorax Disposition: ADMITTED IP TO THIS HOSP Is patient prescribed a controlled substance at d/c from ED?: No Referrals: Romario Oseguera MD [Primary Care Provider] - 1-2 days Decision Time: 18:09
[2019-05-04] MEDS ORDERED: LEVOFLOXACIN 750MG-D5W PMX 750 MG in DEXTROSE/WATER 1 150ML.BAG IVPB STA (18:12)
[2019-05-04] MEDS ORDERED: IPRATROPIUM-ALBUTEROL 3 ML NEB INHALATION PRN (18:12)
[2019-05-04] MEDS ORDERED: PNEUMONIA PROTOCOL UTILIZED 1 EACH MISC PO PRN (18:12)
--- NOTE | 2019-05-04 19:17 | XR ---
EXAMINATION TYPE: XR chest 1V portable DATE OF EXAM: 05/04/2019 COMPARISON: 11/23/2018 HISTORY: Dyspnea TECHNIQUE: Chest is examined in the upright frontal projection and compared to 11/23/2018 FINDINGS: The heart size is normal. The mediastinum is shifted to the left. There is some left rotati on present. Consolidation is in the periphery of the right mid lung. Small right pleural effusion is present. Left lower lobe infiltrate is present. Pleural effusion is not excluded. IMPRESSION: 1. A large consolidation in the periphery of the left lung. Correlate for pneumonia. 2. Small right pleural effusion. 3. Mediastinal shift which appears to be chronic. 4. Left lower lobe infiltrate should be considered.
[2019-05-04] MEDS ORDERED: CALCIUM CARBONATE 500 MG CHEWABLE PO PRN (22:00)
[2019-05-04] MEDS: METOPROLOL TARTRATE 25 MG TAB PO SCH (22:35)
[2019-05-04] MEDS: ATORVASTATIN 80 MG TAB PO SCH (22:37)
[2019-05-04] MEDS: ASPIRIN 81 MG PO SCH (22:37)
[2019-05-04] MEDS: SPIRONOLACTONE 25 MG TAB PO SCH (22:37)
[2019-05-04 22:56] VITALS: BMI 21.9
[2019-05-04] MEDS: MELATONIN 3 MG TABLET PO PRN (23:03)
[2019-05-04] MEDS: PIPERACILLIN-TAZOBACTAM 3.375 GM in SODIUM CHLORIDE 0.9% 100 ML IVPB SCH (23:41)
[2019-05-05 05:23] LABS: Anisocytosis Slight; Basophils % (A) 1 %; Eosinophils % (A) 0 %; HCT 29.4 % (39.0-53.0); HGB 8.9 gm/dL (13.0-17.5); Hypochromasia Slight; Lymphocytes # (A) 0.6 k/uL (1.0-4.8); Lymphocytes % (A) 13 %; MCH 27.5 pg (25.0-35.0); MCHC 30.1 g/dL (31.0-37.0); MCV 91.1 fL (80.0-100.0); Mean Platelet Volume 7.3; Monocytes # (A) 0.3 k/uL (0-1.0); Monocytes % (A) 7 %; Neutrophils # (A) 3.8 k/uL (1.3-7.7); Neutrophils % (A) 78 %; Platelet Count 223 k/uL (150-450); RBC 3.23 m/uL (4.30-5.90); RDW 16.3 % (11.5-15.5); WBC 4.9 k/uL (3.8-10.6)
[2019-05-05 05:32] LABS: Calcium 8.8 mg/dL (8.4-10.2); Potassium 4.9 mmol/L (3.5-5.1)
[2019-05-05 07:11] LABS: Glucose,Whole Blood 125 mg/dL (75-99)
[2019-05-05] MEDS: METOPROLOL TARTRATE 25 MG TAB PO SCH ×2 (08:12→21:40)
[2019-05-05] MEDS: PIPERACILLIN-TAZOBACTAM 3.375 GM in SODIUM CHLORIDE 0.9% 100 ML IVPB SCH ×2 (08:12→16:04)
[2019-05-05] MEDS: ENOXAPARIN 40 MG/0.4 ML SYRINGE SQ SCH ×2 (08:13→08:18)
[2019-05-05] MEDS ORDERED: predniSONE 20 MG TAB PO SCH (09:00)
--- NOTE | 2019-05-05 09:26 | XR ---
EXAMINATION TYPE: XR chest 2V DATE OF EXAM: 05/05/2019 COMPARISON: 05/04/2019 TECHNIQUE: PA and lateral views submitted. HISTORY: Follow-up pneumonia FINDINGS: Diffuse bilateral pleural-parenchymal changes there is focal consolidation and pleural effusion stabl e. There is volume loss on the left with deviation mediastinum. Biapical pleural thickening. Atherosclerotic change aorta. No significant interval change. Underlying neoplastic process not excluded. IMPRESSION: 1. Stable diffuse pleural-parenchymal changes.
[2019-05-05 11:35] LABS: Glucose,Whole Blood 130 mg/dL (75-99)
[2019-05-05] MEDS: IPRATROPIUM-ALBUTEROL 3 ML NEB INHALATION SCH ×2 (13:00→21:28)
[2019-05-05] MEDS: methylPREDNISolone SOD SUCCI 125 MG/2 ML VIAL IV SCH ×2 (13:08→18:07)
--- NOTE | 2019-05-05 16:25 | P.CNPUL ---
History of Present Illness Consult date: 05/05/19 Reason for consult: dyspnea History of present illness: This is a 68-year-old male patient who was transferred from [facility] emergency department for further evaluation of shortness of breath as the patient is a complicated history of COPD and non-small cell lung cancer. The patient has COPD with an FEV1 of 47% of predicted. The patient is known to have coronary artery disease, history of prostate cancer, and osteoarthritis. Initial diagnosis with lung cancer was in 2016 and at that time the patient had a nondiagnostic bronchoscopy and following that the patient a fine-needle aspiration that confirmed the presence of squamous cell carcinoma. The patient was given stage III disease and he had a bulky pleural-based mass in the left lower lobe. Subsequently the patient was given a combination of chemoradiation therapy. He developed a left-sided pleural effusion and pleural fluid was drained and the cytology came back negative for malignancy. Upon follow-up, a CAT scan of the chest was done in June 2018 and the CAT scan showed pulmonary nodules on the right, multiple, consistent with metastatic disease in addition to that there was volume loss in the left lung base and chronic radiation changes and some residual tumor. At that point the patient was started on Keytruda. The patient a PET scan on 10/16/2018 and subsequently another PET scan was done on 02/06/2019 that showed volume loss in the left hemithorax. Th ere was extensive pleural and parenchymal changes on the left along with some metabolic activity and air bronchograms however the left lower lobe with an SUV of 6.6 compared to 4.7 on previous PET scan evaluation. The right-sided pulmonary nodules compared to the June CAT scan have subsided and there is still a right lower lobe subpleural lesion measuring 18 mm in size with an SUV of 9.8. The pleural fluid on the left did not show any metabolic activity. No suspicious uptake within the abdomen and pelvis area. Based on his findings, performed a bronchoscopy on this patient and the bronchioloalveolar lavage of the left lower lobe showed no evidence of any microbial growth on the fluid cy tology was negative for malignancy. The patient was asked to continue the Keytruda treatment. During his most recent last 2 sessions of Keytruda treatment, the patient experienced increased shortness of breath. He did contact his nurse practitioner at the oncology clinic and the patient was given a Medrol Dosepak. The first round of Medrol Dosepak helped and the second one did not show any much improvement. During this time the patient had a follow-up CAT scan that was done on 04/24/2019. The PET scan showed increased metabolic activity in the posterior right mid and lower lobe nodules and there was also new moderate-sized right-sided pleural effusion that did not completely layer in addition to a right lateral lung masslike consolidation that showed increased metabolic activity with an SUV of 5.21 . There was also persistent volume loss in the left lung base with a mediastinal shift to the left. There was persistent parenchymal pleural changes in the mid and lower lung with interval improvement in some of the metabolic activity in the left lung base and according to the radiologist there was some improvement in the left lung basilar findings. Right lung findings are all new. No new areas of metabolic activity in the abdomen and pelvis and in the bony structures. Note that during this time, the patient was experiencing 2 shortness of breath. No chest pain. No pleurisy. No hemoptysis. No fever. No chills. No altered mentation. His white cell count is not elevated at 4.9. His renal function shows a creatinine of 1.47 which is pretty much comparable to his previous kidney functions from November 2018. No headaches. No altered mentation. Review of Systems Constitutional Constitutional: no fever, no night sweats, no significant weight gain, significant weight loss, exercise intolerance with worsening shortness of breath Eyes Eyes: no dry eyes, no vision change, no irritation ENMT Ears: no difficulty hearing, no ear pain Nose: no frequent nosebleeds, no nose problems, no sinus problems Mouth/Throat: no sore throat, no bleeding gums, no snoring, no dry mouth, no mouth ulcers, no oral abnormalities, no teeth problems Cardiovascular Cardiovascular: no chest pain, no arm pain on exertion, no shortness of breath when lying down, no palpitations, no known heart murmur, shortness of breath when walking Respiratory Respiratory: no wheezing, no coughing up blood, no sleep apnea, cough, shortness of breath Gastrointestinal Gastrointestinal: no abdominal pain, no nausea, no vomiting, no constipation, normal appetite, no diarrhea, not vomiting blood, no dyspepsia, no GERD, change in appetite Genitourinary Genitourinary: no incontinence, no difficulty urinating, no hematuria, no increased frequency Musculoskeletal Musculoskeletal: no muscle aches, no muscle weakness, no arthralgias/joint pain, no back pain, no swelling in the extremities Integumentary Skin: no abnormal mole, no jaundice, no rashes, no laceration Neurologic Neurologic: no loss of consciousness, no weakness, no numbness, no seizures, no dizziness, no migraines, no headaches, no tremor Psychiatric Psych: no depression, no sleep disturbances, feeling safe in a relationship, no alcohol abuse, no anxiety, no hallucinations, no suicidal thoughts Endocrine Endocrine: Increased fatigue Hematologic/Lymphatic Hematologic/Lymphatic no swollen glands, no bruising, no excessive bleeding Allergic/Immunologic Allergy/Immunologic: no runny nose, no sinus pressure, no itching, no hives, no frequent sneezing Past Medical History Past Medical History: Cancer, COPD, Hyperlipidemia, Hypertension, Pneumonia, Pro state Disorder Additional Past Medical History / Comment(s): Squamous cell carcinoma of the lung, 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 Total L hip anterior approach. link cataracts, lt ing hernia,lt thoracentesis 01/21/18 Past Anesthesia/Blood Transfusion Reactions: No Reported Reaction Additional Past Anesthesia/Blood Transfusion Reaction / Comment(s): Claustrophobic with PET scan. Blood transfusion in May of 2018 total of 7 units of blood. Past Psychological History: No Psychological Hx Reported Additional Psychological History / Comment(s): Lives with in own. Smoking Status: Former smoker Past Alcohol Use History: Occasional Additional Past Alcohol Use History / Comment(s): Pt started smoking in 1968 and quit in 2004, smoked 1 ppd. Beer occassionally. Past Drug Use History: None Reported - Past Family History Mother Family Medical History: Cancer Additional Family Medical History / Comment(s): Mother had breast cancer and of leukemia at the age of 76yrs. Father Additional Family Medical History / Comment(s): Father of a "broken heart" after his spouses . Sister(s) Family Medical History: Cancer Additional Family Medical History / Comment(s): Breast cancer Medications and Allergies Home Medications Medication Instructions Recorded Confirmed Type Atorvastatin [Lipitor] 80 mg PO HS 01/27/18 05/04/19 History Metoprolol Tartrate [Lopressor] 25 mg PO BID #60 tab 06/14/18 05/04/19 Rx Aspirin 81 mg PO HS 05/04/19 05/04/19 History Spironolactone 25 mg PO HS 05/04/19 05/04/19 History predniSONE See Taper PO DIRECTED 05/04/19 05/04/19 History Allergies Allergy/AdvReac Type Severity Reaction Status Date / Time No Known Allergies Allergy Verified 05/04/19 17:27 Physical Exam Vitals: Vital Signs Temp Pulse Pulse Pulse Resp BP BP 05/05/19 13:10 73 05/05/19 13:01 72 05/05/19 12:04 97.9 F 64 17 106/63 05/05/19 04:42 97.5 F L 72 18 05/04/19 22:33 85 18 05/04/19 20:43 98.1 F 87 15 107/70 05/04/19 20:29 17 05/04/19 19:29 80 05/04/19 19:21 80 05/04/19 19:00 84 18 147/90 05/04/19 18:12 18 05/04/19 16:41 97.9 F 89 20 116/69 BP Pulse Ox 05/05/19 13:10 05/05/19 13:01 05/05/19 12:04 93 L 05/05/19 04:42 102/67 97 05/04/19 22:33 108/68 98 05/04/19 20:43 99 05/04/19 20:29 05/04/19 19:29 05/04/19 19:21 05/04/19 19:00 05/04/19 18:12 94 L 05/04/19 16:41 93 L Intake and Output 05/05/19 05/05/19 05/05/19 06:59 14:59 22:59 Intake Total 400 100 Balance 400 100 Intake: Intake, IV Titration 100 100 Amount Piperacillin-Tazobactam 3 100 100 .375 gm In Sodium Chloride 0.9% 100 ml @ 25 mls/hr IVPB Q8HR MARQUEZ Rx# :[id number] Oral 300 Other: Voiding Method Urinal # Voids 2 3 General Appearance no diaphoresis, no respiratory distress, speech not interrupted by breaths, no dyspnea, no pallor, not cachectic, well nourished, appears well HEENT no pursed lip breathing, no jugular venous distention, no mucous membrane cyanosis, no perioral cyanosis, mallampati classification: class 1, Mallampati Classification: Class 3 Chest no retractions, no sternocleidomastoid muscle contractions, no supraclavicular retractions, no intercostal retractions, no decreased air movement, no rhonchi, no hyperinflation, (normal) adventitious sounds: rales / crackles: bilaterally: midlung mar, barrel chest, prolonged expiratory wheez ing, decreased air movement in the left lung base. There is also some faint crackles on the right midlung area. Heart no right ventricular heave, no distant heart sounds, no s3 gallop, (normal) jugular vein: jugular venous distention: by 0cm, (normal) jugular vein GI bowel sounds: hyperactive (borborygmi), bowel sounds: diminished or absent Extremities no cyanosis, no clubbing, no edema Neurologic no decreased mental status, no somnolence, no confusion Assisstive Devices: ambulates with no assitive devices Gait and Mobility: gait WNL, full weight bearing Results - Laboratory Findings CBC and BMP: 05/05/19 05:06 05/05/19 05:06 Abnormal lab findings: Abnormal Labs 05/05/19 05/05/19 05/05/19 05:06 05:06 07:08 RBC 3.23 L Hgb 8.9 L Hct 29.4 L MCHC 30.1 L RDW 16.3 H Lymphocytes # 0.6 L Sodium 135 L BUN 30 H Creatinine 1.47 H Glucose 114 H POC Glucose (mg/dL) 125 H 05/05/19 11:24 RBC Hgb Hct MCHC RDW Lymphocytes # Sodium BUN Creatinine Glucose POC Glucose (mg/dL) 130 H - Diagnostic Findings CT scan - chest: image reviewed Assessment and Plan Plan: 1 squamous cell carcinoma of the lung, TNM stage IV, the patient was treated with a combination of chemoradiation therapy and currently is on immunotherapy with Keytruda. During the course of his treatment, the patient developed left lower lobe atelectasis with some residual fibrosis along the left lung service causing significant volume loss. I do not see any evidence of endobronchial tumor obstructing left lower lobe bronchus and a bronchoscopy that was done few months back. The cultures from the left lower lobe were also negative. The patient had a subsequent CAT scan of the chest and a PET scan that showed ongoing volume loss in the left lung base with a area of small hydropneumothorax on the left. Nevertheless, the abnormal findings were essentially on the right where the patient developed a loculated right-sided pleural effusion along with an extensive consolidation in the periphery of the right lung with increased metabolic activity. The exact nature of this abnormality is not clear. Consider infectious agent such as bacterial pneumonia. Consider interstitial pneumonitis drug-induced. Consider progression of malignancy. Noted the patient did have nodular densities on the right that has shown increased metabolic activity consistent with stage IV disease 2 COPD moderate to severe maintain on examination Spiriva and Symbicort 3 pleural effusion drained from the left and there was no evidence of any malignancy 4 history of prostate cancer 5 BPH 6 osteoarthritis Plan We'll perform another bronchoscopy on this patient tomorrow and obtain a bronchioloalveolar lavage of the right lung to rule out any infectious causes. Put the patient on examination Zosyn and Levaquin. Put the patient IV Solu- Medrol. Monitor the progression. Stop immunotherapy for now. Case was discussed with oncology. Case was discussed with the family.
[2019-05-05 17:26] LABS: Glucose,Whole Blood 224 mg/dL (75-99)
[2019-05-05] MEDS: INSULIN ASPART (NovoLOG) 100 UNIT/ML VIAL SQ SCH ×2 (18:12→21:45)
[2019-05-05 21:07] LABS: Glucose,Whole Blood 206 mg/dL (75-99)
[2019-05-05] MEDS: SPIRONOLACTONE 25 MG TAB PO SCH (21:44)
[2019-05-05] MEDS: ASPIRIN 81 MG PO SCH (21:44)
[2019-05-05] MEDS: ATORVASTATIN 80 MG TAB PO SCH (21:44)
[2019-05-05] MEDS: MELATONIN 3 MG TABLET PO PRN (21:44)
--- NOTE | 2019-05-05 23:13 | P.HPIM ---
History of Present Illness H&P Date: 05/05/19 Chief Complaint: Short of breath History of presenting complaint: This is a very pleasant 68-year-old patient of Dr. Ray Oseguera. Patient presented to [facility] after he presented there for progressive shortness of breath. Patient has a diagnosis of non-small cell lung cancer and has been getting treatment every 3 weeks by oncology. Chronic stable medical conditions include coronary artery disease, prostate cancer, or strength redness. Patient initially diagnosed with lung cancer in 2017 needle biopsy did confirm squamous cell carcinoma. Patient did get chemoradiation. Patient has been currently gettingKeytruda. Patient of recent has been getting progressively more and more short of breath. No cough. No fever and chills. Appetite had gone to [place] over the last few days. Patient also recently had a bronchoscopy. Patient recently recently had a PET scan that showed increased metabolic activity. Also increasing pleural effusion. And some volume loss on the left lung. Also parenchymal changes. Patient was therefore transferred f [facility] to [facility] here. Review of systems: GEN.: Tired EYES: None HEENT: None NECK: None RESPIRATORY: As above CARDIOVASCULAR: None GASTROINTESTINAL: None GENITOURINARY: None MUSCULOSKELETAL: None LYMPHATICS: None HEMATOLOGICAL: None PSYCHIATRY: None NEUROLOGICAL: None Past medical history to include: COPD, hyperlipidemia, hypertension, squamous cell carcinoma of the lung, stage 3-4, pleural effusion, umbilical hernia, prostate cancer, osteoarthritis Social history: Patient smoked for about 36 years stopped in 2004. 1 pack a day. Pedal occasionally. . Physical examination: VITAL SIGNS: 97.9, 89, 20, 1160 69, 93% room air GENERAL: [BMI 22.2, laying in bed, awake. EYES: Pupils equal. Conjunctiva palel. HEENT: External appearance of nose and ears normal, oral cavity grossly normal. NECK: JVD not raised; masses not palpable. HEART: First and second heart sounds are normal; no edema. LUNGS: Respiratory rate increased, decreased breath sounds. ABDOMEN: Soft, nontender, liver spleen not palpable, no masses palpable. PSYCH: Alert and oriented x3; mood and affect normal. NEUROLOGICAL: Cranial nerves grossly intact; no facial asymmetry, power and sensation grossly intact. LYMPHATICS: No lymph nodes palpable in the axilla and neck INVESTIGATIONS, reviewed in the clinical context: White count 4.9 hemoglobin 8.9 platelets 223 progression 4.9 BUN 30 creatinine 1.47 pro calcitonin 0.23 EKG tracing personally reviewed by me-low voltage, normal sinus rhythm Chest x-ray film personally reviewed by me-large left pleural effusion, infiltrate of the right side, mediastinal shift Assessment: -Squamous cell carcinoma for long stage IV, status post chemoradiation treatment currently on immunotherapy with the [place], with appearance of clinically progressive disease -Increasing consolidation of the chest x-ray, could be combination of pneumonia and/or malignancy progression with secondary pleural effusion for the same. Clinically patient does not appear to be septic -COPD in an ex-smoker -Hyperlipidemia -Essential hypertension -Umbilical hernia -Primary osteoarthritis Plan: Consultations made to pulmonary and oncology. Patient is on bronchodilators and IV steroids. Also put on IV antibiotics per pulmonary. Care was discussed with the patient and family the bedside. Questions were answered. Lovenox for DVT prophylaxis. Prognosis guarded. Past Medical History Past Medical History: Cancer, COPD, Hyperlipidemia, Hypertension, Pneumonia, Prostate Disorder Additional Past Medical History / Comment(s): PAST PLEURAL EFFUSION, LUNG CANCER WITH CHEMO ON 06-02-18 Keytruda every three weeks IV (immunetherapy) last radiation 06-02-18, prostate cancer: radiation in March 2016 no issues since, umbilical hernia, history of prostate cancer, osteoarthritis, History of Any Multi-Drug Resistant Organisms: None Reported Past Surgical History: Hernia Repair, Joint Replacement Additional Past Surgical History / Comment(s): 12/31/17 bronchoscopy w/ bx. Total L hip anterior approach. link cataracts, lt ing hernia,lt thoracentesis 01/21/18 Past Anesthesia/Blood Transfusion Reactions: No Reported Reaction Additional Past Anesthesia/Blood Transfusion Reaction / Comment(s): Claustrophobic with PET scan. Blood transfusion in May of 2018 total of 7 units of blood. Past Psychological History: No Psychological Hx Reported Additional Psychological History / Comment(s): Lives with in own. Smoking Status: Former smoker Past Alcohol Use History: Occasional Additional Past Alcohol Use History / Comment(s): Pt started smoking in 1968 and quit in 2004, smoked 1 ppd. Beer occassionally. Past Drug Use History: None Reported - Past Family History Mother Family Medical History: Cancer Additional Family Medical History / Comment(s): Mother had breast cancer and of leukemia at the age of 76yrs. Father Additional Family Medical History / Comment(s): Father of a "broken heart" after his spouses . Sister(s) Family Medical History: Cancer Additional Family Medical History / Comment(s): Breast cancer Medications and Allergies Home Medications Medication Instructions Recorded Confirmed Type Atorvastatin [Lipitor] 80 mg PO HS 01/27/18 05/04/19 History Metoprolol Tartrate [Lopressor] 25 mg PO BID #60 tab 06/14/18 05/04/19 Rx Aspirin 81 mg PO HS 05/04/19 05/04/19 History Spironolactone 25 mg PO HS 05/04/19 05/04/19 History predniSONE See Taper PO DIRECTED 05/04/19 05/04/19 History Allergies Allergy/AdvReac Type Severity Reaction Status Date / Time No Known Allergies Allergy Verified 05/04/19 17:27 Physical Exam Vitals: Vital Signs Temp Pulse Pulse Pulse Resp BP BP 05/05/19 04:42 97.5 F L 72 18 102/67 05/04/19 22:33 85 18 108/68 05/04/19 20:43 98.1 F 87 15 107/70 05/04/19 20:29 17 05/04/19 19:29 80 05/04/19 19:21 80 05/04/19 19:00 84 18 147/90 05/04/19 18:12 18 05/04/19 16:41 97.9 F 89 20 116/69 Pulse Ox 05/05/19 04:42 97 05/04/19 22:33 98 05/04/19 20:43 99 05/04/19 20:29 05/04/19 19:29 05/04/19 19:21 05/04/19 19:00 05/04/19 18:12 94 L 05/04/19 16:41 93 L Intake and Output 05/04/19 05/05/19 05/05/19 22:59 06:59 14:59 Intake Total 700 400 Balance 700 400 Intake: Intake, IV Titration 100 100 Amount Levofloxacin 750Mg-D5w 100 Pmx 750 mg In Dextrose/ Water 1 150ml.bag @ 100 mls/hr IVPB ONCE STA Rx#: [id number] Piperacillin-Tazobactam 3 100 .375 gm In Sodium Chloride 0.9% 100 ml @ 25 mls/hr IVPB Q8HR [facility] Rx# :[id number] Oral 600 300 Other: Voiding Method Urinal # Voids 2 2 Weight 68.039 kg Results CBC & Chem 7: 05/05/19 05:06 05/05/19 05:06 Labs: Abnormal Lab Results - Last 24 Hours (Table) 05/05/19 05/05/19 05/05/19 Range/Units 05:06 05:06 07:08 RBC 3.23 L (4.30-5.90) m/uL Hgb 8.9 L (13.0-17.5) gm/dL Hct 29.4 L (39.0-53.0) % MCHC 30.1 L (31.0-37.0) g/dL RDW 16.3 H (11.5-15.5) % Lymphocytes # 0.6 L (1.0-4.8) k/uL Sodium 135 L (137-145) mmol/L BUN 30 H (9-20) mg/dL Creatinine 1.47 H (0.66-1.25) mg/dL Glucose 114 H (74-99) mg/dL POC Glucose (mg/dL) 125 H (75-99) mg/dL Thrombosis Risk Factor Assmnt - Choose All That Apply Each Factor Represents 1 point: Abnormal pulmonary function (COPD), Serious lung disease incl. pneumonia (< 1month) Each Risk Factor Represents 2 Points: Age 61-74 years Thrombosis Risk Factor Assessment Total Risk Factor Score: 4 Thrombosis Risk Factor Assessment Level: Moderate Risk
[2019-05-06] MEDS: methylPREDNISolone SOD SUCCI 125 MG/2 ML VIAL IV SCH ×3 (00:05→16:02)
[2019-05-06] MEDS: PIPERACILLIN-TAZOBACTAM 3.375 GM in SODIUM CHLORIDE 0.9% 100 ML IVPB SCH ×2 (00:05→08:31)
[2019-05-06 07:04] LABS: Glucose,Whole Blood 162 mg/dL (75-99)
[2019-05-06] MEDS: IPRATROPIUM-ALBUTEROL 3 ML NEB INHALATION SCH ×2 (07:25→13:18)
[2019-05-06] MEDS: INSULIN ASPART (NovoLOG) 100 UNIT/ML VIAL SQ SCH ×2 (08:28→16:21)
[2019-05-06 11:16] LABS: Glucose,Whole Blood 144 mg/dL (75-99)
[2019-05-06] MEDS ORDERED: IV FLUID CONTINUATION 1,000 ML IV ONE (12:27)
[2019-05-06] MEDS ORDERED: KETAMINE 10 MG/ML 20 ML VIAL ONE (12:31)
[2019-05-06] MEDS ORDERED: fentaNYL (PF) 50 MCG/ML 2 ML AMP ONE (12:31)
[2019-05-06] MEDS ORDERED: PROPOFOL 10 MG/ML 20 ML VIAL IV ONE (12:31)
[2019-05-06] MEDS ORDERED: MIDAZOLAM 2 MG/2 ML VIAL ONE (12:31)
[2019-05-06] MEDS ORDERED: LIDOCAINE 2% INJ 20 MG/ML INTRATRACH ONE ×2 (12:33→12:41)
--- NOTE | 2019-05-06 13:26 | PCN ---
PROCEDURE NOTE PREOPERATIVE DIAGNOSIS: Right lung consolidation, history of squamous cell carcinoma of the left lung. POSTOPERATIVE DIAGNOSIS: Right lung consolidation, history of squamous cell carcinoma of the left lung. PROCEDURE PERFORMED: PROCEDURE: This procedure was done under conscious sedation. Anesthetic agent was administered by Anesthesia at the bedside. After achieving adequate sedation, the flexible bronchoscope was inserted through right nostril was advanced upper airway. Examination of the posterior oropharynx, larynx, epiglottis and vocal cords was done and all of this upper airway structures within normal limits. A total of 2 mL 1% lidocaine was applied to the vocal cords. Then following that, the bronchoscope was advanced to the upper trachea. Examination of the tracheobronchial tree was done. Visualized airways included the trachea, bilateral mainstem bronchi, right upper lobe bronchus that was trifurcated anterior, posterior and apical segments were all seen. The anterior segment was slightly inflamed. Yet, it was patent and open without any significant endobronchial tumors or lesions. Bronchus intermedius, right middle lobe bronchus, right lower lobe bronchus, segments and subsegments were noted and they were all patent and free of any endobronchial tumor. Examination of the left side revealed the left mainstem bronchus, left upper lobe bronchus along with lingular segment and the left lower lobe bronchus were all seen. The segments in the left lower lobe bronchus were somewhat atelectatic and there was some mucus retained within the patient's airway then they were suctioned out. Bronchoscope was moved to the upper lobe and the bronchoalveolar lavage of anterior segment was done where a total of 60 mL of fluid was infused and 20 mL was suctioned back. Following that, using fluoroscopic guidance, transbronchial biopsies of the right upper lobe was done. A total of 3 passes were obtained. No bleeding was encountered. Therapeutic airway suctioning was done. Bronchoscope was removed and the patient was transferred to recovery in stable condition. A chest x-ray is to follow. Further recommendations are to follow based on the result. MMODL / IJN: [id number] /
--- NOTE | 2019-05-06 13:32 | P.PN ---
Subjective Progress Note Date: 05/06/19 Principal diagnosis: Squamous cell carcinoma of the lung, TNM stage IV, increased metabolic activity in the periphery of the right lung on the PET scan, consider progression of miguel gnancy This is a 68-year-old male patient who was transferred from [facility] emergency department for further evaluation of shortness of breath as the patient is a complicated history of COPD and non-small cell lung cancer. The patient has COPD with an FEV1 of 47% of predicted. The patient is known to have coronary artery disease, history of prostate cancer, and osteoarthritis. Initial diagnosis with lung cancer was in 2016 and at that time the patient had a nondiagnostic bronchoscopy and following that the patient a fine-needle aspiration that confirmed the presence of squamous cell carcinoma. The patient was given stage III disease and he had a bulky pleural-based mass in the left lower lobe. Subsequently the patient was given a combination of chemoradiation therapy. He developed a left-sided pleural effusion and pleural fluid was drained and the cytology came back negative for malignancy. Upon follow-up, a CAT scan of the chest was done in June 2018 and the CAT scan showed pulmonary nodules on the right, multiple, consistent with metastatic disease in addition to that there was volume loss in the left lung base and chronic radiation changes and some residual tumor. At that point the patient was started on Keytruda. The patient a PET scan on 10/16/2018 and subsequently another PET scan was done on 02/06/2019 that showed volume loss in the left hemithorax. There was extensive pleural and parenchymal changes on the left along with some metabolic activity and air bronchograms however the left lower lobe with an SUV of 6.6 compared to 4.7 on previous PET scan evaluation. The right-sided pulmonary nodules compared to the June CAT scan have subsided and there is still a right lower lobe subpleural lesion measuring 18 mm in size with an SUV of 9.8. The pleural fluid on the left did not show any metabolic activity. No suspicious uptake within the abdomen and pelvis area. Based on his findings, performed a bronchoscopy on this patient and the bronchioloalveolar lavage of the left lower lobe showed no evidence of any microbial growth on the fluid cytology was negative for malignancy. The patient was asked to continue the Keytruda treatment. During his most recent last 2 sessions of Keytruda treatment, the patient experienced increased shortness of breath. He did contact his nurse practitioner at the oncology clinic and the patient was given a Medrol Dosepak. The first round of Medrol Dosepak helped and the second one did not show any much improvement. During this time the patient had a follow-up CAT scan that was done on 04/24/2019. The PET scan showed increased metabolic activity in the posterior right mid and lower lobe nodules and there was also new moderate-sized right-sided pleural effusion that did not completely layer in addition to a right lateral lung masslike consolidation that showed increased metabolic activity with an SUV of 5.21 . There was also persistent volume loss in the left lung base with a mediastinal shift to the left. There was persistent parenchymal pleural changes in the mid and lower lung with interval improvement in some of the metabolic activity in the left lung base and according to the radiologist there was some improvement in the left lung basilar findings. Right lung findings are all new. No new areas of metabolic activity in the abdomen and pelvis and in the bony structures. Note that during this time, the patient was experiencing 2 shortness of breath. No chest pain. No pleurisy. No hemoptysis. No fever. No chills. No altered mentation. His white cell count is not elevated at 4.9. His renal function shows a creatinine of 1.47 which is pretty much comparable to his previous kidney functions from November 2018. No headaches. No altered mentation. On 05/06/2019 patient seen in follow-up on medical surgical floor. Awake and alert, in no acute distress, vital signs are stable, remote pulse ox of 90%, no fever or chills. His breathing is stable, no acute events overnight, no worsening dyspnea. No significant cough or congestion. Patient is on bronchodilators and IV steroids, and empiric antibiotics. Blood and sputum culture showed no growth so far, no fever or chills. Objective - Vital Signs Vital signs: Vital Signs Temp 97.8 F 05/06/19 10:22 Pulse 78 05/06/19 13:18 Resp 18 05/06/19 10:22 BP 109/64 05/06/19 10:22 Pulse Ox 98 05/06/19 10:22 Intake & Output 05/05/19 05/06/19 05/06/19 18:59 06:59 18:59 Intake Total 100 700 300 Output Total 800 Balance 100 -100 300 Intake: IV 300 Intake, IV Titration 100 100 Amount Piperacillin-Tazobactam 3 100 100 .375 gm In Sodium Chloride 0.9% 100 ml @ 25 mls/hr IVPB Q8HR [facility] Rx# :[id number] Oral 600 Output: Urine 800 Other: Voiding Method Urinal Urinal # Voids 3 2 1 - Exam GENERAL EXAM: Alert, pleasant, 68-year-old white male, comfortable in no apparent distress. HEAD: Normocephalic/atraumatic. EYES: Normal reaction of pupils, equal size. Conjunctiva pink, sclera white. NOSE: Clear with pink turbinates. THROAT: No erythema or exudates. NECK: No masses, no JVD, no thyroid enlargement, no adenopathy. CHEST: No chest wall deformity. Symmetrical expansion. LUNGS: decreased air entry with no crackles, wheeze, rhonchi or dullness. CVS: Regular rate and rhythm, normal S1 and S2, no gallops, no murmurs, no rubs ABDOMEN: Soft, nontender. No hepatosplenomegaly, normal bowel sounds, no guarding or rigidity. EXTREMITIES: No clubbing, no edema, no cyanosis, 2+ pulses and upper and lower extremities. MUSCULOSKELETAL: Muscle strength and tone normal. SPINE: No scoliosis or deformity SKIN: No rashes CENTRAL NERVOUS SYSTEM: Alert and oriented -3. No focal deficits, tone is normal in all 4 extremities. PSYCHIATRIC: Alert and oriented -3. Appropriate affect. Intact judgment and insight. - Labs CBC & Chem 7: 05/05/19 05:06 05/05/19 05:06 Labs: Abnormal Lab Results - Last 24 Hours (Table) 05/05/19 05/05/19 05/05/19 Range/Units 05:07 17:09 21:05 POC Glucose (mg/dL) 224 H 206 H (75-99) mg/dL Procalcitonin 0.23 H (0.02-0.09) ng/mL 05/06/19 05/06/19 Range/Units 06:59 11:12 POC Glucose (mg/dL) 162 H 144 H (75-99) mg/dL Procalcitonin (0.02-0.09) ng/mL Microbiology - Last 24 Hours (Table) 05/05/19 21:33 Gram Stain - Preliminary Sputum Sputum Culture - Preliminary 05/04/19 19:53 Blood Culture - Preliminary Blood No Growth after 24 hours Assessment and Plan Plan: Assessment: 1 squamous cell carcinoma of the lung, TNM stage IV, the patient was treated with a combination of chemoradiation therapy and currently is on immunotherapy with Keytruda. During the course of his treatment, the patient developed left lower lobe atelectasis with some residual fibrosis along the left lung service causing significant volume loss. I do not see any evidence of endobronchial kaiden or obstructing left lower lobe bronchus and a bronchoscopy that was done few months back. The cultures from the left lower lobe were also negative. The patient had a subsequent CAT scan of the chest and a PET scan that showed ongoing volume loss in the left lung base with a area of small hydropneumothorax on the left. Nevertheless, the abnormal findings were essentially on the right where the patient developed a loculated right-sided pleural effusion along with an extensive consolidation in the periphery of the right lung with increased metabolic activity. The exact nature of this abnormality is not clear. Consider infectious agent such as bacterial pneumonia. Consider interstitial pneumonitis drug-induced. Consider progression of malignancy. Noted the patient did have nodular densities on the right that has shown increased metabolic activity consistent with stage IV disease 2 COPD moderate to severe maintain on examination Spiriva and Symbicort 3 pleural effusion drained from the left and there was no evidence of any malignancy 4 history of prostate cancer 5 BPH 6 osteoarthritis Plan: We'll proceed with bronchoscopy and biopsy of the right lower lobe. Continue with empiric antibiotics, cultures are negative thus far, patient denies any worsening dyspnea, no fever or chills, from pulmonary perspective if patient remains stable in the recovery period after the bronchoscopy he can be considered for discharge home with outpatient follow-up. Can go home on steroid taper, and he can finish outpatient course of antibiotics. His immunotherapy is on hold, medical oncology is following. I performed a history & physical examination of the patient and discussed their management with my nurse practitioner, Elizabeth Zavaleta. I reviewed the nurse practitioner's note and agree with the documented findings and plan of care. Lung sounds are positive for decreased breath sounds. The findings and the impression was discussed with the patient. I attest to the documentation by the nurse practitioner. Time with Patient: Less than 30
[2019-05-06 13:54] LABS: Estimated Average Glucose 93.9; Hemoglobin A1C 4.9 % (4.0-6.0)
--- NOTE | 2019-05-06 14:06 | FL ---
EXAMINATION TYPE: FL bronchoscopy DATE OF EXAM: 05/06/2019 HISTORY: Pneumonia Fluoroscopy support supplied to the referring clinician. See dictated report from pulmonary service, 27 seconds fluoroscopy time supplied to the referring clinician, intraoperative C-arm image document s the procedure
[2019-05-06 14:19] VITALS: BP 107/67; PULSE 94; RESP 17; TEMP 98
[2019-05-06 15:51] LABS: Albumin 3.3 g/dL (3.5-5.0); Anisocytosis Slight; Basophils % (A) 0 %; Calcium 8.9 mg/dL (8.4-10.2); Eosinophils % (A) 0 %; HCT 32.2 % (39.0-53.0); HGB 10.2 gm/dL (13.0-17.5); Hypochromasia Marked; Lymphocytes # (A) 0.5 k/uL (1.0-4.8); Lymphocytes % (A) 4 %; MCHC 31.9 g/dL (31.0-37.0); MCV 94.2 fL (80.0-100.0); Magnesium 1.5 mg/dL (1.6-2.3); Mean Platelet Volume 6.5; Monocytes # (A) 0.3 k/uL (0-1.0); Monocytes % (A) 3 %; Neutrophils # (A) 9.4 k/uL (1.3-7.7); Neutrophils % (A) 92 %; Phosphorus 3.5 mg/dL (2.5-4.5); Platelet Count 281 k/uL (150-450); Potassium 4.2 mmol/L (3.5-5.1); RBC 3.41 m/uL (4.30-5.90); RDW 16.5 % (11.5-15.5); Total Bilirubin 0.2 mg/dL (0.2-1.3); Total Protein 5.8 g/dL (6.3-8.2); Uric Acid 6.4 mg/dL (3.5-8.5); WBC 10.2 k/uL (3.8-10.6)
[2019-05-06] MEDS: ENOXAPARIN 40 MG/0.4 ML SYRINGE SQ SCH (16:02)
[2019-05-06] MEDS: METOPROLOL TARTRATE 25 MG TAB PO SCH (16:02)
--- NOTE | 2019-05-06 17:00 | P.CONS ---
History of Present Illness - Reason for Consult Consult date: 05/06/19 Hydropneumothorax, shortness of breath, lung cancer Review of Systems Constitutional: Reports fatigue, Reports weakness Eyes: denies blurred vision, denies pain Ears: deny: decreased hearing, ear discharge, earache, tinnitus Ears, nose, mouth and throat: Denies headache, Denies sore throat Cardiovascular: Reports shortness of breath Respiratory: Reports dyspnea Gastrointestinal: Denies abdominal pain, Denies diarrhea, Denies nausea, Denies vomiting Genitourinary: Reports as per HPI Musculoskeletal: Reports muscle weakness Integumentary: Denies pruritus, Denies rash Neurological: Reports weakness Psychiatric: Reports anxiety Endocrine: Reports fatigue, Reports weight change Hematologic/Lymphatic: Reports as per HPI Past Medical History Past Medical History: Cancer, COPD, Hyperlipidemia, Hypertension, Pneumonia, Prostate Disorder Additional Past Medical History / Comment(s): PAST PLEURAL EFFUSION, LUNG CANCER WITH CHEMO ON 06-02-18 Keytruda every three weeks IV (immunetherapy) last radiation 06-02-18, prostate cancer: radiation in March 2016 no issues since, umbilical hernia, history of prostate cancer, osteoarthritis, History of Any Multi-Drug Resistant Organisms: None Reported Past Surgical History: Hernia Repair, Joint Replacement Additional Past Surgical History / Comment(s): 12/31/17 bronchoscopy w/ bx. Total L hip anterior approach. link cataracts, lt ing hernia,lt thoracentesis 01/21/18 Past Anesthesia/Blood Transfusion Reactions: No Reported Reaction Additional Past Anesthesia/Blood Transfusion Reaction / Comm: Claustrophobic with PET scan. Blood transfusion in May of 2018 total of 7 units of blood. Past Psychological History: No Psychological Hx Reported Additional Psychological History / Comment(s): Lives with in own. Smoking Status: Former smoker Past Alcohol Use History: Occasional Additional Past Alcohol Use History / Comment(s): Pt started smoking in 1968 and quit in 2004, smoked 1 ppd. Beer occassionally. Past Drug Use History: None Reported - Past Family History Mother Family Medical History: Cancer Additional Family Medical History / Comment(s): Mother had breast cancer and of leukemia at the age of 76yrs. Father Additional Family Medical History / Comment(s): Father of a "broken heart" after his spouses . Sister(s) Family Medical History: Cancer Additional Family Medical History / Comment(s): Breast cancer Medications and Allergies Home Medications Medication Instructions Recorded Confirmed Type Atorvastatin [Lipitor] 80 mg PO HS 01/27/18 05/04/19 History Metoprolol Tartrate [Lopressor] 25 mg PO BID #60 tab 06/14/18 05/04/19 Rx Aspirin 81 mg PO HS 05/04/19 05/04/19 History Spironolactone 25 mg PO HS 05/04/19 05/04/19 History Albuterol Sulfate [Albuterol 1 puff PO Q6H PRN #1 inhaler 05/06/19 Rx Sulfate Hfa] Amoxicillin/Potassium Clav 1 tab PO Q12HR #14 tab 05/06/19 Rx [Augmentin 875-125 Tablet] Ipratropium [place] [Atrovent Hfa] 2 puff INHALATION QID #1 inhaler 05/06/19 Rx predniSONE 0 mg PO DIRECTED #100 tab 05/06/19 Rx Allergies Allergy/AdvReac Type Severity Reaction Status Date / Time No Known Allergies Allergy Verified 05/04/19 17:27 Physical Exam Vitals: Vital Signs Temp Pulse Pulse Pulse Resp BP Pulse Ox 05/06/19 16:41 94 L 05/06/19 14:18 98 F 94 17 107/67 94 L 05/06/19 13:30 98.2 F 79 72 18 102/67 99 05/06/19 13:18 78 05/06/19 12:00 97.8 F 62 17 124/75 94 L 05/06/19 10:22 97.8 F 78 18 109/64 98 05/06/19 08:00 78 64 18 05/06/19 07:35 76 05/06/19 07:25 74 05/06/19 04:52 97.6 F 78 20 100/59 95 05/05/19 21:40 86 05/05/19 21:29 86 92 L 05/05/19 21:00 98.2 F 85 18 98/57 92 L Intake and Output 05/06/19 05/06/19 05/06/19 06:59 14:59 22:59 Intake Total 100 460 Balance 100 460 Intake: IV 300 Intake, IV Titration 100 100 Amount IV Fluid Continuation 1, 100 000 ml @ 0 mls/hr IV .STK -MED ONE Rx#:[id number] Piperacillin-Tazobactam 3 100 .375 gm In Sodium Chloride 0.9% 100 ml @ 25 mls/hr IVPB Q8HR [facility] Rx# :[id number] Oral 60 Other: Voiding Method Urinal Urinal # Voids 2 3 - Constitutional General appearance: no acute distress - EENT Eyes: EOMI, PERRLA ENT: hearing grossly normal, normal oropharynx - Neck Neck: no lymphadenopathy - Respiratory Respiratory: left: diminished, rhonchi - Cardiovascular Rhythm: regular Heart sounds: normal: S1, S2 - Gastrointestinal General gastrointestinal: normal bowel sounds, soft - Integumentary Integumentary: normal - Neurologic Neurologic: CNII-XII intact - Musculoskeletal Musculoskeletal: generalized weakness, strength equal bilaterally - Psychiatric Psychiatric: A&O x's 3 Results CBC & Chem 7: 05/06/19 15:10 05/06/19 15:10 Labs: Abnormal Lab Results - Last 24 Hours (Table) 05/05/19 05/05/19 05/05/19 Range/Units 05:07 17:09 21:05 RBC (4.30-5.90) m/uL Hgb (13.0-17.5) gm/dL Hct (39.0-53.0) % RDW (11.5-15.5) % Neutrophils # (1.3-7.7) k/uL Lymphocytes # (1.0-4.8) k/uL BUN (9-20) mg/dL Creatinine (0.66-1.25) mg/dL Glucose (74-99) mg/dL POC Glucose (mg/dL) 224 H 206 H (75-99) mg/dL Magnesium (1.6-2.3) mg/dL AST (17-59) U/L ALT (21-72) U/L Lactate Dehydrogenase (313-618) U/L Total Protein (6.3-8.2) g/dL Albumin (3.5-5.0) g/dL Procalcitonin 0.23 H (0.02-0.09) ng/mL 05/06/19 05/06/19 05/06/19 Range/Units 06:59 11:12 15:10 RBC 3.41 L (4.30-5.90) m/uL Hgb 10.2 L (13.0-17.5) gm/dL Hct 32.2 L (39.0-53.0) % RDW 16.5 H (11.5-15.5) % Neutrophils # 9.4 H (1.3-7.7) k/uL Lymphocytes # 0.5 L (1.0-4.8) k/uL BUN (9-20) mg/dL Creatinine (0.66-1.25) mg/dL Glucose (74-99) mg/dL POC Glucose (mg/dL) 162 H 144 H (75-99) mg/dL Magnesium (1.6-2.3) mg/dL AST (17-59) U/L ALT (21-72) U/L Lactate Dehydrogenase (313-618) U/L Total Protein (6.3-8.2) g/dL Albumin (3.5-5.0) g/dL Procalcitonin (0.02-0.09) ng/mL 05/06/19 Range/Units 15:10 RBC (4.30-5.90) m/uL Hgb (13.0-17.5) gm/dL Hct (39.0-53.0) % RDW (11.5-15.5) % Neutrophils # (1.3-7.7) k/uL Lymphocytes # (1.0-4.8) k/uL BUN 31 H (9-20) mg/dL Creatinine 1.43 H (0.66-1.25) mg/dL Glucose 163 H (74-99) mg/dL POC Glucose (mg/dL) (75-99) mg/dL Magnesium 1.5 L (1.6-2.3) mg/dL AST 13 L (17-59) U/L ALT 8 L (21-72) U/L Lactate Dehydrogenase 302 L (313-618) U/L Total Protein 5.8 L (6.3-8.2) g/dL Albumin 3.3 L (3.5-5.0) g/dL Procalcitonin (0.02-0.09) ng/mL Microbiology - Last 24 Hours (Table) 05/05/19 21:33 Gram Stain - Preliminary Sputum Sputum Culture - Preliminary 05/04/19 19:53 Blood Culture - Preliminary Blood No Growth after 24 hours Comments: PET scan report reviewed Chest x-ray: report reviewed CT scan - chest: report reviewed Assessment and Plan (1) Pneumothorax Narrative/Plan: As noted in the HPI, this was the acute event leading to the recommendation for the patient to come to the ER. Case was discussed with the primary service. They feel that overall this was small, and could be followed with observation. Current Visit: Yes Status: Acute Code(s): J93.9 - PNEUMOTHORAX, UNSPECIFIED SNOMED Code(s): 31545864 (2) Multifocal pneumonia Narrative/Plan: The patient's computed tomography scan, which also showed a hydropneumothorax, showed multifocal opacities in the right lung. The formal report on the PET scan that was just done about 2 weeks ago, mentioned diminished uptake in the known area of tumor in the left lower lobe. The patient's prior PET scan had shown a limited area of nodularity in the right lower lobe, which is now mentioned to have decreased SUV. A PET scan and only mention one other area of new consolidation and uptake in the right lower lobe. That finding, along with progressive shortness of breath since, and now multifocal opacities would indicate that pneumonia as more likely. However the patient does not appear toxic. The case was discussed in detail with pulmonary medicine were reviewed the PET scan personally. They feel that the PET scan did show fairly extensive uptake in the right lung. Therefore other etiologies such as metastatic progression of tumor, as well as pneumonitis related to his medication effect cannot be ruled out The plan therefore is to proceed with bronchoscopy with washings and transbronchial biopsies to try to establish the etiology better. In the meantime the patient will continue on antibiotics for possible pneumonia. Current Visit: Yes Status: Acute Code(s): J18.9 - PNEUMONIA, UNSPECIFIED ORGANISM SNOMED Code(s): 351824194 (3) Squamous cell lung cancer Narrative/Plan: Diagnostic and therapeutic circumstances as noted in the HPI. As noted above, at this time it is difficult to ascertain if the patient is truly having progression of his malignancy. Based on the formal PET scan report, only 1 new area of uptake was noted in the right lung, which could represent pneumonia. According to pulmonary medicine the uptake in the right lung is much more extensive. Therefore progression in that area is a definite possibility even though he appears to have had a response in the previously known tumor region in the left lower lobe, as well as in the area of nodularity in the right lower lobe noted on prior PET scan that was also felt to be likely malignant Await results of bronchoscopy For immunotherapy at present. The patient has progressive disease or pneumonitis due to the treatment, we would need to stop this anyway. If biopsies and washings from bronchoscopy are negative, and the patient's imaging a antibiotic shows a significant improvement, then pneumonia would be much more likely and the patient can be placed back on his treatment. However if he appears to have progressive malignancy and/or treatment related effect, then we would need to consider change of therapy. Our options may be somewhat limited, as the patient's tolerance of conventional chemotherapy in the past has been poor. Current Visit: No Status: Acute Code(s): C34.90 - MALIGNANT NEOPLASM OF UNSP PART OF UNSP BRONCHUS OR LUNG SNOMED Code(s): 300313481
[2019-05-06] MEDS ORDERED: PANTOPRAZOLE 40 MG TABLET PO SCH (17:30)
[2019-05-06] MEDS ORDERED: LEVOFLOXACIN 750 MG TAB PO SCH (18:00)
--- NOTE | 2019-05-06 18:57 | P.PN ---
Subjective Progress Note Date: 05/06/19 Principal diagnosis: Lung Cancer Status POst Bronchoscopy today, overall breathing better. Objective - Vital Signs Vital signs: Vital Signs Temp 98 F 05/06/19 14:18 Pulse 94 05/06/19 14:18 Resp 17 05/06/19 14:18 BP 107/67 05/06/19 14:18 Pulse Ox 94 L 05/06/19 16:41 Intake & Output 05/05/19 05/06/19 05/06/19 18:59 06:59 18:59 Intake Total 100 700 460 Output Total 800 Balance 100 -100 460 Intake: IV 300 Intake, IV Titration 100 100 100 Amount IV Fluid Continuation 1, 100 000 ml @ 0 mls/hr IV .STK -MED ONE Rx#:[id number] Piperacillin-Tazobactam 3 100 100 .375 gm In Sodium Chloride 0.9% 100 ml @ 25 mls/hr IVPB Q8HR [facility] Rx# :[id number] Oral 600 60 Output: Urine 800 Other: Voiding Method Urinal Urinal # Voids 3 2 3 - Exam - Constitutional General appearance: no acute distress - EENT Eyes: EOMI, PERRLA ENT: hearing grossly normal, normal oropharynx - Neck Neck: no lymphadenopathy - Respiratory Respiratory: left: diminished, rhonchi - Cardiovascular Rhythm: regular Heart sounds: normal: S1, S2 - Gastrointestinal General gastrointestinal: normal bowel sounds, soft - Integumentary Integumentary: normal - Neurologic Neurologic: CNII-XII intact - Musculoskeletal Musculoskeletal: generalized weakness, strength equal bilaterally - Psychiatric Psychiatric: A&O x's 3 - Labs CBC & Chem 7: 05/06/19 15:10 05/06/19 15:10 Labs: Abnormal Lab Results - Last 24 Hours (Table) 05/05/19 05/05/19 05/06/19 Range/Units 05:07 21:05 06:59 RBC (4.30-5.90) m/uL Hgb (13.0-17.5) gm/dL Hct (39.0-53.0) % RDW (11.5-15.5) % Neutrophils # (1.3-7.7) k/uL Lymphocytes # (1.0-4.8) k/uL BUN (9-20) mg/dL Creatinine (0.66-1.25) mg/dL Glucose (74-99) mg/dL POC Glucose (mg/dL) 206 H 162 H (75-99) mg/dL Magnesium (1.6-2.3) mg/dL AST (17-59) U/L ALT (21-72) U/L Lactate Dehydrogenase (313-618) U/L Total Protein (6.3-8.2) g/dL Albumin (3.5-5.0) g/dL Procalcitonin 0.23 H (0.02-0.09) ng/mL 05/06/19 05/06/19 05/06/19 Range/Units 11:12 15:10 15:10 RBC 3.41 L (4.30-5.90) m/uL Hgb 10.2 L (13.0-17.5) gm/dL Hct 32.2 L (39.0-53.0) % RDW 16.5 H (11.5-15.5) % Neutrophils # 9.4 H (1.3-7.7) k/uL Lymphocytes # 0.5 L (1.0-4.8) k/uL BUN 31 H (9-20) mg/dL Creatinine 1.43 H (0.66-1.25) mg/dL Glucose 163 H (74-99) mg/dL POC Glucose (mg/dL) 144 H (75-99) mg/dL Magnesium 1.5 L (1.6-2.3) mg/dL AST 13 L (17-59) U/L ALT 8 L (21-72) U/L Lactate Dehydrogenase 302 L (313-618) U/L Total Protein 5.8 L (6.3-8.2) g/dL Albumin 3.3 L (3.5-5.0) g/dL Procalcitonin (0.02-0.09) ng/mL Microbiology - Last 24 Hours (Table) 05/06/19 13:45 Acid Fast Bacilli Culture - Preliminary Bronchial Washings - Right 05/05/19 21:33 Gram Stain - Preliminary Sputum Sputum Culture - Preliminary 05/04/19 19:53 Blood Culture - Preliminary Blood No Growth after 24 hours Assessment and Plan Plan: Pneumothorax - Case was discussed with the primary service. They feel that overall this was small, and could be followed with observation. Multifocal pneumonia - The patient's computed tomography scan, which also showed a hydropneumothorax, showed multifocal opacities in the right lung. - The formal report on the PET scan that was just done about 2 weeks ago, mentioned diminished uptake in the known area of tumor in the left lower lobe. - The patient's prior PET scan had shown a limited area of nodularity in the right lower lobe, which is now mentioned to have decreased SUV. A PET scan and only mention one other area of new consolidation and uptake in the right lower lobe. That finding, along with progressive shortness of breath since, and now multifocal opacities would indicate that pneumonia as more likely. However the patient does not appear toxic. The case was discussed in detail with pulmonary medicine were reviewed the PET scan personally. They feel that the PET scan did show fairly extensive uptake in the right lung. Therefore other etiologies such as metastatic progression of tumor, as well as pneumonitis related to his medication effect cannot be ruled out - He is now status post bronchoscopy and will be discharged on antibiotics for pneumonia and steroid wean Squamous cell lung cancer Diagnostic and therapeutic circumstances as noted in the HPI. As noted above, at this time it is difficult to ascertain if the patient is truly having progression of his malignancy. Based on the formal PET scan report, only 1 new area of uptake was noted in the right lung, which could represent pneumonia. According to pulmonary medicine the uptake in the right lung is much more extensive. Therefore progression in that area is a definite possibility even though he appears to have had a response in the previously known tumor region in the left lower lobe, as well as in the area of nodularity in the right lower lobe noted on prior PET scan that was also felt to be likely malignant Await results of bronchoscopy For immunotherapy at present. The patient has progressive disease or pneumonitis due to the treatment, we would need to stop this anyway. If biopsies and washings from bronchoscopy are negative, and the patient's imaging a antibiotic shows a significant improvement, then pneumonia would be much more likely and the patient can be placed back on his treatment. However if he appe ars to have progressive malignancy and/or treatment related effect, then we would need to consider change of therapy. Our options may be somewhat limited, as the patient's tolerance of conventional chemotherapy in the past has been poor. Plan: - - FOllow-up with Dr. Monroy scheduled for Thursday - If Bronchoscopy results are back will review and plan for next treatment options, possible single agent chemotherapy - ABX and Steroids and PPI at discharge - Ok for Discharge from oncology standpoint. Physician Attest: I have completed the full history, physical, assessment and plan and agree with above dictation by Yue Cartwright. dictated as a scribe Time with Patient: Greater than 30
[2019-05-06] MEDS ORDERED: LEVOFLOXACIN 750MG-D5W PMX 750 MG in DEXTROSE/WATER 1 150ML.BAG IVPB SCH (20:00)
[2019-05-07 01:51] LABS: Iron Saturation 37.09 (15.00-50.00)
[2019-05-07 01:59] LABS: Folate, Serum 4.5 ng/mL
[2019-05-07 02:16] LABS: Ferritin 1145.1 ng/mL (22.0-322.0)
--- NOTE | 2019-05-12 21:34 | P.DS ---
Providers Date of admission: 05/04/19 18:09 Expected date of discharge: 05/06/19 Attending physician: Mack Watkins Consults: 05/04/19 18:12 Consult Physician Stat Consulting Provider: Beatriz Dhillon Consult Reason/Comments: Pneumothorax, multifocal pneumonia Do you want consulting provider notified?: Already Contacted 05/04/19 18:14 Consult Physician Routine Consulting Provider: Ant Monroy Consult Reason/Comments: Oncological care Do you want consulting provider notified?: Yes Primary care physician: Romario Oseguera [facility] Course: Chief Complaint: Short of breath History of presenting complaint: This is a very pleasant 68-year-old patient of Dr. Ray Oseguera. Patient presented to [facility] after he presented there for progressive shortness of breath. Patient has a diagnosis of non-small cell lung cancer and has been getting treatment every 3 weeks by oncology. Chronic stable medical conditions include coronary artery disease, prostate cancer, or strength redness. Patient initially diagnosed with lung cancer in 2017 needle biopsy did confirm squamous cell carcinoma. Patient did get chemoradiation. Patient has been currently gettingKeytruda. Patient of recent has been getting progressively more and more short of breath. No cough. No fever and chills. Appetite had gone to [place] over the last few days. Patient also recently had a bronchoscopy. Patient recently recently had a PET scan that showed increased metabolic activity. Also increasing pleural effusion. And some volume loss on the left lung. Also parenchymal changes. Patient was therefore transferred from [facility] to [facility] here. It was unclear if this was progression of the malignancy oriented to was no infection. He did undergo repeat bronchoscopy by Dr. Dhillon. No obvious central tracheal tube was found. Patient was treated with antibiotics. Steroids. Patient's feeling better and came to go home.. Cleared by pulmonary to be discharged. Consultation: Dr. Dhillon from pulmonary Dr. Monroy from oncology Procedure: Bronchoscopy done by Dr. Dhillon Physical examination: VITAL SIGNS: 98, 94, 17, 107/67, 94% on 2 L GENERAL: Laying in bed, awake EYES: Pupils equal. Conjunctiva palel. HEENT: External appearance of nose and ears normal, oral cavity grossly normal. NECK: JVD not raised; masses not palpable. HEART: First and second heart sounds are normal; no edema. LUNGS: Respiratory rate increased, decreased breath sounds. ABDOMEN: Soft, nontender, liver spleen not palpable, no masses palpable. PSYCH: Alert and oriented x3; mood and affect normal. NEUROLOGICAL: Cranial nerves grossly intact; no facial asymmetry, power and sensation grossly intact. LYMPHATICS: No lymph nodes palpable in the axilla and neck INVESTIGATIONS, reviewed in the clinical context: White count 4.9 hemoglobin 8.9 platelets 223 progression 4.9 BUN 30 creatinine 1.47 pro calcitonin 0.23 EKG tracing personally reviewed by me-low voltage, normal sinus rhythm Chest x-ray film personally reviewed by me-large left pleural effusion, infiltrate of the right side, mediastinal shift Assessment: -Squamous cell carcinoma for long stage IV, status post chemoradiation treatment currently on immunotherapy with the [place], with appearance of clinically progressive disease -Increasing consolidation of the chest x-ray, could be combination of pneumonia and/or malignancy progression with secondary pleural effusion for the same. Clinically patient does not appear to be septic -COPD in an ex-smoker -Hyperlipidemia -Essential hypertension -Umbilical hernia -Primary osteoarthritis Disposition: Home Patient Condition at Discharge: Stable Plan - Discharge Summary Discharge Rx Participant: No New Discharge Prescriptions: New Albuterol Sulfate [Albuterol Sulfate Hfa] 1 puff PO Q6H PRN #1 inhaler PRN Reason: Wheezing Ipratropium [place] [Atrovent Hfa] 2 puff INHALATION QID #1 inhaler Amoxicillin/Potassium Clav [Augmentin 875-125 Tablet] 1 tab PO Q12HR #14 tab predniSONE 0 mg PO DIRECTED #100 tab Continue Atorvastatin [Lipitor] 80 mg PO HS Metoprolol Tartrate [Lopressor] 25 mg PO BID #60 tab Spironolactone 25 mg PO HS Aspirin 81 mg PO HS Discontinued predniSONE See Taper PO DIRECTED Discharge Medication List Atorvastatin [Lipitor] 80 mg PO HS 01/27/18 [History] Metoprolol Tartrate [Lopressor] 25 mg PO BID #60 tab 06/14/18 [Rx] Aspirin 81 mg PO HS 05/04/19 [History] Spironolactone 25 mg PO HS 05/04/19 [History] Albuterol Sulfate [Albuterol Sulfate Hfa] 1 puff PO Q6H PRN #1 inhaler 05/06/19 [Rx] Amoxicillin/Potassium Clav [Augmentin 875-125 Tablet] 1 tab PO Q12HR #14 tab 05/06/19 [Rx] Ipratropium [place] [Atrovent Hfa] 2 puff INHALATION QID #1 inhaler 05/06/19 [Rx] predniSONE 0 mg PO DIRECTED #100 tab 05/06/19 [Rx] Follow up Appointment(s)/Referral(s): Ant Monroy MD [STAFF PHYSICIAN] - 05/09/19 10:30 am Romario Oseguera MD [Primary Care Provider] - 05/13/19 10:00 am Beatriz Dhillon MD [STAFF PHYSICIAN] - 1 Week (Patient to call Dr. Dhillon's office Thursday to schedule follow up appointment. The office is closed at time of discharge.) Patient Instructions/Handouts: Albuterol (By breathing), Ipratropium (By breathing), Prednisone (By mouth), Amoxicillin/Clavulanate Potassium (By mouth), Pneumonia (DC) Discharge Disposition: HOME SELF-CARE
--- NOTE | 2019-05-13 15:05 | CDI ---
Documentation Clarification Form Date: 05/13/19 From: Shannan Harvey Phone: If you have a question about this query, please contact Rose Frye, [employer] at [phone] between 8am and 5pm. Admit Date: 05/04/19 Discharge Date: 05/06/19 Patient Name: Mario Edouard Visit Number: [id number] ATTENTION: The Clinical Documentation Specialists (CDI) and [facility] Coding Staff appreciate your assistance in clarifying documentation. Please respond to the clarification below the line at the bottom and electronically sign. The CDI & [facility] Coding staff will review the response and follow-up if needed. Please note: Queries are made part of the Legal Health Record. If you have any questions, please contact the author of this message via ITS. Dear Dr Michelle Dhillon Documentation in the Operative Report included: History/Risk factors: left lung ca, met right lung ca, COPD Pre-Operative Diagnosis: Right lung consolidation, history of squamous cell carcinoma of the left lung Postoperative Diagnosis: right lung consolidation, history of squamous cell carcinoma of the left lung Operative report: The segments in the left lower lobe bronchus were somewhat atelectatic and there was some mucus retained within the patient's airway then they were suctioned out. Bronchoscope was moved to the upper lobe and the bronchoalveolar lavage of anterior segment was done where a total of 60 mL of fluid was infused and 20 mL was suctioned back.Following that, using fluoroscopic guidance, transbronchial biopsies of the right upper lobe was done. Path report & PAP stain: RUL Per your 05/06 PN: Based on his findings, performed a bronchoscopy on this patient and the bronchioloalveolar lavage of the left lower lobe showed no evidence of any microbial growth on the fluid cytology was negative for malignancy. In order to capture the severity of condition, please specify the following: Site of BAL- Site of TBNA - BAL is from RUL TBBX is from RUL MTDD
--- NOTE | 2019-05-13 15:08 | CDI ---
Documentation Clarification Form Date: 05/13/19 From: Shannan Harvey Phone: If you have a question about this query, please contact Rose Frye, Pulping Machine Operator at [phone] between 8am and 5pm. Admit Date: 05/04/19 Discharge Date: Patient Name: Mario Edouard Visit Number: [id number] ATTENTION: The Clinical Documentation Specialists (CDI) and [facility] Coding Staff appreciate your assistance in clarifying documentation. Please respond to the clarification below the line at the bottom and electronically sign. The CDI & [facility] Coding staff will review the response and follow-up if needed. Please note: Queries are made part of the Legal Health Record. If you have any questions, please contact the author of this message via ITS. Dear Dr Mack Watkins, Conflicting documentation has been found in the medical record: Per ED note, +05/05 & 1018 consults & 05/[address] Dhillon states OP CT scan showing concerns for new left-sided more thorax that appears loculated with hydropneumothorax approximately 15-20%. Per ED note clinical impression multifocal pneumonia, pneumothorax. 05/06 Consult - assessment plan-pneumothorax, unspecified. 05/[address] Monroy- pneumothorax History/Risk Factors: left lung ca, met right lung ca, COPD Clinical Indicators: Transferred from [facility] with expressing exertional dyspnea progressive over the past couple of weeks. Dyspnea is nonsignificant at rest. CT scan showing concerns for new left-sided more thorax that appears loculated with hydropneumothorax approximately 15-20%.There is also somewhat poorly focal right-sided airspace disease concerning for multifocal pneumonia. Treatment: IV Zoysn, IV Levaquin, IV Solu-Medrol, nebulizer, oxygen, bronchoscopy w BAL & TBNA In your opinion, what is the most clinically appropriate diagnosis for this patient? Hydropneumothorax Pneumothorax Other explanation of clinical findings Unable to determine (no explanation for clinical findings) Possible hydropneumothorax, POA MTDD
== END 2019-05-06 17:15 | disposition home or self-care (01) | DRG 186 ==
LOC: EC 16:38 → 3NMEDONC 18:09
PROVIDERS: ADMIT Hospitalist; ATTEND Hospitalist
PROC: 0BDC8ZX Extraction of Right Upper Lung Lobe, Via Natural or Artificial Opening Endoscopic, Diagnostic (ICD-10-PCS; principal; 2019-05-06 12:00)
PROC: 0B9C8ZX Drainage of Right Upper Lung Lobe, Via Natural or Artificial Opening Endoscopic, Diagnostic (ICD-10-PCS; 2019-05-06 12:00)
DX: J94.8 Other specified pleural conditions (principal); J18.9 Pneumonia, unspecified organism; C34.32 Malignant neoplasm of lower lobe, left bronchus or lung; C78.01 Secondary malignant neoplasm of right lung; J44.0 Chronic obstructive pulmonary disease with (acute) lower respiratory infection; J98.11 Atelectasis; J90 Pleural effusion, not elsewhere classified; K42.9 Umbilical hernia without obstruction or gangrene; E78.5 Hyperlipidemia, unspecified; I10 Essential (primary) hypertension; I25.10 Atherosclerotic heart disease of native coronary artery without angina pectoris; N40.0 Benign prostatic hyperplasia without lower urinary tract symptoms; I25.2 Old myocardial infarction; M19.91 Primary osteoarthritis, unspecified site; F40.240 Claustrophobia; Z79.82 Long term (current) use of aspirin; Z79.899 Other long term (current) drug therapy; Z85.46 Personal history of malignant neoplasm of prostate; Z87.01 Personal history of pneumonia (recurrent); Z92.3 Personal history of irradiation; Z92.21 Personal history of antineoplastic chemotherapy; Z87.891 Personal history of nicotine dependence; Z96.642 Presence of left artificial hip joint; Z98.42 Cataract extraction status, left eye; Z98.41 Cataract extraction status, right eye; Z98.890 Other specified postprocedural states; Z80.3 Family history of malignant neoplasm of breast; Z80.6 Family history of leukemia
CPT/HCPCS: 31624; 31628; 71045; 71046; 80048; 80053; 82607; 82728; 82746; 83036; 83540; 83550; 83605; 83615; 83735; 84100; 84145; 84550; 85025; 87040; 87070; 87102; 87116; 87205; 87206; 87252; 87496; 87498; 87502; 87529; 87634; 87798; 88108; 88305; 94640; 94760; 96365; 99285

== ENCOUNTER → 2019-05-09 | Outpatient (CLI) | payer MEDICARE ==
--- NOTE | 2019-05-09 15:16 | XR ---
EXAMINATION TYPE: XR chest 2V DATE OF EXAM: 05/09/2019 COMPARISON: 2 view chest x-ray dated 05/05/2019 HISTORY: Abnormal chest x-ray, [place] pneumothorax TECHNIQUE: Frontal and lateral views of the chest are obtained. FINDINGS: Extensive pleural parenchymal abnormalities are not significantly changed in the interval. Aorta is dense. Patient is rotated. No evident pneumothorax. There is blunting the costophrenic angl es. Coronary artery calcification is noted. There is volume loss in the left hemithorax. IMPRESSION: No significant interval change in the diffuse abnormalities within the chest. See dictat ed report CT scan 05/04/2019. Difficult to exclude pneumonia, empyema.
== END | disposition home or self-care (01) ==
LOC: RADXRMAIN 12:00
PROVIDERS: ATTEND Internal Medicine Critical Care Medicine
DX: C34.32 Malignant neoplasm of lower lobe, left bronchus or lung (principal); H44.9 Unspecified disorder of globe; G89.3 Neoplasm related pain (acute) (chronic); Z71.3 Dietary counseling and surveillance
CPT/HCPCS: 71046

== ENCOUNTER → 2019-05-18 | Outpatient (CLI) | payer MEDICARE | END | disposition home or self-care (01) | LOC: LABWHC1 12:10 | PROVIDERS: ATTEND Internal Medicine Critical Care Medicine | DX: L50.0 Allergic urticaria (principal) | CPT/HCPCS: 36415; 82785; 86606 ==

== ENCOUNTER → 2019-05-25 | Outpatient (CLI) | payer MEDICARE ==
--- NOTE | 2019-05-25 11:41 | CT ---
EXAMINATION TYPE: CT chest wo con DATE OF EXAM: 05/25/2019 COMPARISON: 07/16/2018 HISTORY: Difficulty breathing x 1 week. History of lung cancer. CT DLP: [address] of the chest was performed with lung and mediastinal window settings submitted. The la ck of contrast limits evaluation of the vascular, mediastinal and parenchymal structures including th e upper abdomen. LUNGS: There is an estimated 10% loculated pneumothorax noted right upper lobe. Several foci of air w ithin the left lower lobe pleural effusion which appears to be loculated. New right-sided pleural eff usion moderate in size. Areas of scattered infiltrate noted bilaterally. Masslike area right upper lo be measuring 2.4 cm in greatest dimension. Previous measurement estimated at 1 cm. Previously noted s cattered pulmonary nodules not clearly redemonstrated. Ocular wall thickening. Left lower lobe calcif ications. MEDIASTINUM/DADA: Thoracic aorta is of normal caliber with limited evaluation given lack of contrast . The heart is enlarged. Anterior pericardial effusion measuring 1.5 cm. No evidence for mediastinal mass. No lymph nodes greater than 1cm. UPPER ABDOMEN: No significant abnormality is seen. OTHER: No significant other abnormality. IMPRESSION: 1. Loculated right-sided pneumothorax is new and is estimated at 10%. 2. Right upper lobe mass measuring 2.4 cm. Previously noted pulmonary nodules scattered throughout th e right lung are not redemonstrated on this examination and this may be a result of the therapy soliman e and/or combination of new moderate right-sided pleural effusions with the areas of scattered infilt rates. 3. Left basilar pleural effusion is loculated and demonstrates several internal foci of air.
== END | disposition home or self-care (01) ==
LOC: RADCTMAIN 10:57
PROVIDERS: ATTEND Internal Medicine Hematology & Oncology
DX: J93.83 Other pneumothorax (principal); J90 Pleural effusion, not elsewhere classified; R91.8 Other nonspecific abnormal finding of lung field; C34.32 Malignant neoplasm of lower lobe, left bronchus or lung
CPT/HCPCS: 71250

== ENCOUNTER → 2019-06-29 | Outpatient (CLI) | payer MEDICARE ==
--- NOTE | 2019-06-29 16:02 | CT ---
EXAMINATION TYPE: CT ChestAbdPelvis w con DATE OF EXAM: 06/29/2019 COMPARISON: 05/25/2019 HISTORY: Follow up for lung CA CT DLP: 703.4 mGycm CONTRAST: CT scan of the chest, abdomen and pelvis is performed with Oral Contrast and with IV Contrast, patien t injected with 80 mL of Isovue 300. CT Chest: LUNGS: Previously noted loculated right upper lobe pneumothorax has resolved in the interval. Signifi cant diminution of right-sided pleural effusion with small residual noted. Pleural-based nodule right lower lobe measuring 2.3 x 1.4 cm. Groundglass density right upper lobe medially measuring 1.5 x 1 c m much smaller than prior study 2.4 cm previously. Right upper lobe pleural thickening and bronchial wall thickening. Left lower lobe volume loss and loculated pleural effusion with internal calcificat ions unchanged relative to prior study. MEDIASTINUM: Thoracic aorta is of normal caliber. The heart is not enlarged. No evidence for media stinal mass or adenopathy. HILAR STRUCTURES: No evidence for mass. No hilar adenopathy is appreciated. OTHER: No significant abnormality. CONTRAST CT ABDOMEN AND PELVIS FINDINGS: LIVER/GB: No calcified gallstones. No space occupying hepatic lesion. Biliary tree is of normal ca liber. PANCREAS: No inflammation. No distinct mass. SPLEEN: No splenic enlargement. No lesion seen. ADRENALS: No nodule. No thickening. KIDNEYS/BLADDER: No hydronephrosis. No nephrolithiasis. No disctinct renal mass. BOWEL: Normal appendix. Normal bowel caliber. No inflammation. GENITAL ORGANS: No gross abnormality. LYMPH NODES: No greater than 1cm abdominal or pelvic lymph nodes are appreciated. AORTA: No significant abnormality. OSSEOUS STRUCTURES: No significant abnormality is seen. OTHER: No significant additional abnormality is seen. IMPRESSION: 1. Resolution of previously noted loculated right-sided pneumothorax. 2. Significant diminution in right-sided pleural effusion with small residual remaining. 3. Right lower lobe basilar nodule as discussed. Right upper lobe groundglass nodule is smaller in size when compared to prior study. 4. Large area of volume loss left lower lobe with internal calcifications loculated effusion.
== END ==
LOC: RADCTMAIN 13:37
PROVIDERS: ATTEND Internal Medicine Hematology & Oncology
DX: J90 Pleural effusion, not elsewhere classified (principal); R91.1 Solitary pulmonary nodule; J98.4 Other disorders of lung; C34.32 Malignant neoplasm of lower lobe, left bronchus or lung
CPT/HCPCS: 82565; 84520; 71260; 74177; 36415; Q9967

== ENCOUNTER 2019-10-05 09:50 | Inpatient (IN) | payer MEDICARE ==
[2019-10-05] MEDS ORDERED: IPRATROPIUM-ALBUTEROL 3 ML NEB INHALATION STA (10:12)
--- NOTE | 2019-10-05 10:26 | ED ---
General Adult HPI - General Chief complaint: Shortness of Breath Stated complaint: KATRINA Time Seen by Provider: 10/05/19 09:52 Source: EMS, RN notes reviewed Mode of arrival: EMS Limitations: no limitations - History of Present Illness Initial comments: Patient is a pleasant 68-year-old male presenting to the emergency Department with difficult in breathing. Symptoms have been present for a couple of months. Patient does have occasional cough that is chronic. Patient is having more fatigued especially with exertion. Patient has a known left lower lobe tumor. Patient is post radiation and chemotherapy. Patient did have some diminished size of the tumor following recent therapy. No leg pain or leg swelling. Patient states he is only able to walk a few feet before he gets exhausted. No fevers. - Related Data Home Medications Medication Instructions Recorded Confirmed Atorvastatin [Lipitor] 80 mg PO HS 01/27/18 10/05/19 ALPRAZolam [Xanax] 0.25 mg PO BID 10/05/19 10/05/19 Foracort 200 2 puff INHALATION RT-BID 10/05/19 10/05/19 Pantoprazole Sodium [Protonix] 40 mg PO BID 10/05/19 10/05/19 Tiotropium Milroy [Spiriva] 1 cap INHALATION RT-DAILY 10/05/19 10/05/19 oxyCODONE HCL/ACETAMINOPHEN 1 tab PO Q6HR PRN 10/05/19 10/05/19 [Percocet 10-325 mg] predniSONE 10 mg PO DAILY PRN 10/05/19 10/05/19 Previous Rx's Medication Instructions Recorded Metoprolol Tartrate [Lopressor] 25 mg PO BID #60 tab 06/14/18 Levofloxacin [Levaquin] 500 mg PO DAILY #9 tab 10/05/19 Rivaroxaban [Xarelto Starter Pack] 0 mg PO DIRECTED 30 Days #1 pack 10/05/19 predniSONE 10 mg PO DAILY #30 tab 10/05/19 Allergies Allergy/AdvReac Type Severity Reaction Status Date / Time No Known Allergies Allergy Verified 05/04/19 17:27 Review of Systems ROS Statement: Those systems with pertinent positive or pertinent negative responses have been documented in the HPI. ROS Other: All systems not noted in ROS Statement are negative. Constitutional: Denies: fever Eyes: Denies: eye pain ENT: Denies: ear pain Respiratory: Reports: as per HPI, dyspnea Cardiovascular: Denies: chest pain Endocrine: Reports: fatigue Gastrointestinal: Denies: abdominal pain Genitourinary: Denies: dysuria Musculoskeletal: Denies: back pain Skin: Denies: rash Neurological: Denies: weakness Past Medical History Past Medical History: Cancer, COPD, Hyperlipidemia, Hypertension, Pneumonia, Prostate Disorder Additional Past Medical History / Comment(s): PAST PLEURAL EFFUSION, LUNG CANCER WITH CHEMO ON 06-02-18 Keytruda every three weeks IV (immunetherapy) last radiation 06-02-18, prostate cancer: radiation in March 2016 no issues since, umbilical hernia, history of prostate cancer, osteoarthritis, History of Any Multi-Drug Resistant Organisms: None Reported Past Surgical History: Hernia Repair, Joint Replacement Additional Past Surgical History / Comment(s): 12/31/17 bronchoscopy w/ bx. Total L hip anterior approach. link cataracts, lt ing hernia,lt thoracentesis 01/21/18 Past Anesthesia/Blood Transfusion Reactions: No Reported Reaction Additional Past Anesthesia/Blood Transfusion Reaction / Comment(s): Claust rophobic with PET scan. Blood transfusion in May of 2018 total of 7 units of blood. Past Psychological History: No Psychological Hx Reported Smoking Status: Former smoker Past Alcohol Use History: Occasional Past Drug Use History: None Reported - Past Family History Mother Family Medical History: Cancer Additional Family Medical History / Comment(s): Mother had breast cancer and of leukemia at the age of 76yrs. Father Additional Family Medical History / Comment(s): Father of a "broken heart" after his spouses . Sister(s) Family Medical History: Cancer Additional Family Medical History / Comment(s): Breast cancer General Exam Limitations: no limitations General appearance: alert, in no apparent distress Head exam: Present: normocephalic Eye exam: Present: normal appearance, PERRL ENT exam: Present: normal oropharynx Neck exam: Present: normal inspection Respiratory exam: Present: decreased breath sounds Cardiovascular Exam: Present: regular rate, normal rhythm GI/Abdominal exam: Present: soft. Absent: tenderness Extremities exam: Present: normal inspection. Absent: pedal edema, calf tenderness Neurological exam: Present: alert Psychiatric exam: Present: normal affect, normal mood Skin exam: Present: normal color Course Vital Signs 10/05/19 10/05/19 10/05/19 09:53 09:58 10:01 Temperature 98.6 F Pulse Rate 83 82 Respiratory 18 22 20 Rate Blood Pressure 146/91 125/79 O2 Sat by Pulse 90 L 96 Oximetry 10/05/19 10/05/19 10/05/19 10:33 10:43 11:37 Temperature 98.1 F Pulse Rate 80 82 89 Respiratory 18 Rate Blood Pressure 132/96 O2 Sat by Pulse 96 Oximetry - Reevaluation(s) Reevaluation #1: 10/05/19 14:47 Following multiple phone calls and discussions with physicians patient is agreeable to stay at this time. Patient was seen by Dr. Posada in emergency department. Patient will be started on low-dose heparin as well as antibiotics. EKG Findings - EKG Comments: EKG Findings:: Sinus rhythm at 87. TX 142. QRS 80. QT 372. QTC 447. Normal axis. Septal Q waves. No acute ST change. Medical Decision Making - Medical Decision Making Patient reevaluated and sitting up and resting comfortably at bed. Patient does appear to have mild Restoril distress. Patient and family are updated on results and plan. Case was earlier discussed with practitioner Yue with oncology who states patient had questionable PE diagnosis previously and had GI bleeding while on heparin. Case was discussed with Dr. Watkins with plans for admission. Case also discussed with practitioner Mandy auguste who recommended low-dose heparin and bilateral Doppler. Case also discussed with Dr. Posada who did come evaluate patient. Patient and family are made aware of diagnosis. This includes increasing fluid on the lungs and severe pulmonary embolism and possible infiltrate. Despite this patient refuses admission. Patient is made aware that if he goes home he may . Patient does demonstrate medical decision making and will leave AGAINST MEDICAL ADVICE. Patient states he does have concern regarding fears of new-onset of Franco virus and feels if he gets this he will . Patient would like to go home to be with his family. Dr. Posada does recommend Xarelto 15 mg twice a day followed by 20 mg daily. - Lab Data Result diagrams: 10/05/19 10:07 10/05/19 10:07 Lab Results 10/05/19 10/05/19 10/05/19 Range/Units 10:07 10:07 10:07 WBC 10.2 (3.8-10.6) k/uL RBC 3.58 L (4.30-5.90) m/uL Hgb 10.1 L (13.0-17.5) gm/dL Hct 31.9 L (39.0-53.0) % MCV 89.1 (80.0-100.0) fL MCH 28.3 (25.0-35.0) pg MCHC 31.7 (31.0-37.0) g/dL RDW 15.3 (11.5-15.5) % Plt Count 223 (150-450) k/uL Neutrophils % 86 % Lymphocytes % 7 % Monocytes % 6 % Eosinophils % 1 % Basophils % 0 % Neutrophils # 8.7 H (1.3-7.7) k/uL Lymphocytes # 0.7 L (1.0-4.8) k/uL Monocytes # 0.6 (0-1.0) k/uL Eosinophils # 0.1 (0-0.7) k/uL Basophils # 0.0 (0-0.2) k/uL Hypochromasia Slight PT (9.0-12.0) sec INR (<1.2) APTT (22.0-30.0) sec D-Dimer (<0.60) mg/L FEU Sodium 135 L (137-145) mmol/L Potassium 5.0 (3.5-5.1) mmol/L Chloride 101 (98-107) mmol/L Carbon Dioxide 30 (22-30) mmol/L Anion Gap 4 mmol/L BUN 30 H (9-20) mg/dL Creatinine 1.17 (0.66-1.25) mg/dL Est GFR (CKD-EPI)AfAm 73 (>60 ml/min/1.73 sqM) Est GFR (CKD-EPI)NonAf 63 (>60 ml/min/1.73 sqM) Glucose 130 H (74-99) mg/dL Plasma Lactic Acid Gerhard 0.9 (0.7-2.0) mmol/L Calcium 8.1 L (8.4-10.2) mg/dL Total Bilirubin 0.9 (0.2-1.3) mg/dL AST 21 (17-59) U/L ALT 21 (4-49) U/L Alkaline Phosphatase 73 (38-126) U/L Troponin I (0.000-0.034) ng/mL NT-Pro-B Natriuret Pep pg/mL Total Protein 5.2 L (6.3-8.2) g/dL Albumin 2.7 L (3.5-5.0) g/dL Influenza Type A RNA (Not Detectd) Influenza Type B (PCR) (Not Detectd) RSV (PCR) 10/05/19 10/05/19 10/05/19 Range/Units 10:07 10:07 10:24 WBC (3.8-10.6) k/uL RBC (4.30-5.90) m/uL Hgb (13.0-17.5) gm/dL Hct (39.0-53.0) % MCV (80.0-100.0) fL MCH (25.0-35.0) pg MCHC (31.0-37.0) g/dL RDW (11.5-15.5) % Plt Count (150-450) k/uL Neutrophils % % Lymphocytes % % Monocytes % % Eosinophils % % Basophils % % Neutrophils # (1.3-7.7) k/uL Lymphocytes # (1.0-4.8) k/uL Monocytes # (0-1.0) k/uL Eosinophils # (0-0.7) k/uL Basophils # (0-0.2) k/uL Hypochromasia PT (9.0-12.0) sec INR (<1.2) APTT (22.0-30.0) sec D-Dimer (<0.60) mg/L FEU Sodium (137-145) mmol/L Potassium (3.5-5.1) mmol/L Chloride (98-107) mmol/L Carbon Dioxide (22-30) mmol/L Anion Gap mmol/L BUN (9-20) mg/dL Creatinine (0.66-1.25) mg/dL Est GFR (CKD-EPI)AfAm (>60 ml/min/1.73 sqM) Est GFR (CKD-EPI)NonAf (>60 ml/min/1.73 sqM) Glucose (74-99) mg/dL Plasma Lactic Acid Gerhard (0.7-2.0) mmol/L Calcium (8.4-10.2) mg/dL Total Bilirubin (0.2-1.3) mg/dL AST (17-59) U/L ALT (4-49) U/L Alkaline Phosphatase (38-126) U/L Troponin I 0.070 H* (0.000-0.034) ng/mL NT-Pro-B Natriuret Pep 95780 pg/mL Total Protein (6.3-8.2) g/dL Albumin (3.5-5.0) g/dL Influenza Type A RNA Not Detected (Not Detectd) Influenza Type B (PCR) Not Detected (Not Detectd) RSV (PCR) Cancelled 10/05/19 Range/Units 11:06 WBC (3.8-10.6) k/uL RBC (4.30-5.90) m/uL Hgb (13.0-17.5) gm/dL Hct (39.0-53.0) % MCV (80.0-100.0) fL MCH (25.0-35.0) pg MCHC (31.0-37.0) g/dL RDW (11.5-15.5) % Plt Count (150-450) k/uL Neutrophils % % Lymphocytes % % Monocytes % % Eosinophils % % Basophils % % Neutrophils # (1.3-7.7) k/uL Lymphocytes # (1.0-4.8) k/uL Monocytes # (0-1.0) k/uL Eosinophils # (0-0.7) k/uL Basophils # (0-0.2) k/uL Hypochromasia PT 9.8 (9.0-12.0) sec INR 0.9 (<1.2) APTT 24.1 (22.0-30.0) sec D-Dimer 2.11 H (<0.60) mg/L FEU Sodium (137-145) mmol/L Potassium (3.5-5.1) mmol/L Chloride (98-107) mmol/L Carbon Dioxide (22-30) mmol/L Anion Gap mmol/L BUN (9-20) mg/dL Creatinine (0.66-1.25) mg/dL Est GFR (CKD-EPI)AfAm (>60 ml/min/1.73 sqM) Est GFR (CKD-EPI)NonAf (>60 ml/min/1.73 sqM) Glucose (74-99) mg/dL Plasma Lactic Acid Gerhard (0.7-2.0) mmol/L Calcium (8.4-10.2) mg/dL Total Bilirubin (0.2-1.3) mg/dL AST (17-59) U/L ALT (4-49) U/L Alkaline Phosphatase (38-126) U/L Troponin I (0.000-0.034) ng/mL NT-Pro-B Natriuret Pep pg/mL Total Protein (6.3-8.2) g/dL Albumin (3.5-5.0) g/dL Influenza Type A RNA (Not Detectd) Influenza Type B (PCR) (Not Detectd) RSV (PCR) - Radiology Data Radiology results: report reviewed (Computed tomography scan of the chest concerning for large left main pulmonary artery embolus and down seem segmental and subsegmental emboli. Left mediastinal shift loculated right pleural effusion, increased now moderate. Speculated densities right upper lobe.), image reviewed (Chest x-ray shows left-sidedLoss, worsening with new left upper lobe edema or infiltrate. Developing lung edema or infiltrate. Right central. Right-sided effusion.) Critical Care Time Critical Care Time: Yes Total Critical Care Time: 45 Disposition Clinical Impression: Pulmonary embolism, Pulmonary infiltrate, Pleural effusion, Mass of left lung Disposition: ADMITTED IP TO THIS HOSP Condition: Serious Instructions (If sedation given, give patient instructions): Pulmonary Embolism (ED), Lung Cancer (DC), Pleural Effusion (ED) Additional Instructions: Please follow-up tomorrow with Dr. Dhillon as well as Dr. Oseguera and Dr. Monroy. Return for any increase in difficulty breathing, fevers, worsening symptoms or other concerns. You're leaving AGAINST MEDICAL ADVICE. Prescriptions: Levofloxacin [Levaquin] 500 mg PO DAILY #9 tab predniSONE 10 mg PO DAILY #30 tab Rivaroxaban [Xarelto Starter Pack] 0 mg PO DIRECTED 30 Days #1 pack Is patient prescribed a controlled substance at d/c from ED?: No Referrals: Romario Oseguera MD [Primary Care Provider] - 1-2 days Time of Disposition: 13:52
[2019-10-05 10:37] LABS: Basophils % (A) 0 %; Eosinophils # (A) 0.1 k/uL (0-0.7); Eosinophils % (A) 1 %; HCT 31.9 % (39.0-53.0); HGB 10.1 gm/dL (13.0-17.5); Hypochromasia Slight; Lymphocytes # (A) 0.7 k/uL (1.0-4.8); Lymphocytes % (A) 7 %; MCH 28.3 pg (25.0-35.0); MCHC 31.7 g/dL (31.0-37.0); MCV 89.1 fL (80.0-100.0); Mean Platelet Volume 7.6; Monocytes # (A) 0.6 k/uL (0-1.0); Monocytes % (A) 6 %; Neutrophils # (A) 8.7 k/uL (1.3-7.7); Neutrophils % (A) 86 %; Platelet Count 223 k/uL (150-450); RBC 3.58 m/uL (4.30-5.90); RDW 15.3 % (11.5-15.5); WBC 10.2 k/uL (3.8-10.6)
--- NOTE | 2019-10-05 10:44 | XR ---
EXAMINATION TYPE: XR chest 2V DATE OF EXAM: 10/05/2019 COMPARISON: Chest CT May 25, [address] June 29, 2019. Prior PET/CT April 22, 2019. Most re cent chest x-ray June 15, 2019. HISTORY: History of lung cancer diagnosed in 2018 with difficulty of breathing. TECHNIQUE: Frontal and lateral views of the chest are obtained. FINDINGS: More prominent left-sided volume loss with mediastinal shift. Background Chronic emphysematous change with chronic left basilar opacities. New left upper lung alveolar and in terstitial opacities. Persistent small right pleural effusion and/or pleural thickening. Increasing r ight central lung opacities could reflect edema and/or infiltrates. IMPRESSION: Worsening left-sided volume loss along with new left upper to midlung edema and/or infil trates. Developing right central lung edema and/or infiltrates. Background significant chronic emphys ematous change along with high-grade primary lung neoplasm noted.
[2019-10-05 10:46] LABS: Albumin 2.7 g/dL (3.5-5.0); Calcium 8.1 mg/dL (8.4-10.2); Total Bilirubin 0.9 mg/dL (0.2-1.3); Total Protein 5.2 g/dL (6.3-8.2)
[2019-10-05 11:52] LABS: INR 0.9 (<1.2); Partial Thromboplastin Time 24.1 sec (22.0-30.0); Prothrombin Time 9.8 sec (9.0-12.0)
[2019-10-05 12:03] LABS: D-Dimer 2.11 mg/L FEU (<0.60)
--- NOTE | 2019-10-05 13:14 | CT ---
EXAMINATION TYPE: CT angio chest DATE OF EXAM: 10/05/2019 COMPARISON: 05/25/[address] HISTORY: dyspnea CT DLP: 368.7 mGycm. Automated Exposure Control for Dose Reduction was Utilized. CONTRAST: CTA scan of the thorax is performed with IV Contrast, patient injected with 100 mL of Isovue 370, pul monary embolism protocol. MIP Images are created on CT scanner and reviewed. FINDINGS: LUNGS: There is left hemithorax volume loss and segmental collapse multifocally of the upper lobe and lingula and lobar collapse of the left lower lobe. The known cavitary left lower lobe mass displays an air-fluid level measuring at least 4.4 x 3.2 cm. Extensive emphysematous change of the right lung. Persistent geographic groundglass opacities of the right middle lobe, peripheral right upper lobe, a nd posterior medial right lower lobe. Right pleural effusion has increased in size and is loculated s tranding along the lateral right hemithorax. New spiculated densities in the right lung apex are shamika ed on image 38 and 47. Increasing airspace disease in the right middle lobe on image 92. Leftward med iastinal shift secondary to volume loss. MEDIASTINUM: Large left filling defect nearly fills the left main pulmonary artery and medial branche s of the segmental arteries to the left lower lobe. No right-sided pulmonary emphysema is seen. Numer ous benign calcified mediastinal lymph nodes/granulomas. There are no greater than 1 cm hilar or med iastinal lymph nodes. No cardiomegaly or pericardial effusion is seen. Severe coronary artery calci fications. OTHER: Moderate probable bilateral retroareolar gynecomastia. Mid thoracic compression deformity is n ew from the prior at T7. Small hiatal hernia. There is narrowing of the celiac artery ostia with pos t stenotic dilatation. IMPRESSION: 1. Large left main pulmonary artery embolus and downstream segmental and subsegmental pulmonary embol i to the medial left lower lobe without evidence of right heart strain. Finding was communicated to t he ordering ER physician at 1302 on 10/05/2019. 2. Leftward mediastinal shift to severe secondary to left lower lobar collapse and multifocal segment al and subsegmental atelectasis of the lingula and left upper lobe due to the known left lower lobe m ass and bronchial obstruction. 3. Progressively increasing loculated right pleural effusion, now moderate. 4. New spiculated densities in the right upper lobe may be infectious or neoplastic. Short-term follo w-up CT after resolution of any acute symptoms is recommended for reevaluation. Similar spiculated de nsity is also seen in the right middle lobe. Scattered groundglass opacities are redemonstrated from the prior on the right. 5. 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
[2019-10-05] MEDS ORDERED: RIVAROXABAN 15 MG TAB PO STA (13:57)
[2019-10-05] MEDS: predniSONE 10 MG TAB PO STA ×2 (14:46→15:35)
[2019-10-05] MEDS: LEVOFLOXACIN 500 MG TAB PO STA ×2 (14:46→15:35)
[2019-10-05] MEDS ORDERED: IPRATROPIUM-ALBUTEROL 3 ML NEB INHALATION PRN (14:49)
[2019-10-05] MEDS ORDERED: PNEUMONIA PROTOCOL UTILIZED 1 EACH MISC PO PRN (14:49)
[2019-10-05] MEDS ORDERED: LEVOFLOXACIN 750MG-D5W PMX 750 MG in DEXTROSE/WATER 1 150ML.BAG IVPB STA (14:49)
[2019-10-05] MEDS: IPRATROPIUM-ALBUTEROL 3 ML NEB INHALATION SCH ×2 (16:43→19:43)
[2019-10-05] MEDS: HEPARIN SOD,PORK IN 0.45% NACL 25,000 UNIT in 0.45% NACL 1 250ML.BAG IV SCH (18:05)
[2019-10-05] MEDS ORDERED: oxyCODONE-APAP 10-325MG 1 EACH TAB PO PRN (18:51)
[2019-10-05] MEDS ORDERED: predniSONE 10 MG TAB PO PRN (18:51)
[2019-10-05] MEDS: SYMBICORT 80-4.5 MCG INHALER INHALATION SCH (19:56)
[2019-10-05] MEDS: ATORVASTATIN 80 MG TAB PO SCH (22:10)
[2019-10-05] MEDS: ALPRAZolam 0.25 MG TAB PO SCH (22:10)
[2019-10-05] MEDS: PANTOPRAZOLE 40 MG TABLET PO SCH (22:10)
[2019-10-05] MEDS: METOPROLOL TARTRATE 25 MG TAB PO SCH (22:10)
--- NOTE | 2019-10-05 23:05 | P.HPIM ---
History of Present Illness H&P Date: 10/05/19 Chief Complaint: Cough short of breath History of presenting complaint: This is a very pleasant 68-year-old patient of Dr. Ray Oseguera. Patient presented to [facility] after he presented there for progressive shortness of breath. Patient has a diagnosis of non-small cell lung cancer and has been getting treatment every 3 weeks by oncology. Chronic stable medical conditions include coronary artery disease, prostate cancer, or strength redness. Patient initially diagnosed with lung cancer in 2016 needle biopsy did confirm squamous cell carcinoma. Patient did get chemoradiation. Then received gettingKeytruda. In April 2019-patient was admitted. Patient also then had a PET scan that showed increasing metabolic activity. Increasing pleural effus ion. Had a bronchoscopy by Dr. Dhillon. Treated with antibiotics for pneumonia and steroids. Patient subsequently went down to [place]. Patient admitted to the hospital where apparently for pneumonia. Was discharged 2 weeks ago. On antibiotics. 8 days ago he left for Dr. Andrew Padilla. She has been on home oxygen 2 L. [place]elfa to 3 days has been having increasing cough no sputum. No fever or chills. Appetite has been fair. Getting tired very easily. Patient's friend whose EMT felt he was not doing well and decided to bring him in.COVID-19 testing was sent off earlier. Review of systems: GEN.: Tired, is EYES: None HEENT: None NECK: None RESPIRATORY: As above CARDIOVASCULAR: None GASTROINTESTINAL: None GENITOURINARY: None MUSCULOSKELETAL: None LYMPHATICS: None HEMATOLOGICAL: None PSYCHIATRY: None NEUROLOGICAL: None Past medical history to include: COPD, hyperlipidemia, hypertension, squamous cell carcinoma of the lung, stage 3-4, pleural effusion, umbilical hernia, prostate cancer, osteoarthritis Social history: Patient smoked for about 36 years stopped in 2004. 1 pack a day. Alcohol occasionally. . Physical examination: VITAL SIGNS: 98.6, 83, 18, blood pressure 146/91, 90% on 3 L GENERAL: BMI 23.6, laying in bed, tired EYES: Pupils equal. Conjunctiva pale. HEENT: External appearance of nose and ears normal, oral cavity grossly normal. NECK: JVD not raised; masses not palpable. HEART: First and second heart sounds are normal; no edema. LUNGS: Respiratory rate increased, decreased breath sounds. Bronchial breathing the left side anteriorly. Mild wheezing ABDOMEN: Soft, nontender, liver spleen not palpable, no masses palpable. PSYCH: Alert and oriented x3; mood and affect normal. NEUROLOGICAL: Cranial nerves grossly intact; no facial asymmetry, power and sensation grossly intact. LYMPHATICS: No lymph nodes palpable in the axilla and neck INVESTIGATIONS, reviewed in the clinical context: White count 10.2 hemoglobin 10.1 platelets 223 potassium 5 creatinine 1.17 Troponin I 0.070 proBNP 24,000 100 Influenza type A and type B both negative EKG tracing personally reviewed by me-sinus rhythm with some PVCs Chest x-ray film personally reviewed by me-worsening volume loss on the left side plus minus infiltrate Chest CTA-large main pulmonary artery embolism and segmental and subsegmental pulmonary embolism-left mediastinal shift to severe secondary to left lower lobe collapse multiple lobe atelectasis and left lower lobe mass and bronchial obstruction, progressive increasing loculated right pleural effusion new spell related density in the right upper lobe Assessment: -Large left pulmonary embolism -Squamous cell carcinoma-lung stage IV, status post chemoradiation treatment -it seems to progress -Worsening right-sided pleural effusion felt to be underlying malignancy -Possible pneumonia, suspect gram-negative organism -Acute COPD exacerbation in an ex-smoker -Hyperlipidemia -Essential hypertension -Umbilical hernia -Primary osteoarthritis -COVID-19, being ruled out Plan: . Consultation is made pulmonary and oncology. Patient was started on Levaquin. Also started on IV heparin. Home medications resumed. Patient is on bronchodilators. Care was discussed with the patient question were answered. Past Medical History Past Medical History: Cancer, COPD, Hyperlipidemia, Hypertension, Pneumonia, Prostate Disorder Additional Past Medical History / Comment(s): PAST PLEURAL EFFUSION, LUNG CANCER WITH CHEMO ON 06-02-18 Keytruda every three weeks IV (immunetherapy) last radiation 06-02-18, prostate cancer: radiation in March 2016 no issues since, umbilical hernia, history of prostate cancer, osteoarthritis, History of Any Multi-Drug Resistant Organisms: None Reported Past Surgical History: Hernia Repair, Joint Replacement Additional Past Surgical History / Comment(s): 12/31/17 bronchoscopy w/ bx. Total L hip anterior approach. link cataracts, lt ing hernia,lt thoracentesis 01/21/18 Past Anesthesia/Blood Transfusion Reactions: No Reported Reaction Additional Past Anesthesia/Blood Transfusion Reaction / Comment(s): Claustrophobic with PET scan. Blood transfusion in November of 2018 total of 7 units of blood. Past Psychological History: No Psychological Hx Reported Additional Psychological History / Comment(s): Lives with in own. Smoking Status: Former smoker Past Alcohol Use History: Occasional Additional Past Alcohol Use History / Comment(s): Pt started smoking in 1968 and quit in 2004, smoked 1 ppd. Beer occassionally. Past Drug Use History: None Reported - Past Family History Mother Family Medical History: Cancer Additional Family Medical History / Comment(s): Mother had breast cancer and of leukemia at the age of 76yrs. Father Additional Family Medical History / Comment(s): Father of a "broken heart" after his spouses . Sister(s) Family Medical History: Cancer Additional Family Medical History / Comment(s): Breast cancer Medications and Allergies Home Medications Medication Instructions Recorded Confirmed Type Atorvastatin [Lipitor] 80 mg PO HS 01/27/18 10/05/19 History Metoprolol Tartrate [Lopressor] 25 mg PO BID #60 tab 06/14/18 10/05/19 Rx ALPRAZolam [Xanax] 0.25 mg PO BID 10/05/19 10/05/19 History Foracort 200 2 puff INHALATION RT-BID 10/05/19 10/05/19 History Levofloxacin [Levaquin] 500 mg PO DAILY #9 tab 10/05/19 Rx Pantoprazole Sodium [Protonix] 40 mg PO BID 10/05/19 10/05/19 History Rivaroxaban [Xarelto Starter Pack] 0 mg PO DIRECTED 30 Days #1 pack 10/05/19 Rx Tiotropium [place] [Spiriva] 1 cap INHALATION RT-DAILY 10/05/19 10/05/19 History oxyCODONE HCL/ACETAMINOPHEN 1 tab PO Q6HR PRN 10/05/19 10/05/19 History [Percocet 10-325 mg] predniSONE 10 mg PO DAILY #30 tab 10/05/19 Rx predniSONE 10 mg PO DAILY PRN 10/05/19 10/05/19 History Allergies Allergy/AdvReac Type Severity Reaction Status Date / Time No Known Allergies Allergy Verified 05/04/19 17:27 Physical Exam Vitals: Vital Signs Temp Pulse Pulse Resp BP BP Pulse Ox 10/05/19 19:57 88 10/05/19 19:43 88 10/05/19 18:33 97.7 F 87 18 132/78 100 10/05/19 18:32 100 10/05/19 16:56 80 10/05/19 16:43 82 10/05/19 16:39 98.0 F 56 L 19 138/87 100 10/05/19 11:37 98.1 F 89 18 132/96 96 10/05/19 10:43 82 10/05/19 10:33 80 10/05/19 10:01 82 20 125/79 96 10/05/19 09:58 22 10/05/19 09:53 98.6 F 83 18 146/91 90 L Intake and Output 10/05/19 10/05/19 10/05/19 06:59 14:59 22:59 Intake Total 240 Balance 240 Intake: Oral 240 Other: Weight 72.575 kg 72.575 kg Results CBC & Chem 7: 10/05/19 10:07 10/05/19 10:07 Labs: Abnormal Lab Results - Last 24 Hours (Table) 10/05/19 10/05/19 10/05/19 Range/Units 10:07 10:07 10:07 RBC 3.58 L (4.30-5.90) m/uL Hgb 10.1 L (13.0-17.5) gm/dL Hct 31.9 L (39.0-53.0) % Neutrophils # 8.7 H (1.3-7.7) k/uL Lymphocytes # 0.7 L (1.0-4.8) k/uL D-Dimer (<0.60) mg/L FEU Sodium 135 L (137-145) mmol/L BUN 30 H (9-20) mg/dL Glucose 130 H (74-99) mg/dL Calcium 8.1 L (8.4-10.2) mg/dL Troponin I 0.070 H* (0.000-0.034) ng/mL Total Protein 5.2 L (6.3-8.2) g/dL Albumin 2.7 L (3.5-5.0) g/dL 10/05/19 Range/Units 11:06 RBC (4.30-5.90) m/uL Hgb (13.0-17.5) gm/dL Hct (39.0-53.0) % Neutrophils # (1.3-7.7) k/uL Lymphocytes # (1.0-4.8) k/uL D-Dimer 2.11 H (<0.60) mg/L FEU Sodium (137-145) mmol/L BUN (9-20) mg/dL Glucose (74-99) mg/dL Calcium (8.4-10.2) mg/dL Troponin I (0.000-0.034) ng/mL Total Protein (6.3-8.2) g/dL Albumin (3.5-5.0) g/dL Thrombosis Risk Factor Assmnt - Choose All That Apply Any of the Below Risk Factors Present?: Yes Each Factor Represents 1 point: Abnormal pulmonary function (COPD), Medical pt on bed rest, Serious lung disease incl. pneumonia (< 1month) Other Risk Factors: Yes Each Risk Factor Represents 2 Points: Age 61-74 years, Malignancy Each Risk Factor Represents 3 Points: History of DVT/PE Other congenital or acquired thrombophilia - If yes, enter type in comment: No Thrombosis Risk Factor Assessment Total Risk Factor Score: 10 Thrombosis Risk Factor Assessment Level: High Risk
[2019-10-06] MEDS: HEPARIN SODIUM,PORCINE 5,000 UNIT/ML 1 ML VIAL IV PRN ×2 (01:08→13:28)
[2019-10-06 06:50] LABS: Basophils % (A) 0 %; Eosinophils # (A) 0.1 k/uL (0-0.7); Eosinophils % (A) 1 %; HCT 33.9 % (39.0-53.0); HGB 10.5 gm/dL (13.0-17.5); Hypochromasia Moderate; Lymphocytes # (A) 0.5 k/uL (1.0-4.8); Lymphocytes % (A) 6 %; MCHC 30.9 g/dL (31.0-37.0); MCV 90.6 fL (80.0-100.0); Monocytes # (A) 0.4 k/uL (0-1.0); Monocytes % (A) 5 %; Neutrophils # (A) 7.7 k/uL (1.3-7.7); Neutrophils % (A) 87 %; Platelet Count 196 k/uL (150-450); RBC 3.74 m/uL (4.30-5.90); RDW 15.1 % (11.5-15.5); WBC 8.9 k/uL (3.8-10.6)
[2019-10-06 06:57] LABS: Partial Thromboplastin Time 30.8 sec (22.0-30.0); Prothrombin Time 10.3 sec (9.0-12.0)
[2019-10-06 07:12] LABS: Albumin 2.7 g/dL (3.5-5.0); Calcium 8.2 mg/dL (8.4-10.2); Potassium 4.2 mmol/L (3.5-5.1); Total Bilirubin 0.8 mg/dL (0.2-1.3); Total Protein 5.3 g/dL (6.3-8.2)
[2019-10-06] MEDS ORDERED: NON FORMULARY DRUG (Tiotropium Bromide [Spiriva] 1 CAP) INHALATION SCH (08:00)
--- NOTE | 2019-10-06 08:06 | XR ---
EXAMINATION TYPE: XR chest 1V portable DATE OF EXAM: 10/06/2019 COMPARISON: Prior chest x-ray and chest CT 10/05/2019 HISTORY: Pneumonia TECHNIQUE: Single frontal view of the chest is obtained. FINDINGS: Pleural parenchymal changes are stable as compared to prior exam. There are overlying card iac leads. IMPRESSION: Stable abnormal findings, correlate for pneumonia, possible associated effusions, follow -up to resolution. There is underlying emphysema. Cavitary lesion in the left lower lobe not well see n on plain film, patient with history of carcinoma.
[2019-10-06] MEDS: IPRATROPIUM-ALBUTEROL 3 ML NEB INHALATION SCH ×4 (08:25→20:31)
[2019-10-06] MEDS: SYMBICORT 80-4.5 MCG INHALER INHALATION SCH ×2 (08:25→20:31)
[2019-10-06] MEDS: PANTOPRAZOLE 40 MG TABLET PO SCH ×2 (10:11→21:00)
[2019-10-06] MEDS: METOPROLOL TARTRATE 25 MG TAB PO SCH ×2 (10:11→21:01)
[2019-10-06] MEDS: ALPRAZolam 0.25 MG TAB PO SCH ×2 (10:11→21:00)
[2019-10-06 12:30] LABS: % Iron Saturation 19.87 (15.00-50.00); Folate, Serum 14.1 ng/mL
--- NOTE | 2019-10-06 13:20 | US ---
EXAMINATION TYPE: US venous doppler duplex LE DATE OF EXAM: 10/06/2019 1:00 PM COMPARISON: NONE, patient states outside films from [place] coming. CLINICAL HISTORY: Leg swelling. SOB, pneumonia SIDE PERFORMED: Bilateral TECHNIQUE: The lower extremity deep venous system is examined utilizing real time linear array sonog kerry with graded compression, doppler sonography and color-flow sonography. VESSELS IMAGED: External Iliac Vein (EIV) Common Femoral Vein Deep Femoral Vein Greater Saphenous Vein * Femoral Vein Popliteal Vein Small Saphenous Vein * Proximal Calf Veins (* superficial vessels) Right Leg: Negative for DVT Left Leg: Negative for DVT Grayscale, color doppler, spectral doppler imaging performed of the deep veins of the bilateral lower extremities. There is normal flow, compressibility, vascular waveforms. IMPRESSION: No ultrasound evidence for acute DVT in either lower extremity.
[2019-10-06] MEDS: HEPARIN SOD,PORK IN 0.45% NACL 25,000 UNIT in 0.45% NACL 1 250ML.BAG IV SCH (13:25)
--- NOTE | 2019-10-06 15:32 | P.CNPUL ---
History of Present Illness Consult date: 10/06/19 Reason for consult: dyspnea, cough, COPD, hypoxemia, abnormal CXR/CT History of present illness: 68-year-old white male patient with known history of squamous cell carcinoma of the lung, stage IV, initially diagnosed in 2017 via fine-needle aspiration of the left lower lung bulky pleural-based mass, patient was stage III at the diagnosis. Patient was treated with chemoradiation at that time, and follow-up CAT scan in June 2018 showed pulmonary nodules on the right, consistent with metastatic disease in addition to volume loss in the left lung base and chronic radiation changes with some residual tumor. Patient was started on immuno therapy with Keytruda, he had a PET scan done in September 2018 and another PET scan on 02/06/2019 that showed volume loss in the left hemithorax, extensive pleural and parenchymal changes on the left along with some metabolic activity and air bronchograms and left lower lobe hypermetabolic activity with SUV of 6.6 which had increased from previous PET scan evaluation from 4.7. Right lower lobe subpleural lesion was measuring 18 mm in size and had a hypermetabolic uptake with an SUV of 9.8. Pleural fluid in the left lung did not show any metabolic activity, normal uptake within the abdomen and pelvic area. Patient had bronchoscopy with biopsies of the right upper lobe which were negative showing mild fibrosis, inflammation and fibroblast foci consistent with organizing pneumonia. He continued on Keytruda, however he had a reaction to it and had to stop it in June. He had a follow-up CT chest abdomen and pelvis in June 2019 that showed resolution of the previously noted loculated right-sided pneumothorax, and significant decrease in right-sided pleural effusion with small residual remaining. There was right lower lobe nodule measuring 2.3 x 1.4 cm, and decrease in size of the groundglass density in the right upper lobe measuring 1.5 x 1 cm compared to 0.4 cm previously. There was right upper lobe pleural thickening and bronchial wall thickening. Left lower lobe volume loss and loculated pleural effusion with internal calcifications that was unchanged relative to prior study. No evidence of mediastinal mass or adenopathy in the mediastinum, no hilar adenopathy. Patient traveled to [place] and came back a week ago. While in [place] patient was hospitalized for shortness of breath, he states he had a CT of the chest while down there with no evidence of pulmonary embolism or pneumonia, he was treated with steroids, and released. He then drove a motor home back to [place]. His breathing continued to worsen, he could hardly walk a few feet without being in severe respiratory distress. He was coughing up khan colored thick secretions, denied any chest pain, denied any hemoptysis, denied any fever or chills, he presented to the emergency department on 10/05/2019 for evaluation of his dyspnea, increased fatigue. Chest x-ray showed a worsening left-sided volume loss along with the new left upper to mid lung edema and or infiltrates, developing right central lung edema and infiltrates on a background of significant chronic emphysematous changes along with high-grade primary lung neoplasm. CT angios chest showed large left main pulmonary artery embolus and downstream segmental and subsegmental pulmonary emboli without evidence of right heart strain. There was leftward mediastinal shift secondary to left lower lobar collapse and multifocal segmental and subsegmental atelectasis in the lingula and left upper lobe due to the known left lower lobe mass and bronchial obstruction. It was progressively increasing loculated right pleural effusion and new spiculated densities in the right upper lobe that could be infectious or neoplastic. Patient was started on heparin infusion, hemodynamically he remained stable, his influenza screen was negative, view of his recent travel and symptoms COVID 19 testing was sent, his blood work showed a white blood cell count of 10.2, hemoglobin of 10.9, lymphocytes of 0.7, d-dimer of 2.11, sodium 135, and the Restoril choice were within normal limits, BUN was 30 creatinine was 1.17, lactic acid was 0.9, troponin was 0.070, proBNP was 24,100. Patient was placed on Levaquin for empiric antibiotic coverage, were asked to see the patient in evaluation for his shortness of breath. Review of Systems All systems: negative Constitutional: Reports fatigue, Reports weakness, Denies chills, Denies fever Eyes: denies blurred vision, denies pain Ears, nose, mouth and throat: Denies headache, Denies sore throat Cardiovascular: Denies chest pain, Denies shortness of breath Respiratory: Reports congestion, Reports cough with sputum, Reports dyspnea, Reports home oxygen, Reports respiratory infections, Denies cough Gastrointestinal: Denies abdominal pain, Denies diarrhea, Denies nausea, Denies vomiting Musculoskeletal: Denies myalgias Integumentary: Denies pruritus, Denies rash Neurological: Denies numbness, Denies weakness Psychiatric: Denies anxiety, Denies depression Endocrine: Denies fatigue, Denies weight change Past Medical History Past Medical History: Cancer, COPD, Hyperlipidemia, Hypertension, Pneumonia, Prostate Disorder Additional Past Medical History / Comment(s): PAST PLEURAL EFFUSION, LUNG CANCER WITH CHEMO ON 06-02-18 Keytruda every three weeks IV (immunetherapy) last radiation 06-02-18, prostate cancer: radiation in March 2016 no issues since, umbilical hernia, history of prostate cancer, osteoarthritis, History of Any Multi-Drug Resistant Organisms: None Reported Past Surgical History: Hernia Repair, Joint Replacement Additional Past Surgical History / Comment(s): 12/31/17 bronchoscopy w/ bx. Total L hip anterior approach. link cataracts, lt ing hernia,lt thoracentesis 01/21/18 Past Anesthesia/Blood Transfusion Reactions: No Reported Reaction Additional Past Anesthesia/Blood Transfusion Reaction / Comment(s): Claustrophobic with PET scan. Blood transfusion in May of 2018 total of 7 units of blood. Past Psychological History: No Psychological Hx Reported Additional Psychological History / Comment(s): Lives with in own. Smoking Status: Former smoker Past Alcohol Use History: Occasional Additional Past Alcohol Use History / Comment(s): Pt started smoking in 1968 and quit in 2004, smoked 1 ppd. Beer occassionally. Past Drug Use History: None Reported - Past Family History Mother Family Medical History: Cancer Additional Family Medical History / Comment(s): Mother had breast cancer and of leukemia at the age of 76yrs. Father Additional Family Medical History / Comment(s): Father of a "broken heart" after his spouses . Sister(s) Family Medical History: Cancer Additional Family Medical History / Comment(s): Breast cancer Medications and Allergies Home Medications Medication Instructions Recorded Confirmed Type Atorvastatin [Lipitor] 80 mg PO HS 01/27/18 10/05/19 History Metoprolol Tartrate [Lopressor] 25 mg PO BID #60 tab 06/14/18 10/05/19 Rx ALPRAZolam [Xanax] 0.25 mg PO BID 10/05/19 10/05/19 History Foracort 200 2 puff INHALATION RT-BID 10/05/19 10/05/19 History Levofloxacin [Levaquin] 500 mg PO DAILY #9 tab 10/05/19 Rx Pantoprazole Sodium [Protonix] 40 mg PO BID 10/05/19 10/05/19 History Rivaroxaban [Xarelto Starter Pack] 0 mg PO DIRECTED 30 Days #1 pack 10/05/19 Rx Tiotropium Liberty [Spiriva] 1 cap INHALATION RT-DAILY 10/05/19 10/05/19 History oxyCODONE HCL/ACETAMINOPHEN 1 tab PO Q6HR PRN 10/05/19 10/05/19 History [Percocet 10-325 mg] predniSONE 10 mg PO DAILY #30 tab 10/05/19 Rx predniSONE 10 mg PO DAILY PRN 10/05/19 10/05/19 History Allergies Allergy/AdvReac Type Severity Reaction Status Date / Time No Known Allergies Allergy Verified 05/04/19 17:27 Physical Exam Vitals: Vital Signs Temp Pulse Pulse Resp BP BP Pulse Ox 10/06/19 04:00 98.1 F 88 18 129/72 96 10/06/19 00:00 98.3 F 83 18 139/72 96 10/05/19 20:00 98.3 F 91 18 138/72 97 10/05/19 19:57 88 10/05/19 19:43 88 10/05/19 18:33 97.7 F 87 18 132/78 100 10/05/19 18:32 100 10/05/19 16:56 80 10/05/19 16:43 82 10/05/19 16:39 98.0 F 56 L 19 138/87 100 10/05/19 11:37 98.1 F 89 18 132/96 96 10/05/19 10:43 82 Intake and Output 10/05/19 10/06/19 10/06/19 22:59 06:59 14:59 Intake Total 240 61.834 240 Output Total 1300 Balance 240 -1238.166 240 Intake: Intake, IV Titration 61.834 Amount Heparin Sod,Pork in 0.45% 61.834 NaCl 25,000 unit In 0.45 % NaCl 1 250ml.bag @ 12 UNITS/KG/HR 8.709 mls/hr IV .Q24H [facility] Rx#: [id number] Oral 240 240 Output: Urine 1300 Other: # Bowel Movements 1 Weight 72.575 kg 68.2 kg GENERAL EXAM: Alert, very pleasant, 68-year-old cachectic white male, currently on 4 L of oxygen with a pulse ox of 95%, mildly dyspneic with conversation, but no acute distress does have severe exertional dyspnea, comfortable in no apparent distress. HEAD: Normocephalic/atraumatic. EYES: Normal reaction of pupils, equal size. Conjunctiva pink, sclera white. NOSE: Clear with pink turbinates. THROAT: No erythema or exudates. NECK: No masses, no JVD, no thyroid enlargement, no adenopathy. CHEST: No chest wall deformity. Symmetrical expansion. LUNGS: diminished breath sounds over the left upper and lower lung, better air entry is heard over the right lung with diminished breath sounds CVS: Regular rate and rhythm, normal S1 and S2, no gallops, no murmurs, no rubs ABDOMEN: Soft, nontender. No hepatosplenomegaly, normal bowel sounds, no guarding or rigidity. EXTREMITIES: No clubbing, no edema, no cyanosis, 2+ pulses and upper and lower extremities. MUSCULOSKELETAL: Muscle strength and tone normal. SPINE: No scoliosis or deformity SKIN: No rashes CENTRAL NERVOUS SYSTEM: Alert and oriented -3. No focal deficits, tone is normal in all 4 extremities. PSYCHIATRIC: Alert and oriented -3. Appropriate affect. Intact judgment and insight. Results - Laboratory Findings CBC and BMP: 10/06/19 06:32 10/06/19 06:32 PT/INR, D-dimer PT 10.3 sec (9.0-12.0) 10/06/19 06:32 INR 1.0 (<1.2) 10/06/19 06:32 D-Dimer 2.11 mg/L FEU (<0.60) H 10/05/19 11:06 Abnormal lab findings: Abnormal Labs 10/05/19 10/05/19 10/05/19 10:07 10:07 10:07 RBC 3.58 L Hgb 10.1 L Hct 31.9 L MCHC Neutrophils # 8.7 H Lymphocytes # 0.7 L APTT D-Dimer Sodium 135 L BUN 30 H Glucose 130 H Calcium 8.1 L Troponin I 0.070 H* Total Protein 5.2 L Albumin 2.7 L 10/05/19 10/06/19 10/06/19 11:06 00:00 06:32 RBC 3.74 L Hgb 10.5 L Hct 33.9 L MCHC 30.9 L Neutrophils # Lymphocytes # 0.5 L APTT 33.6 H D-Dimer 2.11 H Sodium BUN Glucose Calcium Troponin I Total Protein Albumin 10/06/19 10/06/19 06:32 06:32 RBC Hgb Hct MCHC Neutrophils # Lymphocytes # APTT 30.8 H D-Dimer Sodium BUN 25 H Glucose 72 L Calcium 8.2 L Troponin I Total Protein 5.3 L Albumin 2.7 L - Diagnostic Findings Chest x-ray: report reviewed, image reviewed CT scan - chest: report reviewed, image reviewed Assessment and Plan Plan: Assessment: #1. Acute large pulmonary embolism in the left pulmonary artery without evidence of right ventricular strain #2. Acute exacerbation of chronic obstructive pulmonary disease #3. Stage IV squamous cell carcinoma of the lung, initially diagnosed in 2016 via fine-needle biopsy of the bulky left lower lobe mass, it was stage III at diagnosis, he completed a course of chemoradiation, and was on immunotherapy with Keytruda. In January 2019 follow-up PET scan showed possible progression of disease with increased hypermetabolic uptake in the right upper lobe, patient continued with Keytruda, and his most recent PET scan in April 2019 showed mixed response with decrease in hypermetabolic uptake in the left lower lobe, right upper lobe nodularity but area of consolidation in the right lung base #4. Leftward mediastinal shift secondary to left lower lobar collapse and multifocal segmental and subsegmental atelectasis of the lingula and left upper lobe related to known history of left lower lobe mass seen on the CTA chest from 10/05/2019 #5. Recent loculated right pleural effusion #6. New spiculated densities in the right upper lobe that could be infectious or neoplastic #7. Recent hospitalization in [place] for shortness of breath related to pseudomonal pneumonia. According to the patient CT chest was completed with no evidence of pulmonary embolism #8. Severe COPD, with baseline FEV1 of 47% of predicted on home oxygen at 2 L #9. Hypertension #10. Hyperlipidemia #11. History of prostate cancer #12. Bilateral cataracts #13. Former smoker, [id number] smoker Plan: Continue Levaquin and Zosyn was added for recent history of pseudomonal pneumonia while in [place], continue breathing treatments, continue heparin infusion, no CT evidence of right ventricular strain, will obtain echocardiogram, hemodynamically patient is stable, still has severe exertional dyspnea, no acute distress, we'll send a sputum for culture, continues with low- grade fever, influenza screen was negative, COVID 19 testing is pending, patient has been in droplet precautions, CTA chest was reviewed showing severe atelectatic changes, and volume loss involving the left lung with mediastinal shift, and evidence of large pulmonary embolus in the left pulmonary artery. Hemodynamically he remains stable. We'll give the patient a dose of IV Lasix, oncology is following, overall prognosis extremely guarded. CODE STATUS was discussed with the patient in patient decided to be a DO NOT RESUSCITATE, we'll continue supportive treatment I performed a history & physical examination of the patient and discussed their management with my nurse practitioner, Elizabeth Zavaleta. I reviewed the nurse practitioner's note and agree with the documented findings and plan of care. Lung sounds are positive for diminished breath sounds. The findings and the impression was discussed with the patient. I attest to the documentation by the nurse practitioner. Time with Patient: Greater than 30
--- NOTE | 2019-10-06 15:45 | P.CONS ---
History of Present Illness - Reason for Consult Consult date: 10/06/19 Squamous Cell Carcinoma Lung Requesting physician: Juni Virk - Chief Complaint Acute Respiratory Failure - History of Present Illness Mr Edouard is a 68 yr old white male, With a complicated oncologic history, initially seen in consult at [facility] on 01/28/18. The patient had presented initially in 10/2017 with complains of left-sided chest pain and shortness of breath, soon after coming back from [place] for the winter. Imaging showed infiltrative changes in the left lower lobe and the patient had treatment for pneumonia with a partial response followed by recurrence of symptoms. He had additional courses of antibiotics, with improvement and then recurrence of symptoms. He therefore had a CT of the chest in 12/2017 showing a 7 cm plus masslike area with central necrosis. He had a bronchoscopy which noted suspicious, abnormal appearance of the left lower lobe bronchus with irregular mucosa and extrinsic compression. However pathology was negative for definite evidence of malignancy with necrotic tissue obtained. Necrotic tumor was felt to be a possibility. He then had a thoracentesis with cytology negative. He developed a non-Q wave CO after his bronchoscopy and was seen by cardiology. A cardiac catheterization was considered but was apparently canceled because of elevated WBC and concerns for infection. He was actually admitted on 01/27/18 because of abdominal discomfort from a hernia that he was having difficulty reducing. CBC showed increase in WBC into the 40,000 range in his PCPs office. Chest imaging again showed a persistent opacity in the left lower lobe. The increased WBC and platelets were felt to be reactive. The left lower lobe findings are felt to be highly suspicious for malignancy due to which repeat attempt at tissue diagnosis was recommended. The patient underwent an ultrasound guided lung biopsy on 01/29/18 and was then discharged. 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 The patient also had a PET scan and MRI of the brain for staging. MRI of the brain and PET did not show any distant disease, but did show chest wall invasion. He had a repeat thoracentesis on 02/24/18, also negative. he started concurrent chemo RT with OLIVE GRADER 16 and Cisplatin on 03/02/18. He is s/p 2 cycles. He was seen by Dr Hameed and not felt to be a surgical candidate, based on the size of the tumor and the pt's lung function. PET scan post treatment showed a 1.9 cm soft tissue density, PET avid, just anterior to the rt sacral ala. The case was d/w Radiology, and MRI pelvis ordered, which confirmed the presence of a suspicious lesion. he had a biopsy at [facility] on 04/30/18, confirming progressive locally advanced poorly differentiated squamous cell cancer Biomarker testing revealed PDL-1 90% positivity, and BRAF negative. April 2018 complained of Pain in lower right back radiating down leg, PET scan did not reveal any abnormalities, MRI pelvis showed Right retroperitoneal lesion concerning for MEts. On 04/28/2018 - Biopsy at [facility] revealed metastatic poorly differentiated carconoma. Dr. Figueroa treated with radiation. With his metastatic recurrent disease systemic treatment was recommended at this point. Various options were discussed. Given limited site of recurrence, treated with definitive RT, a more aggressive approach with systemic chemo, followed by Durvalumab was recommended. He did obtain a second opinion and agreed to treatme nt with systemic treatment followed by PDL1 He started chemo with Carbo/Gemzar on 05/27/18 and is s/p 1 cycle. He was then admitted to [facility] with profound pancytopenia, and sepsis. He improved slowly with aggressive supportive care and was discharged in early 07/06. He was again seen by Dr Christiansen for an opinion, who recommended treatment with immunotherapy alone. He started monotherapy with Keytruda in 06/2018. He continued the same in [place], and then here when he returned in 09/2018. PET scan on 11/15/18 showed stable disease. A ? new lesion was noted in the sacral ala, but this was non specifice with SUV only in the 2 range PET in 02/04 showed significant increase in opacity in the left lung with a new 1.3 cm nodule in the RLL with SUV 10 He was referred back to Pulmonary, with bronchoscopy on 06/02/19 showing extrinsic compression, with no endobronchial disease. Path was negative. On Pulmonary eval the RLL nodule was also felt to be possibly questionable re pro gression, as he had had nodules in that area before. It was thus recommended that he continue Ketruda, With follow-up imaging in 2-3 months. He is status post 13 cycles, most recently on 04/15/19 The patient subsequently reported shortness of breath lasting a few days after each infusion. This did not respond well to antihistamines, due to which the patient received short course steroid tapers, with better response. However since the last treatment, he had persistent shortness of breath despite the steroids. He was treated with three rounds of antibiotics and longer steroid taper prior to leaving for [place] in June 2019. While in [place] his shortness of breath continued. Worsened after steroid wean completed. Adrenal insuffuciency work-up in [place] did not show decrease cortisol or abnormal ACTH, this was on 09/02/19. The next few weeks he started to complain of Left chest and left upper back pain and right lower back pain he described as similiar to when he had previous right RP pelvis area met. He was continuing to be short of breath even with home oxygen 4L in [place], he was sent via EMS to [facility] in [facility] on September 18, 2019. At that time his creatinine was elevated and a contrasted CT chest was unable to be performed. Sputum culture revealed pseudomonas pneumonia and he was treated with 8 days of IV antibiotics. A VQ scan was also performed resulting with intermediate probability of Pulmonary embolism, heparin drip was initiated but patient began to have bloody stools and this was discontinued. We are awaiting his to bring in these records. I did discuss with primary physician of his care while he was in [place]. He was discharged on Friday September 27, 2019 and drove home from [place] on September 30. Since home he has been requiring 3-4Liters of oxygen. 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 October 05, 2019 - Presented to [facility] Emergency. CT scan of the chest revealed Large left pulmonary artery embolus and downstream segmental and subsegmental pulmonary emboli, no evidence of heart strain. Moderately progressive loculated right pleural effusion. Concern of new spiculated densities in right upper lobe, unclear if malignancy versus infectious. Plan will be to follow-up outpatient with PET scan. Because of the confirmed PE, patient has been re-trialed on a heparin drip, no bolus, close monitoring for any s/s bleeding. COVID-19 testing was sent per emergency department and currently pending October 06, 2019: Patient seen in morning for consultation. He is sitting in chair in only mild distress when talking. He is on 4L of NC. He states it is very difficult to ambulate to bathroom without having to stop to catch breath. He complains of the right lower pain again in his lower back, prior area of metstatic lesion. He is also mildly confused and very forgetful i comparison to his baseline, when discussing with she is concerned about his mental status worsening over the past few months. He continues on heparin drip without any signs of bleeding. Infectious disease is following and Pulmonary. Review of Systems A 14 point review of systems assessed and completed and all negative except HPI Past Medical History Past Medical History: Cancer, COPD, Hyperlipidemia, Hypertension, Pneumonia, Prostate Disorder Additional Past Medical History / Comment(s): PAST PLEURAL EFFUSION, LUNG CANCER WITH CHEMO ON 06-02-18 Keytruda every three weeks IV (immunetherapy) last radiation 06-02-18, prostate cancer: radiation in March 2016 no issues since, umbilical hernia, history of prostate cancer, osteoarthritis, History of Any Multi-Drug Resistant Organisms: None Reported Past Surgical History: Hernia Repair, Joint Replacement Additional Past Surgical History / Comment(s): 12/31/17 bronchoscopy w/ bx. Total L hip anterior approach. link cataracts, lt ing hernia,lt thoracentesis 01/21/18 Past Anesthesia/Blood Transfusion Reactions: No Reported Reaction Additional Past Anesthesia/Blood Transfusion Reaction / Comm: Claustrophobic with PET scan. Blood transfusion in May of 2018 total of 7 units of blood. Past Psychological History: No Psychological Hx Reported Additional Psychological History / Comment(s): Lives with in own. Smoking Status: Former smoker Past Alcohol Use History: Occasional Additional Past Alcohol Use History / Comment(s): Pt started smoking in 1968 and quit in 2004, smoked 1 ppd. Beer occassionally. Past Drug Use History: None Reported - Past Family History Mother Family Medical History: Cancer Additional Family Medical History / Comment(s): Mother had breast cancer and of leukemia at the age of 76yrs. Father Additional Family Medical History / Comment(s): Father of a "broken heart" after his spouses . Sister(s) Family Medical History: Cancer Additional Family Medical History / Comment(s): Breast cancer Medications and Allergies Home Medications Medication Instructions Recorded Confirmed Type Atorvastatin [Lipitor] 80 mg PO HS 01/27/18 10/05/19 History Metoprolol Tartrate [Lopressor] 25 mg PO BID #60 tab 11/26/18 03/18/20 Rx ALPRAZolam [Xanax] 0.25 mg PO BID 10/05/19 10/05/19 History Foracort 200 2 puff INHALATION RT-BID 10/05/19 10/05/19 History Levofloxacin [Levaquin] 500 mg PO DAILY #9 tab 10/05/19 Rx Pantoprazole Sodium [Protonix] 40 mg PO BID 10/05/19 10/05/19 History Rivaroxaban [Xarelto Starter Pack] 0 mg PO DIRECTED 30 Days #1 pack 10/05/19 Rx Tiotropium [place] [Spiriva] 1 cap INHALATION RT-DAILY 10/05/19 10/05/19 History oxyCODONE HCL/ACETAMINOPHEN 1 tab PO Q6HR PRN 10/05/19 10/05/19 History [Percocet 10-325 mg] predniSONE 10 mg PO DAILY #30 tab 10/05/19 Rx predniSONE 10 mg PO DAILY PRN 10/05/19 10/05/19 History Allergies Allergy/AdvReac Type Severity Reaction Status Date / Time No Known Allergies Allergy Verified 05/04/19 17:27 Physical Exam Vitals: Vital Signs Temp Pulse Pulse Resp BP BP Pulse Ox 10/06/19 11:50 86 10/06/19 11:41 80 10/06/19 09:30 99.0 F 103 H 18 141/75 98 10/06/19 04:00 98.1 F 88 18 129/72 96 10/06/19 00:00 98.3 F 83 18 139/72 96 10/05/19 20:00 98.3 F 91 18 138/72 97 10/05/19 19:57 88 10/05/19 19:43 88 10/05/19 18:33 97.7 F 87 18 132/78 100 10/05/19 18:32 100 10/05/19 16:56 80 10/05/19 16:43 82 10/05/19 16:39 98.0 F 56 L 19 138/87 100 Intake and Output 10/05/19 10/06/19 10/06/19 22:59 06:59 14:59 Intake Total 240 61.834 613.535 Output Total 1300 300 Balance 240 -1238.166 313.535 Intake: Intake, IV Titration 61.834 133.535 Amount Heparin Sod,Pork in 0.45% 61.834 133.535 NaCl 25,000 unit In 0.45 % NaCl 1 250ml.bag @ 12 UNITS/KG/HR 8.709 mls/hr IV .Q24H MARQUEZ Rx#: [id number] Oral 240 480 Output: Urine 1300 300 Other: # Bowel Movements 1 Weight 72.575 kg 68.2 kg Gen: Alert and Oriented, forgetful, No acute distress Head: NC, AT Neck: Supple, Trachea midline Heart: Reg, Irreg Lungs: DIminished throughout, Scattered RHonchi, Mild increased respiratory effort, especially with talking or any exertion Abdomen: SOft, ND, NT, BS Ext: NO edema, Positive pedal pulses Neuro: non-focal Mood: Anxious Results CBC & Chem 7: 10/06/19 06:32 10/06/19 06:32 Labs: Abnormal Lab Results - Last 24 Hours (Table) 10/06/19 10/06/19 10/06/19 Range/Units 00:00 00:00 06:32 RBC 3.74 L (4.30-5.90) m/uL Hgb 10.5 L (13.0-17.5) gm/dL Hct 33.9 L (39.0-53.0) % MCHC 30.9 L (31.0-37.0) g/dL Lymphocytes # 0.5 L (1.0-4.8) k/uL APTT 33.6 H (22.0-30.0) sec BUN (9-20) mg/dL Glucose (74-99) mg/dL Calcium (8.4-10.2) mg/dL Iron (65-175) ug/dL TIBC (228-460) ug/dL Ferritin 1184.5 H (22.0-322.0) ng/mL Total Protein (6.3-8.2) g/dL Albumin (3.5-5.0) g/dL Vitamin B12 (200.0-944.0) pg/mL 10/06/19 10/06/19 Range/Units 06:32 06:32 RBC (4.30-5.90) m/uL Hgb (13.0-17.5) gm/dL Hct (39.0-53.0) % MCHC (31.0-37.0) g/dL Lymphocytes # (1.0-4.8) k/uL APTT 30.8 H (22.0-30.0) sec BUN 25 H (9-20) mg/dL Glucose 72 L (74-99) mg/dL Calcium 8.2 L (8.4-10.2) mg/dL Iron 30 L (65-175) ug/dL TIBC 151 L (228-460) ug/dL Ferritin (22.0-322.0) ng/mL Total Protein 5.3 L (6.3-8.2) g/dL Albumin 2.7 L (3.5-5.0) g/dL Vitamin B12 1196.0 H (200.0-944.0) pg/mL Microbiology - Last 24 Hours (Table) 10/05/19 11:06 Blood Culture - Preliminary Blood No Growth after [address] scan - chest: report reviewed Assessment and Plan Plan: Assessment and Recommendations: Acute on chronic respiratory failurei: Multifactorial: - Exacerbated with new Pulmonary emboli, worsening pleural effusions, and prolonged pneumonia. - Also noted new RUL densities suspicious for progressive disease - Pulmonary team is following. New Acute Left main Pulm Artery Embolus and Medial Left Lower lobe embol: - VQ scan in [place] on September 19 identified intermittent Probability although GI bleeding when anticoagulated. - Low dose Heparin drip initiate 10/05, and monitored closely, no signs or symptoms of bleeding noted. - Plan will be to discharge on Xarelto or Eliquis, whichever is covered, for minimum of 6-12 months, reassessment for length of treatment if tolerated per Dr. Monroy as outpatient Recurrent/Residual Pneumonia: - Pseudomonas pneumonia diagnosed September 19 [facility] in [place], he is status post 8 days IV abx and 5 days PO cipro. 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 - CT from 10/04 - concern for metastatic RUL new spiculated masses, difficult to interpret on CT - PET scan will be ordered as an outpatient along with MRI of brain (increased mental status changes concerning for metastatic disease) and MRI of pelvis (prior PET did not reveal metastatic lesion in RP, found of Pelvis MRI in 2018). - After diagnostics will follow-up with Dr. Monroy regarding if another line of systemic therapy is recommended. With his performance status at this time he is not likely a candidate, will require PT/OT and improved stamina and strength. Plan to follow-up after discharge Monitor closely for bleeding while on anticoagulation, iron studies are pending Re-staging exams as outpatient Patient understands to continue quarantine after discharge until results from covid 19 result Continue aggressive supportive care at this time Discussed in detail with pt, pt's Cely, ID, Pulmonary team, anf primary team. Thank you for allowing us to take part in the care of this patient we will follow along with you. NIKITA Carbone
[2019-10-06] MEDS ORDERED: LEVOFLOXACIN 750 MG TAB PO SCH (16:00)
[2019-10-06] MEDS: FUROSEMIDE 10 MG/ML 4 ML VIAL IV SCH (16:38)
[2019-10-06] MEDS: PIPERACILLIN-TAZOBACTAM 3.375 GM in SODIUM CHLORIDE 0.9% 100 ML IVPB SCH (16:38)
--- NOTE | 2019-10-06 17:40 | P.PN ---
Progress Note - Text Progress Note Date: 10/06/19 Chief Complaint: Cough short of breath History of presenting complaint: This is a very pleasant 68-year-old patient of Dr. Ray Oseguera. Patient presented to [facility] after he presented there for progressive shortness of breath. Patient has a diagnosis of non-small cell lung cancer and has been getting treatment every 3 weeks by oncology. Chronic stable medical conditions include coronary artery disease, prostate cancer, or strength redness. Patient initially diagnosed with lung cancer in 2016 needle biopsy did confirm squamous cell carcinoma. Patient did get chemoradiation. Then received gettingKeytruda. In April 2019-patient was admitted. Patient also then had a PET scan that showed increasing metabolic activity. Increasing pleural effusion. Had a bronchoscopy by Dr. Dhillon. Treated with antibiotics for pneumonia and steroids. Patient subsequently went down to [place]. Patient admitted to the hospital where apparently for pneumonia. Was discharged 2 weeks ago. On antibiotics. 8 days ago he left for Dr. Andrew Padilla. She has been on home oxygen 2 L. [place] to 3 days has been having increasing cough no sputum. No fever or chills. Appetite has been fair. Getting tired very easily. Patient's friend whose EMT felt he was not doing well and decided to bring him in.COVID-19 testing was sent off earlier. Patient also was treated for Pseudomonas pneumonia in [place] Admitted with large left pulmonary embolism, left lower lobe collapse, pneumonia Today-has cough with some sputum production. Did tolerate some diet. Shortness of breath. On IV heparin. Review of systems: Was done for constitutional, cardiovascular, GI, pulmonary. relevant finding as above Active Medications Albuterol/Ipratropium (Duoneb 0.5 Mg-3 Mg/3 Ml Soln) 3 ml INHALATION RT-QID [facility] Last Admin: 10/06/19 16:51 Dose: 3 ml Documented by: Albuterol/Ipratropium (Duoneb 0.5 Mg-3 Mg/3 Ml Soln) 3 ml INHALATION RT-Q4H PRN PRN Reason: shortness of breath Alprazolam (Xanax) 0.25 mg PO BID [facility] Last Admin: 10/06/19 10:11 Dose: 0.25 mg Documented by: Atorvastatin Calcium (Lipitor) 80 mg PO HS [facility] Last Admin: 10/05/19 22:10 Dose: 80 mg Documented by: Budesonide/Formoterol Fumarate (Symbicort 80-4.5 Mcg Inhaler) 2 puff INHALATION RT-BID [facility] Last Admin: 10/06/19 08:25 Dose: Not Given Documented by: Furosemide (Lasix) 40 mg IV Q12HR [facility] Last Admin: 10/06/19 16:38 Dose: 40 mg Documented by: Heparin Sodium (Porcine) (Heparin) 0 unit IV PER PROTOCOL PRN; Protocol PRN Reason: Low PTT Last Admin: 10/06/19 13:28 Dose: 3,410 unit Documented by: Heparin Sodium/Sodium Chloride (25,000 unit/ Sodium Chloride) 250 mls @ 8.709 mls/hr IV .Q24H [facility]; Protocol Last Titration: 10/06/19 13:27 Dose: 18 units/kg/hr, 13.064 mls/hr Documented by: Piperacillin Sod/Tazobactam (Sod 3.375 gm/ Sodium Chloride) 100 mls @ 25 mls/hr IVPB Q8HR [facility] Last Admin: 10/06/19 16:38 Dose: 25 mls/hr Documented by: Metoprolol Tartrate (Lopressor) 25 mg PO BID [facility] Last Admin: 10/06/19 10:11 Dose: 25 mg Documented by: Miscellaneous Information (Pneumonia Protocol Utilized) 1 each PO ONCE PRN PRN Reason: Per Protocol Oxycodone/Acetaminophen (Percocet 10-325) 1 each PO Q6HR PRN PRN Reason: Pain Pantoprazole Sodium (Protonix) 40 mg PO BID [facility] Last Admin: 10/06/19 10:11 Dose: 40 mg Documented by: Prednisone () 10 mg PO DAILY PRN PRN Reason: KATRINA Physical examination: VITAL SIGNS: 98.9, 97, 18, blood pressure 119/74, 97% on 5 L GENERAL: Laying in bed, awake EYES: Pupils equal. Conjunctiva pale. HEENT: External appearance of nose and ears normal, oral cavity grossly normal. NECK: JVD not raised; masses not palpable. HEART: First and second heart sounds are normal; no edema. LUNGS: Respiratory rate increased, decreased breath sounds. Bronchial breathing the left side anteriorly. Mild wheezing ABDOMEN: Soft, nontender, liver spleen not palpable, no masses palpable. PSYCH: Alert and oriented x3; mood and affect normal. INVESTIGATIONS, reviewed in the clinical context: White count 8.9 hemoglobin 10.5 potassium 4.2 creatinine 1.10 Previous testing White count 10.2 hemoglobin 10.1 platelets 223 potassium 5 creatinine 1.17 Troponin I 0.070 proBNP 24,000 100 Influenza type A and type B both negative EKG tracing personally reviewed by me-sinus rhythm with some PVCs Chest x-ray film personally reviewed by me-worsening volume loss on the left side plus minus infiltrate Chest CTA-large main pulmonary artery embolism and segmental and subsegmental pulmonary embolism-left mediastinal shift to severe secondary to left lower lobe collapse multiple lobe atelectasis and left lower lobe mass and bronchial obstruction, progressive increasing loculated right pleural effusion new spell related density in the right upper lobe Assessment: -Large left pulmonary embolism, with no right ventricular strain -Squamous cell carcinoma-lung stage IV, status post chemoradiation treatment -it seems to progress -Worsening right-sided pleural effusion felt to be underlying malignancy -Possible pneumonia, suspect gram-negative organism -Acute COPD exacerbation in an [id number] to respond -IV heparin monitoring -Hyperlipidemia -Essential hypertension -Umbilical hernia -Primary osteoarthritis -COVID-19, being ruled out Plan: Continue with IV heparin. Hemodynamically stable. We'll start the patient on Xarelto this evening. Other medications to the antibodies to continue. Pulmonary spoke to the patient and made a no code. Overall prognosis guarded.
[2019-10-06] MEDS: RIVAROXABAN 15 MG TAB PO SCH (18:17)
[2019-10-06] MEDS: ATORVASTATIN 80 MG TAB PO SCH (21:01)
[2019-10-06] MEDS ORDERED: ACETAMINOPHEN TAB 500 MG TAB PO PRN (23:00)
--- NOTE | 2019-10-07 | P.CONS ---
History of Present Illness - Reason for Consult Consult date: 10/06/19 pseudomonas pneumonia Requesting physician: Yue Cartwright - Chief Complaint shortness of breath worse x 1 week - History of Present Illness Patient is a 68-year-old male with a past medical significant for stage IV squamous cell carcinoma of the lung status post chemo and radiation therapy patient usually go to [place] for the winter and apparently the patient was hospitalized there for possible pneumonia apparently the patient did have a sputum culture positive for pseudomonas aeruginosa patient subsequently drove from [facility] back to [place] and arrived here about a week ago patient presented to [facility] ER yesterday with chief complaints of increasing shortness of breath that has been getting worse for the last few weeks of the patient being fatigued easily patient also have a cough but denies significant sputum production denies any high-grade fever no nausea vomiting abdominal pain or any diarrhea on arrival to the ER patient was afebrile he did have a normal white count influenza PCR was negative patient did have a CT angiogram that was positive for PE hospital show some left overt metastatic shift progressively increasing loculated right pleural effusion and also evidence of the left lower lobe collapse and multifocal segmental and subsegmental atelectasis and bronchial obstruction with his recent history of pseudomonal infection patient was started on Levaquin infectious disease was consulted for further recommendation about antibiotic therapy. Review of Systems Positive point has been mentioned in HPI rest of the systems are negative Past Medical History Past Medical History: Cancer, COPD, Hyperlipidemia, Hypertension, Pneumonia, Prostate Disorder Additional Past Medical History / Comment(s): PAST PLEURAL EFFUSION, LUNG CANCER WITH CHEMO ON 06-02-18 Keytruda every three weeks IV (immunetherapy) last radiation 06-02-18, prostate cancer: radiation in March 2016 no issues since, umbilical hernia, history of prostate cancer, osteoarthritis, History of Any Multi-Drug Resistant Organisms: None Reported Past Surgical History: Hernia Repair, Joint Replacement Additional Past Surgical History / Comment(s): 12/31/17 bronchoscopy w/ bx. Total L hip anterior approach. link cataracts, lt ing hernia,lt thoracentesis 01/21/18 Past Anesthesia/Blood Transfusion Reactions: No Reported Reaction Additional Past Anesthesia/Blood Transfusion Reaction / Comm: Claustrophobic with PET scan. Blood transfusion in May of 2018 total of 7 units of blood. Past Psychological History: No Psychological Hx Reported Additional Psychological History / Comment(s): Lives with in own. Smoking Status: Former smoker Past Alcohol Use History: Occasional Additional Past Alcohol Use History / Comment(s): Pt started smoking in 1968 and quit in 2004, smoked 1 ppd. Beer occassionally. Past Drug Use History: None Reported - Past Family History Mother Family Medical History: Cancer Additional Family Medical History / Comment(s): Mother had breast cancer and of leukemia at the age of 76yrs. Father Additional Family Medical History / Comment(s): Father of a "broken heart" after his spouses . Sister(s) Family Medical History: Cancer Additional Family Medical History / Comment(s): Breast cancer Medications and Allergies Home Medications Medication Instructions Recorded Confirmed Type Atorvastatin [Lipitor] 80 mg PO HS 01/27/18 10/05/19 History Metoprolol Tartrate [Lopressor] 25 mg PO BID #60 tab 06/14/18 10/05/19 Rx ALPRAZolam [Xanax] 0.25 mg PO BID 10/05/19 10/05/19 History Foracort 200 2 puff INHALATION RT-BID 10/05/19 10/05/19 History Levofloxacin [Levaquin] 500 mg PO DAILY #9 tab 10/05/19 Rx Pantoprazole Sodium [Protonix] 40 mg PO BID 10/05/19 10/05/19 History Rivaroxaban [Xarelto Starter Pack] 0 mg PO DIRECTED 30 Days #1 pack 10/05/19 Rx Tiotropium [place] [Spiriva] 1 cap INHALATION RT-DAILY 10/05/19 10/05/19 History oxyCODONE HCL/ACETAMINOPHEN 1 tab PO Q6HR PRN 10/05/19 10/05/19 History [Percocet 10-325 mg] predniSONE 10 mg PO DAILY #30 tab 10/05/19 Rx predniSONE 10 mg PO DAILY PRN 10/05/19 10/05/19 History Allergies Allergy/AdvReac Type Severity Reaction Status Date / Time No Known Allergies Allergy Verified 05/04/19 17:27 Physical Exam Vitals: Vital Signs Temp Pulse Pulse Resp BP BP Pulse Ox 10/06/19 11:50 86 10/06/19 11:41 80 10/06/19 09:30 99.0 F 103 H 18 141/75 98 10/06/19 04:00 98.1 F 88 18 129/72 96 10/06/19 00:00 98.3 F 83 18 139/72 96 10/05/19 20:00 98.3 F 91 18 138/72 97 10/05/19 19:57 88 10/05/19 19:43 88 10/05/19 18:33 97.7 F 87 18 132/78 100 10/05/19 18:32 100 10/05/19 16:56 80 10/05/19 16:43 82 10/05/19 16:39 98.0 F 56 L 19 138/87 100 Intake and Output 10/05/19 10/06/19 10/06/19 22:59 06:59 14:59 Intake Total 240 61.834 613.535 Output Total 1300 300 Balance 240 -1238.166 313.535 Intake: Intake, IV Titration 61.834 133.535 Amount Heparin Sod,Pork in 0.45% 61.834 133.535 NaCl 25,000 unit In 0.45 % NaCl 1 250ml.bag @ 12 UNITS/KG/HR 8.709 mls/hr IV .Q24H [facility] Rx#: [id number] Oral 240 480 Output: Urine 1300 300 Other: # Bowel Movements 1 Weight 72.575 kg 68.2 kg GENERAL DESCRIPTION: Elderly male up in the chair, no distress. No tachypnea or accessory muscle of respiration use. HEENT: Shows Pallor , no scleral icterus. Oral mucous membrane is dry. NECK: Trachea central, no thyromegaly. LUNGS: Unlabored breathing. Decreased intensity of breath sounds. No wheeze or crackle. HEART: S1, S2, regular rate and rhythm. ABDOMEN: Soft, no tenderness , guarding or rigidity EXTREMITIES: No edema of feet. SKIN: No rash, no masses palpable. NEUROLOGICAL: The patient is awake, alert, oriented x3, mood and affect normal. Results CBC & Chem 7: 10/06/19 06:32 10/06/19 06:32 Labs: Abnormal Lab Results - Last 24 Hours (Table) 10/06/19 10/06/19 10/06/19 Range/Units 00:00 00:00 06:32 RBC 3.74 L (4.30-5.90) m/uL Hgb 10.5 L (13.0-17.5) gm/dL Hct 33.9 L (39.0-53.0) % MCHC 30.9 L (31.0-37.0) g/dL Lymphocytes # 0.5 L (1.0-4.8) k/uL APTT 33.6 H (22.0-30.0) sec BUN (9-20) mg/dL Glucose (74-99) mg/dL Calcium (8.4-10.2) mg/dL Iron (65-175) ug/dL TIBC (228-460) ug/dL Ferritin 1184.5 H (22.0-322.0) ng/mL Total Protein (6.3-8.2) g/dL Albumin (3.5-5.0) g/dL Vitamin B12 (200.0-944.0) pg/mL 10/06/19 10/06/19 Range/Units 06:32 06:32 RBC (4.30-5.90) m/uL Hgb (13.0-17.5) gm/dL Hct (39.0-53.0) % MCHC (31.0-37.0) g/dL Lymphocytes # (1.0-4.8) k/uL APTT 30.8 H (22.0-30.0) sec BUN 25 H (9-20) mg/dL Glucose 72 L (74-99) mg/dL Calcium 8.2 L (8.4-10.2) mg/dL Iron 30 L (65-175) ug/dL TIBC 151 L (228-460) ug/dL Ferritin (22.0-322.0) ng/mL Total Protein 5.3 L (6.3-8.2) g/dL Albumin 2.7 L (3.5-5.0) g/dL Vitamin B12 1196.0 H (200.0-944.0) pg/mL Microbiology - Last 24 Hours (Table) 10/05/19 11:06 Blood Culture - Preliminary Blood No Growth after 24 hours Assessment and Plan Assessment: 1-patient presenting to the hospital with increasing shortness of breath which is likely multifactorial in this patient who did have a stage IV lung cancer status post chemoradiation therapy with evidence of significant pulmonary embolism likely main reason of his symptoms, with concern for underlying postobstructive pneumonia left side has not done excluded the patient clinically not behaving as pneumonia with no fever or elevated white count, with recent culture of pseudomonas aeruginosa will need to cover for it and his condition stabilized (1) Pulmonary infiltrate Current Visit: Yes Status: Acute Code(s): R91.8 - OTHER NONSPECIFIC ABNORMAL FINDING OF LUNG FIELD SNOMED Code(s): 440883385 (2) Pneumonia Current Visit: No Status: Acute Code(s): J18.9 - PNEUMONIA, UNSPECIFIED ORGANISM SNOMED Code(s): 575037297 Plan: 1-we will obtain CRP and procalcitonin level 2-obtain a sputum for Gram stain and culture 3-discontinue Levaquin 4-start the patient on Zosyn 3.375 g every 8 hours We will follow on clinical condition and cultures to further adjust medication if needed Thank you for this consultation we will follow the patient along with you Time with Patient: Greater than 30
[2019-10-07] MEDS: FUROSEMIDE 10 MG/ML 4 ML VIAL IV SCH ×2 (00:32→08:18)
[2019-10-07] MEDS: PIPERACILLIN-TAZOBACTAM 3.375 GM in SODIUM CHLORIDE 0.9% 100 ML IVPB SCH ×3 (00:32→16:04)
[2019-10-07] MEDS: RIVAROXABAN 15 MG TAB PO SCH (06:14)
[2019-10-07 06:43] LABS: Basophils % (A) 0 %; Eosinophils # (A) 0.2 k/uL (0-0.7); Eosinophils % (A) 2 %; HCT 28.2 % (39.0-53.0); Hypochromasia Slight; Lymphocytes # (A) 0.4 k/uL (1.0-4.8); Lymphocytes % (A) 6 %; MCHC 31.7 g/dL (31.0-37.0); MCV 88.3 fL (80.0-100.0); Mean Platelet Volume 7.8; Monocytes # (A) 0.5 k/uL (0-1.0); Monocytes % (A) 6 %; Neutrophils # (A) 6.1 k/uL (1.3-7.7); Neutrophils % (A) 84 %; Platelet Count 174 k/uL (150-450); RBC 3.19 m/uL (4.30-5.90); WBC 7.3 k/uL (3.8-10.6)
[2019-10-07 06:56] LABS: HGB 8.9 gm/dL (13.0-17.5)
[2019-10-07 07:05] LABS: INR 1.3 (<1.2); Prothrombin Time 12.8 sec (9.0-12.0)
[2019-10-07] MEDS: ALPRAZolam 0.25 MG TAB PO SCH (08:18)
[2019-10-07] MEDS: PANTOPRAZOLE 40 MG TABLET PO SCH (08:18)
[2019-10-07] MEDS: METOPROLOL TARTRATE 25 MG TAB PO SCH (08:18)
[2019-10-07] MEDS: IPRATROPIUM-ALBUTEROL 3 ML NEB INHALATION SCH ×4 (08:20→15:50)
[2019-10-07] MEDS: SYMBICORT 80-4.5 MCG INHALER INHALATION SCH ×2 (08:20→08:36)
--- NOTE | 2019-10-07 08:52 | XR ---
EXAMINATION TYPE: XR chest 1V portable DATE OF EXAM: 10/07/2019 COMPARISON: Prior chest x-ray 10/06/2019 HISTORY: Pneumonia TECHNIQUE: Single frontal view of the chest is obtained. FINDINGS: Pleural parenchymal changes are similar to prior exam. IMPRESSION: No significant change. There may be underlying pneumonia, findings compatible with patie nt's history of lung carcinoma., Bilateral pleural effusions.
[2019-10-07 11:20] VITALS: BP 94/58; RESP 20; TEMP 97.9
[2019-10-07 11:38] VITALS: PULSE 80
--- NOTE | 2019-10-07 11:47 | P.PN ---
Subjective Progress Note Date: 10/07/19 68-year-old white male patient with known history of squamous cell carcinoma of the lung, stage IV, initially diagnosed in 2017 via fine-needle aspiration of the left lower lung bulky pleural-based mass, patient was stage III at the diagnosis. Patient was treated with chemoradiation at that time, and follow-up CAT scan in June 2018 showed pulmonary nodules on the right, consistent with metastatic disease in addition to volume loss in the left lung base and chronic radiation changes with some residual tumor. Patient was started on immunotherapy with Keytruda, he had a PET scan done in September 2018 and another PET scan on 02/06/2019 that showed volume loss in the left hemithorax, extensive pleural and parenchymal changes on the left along with some metabolic activity and air bronchograms and left lower lobe hypermetabolic activity with SUV of 6.6 which had increased from previous PET scan evaluation from 4.7. Right lower lobe subpleural lesion was measuring 18 mm in size and had a hypermetabolic uptake with an SUV of 9.8. Pleural fluid in the left lung did not show any metabolic activity, normal uptake within the abdomen and pelvic area. Patient had bronchoscopy with biopsies of the right upper lobe which were negative showing mild fibrosis, inflammation and fibroblast foci consistent with organizing pneumonia. He continued on Keytruda, however he had a reaction to it and had to stop it in June. He had a follow-up CT chest abdomen and pelvis in June 2019 that showed resolution of the previously noted loculated right- sided pneumothorax, and significant decrease in right-sided pleural effusion with small residual remaining. There was right lower lobe nodule measuring 2.3 x 1.4 cm, and decrease in size of the groundglass density in the right upper lobe measuring 1.5 x 1 cm compared to 0.4 cm previously. There was right upper lobe pleural thickening and bronchial wall thickening. Left lower lobe volume loss and loculated pleural effusion with internal calcifications that was unchanged relative to prior study. No evidence of mediastinal mass or adenopathy in the mediastinum, no hilar adenopathy. Patient traveled to [place] and came back a week ago. While in [place] patient was hospitalized for shortness of breath, he states he had a CT of the chest while down there with no evidence of pulmonary embolism or pneumonia, he was treated with steroids, and released. He then drove a motor home back to [place]. His breathing continued to worsen, he coul d hardly walk a few feet without being in severe respiratory distress. He was coughing up khan colored thick secretions, denied any chest pain, denied any hemoptysis, denied any fever or chills, he presented to the emergency department on 10/05/2019 for evaluation of his dyspnea, increased fatigue. Chest x-ray showed a worsening left-sided volume loss along with the new left upper to mid lung edema and or infiltrates, developing right central lung edema and infiltrates on a background of significant chronic emphysematous changes along with high-grade primary lung neoplasm. CT angios chest showed large left main pulmonary artery embolus and downstream segmental and subsegmental pulmonary em boli without evidence of right heart strain. There was leftward mediastinal shift secondary to left lower lobar collapse and multifocal segmental and subsegmental atelectasis in the lingula and left upper lobe due to the known left lower lobe mass and bronchial obstruction. It was progressively increasing loculated right pleural effusion and new spiculated densities in the right upper lobe that could be infectious or neoplastic. Patient was started on heparin infusion, hemodynamically he remained stable, his influenza screen was negative, view of his recent travel and symptoms COVID 19 testing was sent, his blood work showed a white blood cell count of 10.2, hemoglobin of 10.9, lymphocytes of 0.7, d-dimer of 2.11, sodium 135, and the Restoril choice were within normal limits, BUN was 30 creatinine was 1.17, lactic acid was 0.9, troponin was 0.070, proBNP was 24,100. Patient was placed on Levaquin for empiric antibiotic coverage, were asked to see the patient in evaluation for his shortness of breath. On 10/07/2019 patient seen in follow-up on selective care unit. Sitting up in the chair, pulse ox is 100% on 3 L of oxygen, hemodynamically stable, no fever, chills, lung sounds reveal diminished breath sounds over left lung, with better aeration and air entry over the right lung. Patient is on combination of Zosyn, Levaquin, yesterday we added IV Lasix of 40 mg every 12 hours, breathing treatments, he is slightly negative on his net fluid balance, he has produced 1275 ML in the urine output. He states overall he is breathing easier today, today's chest x-ray has been reviewed, films are not available for review, report states no significant change from prior chest x-rays, findings compatible with patient's history of lung carcinoma, and bilateral pleural effusions. Sputum sample culture and Gram stain showed few gram-negative bacilli, few gram- positive cocci and rare budding yeast, cultures pending, blood culture was negative Objective - Vital Signs Vital signs: Vital Signs Temp 97.9 F 10/07/19 11:13 Pulse 80 10/07/19 11:38 Resp 20 10/07/19 11:13 BP 94/58 10/07/19 11:13 Pulse Ox 100 10/07/19 11:13 Intake & Output 10/06/19 10/07/19 10/07/19 18:59 06:59 18:59 Intake Total 873.535 440 140 Output Total 300 975 Balance 573.535 -535 140 Weight 68 kg Intake: Intake, IV Titration 133.535 200 Amount Heparin Sod,Pork in 0.45% 133.535 NaCl 25,000 unit In 0.45 % NaCl 1 250ml.bag @ 12 UNITS/KG/HR 8.709 mls/hr IV .Q24H [facility] Rx#: [id number] Piperacillin-Tazobactam 3 200 .375 gm In Sodium Chloride 0.9% 100 ml @ 25 mls/hr IVPB Q8HR [facility] Rx# :[id number] Oral 740 240 140 Output: Urine 300 975 Other: # Bowel Movements 1 - Exam GENERAL EXAM: Alert, very pleasant, 68-year-old cachectic white male, currently on 3 L of oxygen with a pulse ox of 100%, and his breathing has improved todaym mildly dyspneic with exertion,comfortable at rest, in no apparent distress. HEAD: Normocephalic/atraumatic. EYES: Normal reaction of pupils, equal size. Conjunctiva pink, sclera white. NOSE: Clear with pink turbinates. THROAT: No erythema or exudates. NECK: No masses, no JVD, no thyroid enlargement, no adenopathy. CHEST: No chest wall deformity. Symmetrical expansion. LUNGS: diminished breath sounds over the left upper and lower lung, better air entry is heard over the right lung with diminished breath sounds CVS: Regular rate and rhythm, normal S1 and S2, no gallops, no murmurs, no rubs ABDOMEN: Soft, nontender. No hepatosplenomegaly, normal bowel sounds, no guarding or rigidity. EXTREMITIES: No clubbing, no edema, no cyanosis, 2+ pulses and upper and lower extremities. MUSCULOSKELETAL: Muscle strength and tone normal. SPINE: No scoliosis or deformity SKIN: No rashes CENTRAL NERVOUS SYSTEM: Alert and oriented -3. No focal deficits, tone is normal in all 4 extremities. PSYCHIATRIC: Alert and oriented -3. Appropriate affect. Intact judgment and insight. - Labs CBC & Chem 7: 10/07/19 05:59 10/06/19 06:32 Labs: Abnormal Lab Results - Last 24 Hours (Table) 10/06/19 10/06/19 10/07/19 Range/Units 00:00 06:32 05:59 RBC 3.19 L (4.30-5.90) m/uL Hgb 8.9 L D (13.0-17.5) gm/dL Hct 28.2 L (39.0-53.0) % Lymphocytes # 0.4 L (1.0-4.8) k/uL PT (9.0-12.0) sec INR (<1.2) Iron 30 L (65-175) ug/dL TIBC 151 L (228-460) ug/dL Ferritin 1184.5 H (22.0-322.0) ng/mL C-Reactive Protein (<10.0) mg/L Vitamin B12 1196.0 H (200.0-944.0) pg/mL 10/07/19 10/07/19 Range/Units 05:59 05:59 RBC (4.30-5.90) m/uL Hgb (13.0-17.5) gm/dL Hct (39.0-53.0) % Lymphocytes # (1.0-4.8) k/uL PT 12.8 H (9.0-12.0) sec INR 1.3 H (<1.2) Iron (65-175) ug/dL TIBC (228-460) ug/dL Ferritin (22.0-322.0) ng/mL C-Reactive Protein 214.1 H (<10.0) mg/L Vitamin B12 (200.0-944.0) pg/mL Microbiology - Last 24 Hours (Table) 10/06/19 11:45 Gram Stain - Preliminary Sputum Sputum Culture - Preliminary 10/05/19 11:06 Blood Culture - Preliminary Blood No Growth after 24 hours Assessment and Plan Plan: Assessment: #1. Acute large pulmonary embolism in the left pulmonary artery without evidence of right ventricular strain #2. Acute exacerbation of chronic obstructive pulmonary disease #3. Stage IV squamous cell carcinoma of the lung, initially diagnosed in 2017 via fine-needle biopsy of the bulky left lower lobe mass, it was stage III at diagnosis, he completed a course of chemoradiation, and was on immunotherapy with Keytruda. In January 2019 follow-up PET scan showed possible progression of disease with increased hypermetabolic uptake in the right upper lobe, patient continued with Keytruda, and his most recent PET scan in April 2019 showed mixed response with decrease in hypermetabolic uptake in the left lower lobe, right upper lobe nodularity but area of consolidation in the right lung base #4. Leftward mediastinal shift secondary to left lower lobar collapse and multifocal segmental and subsegmental atelectasis of the lingula and left upper lobe related to known history of left lower lobe mass seen on the CTA chest from 10/05/2019 #5. Recent loculated right pleural effusion #6. New spiculated densities in the right upper lobe that could be infectious or neoplastic #7. Recent hospitalization in [place] for shortness of breath related to pseudomonal pneumonia. According to the patient CT chest was completed with no evidence of pulmonary embolism #8. Severe COPD, with baseline FEV1 of 47% of predicted on home oxygen at 2 L #9. Hypertension #10. Hyperlipidemia #11. History of prostate cancer #12. Bilateral cataracts #13. Former smoker, [id number] smoker Plan: Continue current medical treatment, current antibiotics including Levaquin, and Zosyn, patient has been transitioned to oral anticoagulation in the form of Zaroxolyn, hemodynamically stable, he is slightly negative and his total net fluid balance. he is breathing easier today, oxygenation has improved, FiO2 is down to 3 L, no fever or chills, patient is on, initially Levaquin and Zosyn for recent history of pseudomonal pulmonary infection in [place]. COVOD 19 testing is still pending. Today's chest x-ray shows no significant change since yesterday's exam, clinically patient seems better. ID, and medical oncology are following I performed a history & physical examination of the patient and discussed their management with my nurse practitioner, Elizabeth Zavaleta. I reviewed the nurse practitioner's note and agree with the documented findings and plan of care. Lung sounds are positive for diminished breath sounds. The findings and the impression was discussed with the patient. I attest to the documentation by the nurse practitioner. Time with Patient: Less than 30
--- NOTE | 2019-10-07 12:37 | ECHOF ---
Referral Reason:acute PE MEASUREMENTS -------- HEIGHT: 175.3 cm WEIGHT: 67.6 kg BP: RVIDd: 3.1 cm (< 3.3) IVSd: 1.5 cm (0.6 - 1.1) LVIDd: 3.6 cm (3.9 - 5.3) LVPWd: 1.5 cm (0.6 - 1.1) IVSs: 1.7 cm LVIDs: 3.1 cm LVPWs: 1.9 cm LA Diam: 3.1 cm (2.7 - 3.8) LAESV Index (A-L): 35.84 ml/m Ao Diam: 3.4 cm (2.0 - 3.7) AV Cusp: 2.2 cm (1.5 - 2.6) MV EXCURSION: 18.807 mm (> 18.000) MV EF SLOPE: 44 mm/s (70 - 150) EPSS: 0.8 cm MV E Timoteo: 0.65 m/s MV DecT: 280 ms MV A Timoteo: 0.84 m/s MV E/A Ratio: 0.78 RAP: 5.00 mmHg RVSP: 30.25 mmHg FINDINGS -------- This was a technically good study. The left ventricular size is normal. There is moderate concentric left ventricular hypertrophy. O verall left ventricular systolic function is normal with, an EF between 55 - 60 %. The right ventricle is normal in size. LA is moderately dilated 34-39 ml/m2 The right atrium is normal in size. Interatrial and interventricular septum intact. There is mild aortic valve sclerosis. The mitral valve is normal. Mild tricuspid regurgitation present. Right ventricular systolic pressure is normal at < 35 mmHg. Trace/mild (physiologic) pulmonic regurgitation. The aortic root size is normal. Normal inferior vena cava with normal inspiratory collapse consistent with estimated right atrial pre ssure of 5 mmHg. There is no pericardial effusion. CONCLUSIONS -------- 1. This was a technically good study. 2. The left ventricular size is normal. 3. There is moderate concentric left ventricular hypertrophy. 4. Overall left ventricular systolic function is normal with, an EF between 55 - 60 %. 5. The right ventricle is normal in size. 6. LA is moderately dilated 34-39 ml/m2 7. The right atrium is normal in size. 8. Interatrial and interventricular septum intact. 9. There is mild aortic valve sclerosis. 10. The mitral valve is normal. 11. Mild tricuspid regurgitation present. 12. Right ventricular systolic pressure is normal at < 35 mmHg. 13. Trace/mild (physiologic) pulmonic regurgitation. 14. The aortic root size is normal. 15. Normal inferior vena cava with normal inspiratory collapse consistent with estimated right atrial pressure of 5 mmHg. 16. There is no pericardial effusion. PROPERTY PRESERVATION SPECIALIST: Dipti George RDCS
--- NOTE | 2019-10-07 13:30 | P.PN ---
Subjective Progress Note Date: 10/07/19 Principal diagnosis: Pulmonary Embolism recurrent Pneumonia patient is overall feeling better today. Hemoglobin has decreased. Objective - Vital Signs Vital signs: Vital Signs Temp 98 F 10/07/19 08:00 Pulse 88 10/07/19 08:31 Resp 18 10/07/19 08:00 BP 100/55 10/07/19 08:00 Pulse Ox 98 10/07/19 08:22 Intake & Output 10/06/19 10/07/19 10/07/19 18:59 06:59 18:59 Intake Total 873.535 440 140 Output Total 300 975 Balance 573.535 -535 140 Weight 68 kg Intake: Intake, IV Titration 133.535 200 Amount Heparin Sod,Pork in 0.45% 133.535 NaCl 25,000 unit In 0.45 % NaCl 1 250ml.bag @ 12 UNITS/KG/HR 8.709 mls/hr IV .Q24H MARQUEZ Rx#: [id number] Piperacillin-Tazobactam 3 200 .375 gm In Sodium Chloride 0.9% 100 ml @ 25 mls/hr IVPB Q8HR MARQUEZ Rx# :[id number] Oral 740 240 140 Output: Urine 300 975 Other: # Bowel Movements 1 - Exam Gen: Alert and Oriented, forgetful, No acute distress Head: NC, AT Neck: Supple, Trachea midline Heart: Reg, Irreg Lungs: DIminished throughout, Scattered RHonchi, Mild increased respiratory effort, especially with talking or any exertion Abdomen: SOft, ND, NT, BS Ext: NO edema, Positive pedal pulses Neuro: non-focal Mood: Anxious - Labs CBC & Chem 7: 10/07/19 05:59 10/06/19 06:32 Labs: Abnormal Lab Results - Last 24 Hours (Table) 10/06/19 10/06/19 10/07/19 Range/Units 00:00 06:32 05:59 RBC 3.19 L (4.30-5.90) m/uL Hgb 8.9 L D (13.0-17.5) gm/dL Hct 28.2 L (39.0-53.0) % Lymphocytes # 0.4 L (1.0-4.8) k/uL PT (9.0-12.0) sec INR (<1.2) Iron 30 L (65-175) ug/dL TIBC 151 L (228-460) ug/dL Ferritin 1184.5 H (22.0-322.0) ng/mL C-Reactive Protein (<10.0) mg/L Vitamin B12 1196.0 H (200.0-944.0) pg/mL 10/07/19 10/07/19 Range/Units 05:59 05:59 RBC (4.30-5.90) m/uL Hgb (13.0-17.5) gm/dL Hct (39.0-53.0) % Lymphocytes # (1.0-4.8) k/uL PT 12.8 H (9.0-12.0) sec INR 1.3 H (<1.2) Iron (65-175) ug/dL TIBC (228-460) ug/dL Ferritin (22.0-322.0) ng/mL C-Reactive Protein 214.1 H (<10.0) mg/L Vitamin B12 (200.0-944.0) pg/mL Microbiology - Last 24 Hours (Table) 10/06/19 11:45 Gram Stain - Preliminary Sputum Sputum Culture - Preliminary 10/05/19 11:06 Blood Culture - Preliminary Blood No Growth after 24 hours Assessment and Plan Plan: Assessment and Recommendations: Acute on chronic respiratory failurei: Multifactorial: - Exacerbated with new Pulmonary emboli, worsening pleural effusions, and prolonged pneumonia. - Also noted new RUL densities suspicious for progressive disease - Pulmonary team is following. New Acute Left main Pulm Artery Embolus and Medial Left Lower lobe embol: - VQ scan in [place] on September 19 identified intermittent Probability although GI bleeding when anticoagulated. - Low dose Heparin drip initiate 10/05, and monitored closely, no signs or symptoms of bleeding noted. - Plan will be to discharge on Xarelto or Eliquis, whichever is covered, for minimum of 6-12 months, reassessment for length of treatment if tolerated per Dr. Monroy as outpatient Recurrent/Residual Pneumonia: - [facility] [place], he is status post 8 days IV abx and 5 days PO cipro. 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 - CT from 10/04 - concern for metastatic RUL new spiculated masses, difficult to interpret on CT - PET scan will be ordered as an outpatient along with MRI of brain (increased mental status changes concerning for metastatic disease) and MRI of pelvis (prior PET did not reveal metastatic lesion in RP, found of Pelvis MRI in 2017). - After diagnostics will follow-up with Dr. Monroy regarding if another line of systemic therapy is recommended. With his performance status at this time he is not likely a candidate, will require PT/OT and improved stamina and strength. Plan to follow-up after discharge Monitor closely for bleeding while on anticoagulation, iron studies are pending Re-staging exams as outpatient Patient understands to continue quarantine after discharge until results from covid 19 result Continue aggressive supportive care at this time Discussed in detail with pt, pt's Cely, ID, Pulmonary team, and primary team. Patient will require close monitoring for bleeding after discharge, he will see GI prior to discharge. Thank you for allowing us to take part in the care of this patient we will follow along with you. NIKITA Carbone
--- NOTE | 2019-10-07 15:32 | PN ---
PROGRESS NOTE DATE OF SERVICE: 10/07/2019 REASON FOR FOLLOWUP: Possible pneumonia. INTERVAL HISTORY: The patient is currently afebrile. Patient has been breathing more comfortably. The patient denies having any chest pain, minimal cough. No nausea. No vomiting, no abdominal pain, no diarrhea. PHYSICAL EXAM: Blood pressure is 93/58 with a pulse of 89. He is 100% on 3 L nasal cannula. General description is an elderly male, up in the chair in no distress. RESPIRATORY SYSTEM: Unlabored breathing, decreased breath sounds at the base. HEART: S1, S2, regular rate and rhythm ABDOMEN: Soft, no tenderness. LABS: Hemoglobin is 9.1, white count is 7.3, creatinine 1.10. Patient's CRP and the blood cultures are elevated and sputum showed gram-negative. DIAGNOSTIC IMPRESSION AND PLAN: Patient admitted to the hospital with shortness of breath with possible pneumonia with hospital component possibly considered to be pneumonia with recent diagnosis of pseudomonas in the sputum which is considered to be gram This wound is significant with coagulase negative Staph. Keep the patient on Zosyn while waiting for the sputum to finalize. Continue supportive care. MMODL / IJN: [id number] / JOHN
--- NOTE | 2019-10-08 00:01 | P.DS ---
Providers Date of admission: 10/05/19 14:49 Expected date of discharge: 10/07/19 Attending physician: Mack Watkins Consults: 10/05/19 14:48 Consult Physician Urgent Consulting Provider: Ant Monroy Consult Reason/Comments: Oncological care Do you want consulting provider notified?: Already Contacted 10/05/19 14:49 Consult Physician Urgent Consulting Provider: Castillo Posada Consult Reason/Comments: Dyspnea Do you want consulting provider notified?: Already Contacted 10/06/19 06:00 Consult Physician Routine Consulting Provider: Anneliese David Consult Reason/Comments: Recent hosp, IV abx in [place] for pseudomonas pneumonia Do you want consulting provider notified?: Yes, Notify in am 10/07/19 10:58 Consult Physician Urgent Consulting Provider: Darío Leon Consult Reason/Comments: recent GI bleeding on Anticoag, large PE on AC therapy Do you want consulting provider notified?: Yes Primary care physician: Romario Oseguera [place] [facility] Course: Chief Complaint: Cough short of breath History of presenting complaint: This is a very pleasant 68-year-old patient of Dr. Ray Oseguera. Patient presented to [facility] after he presented there for progressive shortness of breath. Patient has a diagnosis of non-small cell lung cancer and has been getting treatment every 3 weeks by oncology. Chronic stable medical conditions include coronary artery disease, prostate cancer, or strength redness. Patient initially diagnosed with lung cancer in 2016 needle biopsy did confirm squamous cell carcinoma. Patient did get chemoradiation. Then received gettingKeytruda. In April 2019-patient was admitted. Patient also then had a PET scan that showed increasing metabolic activity. Increasing pleural effusion. Had a bronchoscopy by Dr. Dhillon. Treated with antibiotics for pneumonia and steroids. Patient subsequently went down to [place]. Patient admitted to the hospital where apparently for pneumonia. Was discharged 2 weeks ago. On antibiotics. 8 days ago he left for Dr. Andrew Padilla. She has been on home oxygen 2 L. Telfa to 3 days has been having increasing cough no sputum. No fever or chills. Appetite has been fair. Getting tired very easily. Patient's friend whose EMT felt he was not doing well and decided to bring him in.COVID-19 testing was sent off earlier. Patient also was treated for Pseudomonas pneumonia in [place] Admitted with large left pulmonary embolism, left lower lobe collapse, pneumonia. Started and IV heparin. Changed over to Xarelto. Also treated for fluid overload. Also received IV Zosyn. Today-P much better. Really wants to go home. Discussed Radha from oncology. Discussed with Dr. David from ID. Also okay with pulmonary. Discussed with the patient his leg. Questions answered. Patient's COVID-19 results pending-to follow up with the results of the same. Discussed social isolation. Discussion and discharge planning more than 35 minutes Consultation: Dr. Marino from ID Dr. Nina from pulmonary Dr. Monroy from oncology Physical examination: VITAL SIGNS: 97.9, 84, 20, blood pressure 94/58, 100% on 3 L GENERAL: Sitting up in a chair, comfortable EYES: Pupils equal. Conjunctiva pale. HEENT: External appearance of nose and ears normal, oral cavity grossly normal. NECK: JVD not raised; masses not palpable. HEART: First and second heart sounds are normal; no edema. LUNGS: Respiratory rate increased, decreased breath sounds. Bronchial breathing the left side anteriorly. Mild wheezing ABDOMEN: Soft, nontender, liver spleen not palpable, no masses palpable. PSYCH: Alert and oriented x3; mood and affect normal. INVESTIGATIONS, reviewed in the clinical context: White count 7.3 hemoglobin 8.9 Previous testing White count 10.2 hemoglobin 10.1 platelets 223 potassium 5 creatinine 1.17 Troponin I 0.070 proBNP 24,000 100 Influenza type A and type B both negative EKG tracing personally reviewed by me-sinus rhythm with some PVCs Chest x-ray film personally reviewed by me-worsening volume loss on the left side plus minus infiltrate Chest CTA-large main pulmonary artery embolism and segmental and subsegmental pulmonary embolism-left mediastinal shift to severe secondary to left lower lobe collapse multiple lobe atelectasis and left lower lobe mass and bronchial obstruction, progressive increasing loculated right pleural effusion new spell related density in the right upper lobe 2-D echo-EF 55-60%, concentric LVH Doppler ultrasound-bilateral lower extremity negative for DVT Assessment: -Large left pulmonary embolism, with no right ventricular strain, POA -Squamous cell carcinoma-lung stage IV, status post chemoradiation treatment -it seems to progress -Worsening right-sided pleural effusion felt to be underlying malignancy -Possible acute congestive heart failure exacerbation from diastolic dysfunction EF 55-60% -Possible pneumonia, suspect gram-negative organism, POA with recent cultures from [place] showing Pseudomonas -Acute COPD exacerbation in an [id number] -IV heparin monitoring -Hyperlipidemia -Essential hypertension -Umbilical hernia -Primary osteoarthritis -COVID-19, being ruled out Disposition: Home Patient Condition at Discharge: Stable Plan - Discharge Summary Discharge Rx Participant: No New Discharge Prescriptions: New predniSONE 10 mg PO DAILY #30 tab Levofloxacin [Levaquin] 500 mg PO DAILY #9 tab Ipratropium-Albuterol Nebulize [Duoneb 0.5 mg-3 mg/3 ml Soln] 3 ml INHALATION TID #90 ml Furosemide [Lasix] 40 mg PO DAILY #30 tablet Rivaroxaban [Xarelto Starter Pack] 0 mg PO DIRECTED 30 Days #1 pack Continue Atorvastatin [Lipitor] 80 mg PO HS Metoprolol Tartrate [Lopressor] 25 mg PO BID #60 tab predniSONE 10 mg PO DAILY PRN PRN Reason: KATRINA ALPRAZolam [Xanax] 0.25 mg PO BID Foracort 200 2 puff INHALATION RT-BID Pantoprazole Sodium [Protonix] 40 mg PO BID oxyCODONE HCL/ACETAMINOPHEN [Percocet 10-325 mg] 1 tab PO Q6HR PRN PRN Reason: Pain Discontinued Tiotropium Benson [Spiriva] 1 cap INHALATION RT-DAILY Discharge Medication List Atorvastatin [Lipitor] 80 mg PO HS 01/27/18 [History] Metoprolol Tartrate [Lopressor] 25 mg PO BID #60 tab 06/14/18 [Rx] ALPRAZolam [Xanax] 0.25 mg PO BID 10/05/19 [History] Foracort 200 2 puff INHALATION RT-BID 10/05/19 [History] Levofloxacin [Levaquin] 500 mg PO DAILY #9 tab 10/05/19 [Rx] Pantoprazole Sodium [Protonix] 40 mg PO BID 10/05/19 [History] oxyCODONE HCL/ACETAMINOPHEN [Percocet 10-325 mg] 1 tab PO Q6HR PRN 10/05/19 [History] predniSONE 10 mg PO DAILY #30 tab 10/05/19 [Rx] predniSONE 10 mg PO DAILY PRN 10/05/19 [History] Furosemide [Lasix] 40 mg PO DAILY #30 tablet 10/07/19 [Rx] Ipratropium-Albuterol Nebulize [Duoneb 0.5 mg-3 mg/3 ml Soln] 3 ml INHALATION TID #90 ml 10/07/19 [Rx] Rivaroxaban [Xarelto Starter Pack] 0 mg PO DIRECTED 30 Days #1 pack 10/07/19 [Rx] Follow up Appointment(s)/Referral(s): Ant Monroy MD [STAFF PHYSICIAN] - 1 Week Romario Oseguera MD [Primary Care Provider] - 3 Days Beatriz Dhillon MD [STAFF PHYSICIAN] - 1 Week Patient Instructions/Handouts: Pulmonary Embolism (ED), Lung Cancer (DC), Pleural Effusion (ED) Activity/Diet/Wound Care/Special Instructions: Please follow-up tomorrow with Dr. Dhillon as well as Dr. Oseguera and Dr. Monroy. Return for any increase in difficulty breathing, fevers, worsening symptoms or other concerns. CBC/BMP-3 days Discharge Disposition: HOME SELF-CARE
--- NOTE | 2019-11-17 12:19 | CDI ---
Documentation Clarification Form Date: 11/17/2019 12:08:24 PM From: Dania LambCAROLYNN epperson, CCDS Admit Date: 10/05/2019 02:49:00 PM Patient Name: Mario Edouard Visit Number: [id number] Discharge Date: 10/07/2019 04:40:00 PM ATTENTION: The Clinical Documentation Specialists (CDI) and [facility] Coding Staff appreciate your assistance in clarifying documentation. Please respond to the clarification below the line at the bottom and electronically sign. The CDI & [facility] Coding staff will review the response and follow-up if needed. Please note: Queries are made part of the Legal Health Record. If you have any questions, please contact the author of this message via ITS. Dr. Mack Watkins: Per the Discharge Summary on 10/07/2019: "COVID-19, being ruled out." Patient history/risk factors: COPD, Former smoker, Hypertension, Hyperlipidemia. Clinical Indicators: Admitted on 10/04 with a large left PE & worsening right side pleural effusion felt to be malignant, Has Stage IV lung CA. Also diagnosed with acute exacerbation of diastolic CHF & possible gram negative pneumonia. Patient was treated 2 weeks ago in a [facility] for pneumonia & has been on antibiotics. Also COPD exacerbation. VS: T 97.9, P 88, R 20 (sob), BP 94/58, PO 100 3Lnc LAB: COVID-19 test done on 10/04, received scanned results on 09/2019: NEGATIVE RAD: CXR 10/04: Worsening left side volume loss with new left upper to mid-lung edema and/or infiltrates. CT chest: Large left main pulmonary artery embolus. Labs: Hgb 10.1, Neut 8.7, D Dimer 2.11, Lactic Acid (0.9). Treatment 10/04: INH Albuterol, O2 3Lnc, IV Heparin, IV Levaquin. 10/05: IV Lasix, po Levaquin. Consults: Oncology, Pulmonary, GI, Infectious Disease In order to capture the severity of condition, please clarify if the above treatment/clinical indicators signify: COVID-19 Suspected COVID-19 ruled out Other, please specify Unable to determine (Last Form Revision: September 2019) COVID-19 ruled out MTDD
== END 2019-10-07 16:40 | disposition home or self-care (01) | DRG 175 ==
LOC: EC 09:50 → 3SCARD 14:49
PROVIDERS: ADMIT Hospitalist; ATTEND Hospitalist
DX: I26.99 Other pulmonary embolism without acute cor pulmonale (principal); J15.6 Pneumonia due to other Gram-negative bacteria; I50.33 Acute on chronic diastolic (congestive) heart failure; J96.21 Acute and chronic respiratory failure with hypoxia; J44.0 Chronic obstructive pulmonary disease with (acute) lower respiratory infection; J44.1 Chronic obstructive pulmonary disease with (acute) exacerbation; J98.11 Atelectasis; J91.0 Malignant pleural effusion; J98.19 Other pulmonary collapse; R64 Cachexia; C78.01 Secondary malignant neoplasm of right lung; C34.32 Malignant neoplasm of lower lobe, left bronchus or lung; C79.31 Secondary malignant neoplasm of brain; I26.93 Single subsegmental thrombotic pulmonary embolism without acute cor pulmonale; J98.09 Other diseases of bronchus, not elsewhere classified; I11.0 Hypertensive heart disease with heart failure; J84.10 Pulmonary fibrosis, unspecified; Z20.828 Contact with and (suspected) exposure to other viral communicable diseases; Z66 Do not resuscitate; E78.5 Hyperlipidemia, unspecified; F40.240 Claustrophobia; I25.10 Atherosclerotic heart disease of native coronary artery without angina pectoris; K42.9 Umbilical hernia without obstruction or gangrene; M19.91 Primary osteoarthritis, unspecified site; I25.2 Old myocardial infarction; N42.9 Disorder of prostate, unspecified; Z79.899 Other long term (current) drug therapy; Z79.01 Long term (current) use of anticoagulants; Z79.52 Long term (current) use of systemic steroids; Z92.21 Personal history of antineoplastic chemotherapy; Z92.3 Personal history of irradiation; Z99.81 Dependence on supplemental oxygen; Z87.891 Personal history of nicotine dependence; Z87.01 Personal history of pneumonia (recurrent); Z85.46 Personal history of malignant neoplasm of prostate; Z96.642 Presence of left artificial hip joint; Z98.42 Cataract extraction status, left eye; Z98.41 Cataract extraction status, right eye; Z96.1 Presence of intraocular lens; Z80.3 Family history of malignant neoplasm of breast; Z80.6 Family history of leukemia
CPT/HCPCS: 36415; 71045; 71046; 71275; 80053; 82607; 82728; 82746; 83540; 83550; 83605; 83880; 84145; 84484; 85025; 85379; 85610; 85730; 86140; 87040; 87070; 87077; 87186; 87205; 87502; 93005; 93306; 93970; 94640; 94760; 96365; 99291